=== PATIENT | female | born 1980 | race American Indian/Alaskan Native ===

== ENCOUNTER 2021-02-10 05:13 | Inpatient (IN) | payer OTHER, SELFPAY ==
[2021-02-10] MEDS ORDERED: ASPIRIN 325 MG TAB PO ONE (05:50)
[2021-02-10 06:20] LABS: Basophils % (Auto) 0.4 % (0.0-1.8); Hematocrit 33.1 % (30.3-42.9); Hemoglobin 10.8 gm/dl (10.1-14.3); Lymphocytes # (Auto) 1.1 K/mm3 (1.2-5.4); Mean Corpuscular HGB Conc 33 % (30-34); Mean Corpuscular Volume 71 fl (79-97); Monocytes # (Auto) 0.3 K/mm3 (0.0-0.8); Platelet Count 296 K/mm3 (140-440); Red Blood Count 4.65 M/mm3 (3.65-5.03); Red Cell Distribution Width 16.5 % (13.2-15.2)
[2021-02-10] MEDS ORDERED: SODIUM CHLORIDE 0.9% 1000 ML 1,000 ML IV ONE (06:27)
[2021-02-10] MEDS ORDERED: dexAMETHasone 4 MG/ML VIAL IV ONE (06:31)
--- NOTE | 2021-02-10 06:31 | Emergency Department Report ---
HPI - General Chief Complaint: Chest Pain Time Seen by Provider: 02/10/21 06:03 - HPI HPI: This patient is a 40-year-old -L[place] female who presents to the emergency department from home with complaint of a 1 week history of generalized body aches, chills, and progressively worsening shortness of breath. Over the past 2 days the patient says that she has developed a fever. She also has an intermittent mixed dry and productive cough. The shortness of breath worsens when she is laying down flat and she then feels like she is choking on sec retions. She took ibuprofen and Tylenol this morning around 1:40 AM without much relief. The patient is not vaccinated against COVID-19. No known exposure to anyone with COVID-19. No recent travel or sick contacts at home. She has a past medical history of diabetes. Patient was found to have a room air oxygen saturation of 78% in triage and was placed on 4 L oxygen via nasal cannula and went up to 90%. ED Past Medical Hx - Past Medical History Previous Medical History?: Yes Hx Diabetes: Yes Additional medical history: Right Knee Construction with pins and Screws uses a cane - Surgical History Past Surgical History?: Yes Additional Surgical History: Right Knee Construction with pins and screws ED Review of Systems ROS: Stated complaint: SOB CHEST PAIN Other details as noted in HPI Comment: All other systems reviewed and negative Constitutional: chills, fever Eyes: denies: eye pain, vision change ENT: denies: ear pain, throat pain Respiratory: cough, shortness of breath Cardiovascular: chest pain. denies: edema Gastrointestinal: denies: abdominal pain, vomiting Genitourinary: denies: dysuria, discharge Musculoskeletal: arthralgia, myalgia Skin: denies: rash, lesions Neurological: denies: numbness, paresthesias Physical Exam - Physical Exam Vital Signs: Vital Signs 02/10/21 02/10/21 05:26 06:15 Temperature 99.5 F Pulse Rate 121 H 113 H Respiratory 20 40 H Rate Blood Pressure 170/101 156/99 [Right] O2 Sat by Pulse 78 L 93 Oximetry Physical Exam: GENERAL: The patient is ill-appearing. HENT: Normocephalic. Atraumatic. Patient has moist mucous membranes. EYES: Extraocular motions are intact. NECK: Supple. Trachea is midline. CHEST/LUNGS: Mild rhonchi heard. There is tachypnea, accessory muscle use, and conversational dyspnea. HEART/CARDIOVASCULAR: Regular. There is mild to moderate tachycardia. There is no murmur. ABDOMEN: Abdomen is soft, nontender. Patient has normal bowel sounds. Morbidly obese habitus. SKIN: Skin is warm and dry. NEURO: The patient is awake, alert, and oriented. The patient is cooperative. The patient has no focal neurologic deficits. Normal speech. MUSCULOSKELETAL: There is no tenderness or deformity. There is no limitation range of motion. ED Course Vital Signs 02/10/21 02/10/21 05:26 06:15 Temperature 99.5 F Pulse Rate 121 H 113 H Respiratory 20 40 H Rate Blood Pressure 170/101 156/99 [Right] O2 Sat by Pulse 78 L 93 Oximetry - Pulse Oximetry Interpretation Digit-Finger Initial Pulse Oximetry Readin O2 Sat by Pulse Oximetry: 78 Actions Taken: increased FIO2 to (Patient placed on 5 L via nasal cannula and then on high flow oxygen) ED Medical Decision Making - Lab Data Result diagrams: 02/10/21 06:00 02/10/21 06:00 Lab Results 02/10/21 02/10/21 02/10/21 Range/Units 06:00 06:00 06:36 WBC 6.4 (4.5-11.0) K/mm3 RBC 4.65 (3.65-5.03) M/mm3 Hgb 10.8 (10.1-14.3) gm/dl Hct 33.1 (30.3-42.9) % MCV 71 L (79-97) fl MCH 23 L (28-32) pg MCHC 33 (30-34) % RDW 16.5 H (13.2-15.2) % Plt Count 296 (140-440) K/mm3 Lymph % (Auto) 18.0 (13.4-35.0) % [place] % (Auto) 5.0 (0.0-7.3) % Eos % (Auto) 0.0 (0.0-4.3) % Baso % (Auto) 0.4 (0.0-1.8) % Lymph # (Auto) 1.1 L (1.2-5.4) K/mm3 [place] # (Auto) 0.3 (0.0-0.8) K/mm3 Eos # (Auto) 0.0 (0.0-0.4) K/mm3 Baso # (Auto) 0.0 (0.0-0.1) K/mm3 Seg Neutrophils % 76.6 H (40.0-70.0) % Seg Neutrophils # 4.9 (1.8-7.7) K/mm3 D-Dimer < 135.00 (0-234) ng/mlDDU Sodium 137 (137-145) mmol/L Potassium 4.0 (3.6-5.0) mmol/L Chloride 97.7 L (98-107) mmol/L Carbon Dioxide 27 (22-30) mmol/L Anion Gap 16 mmol/L BUN 6 L (7-17) mg/dL Creatinine 0.9 (0.6-1.2) mg/dL Estimated GFR > 60 ml/min BUN/Creatinine Ratio 7 % Glucose 295 H (65-100) mg/dL Calcium 8.9 (8.4-10.2) mg/dL Ferritin (10.0-200.0) ng/mL Total Bilirubin 0.20 (0.1-1.2) mg/dL AST 37 (5-40) units/L ALT 21 (7-56) units/L Alkaline Phosphatase 89 (35-129) units/L Lactate Dehydrogenase (91-180) units/L Troponin T < 0.010 (0.00-0.029) ng/mL C-Reactive Protein (0.00-1.30) mg/dL Total Protein 7.4 (6.3-8.2) g/dL Albumin 3.8 L (3.9-5) g/dL Albumin/Globulin Ratio 1.1 % Procalcitonin (<0.15) ng/mL HCG, Qual (Negative) 02/10/21 02/10/21 02/10/21 Range/Units 06:36 06:36 06:36 WBC (4.5-11.0) K/mm3 RBC (3.65-5.03) M/mm3 Hgb (10.1-14.3) gm/dl Hct (30.3-42.9) % MCV (79-97) fl MCH (28-32) pg MCHC (30-34) % RDW (13.2-15.2) % Plt Count (140-440) K/mm3 Lymph % (Auto) (13.4-35.0) % [place] % (Auto) (0.0-7.3) % Eos % (Auto) (0.0-4.3) % Baso % (Auto) (0.0-1.8) % Lymph # (Auto) (1.2-5.4) K/mm3 [place] # (Auto) (0.0-0.8) K/mm3 Eos # (Auto) (0.0-0.4) K/mm3 Baso # (Auto) (0.0-0.1) K/mm3 Seg Neutrophils % (40.0-70.0) % Seg Neutrophils # (1.8-7.7) K/mm3 D-Dimer (0-234) ng/mlDDU Sodium (137-145) mmol/L Potassium (3.6-5.0) mmol/L Chloride (98-107) mmol/L Carbon Dioxide (22-30) mmol/L Anion Gap mmol/L BUN (7-17) mg/dL Creatinine (0.6-1.2) mg/dL Estimated GFR ml/min BUN/Creatinine Ratio % Glucose (65-100) mg/dL Calcium (8.4-10.2) mg/dL Ferritin 100.0 (10.0-200.0) ng/mL Total Bilirubin (0.1-1.2) mg/dL AST (5-40) units/L ALT (7-56) units/L Alkaline Phosphatase (35-129) units/L Lactate Dehydrogenase 325 H (91-180) units/L Troponin T (0.00-0.029) ng/mL C-Reactive Protein 8.20 H (0.00-1.30) mg/dL Total Protein (6.3-8.2) g/dL Albumin (3.9-5) g/dL Albumin/Globulin Ratio % Procalcitonin 0.06 (<0.15) ng/mL HCG, Qual (Negative) 02/10/21 Range/Units 06:36 WBC (4.5-11.0) K/mm3 RBC (3.65-5.03) M/mm3 Hgb (10.1-14.3) gm/dl Hct (30.3-42.9) % MCV (79-97) fl MCH (28-32) pg MCHC (30-34) % RDW (13.2-15.2) % Plt Count (140-440) K/mm3 Lymph % (Auto) (13.4-35.0) % [place] % (Auto) (0.0-7.3) % Eos % (Auto) (0.0-4.3) % Baso % (Auto) (0.0-1.8) % Lymph # (Auto) (1.2-5.4) K/mm3 [place] # (Auto) (0.0-0.8) K/mm3 Eos # (Auto) (0.0-0.4) K/mm3 Baso # (Auto) (0.0-0.1) K/mm3 Seg Neutrophils % (40.0-70.0) % Seg Neutrophils # (1.8-7.7) K/mm3 D-Dimer (0-234) ng/mlDDU Sodium (137-145) mmol/L Potassium (3.6-5.0) mmol/L Chloride (98-107) mmol/L Carbon Dioxide (22-30) mmol/L Anion Gap mmol/L BUN (7-17) mg/dL Creatinine (0.6-1.2) mg/dL Estimated GFR ml/min BUN/Creatinine Ratio % Glucose (65-100) mg/dL Calcium (8.4-10.2) mg/dL Ferritin (10.0-200.0) ng/mL Total Bilirubin (0.1-1.2) mg/dL AST (5-40) units/L ALT (7-56) units/L Alkaline Phosphatase (35-129) units/L Lactate Dehydrogenase (91-180) units/L Troponin T (0.00-0.029) ng/mL C-Reactive Protein (0.00-1.30) mg/dL Total Protein (6.3-8.2) g/dL Albumin (3.9-5) g/dL Albumin/Globulin Ratio % Procalcitonin (<0.15) ng/mL HCG, Qual Negative (Negative) - EKG Data -: EKG Interpreted by [place] EKG shows normal: sinus rhythm, axis, intervals, QRS complexes, ST-T waves Rate: tachycardia (119 bpm) - EKG Data When compared to previous EKG there are: previous EKG unavailable Interpretation: normal EKG (Except for tachycardia 119 BPM) - Radiology Data Radiology results: image reviewed interpreted by me: Chest x-ray shows bilateral patchy infiltrates concerning for pneumonia. No widened mediastinum. No pneumothorax. - Medical Decision Making This patient presents with URI type symptoms including gradually worsening shortness of breath. She was found to have a room air pulse ox of 78%. Initially she was placed on oxygen via nasal cannula at 5 L but still had some hypoxia and increased work of breathing. The patient was placed on high flow oxygen and goes up to about 95%. Chest x-ray shows bilateral patchy infiltrates concerning for pneumonia. With the hypoxia, chest x-ray findings, and the fact the patient is unvaccinated against COVID-19, there is high suspicion for a Covid infection. She has been placed in droplet precautions and patient isolation. Labs have been mostly unremarkable except for elevated inflammatory markers CRP and LDH. Patient was given Decadron, IV fluid and IV antibiotics. She will be admitted to the hospital and was accepted by Dr. Kenny. The patient was placed in patient isolation and droplet precautions immediately upon arrival to the main emergency department. I wore full PPE gear including a surgical hat, goggles, N95 mask, surgical mask, gown, and double gloves for every encounter. Critical Care Time: Yes Critical care time in (mins) excluding proc time.: 35 Critical care attestation.: If time is entered above; I have spent that time in minutes in the direct care of this critically ill patient, excluding procedure time. Critical care time was spent on this patient during her initial evaluation, multiple reevaluations, ordering and interpretation of labs and imaging IV Decadron, supplemental ox ygen for her hypoxia, IV antibiotics, multiple discussions with the patient. Critical Care Time: 35 minutes ED Disposition Clinical Impression: Hypoxia, Suspected 2019 novel coronavirus infection Hypertension Qualifiers: Hypertension type: primary hypertension Qualified Code(s): I10 - Essential (primary) hypertension Disposition: OP ADMIT IP TO THIS HOSP Is pt being admited?: Yes Condition: Serious Time of Disposition: 07:32 HEART Score - HEART Score History: Slightly suspicious EKG: Normal Age: < 45 Risk factors: No known risk factors Troponin: < normal limit HEART Score: 0 - Critical Actions Critical Actions: 0-3 pts:0.9-1.7%risk of adverse cardiac event.Candidate for discharge
--- NOTE | 2021-02-10 06:41 | XRay Report ---
CHEST 1 VIEW INDICATION: Chest pain and SOB. COMPARISON: None FINDINGS: SUPPORT DEVICES: None. HEART: Within normal limits. LUNGS/PLEURA: Mild patchy multifocal airspace disease. ADDITIONAL FINDINGS: None. IMPRESSION: 1. No acute findings. Signer Name: Tarun Fallon MD Signed: 02/10/2021 6:37 AM Workstation Name: [id number]
[2021-02-10 06:47] LABS: Alanine Aminotransferase 21 units/L (7-56); Albumin 3.8 g/dL (3.9-5); BUN/Creatinine Ratio 7; Blood Urea Nitrogen 6 mg/dL (7-17); Calcium 8.9 mg/dL (8.4-10.2); Hemolysis Index 0
[2021-02-10 07:17] LABS: C-Reactive Protein 8.2 mg/dL (0.00-1.30)
[2021-02-10] MEDS ORDERED: cefTRIAXone/NS 1 GM/50 ML 1 GM/50 ML BAG IV ONE (07:33)
[2021-02-10] MEDS ORDERED: AZITHROMYCIN/NS 500 MG/250 ML 500 MG/250 ML BAG IV ONE (07:33)
--- NOTE | 2021-02-10 13:41 | History and Physical Report ---
History of Present Illness Date of examination: 02/10/21 Date of admission: 02/10/21 07:32 Chief complaint: Worsening shortness of breath and chest pain History of present illness: 40-year-old morbidly obese -[place] female patient presents to the emergency department from home with complaint of a 1 week history of generalized body aches, chills, and progressively worsening shortness of breath. Over the past 2 days the patient says that she has developed a fever. She also has an intermittent mixed dry and productive cough. The shortness of breath worsens when she is laying down flat and she then feels like she is choking on secretions. She took ibuprofen and Tylenol this morning around 1:40 AM without much relief. Patient denies any exposure to Covid 19 persons . No recent travel or sick contacts at home. She has a past medical history of diabetes. Initial examination patient was severely hypoxemic with room air O2 sats of 78%, mild improvement on 4 L of nasal cannula oxygen Patient was initially supposed to admit for PUI However [facility] PCR test came back positive for COVID-19 infection Patient is severely hypoxemic requiring high flow oxygen with 20 L/100% FiO2 89 to 90%O2 sats Patient is anxious, Patient is not vaccinated against COVID-19. Past History Past Medical History: diabetes. denies: hypertension Past Surgical History: Other (Right knee surgery) Social history: denies: smoking, alcohol abuse, prescription drug abuse Family history: no significant family history Medications and Allergies Allergies Allergy/AdvReac Type Severity Reaction Status Date / Time No Known Allergies Allergy Verified 02/10/21 06:05 Exam - Constitutional Vitals: Temp Pulse Resp BP Pulse Ox 99.4 F 109 H 29 H 167/106 93 02/10/21 08:25 02/10/21 13:01 02/10/21 13:01 02/10/21 13:01 02/10/21 13:01 General appearance: Present: severe distress, well-nourished, obese (Morbidly obese) - EENT Eyes: Present: PERRL, EOM intact - Neck Neck: Present: supple, normal ROM - Respiratory Respiratory effort: normal Respiratory: bilateral: diminished, rhonchi, negative: rales, wheezing - Cardiovascular Rhythm: regular Heart Sounds: Present: S1 & S2 (Tachycardia) - Extremities Extremities: no ischemia, No edema - Abdominal General gastrointestinal: Present: soft, non-tender, non-distended, normal bowel sounds - Integumentary Integumentary: Present: clear, warm - Musculoskeletal Musculoskeletal: strength equal bilaterally - Psychiatric Psychiatric: cooperative, other (Anxious) - Neurologic Neurologic: moves all extremities HEART Score - HEART Score EKG: Normal Age: < 45 Risk factors: No known risk factors Troponin: Troponin T < 0.010 ng/mL (0.00-0.029) 02/10/21 09:09 Troponin: < normal limit - Critical Actions Critical Actions: 0-3 pts:0.9-1.7%risk of adverse cardiac event.Candidate for discharge Results - Labs CBC & Chem 7: 02/10/21 06:00 02/10/21 06:00 Labs: Abnormal lab results 02/10/21 02/10/21 02/10/21 Range/Units 06:00 06:00 06:36 MCV 71 L (79-97) fl MCH 23 L (28-32) pg RDW 16.5 H (13.2-15.2) % Lymph # (Auto) 1.1 L (1.2-5.4) K/mm3 Seg Neutrophils % 76.6 H (40.0-70.0) % Chloride 97.7 L (98-107) mmol/L BUN 6 L (7-17) mg/dL Glucose 295 H (65-100) mg/dL Lactate Dehydrogenase 325 H (91-180) units/L C-Reactive Protein 8.20 H (0.00-1.30) mg/dL Albumin 3.8 L (3.9-5) g/dL Coronavirus (PCR) (Negative) 02/10/21 Range/Units 08:28 MCV (79-97) fl MCH (28-32) pg RDW (13.2-15.2) % Lymph # (Auto) (1.2-5.4) K/mm3 Seg Neutrophils % (40.0-70.0) % Chloride (98-107) mmol/L BUN (7-17) mg/dL Glucose (65-100) mg/dL Lactate Dehydrogenase (91-180) units/L C-Reactive Protein (0.00-1.30) mg/dL Albumin (3.9-5) g/dL Coronavirus (PCR) Positive A (Negative) Assessment and Plan Patient is not vaccinated; --COVID-19 infection; Patient was not vaccinated Oxygen titrate O2 sats to more than 90% Patient is on high flow oxygen with 100% nonrebreather IV dexamethasone 6 mg total 10 doses Initiated remdesivir per protocol Prone positioning as tolerated Home O2 evaluation Inflammatory markers Anticoagulation per protocols ID consult Pulmonary consult --Acute severe hypoxic respiratory failure; On high flow oxygen, 100% nonrebreather, BiPAP as needed Intubate if no improvement Discussed with pulmonary critical Hospital IMCU/ICU admission --Morbid obesity; BMI 46.6 Patient needs weight reduction when medically stable Sleep study to rule out obstructive sleep apnea --Obesity hypoventilation syndrome; Pulmonary consult, titrate O2 sats to more than 90% Supportive care --DVT prophylaxis; Lovenox --GI prophylaxis; Protonix We will closely monitor patient and adjust the management as needed Plan of care reviewed with the patient and her nurse I spent total 60 minutes coordinating this admission Critical care time 60 minutes
[2021-02-10] MEDS ORDERED: hydrALAZINE 20 MG/1 ML INJ IV PRN (13:57)
[2021-02-10 14:04] LABS: Bacteria,Urine 1+ /HPF (Negative); Bilirubin,Urine NEG (Negative); Blood,Urine SM (Negative); Color,Urine Yellow (Yellow); Urobilinogen,Urine < 2.0 mg/dL (<2.0)
[2021-02-10] MEDS ORDERED: REMDESIVIR 200 MG in SODIUM CHLORIDE 0.9% 250ML 250 ML IV ONE (15:00)
[2021-02-10] MEDS: dexAMETHasone 4 MG/ML VIAL IV SCH (15:09)
[2021-02-10] MEDS: SODIUM CHLORIDE 0.9% 50 ML IVPB IV SCH (15:28)
--- NOTE | 2021-02-10 15:35 | Consultation ---
History of Present Illness - Reason for Consult Consult date: 02/10/21 - History of Present Illness 40-year-old female past medical history morbid obesity, diabetes presented to hospital complaining of shortness of breath. This began approximately 1 week prior to admission and was progressive since onset. She also complains of associated myalgias, chills and subjective fevers. She was not vaccinated needs COVID-19. Afebrile with a normal white count. Covid positive. Renal function normal. Procalcitonin normal. Elevated inflammatory markers. Blood cultures no growth so far. Currently on dexamethasone, azithromycin, remdesivir. currently on high flow nasal cannula Imaging personally reviewed: Chest x-ray: Mild patchy multifocal airspace disease Review of systems: Deferred to reduce to the risk of transmission of COVID-19 Past History Past Medical History: diabetes. denies: hypertension Past Surgical History: Other (Right knee surgery) Social history: denies: smoking, alcohol abuse, prescription drug abuse Family history: no significant family history Medications and Allergies Allergies Allergy/AdvReac Type Severity Reaction Status Date / Time No Known Allergies Allergy Verified 02/10/21 06:05 Active Meds: Active Medications Ascorbic Acid (Ascorbic Acid 500 Mg Tab) 500 mg PO BID SALUD Dexamethasone (Dexamethasone 4 Mg/Ml Vial) 6 mg IV DAILY [facility] Stop: 02/19/21 10:01 Last Admin: 02/10/21 15:09 Dose: 6 mg Documented by: Hydralazine HCl (Hydralazine 20 Mg/1 Ml Inj) 10 mg IV Q4HR PRN PRN Reason: Hypertension Hydromorphone HCl (Hydromorphone 1 Mg/1 Ml Inj) 0.5 mg IM Q4H PRN PRN Reason: Pain , Severe (7-10) REMDESIVIR 100 mg/ Sodium (Chloride) 250 mls @ 500 mls/hr IV Q24HR@2100 SALUD Stop: 02/14/21 21:29 Azithromycin (Zithromax/Ns) 500 mg in 250 mls @ 250 mls/hr IV Q24H SALUD Insulin Human Lispro (Insulin Lispro 100 Unit/Ml) 0 unit SUB-Q ACHS SALUD; Protocol Sodium Chloride (Sodium Chloride 0.9% 50 Ml Ivpb) 50 ml IV Q24HR@2100 SALUD Stop: 02/14/21 21:01 Last Admin: 02/10/21 15:28 Dose: 50 ml Documented by: Zinc Sulfate (Zinc Sulfate 220 Mg Cap) 220 mg PO BID SALUD Physical Examination - Physical Exam Narrative exam: Physical exam deferred to reduce risk of transmission of COVID-19. Please refer to primary team's note. - Constitutional Vitals: Vital Signs Temp Pulse Resp BP Pulse Ox 99.4 F 110 H 16 151/93 94 02/10/21 08:25 02/10/21 15:01 02/10/21 15:01 02/10/21 15:01 02/10/21 14:31 Temperature -Last 24 Hours Temperature 99.4 F Temperature 99.5 F Results - Labs CBC & Chem 7: 02/10/21 06:00 02/10/21 06:00 Labs: Abnormal lab results 02/10/21 02/10/21 02/10/21 Range/Units 06:00 06:00 06:36 MCV 71 L (79-97) fl MCH 23 L (28-32) pg RDW 16.5 H (13.2-15.2) % Lymph # (Auto) 1.1 L (1.2-5.4) K/mm3 Seg Neutrophils % 76.6 H (40.0-70.0) % POC ABG pO2 (83-108) mmHg ABG Hemoglobin (12.0-17.5) ABG Oxyhemoglobin (94-98) ABG Glucose (65-95) mg/dL Carboxyhemoglobin (0.5-1.5) Chloride 97.7 L (98-107) mmol/L BUN 6 L (7-17) mg/dL Glucose 295 H (65-100) mg/dL Lactate Dehydrogenase 325 H (91-180) units/L C-Reactive Protein 8.20 H (0.00-1.30) mg/dL Albumin 3.8 L (3.9-5) g/dL Arterial Blood Glucose (65-95) mg/dL Coronavirus (PCR) (Negative) 02/10/21 02/10/21 Range/Units 08:28 14:37 MCV (79-97) fl MCH (28-32) pg RDW (13.2-15.2) % Lymph # (Auto) (1.2-5.4) K/mm3 Seg Neutrophils % (40.0-70.0) % POC ABG pO2 58.8 L (83-108) mmHg ABG Hemoglobin 11.2 L (12.0-17.5) ABG Oxyhemoglobin 88.2 L (94-98) ABG Glucose 343 H (65-95) mg/dL Carboxyhemoglobin 0 L (0.5-1.5) Chloride (98-107) mmol/L BUN (7-17) mg/dL Glucose (65-100) mg/dL Lactate Dehydrogenase (91-180) units/L C-Reactive Protein (0.00-1.30) mg/dL Albumin (3.9-5) g/dL Arterial Blood Glucose 343 H (65-95) mg/dL Coronavirus (PCR) Positive A (Negative) Assessment and Plan Cultures: Blood culture no growth so far Covid positive A/P: 32-year-old female past medical history morbid obesity, diabetes and Covid pneumonia #Severe COVID-19 pneumonia: Patient presented with a week of symptoms, chest x- ray with diffuse bilateral infiltrates. Inflammatory markers elevated #Acute hypoxemic respiratory failure: Likely secondary to COVID-19 infection. Currently on high flow nasal cannula #Morbid obesity #Diabetes: tight glycemic control for best outcomes. Recs: -Dexamethasone 6 mg IV/PO daily for 10 days -Remdesivir 200 mg IV q day x 1 followed by 100 mg IV q day x 4 days -Obtain q48-72h inflammatory markers - ferritin, Ddimer, CRP, LDH -Stopped azithromycin -If requiring 30 L/min-nasal cannula, recommend Actemra -Anticoagulation per hospital protocol -Proning as able Thank you for the consult, we will continue to follow. MD Lukasz [facility] ([facility] O: [phone] F: [phone]
[2021-02-10 15:49] LABS: Alanine Aminotransferase 18 units/L (7-56); Albumin 3.4 g/dL (3.9-5); BUN/Creatinine Ratio 8; Blood Urea Nitrogen 6 mg/dL (7-17); Calcium 8.8 mg/dL (8.4-10.2); Hemolysis Index 1
[2021-02-10] MEDS: INSULIN LISPRO 100 UNIT/ML SUB-Q SCH ×2 (17:14→21:54)
--- NOTE | 2021-02-10 20:07 | Consultation ---
History of Present Illness Consult date: 02/10/21 Reason for consult: dyspnea, cough, chest pain, hypoxemia, pneumonia History of present illness: This patient is a 40-year-old -Citizen Of [place] female who presents to the emergency department from home with complaint of a 1 week history of generalized body aches, chills, and progressively worsening shortness of breath. Over the past 2 days the patient says that she has developed a fever. She also has an intermittent mixed dry and productive cough. The shortness of breath worsens when she is laying down flat and she then feels like she is choking on secretions. She took ibuprofen and Tylenol this morning around 1:40 AM without much relief. The patient is not vaccinated against COVID-19. No known exposure to anyone with COVID-19. No recent travel or sick contacts at home. She has a past medical history of diabetes. Patient was found to have a room air oxygen saturation of 78% in triage and was placed on 4 L oxygen via nasal cannula and went up to 90%. Patient has no history of smoking, alcohol or drug abuse. 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 No Known drug allergies. Patient presently awake. Patient is on Vapotherm ,100% FIO2 and O2 saturation running 92%. Patient having slight increase in work of breathing. Patient running low grade temp. No Leukocytosis. Chest xray done 02/10/21 reported Mild patchy multifocal airspace disease. Patient is on dexamethasone, REMDESIVIR, S/C Lovenox and azithromycin. Past History Past Medical History: diabetes. denies: hypertension Past Surgical History: Other (Right knee surgery) Social history: denies: smoking, alcohol abuse, prescription drug abuse Family history: no significant family history Medications and Allergies Allergies Allergy/AdvReac Type Severity Reaction Status Date / Time No Known Allergies Allergy Verified 02/10/21 06:05 Home Medications Medication Instructions Recorded Confirmed Last Taken Type Aspirin [Adult Aspirin] 81 mg PO DAILY 02/10/21 02/10/21 Unknown History metFORMIN 100 mg PO BID 02/10/21 02/10/21 Unknown History Active Meds: Active Medications Ascorbic Acid (Ascorbic Acid 500 Mg Tab) 500 mg PO BID [facility] Dexamethasone (Dexamethasone 4 Mg/Ml Vial) 6 mg IV DAILY SALUD Stop: 02/19/21 10:01 Last Admin: 02/10/21 15:09 Dose: 6 mg Documented by: Hydralazine HCl (Hydralazine 20 Mg/1 Ml Inj) 10 mg IV Q4HR PRN PRN Reason: Hypertension Hydromorphone HCl (Hydromorphone 1 Mg/1 Ml Inj) 0.5 mg IM Q4H PRN PRN Reason: Pain , Severe (7-10) REMDESIVIR 100 mg/ Sodium (Chloride) 250 mls @ 500 mls/hr IV Q24HR@2100 SALUD Stop: 02/14/21 21:29 Azithromycin (Zithromax/Ns) 500 mg in 250 mls @ 250 mls/hr IV Q24H SALUD Insulin Human Lispro (Insulin Lispro 100 Unit/Ml) 0 unit SUB-Q ACHS SALUD; Protocol Last Admin: 02/10/21 17:14 Dose: 4 unit Documented by: Sodium Chloride (Sodium Chloride 0.9% 50 Ml Ivpb) 50 ml IV Q24HR@2100 SALUD Stop: 02/14/21 21:01 Last Admin: 02/10/21 15:28 Dose: 50 ml Documented by: Zinc Sulfate (Zinc Sulfate 220 Mg Cap) 220 mg PO BID [facility] Review of Systems All systems: negative Physical Examination Vital signs: Vital Signs Temp Pulse Resp BP Pulse Ox 99.5 F 121 H 20 170/101 78 L 02/10/21 05:26 02/10/21 05:26 02/10/21 05:26 02/10/21 05:26 02/10/21 05:26 General appearance: alert, appears uncomfortable, other (Morbidly Obese and has mild increased of breathing.) Eyes: non-icteric ENT: oropharynx moist Neck: supple, no JVD Effort: mildly labored Ascultation: Bilateral: diminished breath sounds, rhonchi Cardiovascular: regular rate and rhythm Gastrointestinal: normoactive bowel sounds, soft, non-tender Integumentary: normal Extremities: no cyanosis, no edema Musculoskeletal: no deformities Gait: other (Resting in bed at this time.) normal mental status, non-focal exam, pupils equal and round, CN II-XII normal anxious Results - Laboratory Findings CBC and BMP: 02/10/21 06:00 02/11/21 09:59 ABG ABG pH 7.352 (7.320-7.450) 02/10/21 14:37 POC ABG pCO2 43.3 mmHg (32.0-48.0) 02/10/21 14:37 POC ABG pO2 58.8 mmHg (83-108) L 02/10/21 14:37 POC ABG HCO3 23.5 02/10/21 14:37 ABG O2 Saturation 88.5 (0-100) 02/10/21 14:37 PT/INR, D-dimer D-Dimer < 135.00 ng/mlDDU (0-234) 02/10/21 06:36 Abnormal lab findings: Abnormal Labs 02/10/21 02/10/21 02/10/21 06:00 06:00 06:36 MCV 71 L MCH 23 L RDW 16.5 H Lymph # (Auto) 1.1 L Seg Neutrophils % 76.6 H POC ABG pO2 ABG Hemoglobin ABG Oxyhemoglobin ABG Glucose Carboxyhemoglobin Sodium Chloride 97.7 L BUN 6 L Glucose 295 H POC Glucose Hemoglobin A1c Lactate Dehydrogenase 325 H C-Reactive Protein 8.20 H Albumin 3.8 L Arterial Blood Glucose Coronavirus (PCR) 02/10/21 02/10/21 02/10/21 08:28 14:29 14:29 MCV MCH RDW Lymph # (Auto) Seg Neutrophils % POC ABG pO2 ABG Hemoglobin ABG Oxyhemoglobin ABG Glucose Carboxyhemoglobin Sodium 135 L Chloride 97.0 L BUN 6 L Glucose 308 H POC Glucose Hemoglobin A1c 10.5 H Lactate Dehydrogenase C-Reactive Protein Albumin 3.4 L Arterial Blood Glucose Coronavirus (PCR) Positive A 02/10/21 02/10/21 14:37 16:49 MCV MCH RDW Lymph # (Auto) Seg Neutrophils % POC ABG pO2 58.8 L ABG Hemoglobin 11.2 L ABG Oxyhemoglobin 88.2 L ABG Glucose 343 H Carboxyhemoglobin 0 L Sodium Chloride BUN Glucose POC Glucose 289 H Hemoglobin A1c Lactate Dehydrogenase C-Reactive Protein Albumin Arterial Blood Glucose 343 H Coronavirus (PCR) - Diagnostic Findings Chest x-ray: report reviewed, image reviewed Additional studies: CHEST 1 VIEW 02/10/21 INDICATION: Chest pain and SOB. COMPARISON: None FINDINGS: SUPPORT DEVICES: None. HEART: Within normal limits. LUNGS/PLEURA: Mild patchy multifocal airspace disease. ADDITIONAL FINDINGS: None. IMPRESSION: 1. No acute findings. Assessment and Plan This patient is a 40-year-old -Citizen Of [place] female who presents to the emergency department from home with complaint of a 1 week history of generalized body aches, chills, and progressively worsening shortness of breath. Over the past 2 days the patient says that she has developed a fever. She also has an intermittent mixed dry and productive cough. The shortness of breath worsens when she is laying down flat and she then feels like she is choking on secretions. She took ibuprofen and Tylenol this morning around 1:40 AM without much relief. The patient is not vaccinated against COVID-19. No known exposure to anyone with COVID-19. No recent travel or sick contacts at home. She has a past medical history of diabetes. Patient was found to have a room air oxygen saturation of 78% in triage and was placed on 4 L oxygen via nasal cannula and went up to 90%. Patient has no history of smoking, alcohol or drug abuse. 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 No Known drug allergies. Patient presently awake. Patient is on Vapotherm ,100% FIO2 and O2 saturation ru nning 92%. Patient having slight increase in work of breathing. Patient running low grade temp. No Leukocytosis. Chest xray done 02/10/21 reported Mild patchy multifocal airspace disease. Patient is on dexamethasone, REMDESIVIR, S/C Lovenox and azithromycin. Patient was seen in the emergency room I spent critical care time of 50 minutes on this patient, obtaining history, review the chart, review chest xray,Lab results, talking to the nursing staff and respiratory therapy and work out plan of tratment on this critically ill COVID Patient. - Patient Problems (1) Acute respiratory failure with hypoxia Current Visit: Yes Status: Acute Plan to address problem: Patient is on Vapotherm, FIO2 100%. Continue dexamethasone. Continue S/C Lovenox. (2) 2019 novel coronavirus disease (COVID-19) Current Visit: Yes Status: Acute Plan to address problem: Patient is on Dexamethasone, REMDESIVIR and S/C Lovenox. Management as per nfectious disease. (3) 2019 novel coronavirus-infected pneumonia (NCIP) Current Visit: Yes Status: Acute Plan to address problem: Chest xray done 02/10/21 reported Mild patchy multifocal airspace disease. Patient was given zithromax. Antibiotic management as per ID. (4) Hypertension Current Visit: Yes Status: Acute Qualifiers: Hypertension type: primary hypertension Qualified Code(s): I10 - Essential (primary) hypertension Plan to address problem: Patients blood pressure 153/92. Management as per primary care.
[2021-02-10] MEDS: ASCORBIC ACID 500 MG TAB PO SCH (21:54)
[2021-02-10] MEDS: ZINC SULFATE 220 MG CAP PO SCH (21:54)
[2021-02-11] MEDS: HYDROmorphone 1 MG/1 ML INJ IM PRN ×3 (00:20→19:23)
[2021-02-11] MEDS: INSULIN LISPRO 100 UNIT/ML SUB-Q SCH ×4 (08:06→22:32)
--- NOTE | 2021-02-11 09:44 | Progress Note ---
Assessment and Plan Assessment and plan: Patient is not vaccinated; Remains on high flow nasal cannula oxygen --COVID-19 infection; Patient is on high flow oxygen with 100% nonrebreather IV dexamethasone 6 mg total 10 doses Continue remdesivir per protocol Prone positioning as tolerated Home O2 evaluation Inflammatory markers Anticoagulation per protocols ID evaluation noted and appreciated Pulmonary evaluation noted and appreciated --Acute severe hypoxic respiratory failure; Patient is on high flow nasal cannula oxygen 25 L 100% 90% FiO2 Nonrebreather, Intubate if no improvement Discussed with pulmonary critical --Morbid obesity; BMI 46.6 Patient needs weight reduction when medically stable Sleep study to rule out obstructive sleep apnea --Obesity hypoventilation syndrome; Pulmonary consult, titrate O2 sats to more than 90% Supportive care --DVT prophylaxis; Lovenox --GI prophylaxis; Protonix We will closely monitor patient and adjust the management as needed Plan of care reviewed with the patient and her nurse Consultants and recommendations noted and appreciated 02/11/21; Patient Covid positive, severely hypoxemic On high flow oxygen, ID pulmonary following History Interval history: I have seen and examined the patient at the bedside Isolation precautions PPE protocols observed per COVID-19 guidelines Patient's chart and medications reviewed COVID-19 patient on high flow oxygen 40 L morbidly obese in severe distress Vital signs reviewed Hospitalist Physical - Constitutional Vitals: Temp Pulse Resp BP Pulse Ox 99.4 F 104 H 23 149/87 100 02/10/21 08:25 02/11/21 06:01 02/11/21 06:03 02/11/21 06:01 02/11/21 06:01 General appearance: Present: severe distress, well-nourished, obese (Morbidly obese) - EENT Eyes: Present: PERRL, EOM intact - Neck Neck: Present: supple, normal ROM - Respiratory Respiratory effort: normal Respiratory: bilateral: diminished, negative: rales, rhonchi, wheezing - Cardiovascular Rhythm: regular Heart Sounds: Present: S1 & S2 - Extremities Extremities: no ischemia, No edema - Abdominal General gastrointestinal: soft, non-tender, non-distended, normal bowel sounds - Integumentary Integumentary: Present: clear, warm - Psychiatric Psychiatric: appropriate mood/affect, cooperative - Neurologic Neurologic: CNII-XII intact, moves all extremities HEART Score - HEART Score EKG: Normal Age: < 45 Risk factors: No known risk factors Troponin: Troponin T < 0.010 ng/mL (0.00-0.029) 02/10/21 09:09 Troponin: < normal limit - Critical Actions Critical Actions: 0-3 pts:0.9-1.7%risk of adverse cardiac event.Candidate for discharge Results - Labs CBC & Chem 7: 02/10/21 06:00 02/12/21 05:28 Labs: Laboratory Last Values WBC 6.4 K/mm3 (4.5-11.0) 02/10/21 06:00 RBC 4.65 M/mm3 (3.65-5.03) 02/10/21 06:00 Hgb 10.8 gm/dl (10.1-14.3) 02/10/21 06:00 Hct 33.1 % (30.3-42.9) 02/10/21 06:00 MCV 71 fl (79-97) L 02/10/21 06:00 MCH 23 pg (28-32) L 02/10/21 06:00 MCHC 33 % (30-34) 02/10/21 06:00 RDW 16.5 % (13.2-15.2) H 02/10/21 06:00 Plt Count 296 K/mm3 (140-440) 02/10/21 06:00 Lymph % (Auto) 18.0 % (13.4-35.0) 02/10/21 06:00 [place] % (Auto) 5.0 % (0.0-7.3) 02/10/21 06:00 Eos % (Auto) 0.0 % (0.0-4.3) 02/10/21 06:00 Baso % (Auto) 0.4 % (0.0-1.8) 02/10/21 06:00 Lymph # (Auto) 1.1 K/mm3 (1.2-5.4) L 02/10/21 06:00 [place] # (Auto) 0.3 K/mm3 (0.0-0.8) 02/10/21 06:00 Eos # (Auto) 0.0 K/mm3 (0.0-0.4) 02/10/21 06:00 Baso # (Auto) 0.0 K/mm3 (0.0-0.1) 02/10/21 06:00 Seg Neutrophils % 76.6 % (40.0-70.0) H 02/10/21 06:00 Seg Neutrophils # 4.9 K/mm3 (1.8-7.7) 02/10/21 06:00 D-Dimer < 135.00 ng/mlDDU (0-234) 02/10/21 06:36 ABG pH 7.352 (7.320-7.450) 02/10/21 14:37 POC ABG pCO2 43.3 mmHg (32.0-48.0) 02/10/21 14:37 POC ABG pO2 58.8 mmHg (83-108) L 02/10/21 14:37 POC ABG HCO3 23.5 02/10/21 14:37 ABG O2 Saturation 88.5 (0-100) 02/10/21 14:37 POC ABG Base Excess -2.1 02/10/21 14:37 ABG Hemoglobin 11.2 (12.0-17.5) L 02/10/21 14:37 ABG Oxyhemoglobin 88.2 (94-98) L 02/10/21 14:37 ABG Methemoglobin 0.3 (0.0-1.5) 02/10/21 14:37 ABG Sodium 137.4 mmol/L (136.0-145.0) 02/10/21 14:37 ABG Potassium 4.3 mmol/L (3.40-4.50) 02/10/21 14:37 ABG Chloride 102.0 mmol/L (98-107) 02/10/21 14:37 ABG Glucose 343 mg/dL (65-95) H 02/10/21 14:37 Carboxyhemoglobin 0 (0.5-1.5) L 02/10/21 14:37 FiO2 % 100.0 02/10/21 14:37 Sodium 135 mmol/L (137-145) L 02/10/21 14:29 Potassium 4.5 mmol/L (3.6-5.0) 02/10/21 14:29 Chloride 97.0 mmol/L (98-107) L 02/10/21 14:29 Carbon Dioxide 24 mmol/L (22-30) 02/10/21 14:29 Anion Gap 19 mmol/L 02/10/21 14:29 BUN 6 mg/dL (7-17) L 02/10/21 14:29 Creatinine 0.8 mg/dL (0.6-1.2) 02/10/21 14:29 Estimated GFR > 60 ml/min 02/10/21 14:29 BUN/Creatinine Ratio 8 % 02/10/21 14:29 Glucose 308 mg/dL (65-100) H 02/10/21 14:29 POC Glucose 271 mg/dL (70-105) H 02/11/21 07:58 Hemoglobin A1c 10.5 % (4-6) H 02/10/21 14:29 Calcium 8.8 mg/dL (8.4-10.2) 02/10/21 14:29 Ferritin 100.0 ng/mL (10.0-200.0) 02/10/21 06:36 Total Bilirubin < 0.20 mg/dL (0.1-1.2) 02/10/21 14:29 AST 33 units/L (5-40) 02/10/21 14:29 ALT 18 units/L (7-56) 02/10/21 14:29 Alkaline Phosphatase 90 units/L (35-129) 02/10/21 14:29 Lactate Dehydrogenase 325 units/L (91-180) H 02/10/21 06:36 Troponin T < 0.010 ng/mL (0.00-0.029) 02/10/21 09:09 C-Reactive Protein 8.20 mg/dL (0.00-1.30) H 02/10/21 06:36 NT-Pro-B Natriuret Pep 28.71 pg/mL (0-450) 02/10/21 09:29 Total Protein 7.3 g/dL (6.3-8.2) 02/10/21 14:29 Albumin 3.4 g/dL (3.9-5) L 02/10/21 14:29 Albumin/Globulin Ratio 0.9 % 02/10/21 14:29 Procalcitonin 0.06 ng/mL (<0.15) 02/10/21 06:36 HCG, Qual Negative (Negative) 02/10/21 06:36 Arterial Blood Glucose 343 mg/dL (65-95) H 02/10/21 14:37 Urine Color Yellow (Yellow) 02/10/21 11:15 Urine Turbidity Clear (Clear) 02/10/21 11:15 Urine pH 5.0 (5.0-7.0) 02/10/21 11:15 Ur Specific [place] 1.016 (1.003-1.030) 02/10/21 11:15 Urine Protein 100 mg/dl mg/dL (Negative) 02/10/21 11:15 Urine Glucose (UA) >=500 mg/dL (Negative) 02/10/21 11:15 Urine Ketones 20 mg/dL (Negative) 02/10/21 11:15 Urine Blood Sm (Negative) 02/10/21 11:15 Urine Nitrite Neg (Negative) 02/10/21 11:15 Urine Bilirubin Neg (Negative) 02/10/21 11:15 Urine Urobilinogen < 2.0 mg/dL (<2.0) 02/10/21 11:15 Ur Leukocyte Esterase Tr (Negative) 02/10/21 11:15 Urine WBC (Auto) 3.0 /HPF (0.0-6.0) 02/10/21 11:15 Urine RBC (Auto) 3.0 /HPF (0.0-6.0) 02/10/21 11:15 U Epithel Cells (Auto) 10.0 /HPF (0-13.0) 02/10/21 11:15 Urine Bacteria (Auto) 1+ /HPF (Negative) 02/10/21 11:15 Urine Yeast (Budding) 1+ /HPF 02/10/21 11:15 Coronavirus (PCR) Positive (Negative) A 02/10/21 08:28 Microbiology: Microbiology 02/10/21 06:36 Peripheral/Venous Blood Culture - Preliminary NO GROWTH AFTER 24 HOURS 02/10/21 06:36 Peripheral/Venous Blood Culture - Preliminary NO GROWTH AFTER 24 HOURS Active Medications - Current Medications Current Medications: Generic Name Dose Route Start Last Admin Trade Name Freq PRN Reason Stop Dose Admin Ascorbic Acid 500 mg 02/10/21 22:00 02/10/21 21:54 Ascorbic Acid 500 Mg Tab PO 500 mg BID SALUD Administration Dexamethasone 6 mg 02/10/21 15:00 02/10/21 15:09 Dexamethasone 4 Mg/Ml Vial IV 02/19/21 10:01 6 mg DAILY SALUD Administration Hydralazine HCl 10 mg 02/10/21 13:57 02/11/21 00:20 Hydralazine 20 Mg/1 Ml Inj IV 10 mg Q4HR PRN Administration Hypertension Hydromorphone HCl 0.5 mg 02/10/21 14:19 02/11/21 08:05 Hydromorphone 1 Mg/1 Ml Inj IM 0.5 mg Q4H PRN Administration Pain , Severe (7-10) REMDESIVIR 100 mg/ Sodium 250 mls @ 500 mls/hr 02/11/21 21:00 Chloride IV 02/14/21 21:29 Q24HR@2100 [facility] Insulin Human Lispro 0 unit 02/10/21 16:30 02/11/21 08:06 Insulin Lispro 100 Unit/Ml SUB-Q 4 unit ACHS SALUD Administration Protocol Sodium Chloride 50 ml 02/10/21 15:00 02/10/21 15:28 Sodium Chloride 0.9% 50 Ml Ivpb IV 02/14/21 21:01 50 ml Q24HR@2100 SALUD Administration Zinc Sulfate 220 mg 02/10/21 22:00 02/10/21 21:54 Zinc Sulfate 220 Mg Cap PO 220 mg BID SALUD Administration
[2021-02-11] MEDS ORDERED: AZITHROMYCIN/NS 500 MG/250 ML 500 MG/250 ML BAG IV SCH (10:00)
[2021-02-11] MEDS: dexAMETHasone 4 MG/ML VIAL IV SCH (10:20)
[2021-02-11] MEDS: ZINC SULFATE 220 MG CAP PO SCH ×2 (10:20→22:32)
[2021-02-11] MEDS: ASCORBIC ACID 500 MG TAB PO SCH ×2 (10:20→22:32)
[2021-02-11 11:10] LABS: Alanine Aminotransferase 18 units/L (7-56); Albumin 3.3 g/dL (3.9-5); BUN/Creatinine Ratio 13; Blood Urea Nitrogen 12 mg/dL (7-17); Calcium 9.3 mg/dL (8.4-10.2); Hemolysis Index 7
--- NOTE | 2021-02-11 15:15 | Progress Note ---
Assessment and Plan Cultures: Blood culture no growth so far Covid positive A/P: 32-year-old female past medical history morbid obesity, diabetes and Covid pneumonia #Severe COVID-19 pneumonia: Patient presented with a week of symptoms, chest x- ray with diffuse bilateral infiltrates. Inflammatory markers elevated #Acute hypoxemic respiratory failure: Likely secondary to COVID-19 infection. Currently on high flow nasal cannula #Morbid obesity #Diabetes: tight glycemic control for best outcomes. Recs: -Dexamethasone 6 mg IV/PO daily for 10 days -Remdesivir 200 mg IV q day x 1 followed by 100 mg IV q day x 4 days -Obtain q48-72h inflammatory markers - ferritin, Ddimer, CRP, LDH -If requiring 30 L/min-nasal cannula, recommend Actemra -Anticoagulation per hospital protocol -Proning as able Thank you for the consult, we will continue to follow. Mark Anthony Richardson MD [facility] ([facility] O: [phone] F: [phone] Subjective Date of service: 02/11/21 Interval history: Afebrile, on high flow nasal cannula. Objective - Exam Narrative Exam: Physical exam deferred to reduce risk of transmission of COVID-19. Please refer to primary team's note. - Constitutional Vitals: Vital Signs Temp Pulse Resp BP Pulse Ox 99.4 F 108 H 40 H 144/87 93 02/10/21 08:25 02/11/21 09:53 02/11/21 10:09 02/11/21 09:53 02/11/21 10:09 - Labs CBC & Chem 7: 02/10/21 06:00 02/11/21 09:59 Labs: Abnormal lab results 02/10/21 02/10/21 02/10/21 Range/Units 14:29 14:29 16:49 Sodium 135 L (137-145) mmol/L Chloride 97.0 L (98-107) mmol/L BUN 6 L (7-17) mg/dL Glucose 308 H (65-100) mg/dL POC Glucose 289 H (70-105) mg/dL Hemoglobin A1c 10.5 H (4-6) % Albumin 3.4 L (3.9-5) g/dL 02/10/21 02/11/21 02/11/21 Range/Units 21:34 07:58 09:59 Sodium (137-145) mmol/L Chloride 97.5 L (98-107) mmol/L BUN (7-17) mg/dL Glucose 269 H (65-100) mg/dL POC Glucose 304 H 271 H (70-105) mg/dL Hemoglobin A1c (4-6) % Albumin 3.3 L (3.9-5) g/dL
--- NOTE | 2021-02-11 15:59 | Progress Note ---
Assessment and Plan Acute hypoxemic respiratory failure ARDS COVID-19 infection Morbid obesity; BMI 46.6 Obesity hypoventilation syndrome - prn CXR's & ABG's - NIV if desaturates on Vapotherm - continue to wean supplemental oxygen for target O2 sat's > 92% acutely - aspiration precautions - continue lung protective strategies - prn bronchodilators with pulmonary hygiene per RT - avoid nephrotoxins, renally dose all medications - continue to avoid benzodiazepine's, reduce the possibility of delirium - complete AB's per ID rec's - prn analgesia per CPOT score - Maintenance of sleep-wake cycle, avoid delirium - continue enteral nutritional support at goal rate as tolerated - G.I. & VTE prophylaxis - PT/OT/ROM exercises - continue mobility protocols for pressure ulcer prophylaxis - Monitor hemodynamics closely - continue other care per attending / other consultants - discharge planning ongoing concurrently COVID SPECIFIC INTERVENTIONS - Remdesivir as per ID/Pulmonary developed protocols (receiving) - continue systemic steroids for severe COVID-19 infection - follow repeat COVID tests results - zinc and vitamin C supplementation - Monitor inflammatory markers per facility protocol - ferritin, Ddimer, CRP - therapeutic anticoagulation per system Protocol based on d-dimer and clinical considerations (DVT prophylaxis for now) - Continue contact and airborne isolation .... Re-evaluate in am & prn CONDITION: CRITICAL PROGNOSIS: GUARDED CODE STATUS: FULL CODE The high probability of a clinically significant, sudden or life-threatening deterioration of the [respiratory, cardiovascular, GI & neurologic] system(s) required my full and direct attention, intervention and personal management. The aggregate critical care time was [33] minutes without overlap. Time includes spent on; [x] Data Review and interpretation [x] Patient assessment and monitoring of vital signs [x] Documentation [x] Medication orders and management Subjective Date of service: 02/11/21 Principal diagnosis: Ac hypoxemic resp failure; ARDS; COVID-19 infection; Morbid obesity; OHS Interval history: Patient is seen today for: Acute hypoxemic respiratory failure; ARDS; COVID-19 infection; Morbid obesity; OHS Seen and examined at bedside; 24hour events reviewed; nursing and respiratory care staff consulted; no adverse overnight events reported to me; resting in bed; remains on 100% FiO2 via HFNC; no hemoptysis; no chest pain; feels a little better Objective Vital Signs - 12hr 02/11/21 02/11/2121 04:01 05:01 06:01 Pulse Rate 96 H 99 H 104 H Respiratory Rate Blood Pressure 144/85 141/85 149/87 Blood Pressure [Right] O2 Sat by Pulse 100 96 100 Oximetry 02/11/21 02/11/21 02/11/21 06:03 08:01 09:53 Pulse Rate 115 H 108 H Respiratory 23 16 36 H Rate Blood Pressure 158/86 Blood Pressure 144/87 [Right] O2 Sat by Pulse 93 Oximetry 02/11/21 10:09 Pulse Rate Respiratory 40 H Rate Blood Pressure Blood Pressure [Right] O2 Sat by Pulse 93 Oximetry Constitutional: appears uncomfortable, other (young obese female with mildly increased respiratory effort at rest) Eyes: non-icteric ENT: oropharynx dry Neck: supple, no lymphadenopathy, no JVD, other (large circumference) Cardiovascular: regular rate and rhythm Gastrointestinal: normoactive bowel sounds, soft, non-tender, non-distended (protuberant) Integumentary: normal Extremities: no cyanosis, no edema, pulses normal, no ischemia or petechiae Neurologic: non-focal exam, pupils equal and round, CN II-XII normal, motor strength normal and Psychiatric: mood appropriate, anxious CBC and BMP: 02/10/21 06:00 02/11/21 09:59 ABG, PT/INR, D-dimer: ABG ABG pH 7.352 (7.320-7.450) 02/10/21 14:37 POC ABG pCO2 43.3 mmHg (32.0-48.0) 02/10/21 14:37 POC ABG pO2 58.8 mmHg (83-108) L 02/10/21 14:37 POC ABG HCO3 23.5 02/10/21 14:37 ABG O2 Saturation 88.5 (0-100) 02/10/21 14:37 PT/INR, D-dimer D-Dimer < 135.00 ng/mlDDU (0-234) 02/10/21 06:36 Abnormal lab findings: Abnormal Labs 02/10/21 02/10/21 02/10/21 06:00 06:00 06:36 MCV 71 L MCH 23 L RDW 16.5 H Lymph # (Auto) 1.1 L Seg Neutrophils % 76.6 H POC ABG pO2 ABG Hemoglobin ABG Oxyhemoglobin ABG Glucose Carboxyhemoglobin Sodium Chloride 97.7 L BUN 6 L Glucose 295 H POC Glucose Hemoglobin A1c Lactate Dehydrogenase 325 H C-Reactive Protein 8.20 H Albumin 3.8 L Arterial Blood Glucose Coronavirus (PCR) 02/10/21 02/10/21 02/10/21 08:28 14:29 14:29 MCV MCH RDW Lymph # (Auto) Seg Neutrophils % POC ABG pO2 ABG Hemoglobin ABG Oxyhemoglobin ABG Glucose Carboxyhemoglobin Sodium 135 L Chloride 97.0 L BUN 6 L Glucose 308 H POC Glucose Hemoglobin A1c 10.5 H Lactate Dehydrogenase C-Reactive Protein Albumin 3.4 L Arterial Blood Glucose Coronavirus (PCR) Positive A 02/10/21 02/10/21 02/10/21 14:37 16:49 21:34 MCV MCH RDW Lymph # (Auto) Seg Neutrophils % POC ABG pO2 58.8 L ABG Hemoglobin 11.2 L ABG Oxyhemoglobin 88.2 L ABG Glucose 343 H Carboxyhemoglobin 0 L Sodium Chloride BUN Glucose POC Glucose 289 H 304 H Hemoglobin A1c Lactate Dehydrogenase C-Reactive Protein Albumin Arterial Blood Glucose 343 H Coronavirus (PCR) 02/11/21 02/11/21 07:58 09:59 MCV MCH RDW Lymph # (Auto) Seg Neutrophils % POC ABG pO2 ABG Hemoglobin ABG Oxyhemoglobin ABG Glucose Carboxyhemoglobin Sodium Chloride 97.5 L BUN Glucose 269 H POC Glucose 271 H Hemoglobin A1c Lactate Dehydrogenase C-Reactive Protein Albumin 3.3 L Arterial Blood Glucose Coronavirus (PCR) Chest x-ray: image reviewed (bilateral infiltrates and low lung volumes) Allied health notes reviewed: nursing
--- NOTE | 2021-02-11 18:19 | Vascular Lab Report ---
DUPLEX DOPPLER LOWER EXTREMITY VEINS, BILATERAL INDICATION / CLINICAL INFORMATION: swelling. TECHNIQUE: Duplex doppler imaging was performed through the veins of both lower extremities using venous elsa mario and other maneuvers. COMPARISON: None available. FINDINGS: RIGHT COMMON FEMORAL VEIN: Negative. RIGHT FEMORAL VEIN: Negative. RIGHT POPLITEAL VEIN: Negative. RIGHT CALF VEINS: Negative. LEFT COMMON FEMORAL VEIN: Negative. LEFT FEMORAL VEIN: Negative. LEFT POPLITEAL VEIN: Negative. LEFT CALF VEINS: Negative. ADDITIONAL FINDINGS: None. IMPRESSION: 1. No sonographic evidence for DVT in either lower extremity. Signer Name: Malcolm Seo MD Signed: 02/11/2021 6:15 PM Workstation Name: [id number]
[2021-02-11] MEDS: ENOXAPARIN 40 MG/0.4 ML INJ SUB-Q SCH (22:31)
[2021-02-11] MEDS: SODIUM CHLORIDE 0.9% 50 ML IVPB IV SCH (22:31)
[2021-02-12] MEDS: REMDESIVIR 100 MG in SODIUM CHLORIDE 0.9% 250ML 250 ML IV SCH ×2 (04:52→22:41)
[2021-02-12 06:20] LABS: Alanine Aminotransferase 18 units/L (7-56); Albumin 3.3 g/dL (3.9-5); BUN/Creatinine Ratio 15; Blood Urea Nitrogen 15 mg/dL (7-17); Calcium 8.9 mg/dL (8.4-10.2); Hemolysis Index 27
[2021-02-12] MEDS: INSULIN LISPRO 100 UNIT/ML SUB-Q SCH ×5 (08:00→22:57)
--- NOTE | 2021-02-12 09:11 | Electrocardiograph Report ---
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
--- NOTE | 2021-02-12 09:22 | Electrocardiograph Report ---
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
--- NOTE | 2021-02-12 09:54 | Progress Note ---
Assessment and Plan Assessment and plan: Patient is on high flow nasal cannula oxygen 40 L/ 100% FiO2/O2 sats 92% patient is morbidly obese in severe distress Patient is not vaccinated; --COVID-19 infection; Patient was not vaccinated Patient is on high flow oxygen with 100% nonrebreather IV dexamethasone 6 mg total 10 doses Continue remdesivir per protocol Prone positioning as tolerated Home O2 evaluation Inflammatory markers Anticoagulation per protocols ID evaluation noted and appreciated Pulmonary evaluation noted and appreciated --Acute severe hypoxic respiratory failure; Patient is on high flow nasal cannula oxygen 25 L 100% 90% FiO2 Nonrebreather Intubate if no improvement Discussed with pulmonary critical --Morbid obesity; BMI 46.6 Patient needs weight reduction when medically stable Sleep study to rule out obstructive sleep apnea --Obesity hypoventilation syndrome; Pulmonary consult, titrate O2 sats to more than 90% Supportive care --DVT prophylaxis; Lovenox --GI prophylaxis; Protonix We will closely monitor patient and adjust the management as needed Plan of care reviewed with the patient and her nurse Consultants and recommendations noted and appreciated Brief history and hospital course; 40-year-old morbidly obese -[place] female patient was admitted through emergency room with worsening shortness of breath and generalized body pains, patient was initially evaluated noted to have Covid positive infection, hypoxemic requiring very high flow oxygen GI, pulmonary following, patient is receiving treatment per COVID-19 guidelines, patient is on very high flow oxygen, severely hypoxemic 02/12/2021; On high flow nasal cannula oxygen 40 L/100% FiO2/92% O2 sats Morbidly obese, poor prognosis, prone positioning, Continue steroid .remdesivir, Disposition discharge when medically stable Follow consultants recommendations History Interval history: I have seen and examined the patient at the bedside Strict isolation precautions and PPE protocols observed per COVID-19 guidelines followed Patient is severely hypoxemic requiring high flow oxygen Complains of generalized weakness Morbidly obese Vital signs noted Hospitalist Physical - Constitutional Vitals: Temp Pulse Resp BP Pulse Ox 99.4 F 111 H 54 H 155/96 81 L 02/11/21 20:00 02/12/21 09:39 02/12/21 09:39 02/12/21 09:39 02/12/21 09:39 General appearance: Present: severe distress, well-nourished, obese (Morbidly obese) - EENT Eyes: Present: PERRL, EOM intact - Neck Neck: Present: supple, normal ROM - Respiratory Respiratory effort: normal Respiratory: bilateral: diminished, rhonchi, negative: rales, wheezing - Cardiovascular Rhythm: regular Heart Sounds: Present: S1 & S2 - Extremities Extremities: no ischemia, No edema - Abdominal General gastrointestinal: soft, non-tender, non-distended, normal bowel sounds - Integumentary Integumentary: Present: clear, warm - Psychiatric Psychiatric: appropriate mood/affect, cooperative - Neurologic Neurologic: CNII-XII intact, moves all extremities HEART Score - HEART Score EKG: Normal Age: < 45 Risk factors: No known risk factors Troponin: Troponin T < 0.010 ng/mL (0.00-0.029) 02/10/21 09:09 Troponin: < normal limit - Critical Actions Critical Actions: 0-3 pts:0.9-1.7%risk of adverse cardiac event.Candidate for discharge Results - Labs CBC & Chem 7: 02/10/21 06:00 02/12/21 05:28 Labs: Laboratory Last Values WBC 6.4 K/mm3 (4.5-11.0) 02/10/21 06:00 RBC 4.65 M/mm3 (3.65-5.03) 02/10/21 06:00 Hgb 10.8 gm/dl (10.1-14.3) 02/10/21 06:00 Hct 33.1 % (30.3-42.9) 02/10/21 06:00 MCV 71 fl (79-97) L 02/10/21 06:00 MCH 23 pg (28-32) L 02/10/21 06:00 MCHC 33 % (30-34) 02/10/21 06:00 RDW 16.5 % (13.2-15.2) H 02/10/21 06:00 Plt Count 296 K/mm3 (140-440) 02/10/21 06:00 Lymph % (Auto) 18.0 % (13.4-35.0) 02/10/21 06:00 [place] % (Auto) 5.0 % (0.0-7.3) 02/10/21 06:00 Eos % (Auto) 0.0 % (0.0-4.3) 02/10/21 06:00 Baso % (Auto) 0.4 % (0.0-1.8) 02/10/21 06:00 Lymph # (Auto) 1.1 K/mm3 (1.2-5.4) L 02/10/21 06:00 [place] # (Auto) 0.3 K/mm3 (0.0-0.8) 02/10/21 06:00 Eos # (Auto) 0.0 K/mm3 (0.0-0.4) 02/10/21 06:00 Baso # (Auto) 0.0 K/mm3 (0.0-0.1) 02/10/21 06:00 Seg Neutrophils % 76.6 % (40.0-70.0) H 02/10/21 06:00 Seg Neutrophils # 4.9 K/mm3 (1.8-7.7) 02/10/21 06:00 D-Dimer < 135.00 ng/mlDDU (0-234) 02/10/21 06:36 ABG pH 7.352 (7.320-7.450) 02/10/21 14:37 POC ABG pCO2 43.3 mmHg (32.0-48.0) 02/10/21 14:37 POC ABG pO2 58.8 mmHg (83-108) L 02/10/21 14:37 POC ABG HCO3 23.5 02/10/21 14:37 ABG O2 Saturation 88.5 (0-100) 02/10/21 14:37 POC ABG Base Excess -2.1 02/10/21 14:37 ABG Hemoglobin 11.2 (12.0-17.5) L 02/10/21 14:37 ABG Oxyhemoglobin 88.2 (94-98) L 02/10/21 14:37 ABG Methemoglobin 0.3 (0.0-1.5) 02/10/21 14:37 ABG Sodium 137.4 mmol/L (136.0-145.0) 02/10/21 14:37 ABG Potassium 4.3 mmol/L (3.40-4.50) 02/10/21 14:37 ABG Chloride 102.0 mmol/L (98-107) 02/10/21 14:37 ABG Glucose 343 mg/dL (65-95) H 02/10/21 14:37 Carboxyhemoglobin 0 (0.5-1.5) L 02/10/21 14:37 FiO2 % 100.0 02/10/21 14:37 Sodium 137 mmol/L (137-145) 02/12/21 05:28 Potassium 5.1 mmol/L (3.6-5.0) H 02/12/21 05:28 Chloride 100.0 mmol/L (98-107) 02/12/21 05:28 Carbon Dioxide 28 mmol/L (22-30) 02/12/21 05:28 Anion Gap 14 mmol/L 02/12/21 05:28 BUN 15 mg/dL (7-17) 02/12/21 05:28 Creatinine 1.0 mg/dL (0.6-1.2) 02/12/21 05:28 Estimated GFR > 60 ml/min 02/12/21 05:28 BUN/Creatinine Ratio 15 % 02/12/21 05:28 Glucose 308 mg/dL (65-100) H 02/12/21 05:28 POC Glucose 333 mg/dL (70-105) H 02/11/21 21:50 Hemoglobin A1c 10.5 % (4-6) H 02/10/21 14:29 Calcium 8.9 mg/dL (8.4-10.2) 02/12/21 05:28 Ferritin 100.0 ng/mL (10.0-200.0) 02/10/21 06:36 Total Bilirubin 0.20 mg/dL (0.1-1.2) 02/12/21 05:28 AST 32 units/L (5-40) 02/12/21 05:28 ALT 18 units/L (7-56) 02/12/21 05:28 Alkaline Phosphatase 96 units/L (35-129) 02/12/21 05:28 Lactate Dehydrogenase 325 units/L (91-180) H 02/10/21 06:36 Troponin T < 0.010 ng/mL (0.00-0.029) 02/10/21 09:09 C-Reactive Protein 8.20 mg/dL (0.00-1.30) H 02/10/21 06:36 NT-Pro-B Natriuret Pep 28.71 pg/mL (0-450) 02/10/21 09:29 Total Protein 7.7 g/dL (6.3-8.2) 02/12/21 05:28 Albumin 3.3 g/dL (3.9-5) L 02/12/21 05:28 Albumin/Globulin Ratio 0.8 % 02/12/21 05:28 Procalcitonin 0.06 ng/mL (<0.15) 02/10/21 06:36 HCG, Qual Negative (Negative) 02/10/21 06:36 Arterial Blood Glucose 343 mg/dL (65-95) H 02/10/21 14:37 Urine Color Yellow (Yellow) 02/10/21 11:15 Urine Turbidity Clear (Clear) 02/10/21 11:15 Urine pH 5.0 (5.0-7.0) 02/10/21 11:15 Ur Specific [place] 1.016 (1.003-1.030) 02/10/21 11:15 Urine Protein 100 mg/dl mg/dL (Negative) 02/10/21 11:15 Urine Glucose (UA) >=500 mg/dL (Negative) 02/10/21 11:15 Urine Ketones 20 mg/dL (Negative) 02/10/21 11:15 Urine Blood Sm (Negative) 02/10/21 11:15 Urine Nitrite Neg (Negative) 02/10/21 11:15 Urine Bilirubin Neg (Negative) 02/10/21 11:15 Urine Urobilinogen < 2.0 mg/dL (<2.0) 02/10/21 11:15 Ur Leukocyte Esterase Tr (Negative) 02/10/21 11:15 Urine WBC (Auto) 3.0 /HPF (0.0-6.0) 02/10/21 11:15 Urine RBC (Auto) 3.0 /HPF (0.0-6.0) 02/10/21 11:15 U Epithel Cells (Auto) 10.0 /HPF (0-13.0) 02/10/21 11:15 Urine Bacteria (Auto) 1+ /HPF (Negative) 02/10/21 11:15 Urine Yeast (Budding) 1+ /HPF 02/10/21 11:15 Coronavirus (PCR) Positive (Negative) A 02/10/21 08:28 Microbiology: Microbiology 02/10/21 06:36 Peripheral/Venous Blood Culture - Preliminary NO GROWTH AFTER 48 HOURS 02/10/21 06:36 Peripheral/Venous Blood Culture - Preliminary NO GROWTH AFTER 48 HOURS Active Medications - Current Medications Current Medications: Generic Name Dose Route Start Last Admin Trade Name Freq PRN Reason Stop Dose Admin Ascorbic Acid 500 mg 02/10/21 22:00 02/11/21 22:32 Ascorbic Acid 500 Mg Tab PO 500 mg BID SALUD Administration Dexamethasone 6 mg 02/10/21 15:00 02/11/21 10:20 Dexamethasone 4 Mg/Ml Vial IV 02/19/21 10:01 6 mg DAILY SALUD Administration Enoxaparin Sodium 40 mg 02/11/21 22:00 02/11/21 22:31 Enoxaparin 40 Mg/0.4 Ml Inj SUB-Q 40 mg QDAY@2200 [facility] Administration Protocol Hydralazine HCl 10 mg 02/10/21 13:57 02/11/21 00:20 Hydralazine 20 Mg/1 Ml Inj IV 10 mg Q4HR PRN Administration Hypertension Hydromorphone HCl 0.5 mg 02/10/21 14:19 02/11/21 19:23 Hydromorphone 1 Mg/1 Ml Inj IM 0.5 mg Q4H PRN Administration Pain , Severe (7-10) REMDESIVIR 100 mg/ Sodium 250 mls @ 500 mls/hr 02/11/21 21:00 02/12/21 04:52 Chloride IV 02/14/21 21:29 500 mls/hr Q24HR@2100 SALUD Administration Insulin Human Lispro 0 unit 02/10/21 16:30 02/11/21 22:32 Insulin Lispro 100 Unit/Ml SUB-Q 6 unit ACHS SALUD Administration Protocol Sodium Chloride 50 ml 02/10/21 15:00 02/11/21 22:31 Sodium Chloride 0.9% 50 Ml Ivpb IV 02/14/21 21:01 50 ml Q24HR@2100 SALUD Administration Zinc Sulfate 220 mg 02/10/21 22:00 02/11/21 22:32 Zinc Sulfate 220 Mg Cap PO 220 mg BID SALUD Administration
[2021-02-12] MEDS: dexAMETHasone 4 MG/ML VIAL IV SCH (10:30)
[2021-02-12] MEDS: ASCORBIC ACID 500 MG TAB PO SCH ×2 (10:30→22:56)
[2021-02-12] MEDS: ZINC SULFATE 220 MG CAP PO SCH ×2 (10:30→22:57)
[2021-02-12 10:57] LABS: C-Reactive Protein 12.6 mg/dL (0.00-1.30)
--- NOTE | 2021-02-12 16:06 | Progress Note ---
Assessment and Plan Acute hypoxemic respiratory failure ARDS COVID-19 infection Morbid obesity; BMI 46.6 Obesity hypoventilation syndrome - deploy BIPAP - MVS if fails - follow lower extremity dopplers - continue to wean supplemental oxygen for target O2 sat's > 92% acutely - continue aspiration precautions - continue care as below otherwise; - continue lung protective strategies - prn bronchodilators with pulmonary hygiene per RT - avoid nephrotoxins, renally dose all medications - continue to avoid benzodiazepine's, reduce the possibility of delirium - complete AB's per ID rec's - prn analgesia per CPOT score - Maintenance of sleep-wake cycle, avoid delirium - continue enteral nutritional support at goal rate as tolerated - G.I. & VTE prophylaxis - PT/OT/ROM exercises - continue mobility protocols for pressure ulcer prophylaxis - Monitor hemodynamics closely - continue other care per attending / other consultants - discharge planning ongoing concurrently COVID SPECIFIC INTERVENTIONS - Remdesivir as per ID/Pulmonary developed protocols (receiving) - continue systemic steroids for severe COVID-19 infection - follow repeat COVID tests results - zinc and vitamin C supplementation - Monitor inflammatory markers per facility protocol - ferritin, Ddimer, CRP - therapeutic anticoagulation per system Protocol based on d-dimer and clinical considerations (DVT prophylaxis for now) - Continue contact and airborne isolation .... Re-evaluate in am & prn CONDITION: CRITICAL PROGNOSIS: GUARDED CODE STATUS: FULL CODE The high probability of a clinically significant, sudden or life-threatening deterioration of the [respiratory, cardiovascular, GI & neurologic] system(s) required my full and direct attention, intervention and personal management. The aggregate critical care time was [35] minutes without overlap. Time includes spent on; [x] Data Review and interpretation [x] Patient assessment and monitoring of vital signs [x] Documentation [x] Medication orders and management Subjective Date of service: 02/12/21 Principal diagnosis: Ac hypoxemic resp failure; ARDS; COVID-19 infection; Morbid obesity; OHS Interval history: Patient is seen today for: Acute hypoxemic respiratory failure; ARDS; COVID-19 infection; Morbid obesity; OHS Seen and examined at bedside; 24hour events reviewed; nursing and respiratory care staff consulted; no adverse overnight events reported to me; resting in bed; remains on 100% FiO2 via HFNC but O2 sats down to 70's; denies acute chest pain; no N/V/F/C Objective Vital Signs - 12hr 02/12/21 02/12/21 02/12/21 08:01 08:03 08:05 Pulse Rate 113 H 109 H 104 H Respiratory 26 H 21 30 H Rate Blood Pressure 171/94 171/94 171/94 O2 Sat by Pulse 84 84 84 Oximetry 02/12/21 02/12/21 02/12/21 08:07 08:09 08:11 Pulse Rate 116 H 111 H 110 H Respiratory 27 H 52 H 36 H Rate Blood Pressure 171/94 171/94 171/94 O2 Sat by Pulse 84 84 84 Oximetry 02/12/21 02/12/21 02/12/21 08:13 08:15 08:17 Pulse Rate 110 H 109 H 112 H Respiratory 24 30 H 27 H Rate Blood Pressure 171/94 171/94 171/94 O2 Sat by Pulse 83 L 84 83 L Oximetry 02/12/21 02/12/21 02/12/21 08:19 08:21 08:23 Pulse Rate 109 H 115 H 111 H Respiratory 28 H 45 H 38 H Rate Blood Pressure 171/94 171/94 172/92 O2 Sat by Pulse 81 L 82 L 86 Oximetry 02/12/21 02/12/21 02/12/21 08:25 08:27 08:29 Pulse Rate 112 H 108 H 110 H Respiratory 26 H 39 H 29 H Rate Blood Pressure 172/92 172/92 172/92 O2 Sat by Pulse 84 83 L 81 L Oximetry 02/12/21 02/12/21 02/12/21 08:31 08:33 08:35 Pulse Rate 104 H 103 H 111 H Respiratory 44 H 43 H 29 H Rate Blood Pressure 172/92 172/92 172/92 O2 Sat by Pulse 81 L 82 L 83 L Oximetry 02/12/21 02/12/21 02/12/21 08:37 08:39 08:41 Pulse Rate 111 H 109 H 112 H Respiratory 36 H 30 H 40 H Rate Blood Pressure 172/92 172/92 172/92 O2 Sat by Pulse 82 L 74 L 75 L Oximetry 02/12/21 02/12/21 02/12/21 08:43 08:45 08:47 Pulse Rate 113 H 116 H 117 H Respiratory 21 35 H 42 H Rate Blood Pressure 172/92 172/92 172/92 O2 Sat by Pulse 66 L 66 L 60 L Oximetry 08/02/12/21 02/12/21 08:49 08:51 08:53 Pulse Rate 116 H 113 H 116 H Respiratory 39 H 21 28 H Rate Blood Pressure 172/92 172/92 166/97 O2 Sat by Pulse 75 L 74 L 83 L Oximetry 02/12/21 02/12/21 02/12/21 08:55 08:57 08:59 Pulse Rate 111 H 115 H 114 H Respiratory 24 30 H 26 H Rate Blood Pressure 166/97 166/97 166/97 O2 Sat by Pulse 84 82 L 83 L Oximetry 02/12/21 02/12/21 02/12/21 09:01 09:03 09:05 Pulse Rate 109 H 109 H 114 H Respiratory 55 H 38 H 19 Rate Blood Pressure 166/97 166/97 166/97 O2 Sat by Pulse 83 L 82 L 78 L Oximetry 02/12/21 02/12/21 02/12/21 09:07 09:09 09:11 Pulse Rate 114 H 99 H 75 Respiratory 33 H 20 11 L Rate Blood Pressure 166/97 166/97 166/97 O2 Sat by Pulse 77 L 83 L 90 Oximetry 02/12/21 02/12/21 02/12/21 09:13 09:15 09:17 Pulse Rate 91 H 82 81 Respiratory 13 10 L 18 Rate Blood Pressure 166/97 166/97 166/97 O2 Sat by Pulse 94 94 93 Oximetry 02/12/21 02/12/21 02/12/21 09:19 09:21 09:23 Pulse Rate 80 96 H 83 Respiratory 14 19 11 L Rate Blood Pressure 166/97 166/97 155/96 O2 Sat by Pulse 92 91 94 Oximetry 02/12/21 02/12/21 02/12/21 09:25 09:27 09:29 Pulse Rate 86 90 91 H Respiratory 18 13 29 H Rate Blood Pressure 155/96 155/96 155/96 O2 Sat by Pulse 88 90 91 Oximetry 02/12/21 02/12/21 02/12/21 09:31 09:33 09:35 Pulse Rate 94 H 107 H 114 H Respiratory 24 22 21 Rate Blood Pressure 155/96 155/96 155/96 O2 Sat by Pulse 88 86 90 Oximetry 02/12/21 02/12/21 02/12/21 09:37 09:39 13:17 Pulse Rate 90 111 H 114 H Respiratory 23 54 H 19 Rate Blood Pressure 155/96 155/96 154/94 O2 Sat by Pulse 83 L 81 L 70 L Oximetry 02/12/21 02/12/21 02/12/21 13:19 13:21 13:23 Pulse Rate 125 H 120 H 112 H Respiratory 15 28 H 27 H Rate Blood Pressure 154/94 154/94 172/104 O2 Sat by Pulse 64 L 76 L 83 L Oximetry 02/12/21 02/12/21 02/12/21 13:25 13:27 13:29 Pulse Rate 110 H 111 H 112 H Respiratory 24 46 H 23 Rate Blood Pressure 172/104 172/104 172/104 O2 Sat by Pulse 84 84 85 Oximetry 02/12/21 02/12/21 02/12/21 13:31 13:33 13:35 Pulse Rate 111 H 109 H 108 H Respiratory 19 21 23 Rate Blood Pressure 172/104 172/104 172/104 O2 Sat by Pulse 84 82 L 82 L Oximetry 02/12/21 02/12/21 02/12/21 13:37 13:39 13:41 Pulse Rate 83 111 H 110 H Respiratory 34 H 25 H 23 Rate Blood Pressure 172/104 172/104 172/104 O2 Sat by Pulse 85 85 83 L Oximetry 02/12/21 02/12/21 02/12/21 13:43 13:45 13:47 Pulse Rate 119 H 109 H 89 Respiratory 31 H 35 H 51 H Rate Blood Pressure 172/104 172/104 172/104 O2 Sat by Pulse 82 L 82 L 76 L Oximetry 02/12/21 02/12/21 02/12/21 13:49 13:51 13:53 Pulse Rate 109 H 112 H 109 H Respiratory 45 H 60 H 17 Rate Blood Pressure 172/104 172/104 167/82 O2 Sat by Pulse 81 L 88 90 Oximetry 02/12/21 02/12/21 02/12/21 13:55 13:57 13:59 Pulse Rate 105 H 105 H 106 H Respiratory 23 32 H 19 Rate Blood Pressure 167/82 167/82 167/82 O2 Sat by Pulse 88 91 92 Oximetry 02/12/21 02/12/21 02/12/21 14:01 14:03 14:05 Pulse Rate 109 H 87 103 H Respiratory 16 49 H 41 H Rate Blood Pressure 167/82 167/82 167/82 O2 Sat by Pulse 88 88 89 Oximetry 02/12/21 02/12/21 02/12/21 14:07 14:09 14:11 Pulse Rate 111 H 110 H 117 H Respiratory 36 H 46 H 33 H Rate Blood Pressure 167/82 167/82 167/82 O2 Sat by Pulse 88 86 85 Oximetry 02/12/21 02/12/21 02/12/21 14:13 14:15 14:17 Pulse Rate 108 H 111 H 106 H Respiratory 16 14 26 H Rate Blood Pressure 167/82 167/82 167/82 O2 Sat by Pulse 89 85 86 Oximetry 02/12/21 02/12/21 02/12/21 14:19 14:21 14:23 Pulse Rate 92 H 90 87 Respiratory 18 32 H 36 H Rate Blood Pressure 167/82 167/82 133/71 O2 Sat by Pulse 93 95 92 Oximetry 02/12/21 02/12/21 02/12/21 14:25 14:27 14:29 Pulse Rate 108 H 111 H 100 H Respiratory 28 H 36 H 30 H Rate Blood Pressure 133/71 133/71 133/71 O2 Sat by Pulse 90 89 91 Oximetry 02/12/21 02/12/21 02/12/21 14:31 14:33 14:35 Pulse Rate 82 92 H 89 Respiratory 29 H 36 H 35 H Rate Blood Pressure 133/71 133/71 133/71 O2 Sat by Pulse 90 93 94 Oximetry 02/12/21 02/12/21 02/12/21 14:37 14:39 14:41 Pulse Rate 107 H 97 H 103 H Respiratory 25 H 12 13 Rate Blood Pressure 133/71 133/71 133/71 O2 Sat by Pulse 90 80 L 87 Oximetry 02/12/21 02/12/21 02/12/21 14:43 14:45 14:47 Pulse Rate 100 H 114 H 109 H Respiratory 23 16 23 Rate Blood Pressure 133/71 133/71 133/71 O2 Sat by Pulse 73 L 73 L 82 L Oximetry 02/12/21 02/12/21 02/12/21 14:49 14:51 14:52 Pulse Rate 115 H 115 H 110 H Respiratory 11 L 38 H 13 Rate Blood Pressure 133/71 133/71 133/71 O2 Sat by Pulse 83 L 83 L 86 Oximetry 02/12/21 14:53 Pulse Rate 109 H Respiratory 14 Rate Blood Pressure 131/87 O2 Sat by Pulse 84 Oximetry Constitutional: alert, appears uncomfortable, other (Morbidly Obese female with mildy increased work of breathing at rest) Eyes: non-icteric ENT: oropharynx moist Neck: supple, no lymphadenopathy, no JVD Effort: mildly labored Ascultation: Bilateral: diminished breath sounds, rhonchi Percussion: Bilateral: not dull Cardiovascular: regular rate and rhythm Gastrointestinal: normoactive bowel sounds, soft, non-tender, non-distended (protuberant) Integumentary: normal Extremities: no cyanosis, no edema, pulses normal, no ischemia or petechiae Neurologic: normal mental status, non-focal exam, pupils equal and round, CN II- XII normal, motor strength normal and Psychiatric: mood appropriate, anxious CBC and BMP: 02/10/21 06:00 02/13/21 04:38 ABG, PT/INR, D-dimer: ABG ABG pH 7.352 (7.320-7.450) 02/10/21 14:37 POC ABG pCO2 43.3 mmHg (32.0-48.0) 02/10/21 14:37 POC ABG pO2 58.8 mmHg (83-108) L 02/10/21 14:37 POC ABG HCO3 23.5 02/10/21 14:37 ABG O2 Saturation 88.5 (0-100) 02/10/21 14:37 PT/INR, D-dimer D-Dimer 310.92 ng/mlDDU (0-234) H 02/12/21 10:09 Abnormal lab findings: Abnormal Labs 02/10/21 02/10/21 02/10/21 06:00 06:00 06:36 MCV 71 L MCH 23 L RDW 16.5 H Lymph # (Auto) 1.1 L Seg Neutrophils % 76.6 H D-Dimer POC ABG pO2 ABG Hemoglobin ABG Oxyhemoglobin ABG Glucose Carboxyhemoglobin Sodium Potassium Chloride 97.7 L BUN 6 L Glucose 295 H POC Glucose Hemoglobin A1c Lactate Dehydrogenase 325 H C-Reactive Protein 8.20 H Albumin 3.8 L Arterial Blood Glucose Coronavirus (PCR) 02/10/21 02/10/21 02/10/21 08:28 14:29 14:29 MCV MCH RDW Lymph # (Auto) Seg Neutrophils % D-Dimer POC ABG pO2 ABG Hemoglobin ABG Oxyhemoglobin ABG Glucose Carboxyhemoglobin Sodium 135 L Potassium Chloride 97.0 L BUN 6 L Glucose 308 H POC Glucose Hemoglobin A1c 10.5 H Lactate Dehydrogenase C-Reactive Protein Albumin 3.4 L Arterial Blood Glucose Coronavirus (PCR) Positive A 02/10/21 02/10/21 02/10/21 14:37 16:49 21:34 MCV MCH RDW Lymph # (Auto) Seg Neutrophils % D-Dimer POC ABG pO2 58.8 L ABG Hemoglobin 11.2 L ABG Oxyhemoglobin 88.2 L ABG Glucose 343 H Carboxyhemoglobin 0 L Sodium Potassium Chloride BUN Glucose POC Glucose 289 H 304 H Hemoglobin A1c Lactate Dehydrogenase C-Reactive Protein Albumin Arterial Blood Glucose 343 H Coronavirus (PCR) 02/11/21 02/11/21 02/11/21 07:58 09:59 17:29 MCV MCH RDW Lymph # (Auto) Seg Neutrophils % D-Dimer POC ABG pO2 ABG Hemoglobin ABG Oxyhemoglobin ABG Glucose Carboxyhemoglobin Sodium Potassium Chloride 97.5 L BUN Glucose 269 H POC Glucose 271 H 351 H Hemoglobin A1c Lactate Dehydrogenase C-Reactive Protein Albumin 3.3 L Arterial Blood Glucose Coronavirus (PCR) 02/11/21 02/12/21 02/12/21 21:50 05:28 10:09 MCV MCH RDW Lymph # (Auto) Seg Neutrophils % D-Dimer 310.92 H POC ABG pO2 ABG Hemoglobin ABG Oxyhemoglobin ABG Glucose Carboxyhemoglobin Sodium Potassium 5.1 H Chloride BUN Glucose 308 H POC Glucose 333 H Hemoglobin A1c Lactate Dehydrogenase C-Reactive Protein Albumin 3.3 L Arterial Blood Glucose Coronavirus (PCR) 02/12/21 10:09 MCV MCH RDW Lymph # (Auto) Seg Neutrophils % D-Dimer POC ABG pO2 ABG Hemoglobin ABG Oxyhemoglobin ABG Glucose Carboxyhemoglobin Sodium Potassium Chloride BUN Glucose POC Glucose Hemoglobin A1c Lactate Dehydrogenase 564 H C-Reactive Protein 12.60 H Albumin Arterial Blood Glucose Coronavirus (PCR) Prior PFT's, U/S of legs: pending Allied health notes reviewed: nursing
--- NOTE | 2021-02-12 18:20 | Progress Note ---
Assessment and Plan Cultures: Blood culture no growth so far Covid positive A/P: 32-year-old female past medical history morbid obesity, diabetes and Covid pneumonia #Severe COVID-19 pneumonia: Patient presented with a week of symptoms, chest x- ray with diffuse bilateral infiltrates. Inflammatory markers elevated #Acute hypoxemic respiratory failure: Likely secondary to COVID-19 infection. Currently on high flow nasal cannula/BiPAP #Morbid obesity #Diabetes: tight glycemic control for best outcomes. Recs: -Dexamethasone 6 mg IV/PO daily for 10 days -Remdesivir 200 mg IV q day x 1 followed by 100 mg IV q day x 4 days. Monitor liver function while receiving. -Obtain q48-72h inflammatory markers - ferritin, Ddimer, CRP, LDH -Ordered Actemra given BiPAP requirement and elevated CRP. -Anticoagulation per hospital protocol -Proning as able Thank you for the consult, we will continue to follow. Mark Anthony Richardson MD [facility] O: [phone] F: [phone] Subjective Date of service: 02/12/21 Principal diagnosis: Ac hypoxemic resp failure; ARDS; COVID-19 infection; Morbid obesity; OHS Interval history: Afebrile, normal white count. On BiPAP. Objective - Exam Narrative Exam: Physical exam deferred to reduce risk of transmission of COVID-19. Please refer to primary team's note. - Constitutional Vitals: Vital Signs Temp Pulse Resp BP Pulse Ox 99.4 F 71 22 131/87 98 02/11/21 20:00 02/12/21 15:55 02/12/21 15:55 02/12/21 14:53 02/12/21 15:55 Temperature -Last 24 Hours Temperature 99.4 F - Labs CBC & Chem 7: 02/10/21 06:00 02/12/21 05:28 Labs: Abnormal lab results 02/11/21 02/12/21 02/12/21 Range/Units 21:50 05:28 10:09 D-Dimer 310.92 H (0-234) ng/mlDDU ABG Glucose (65-95) mg/dL Carboxyhemoglobin (0.5-1.5) Potassium 5.1 H (3.6-5.0) mmol/L Glucose 308 H (65-100) mg/dL POC Glucose 333 H (70-105) mg/dL Lactate Dehydrogenase (91-180) units/L C-Reactive Protein (0.00-1.30) mg/dL Albumin 3.3 L (3.9-5) g/dL Arterial Blood Glucose (65-95) mg/dL 02/12/21 02/12/21 Range/Units 10:09 16:00 D-Dimer (0-234) ng/mlDDU ABG Glucose 406 H (65-95) mg/dL Carboxyhemoglobin 0.3 L (0.5-1.5) Potassium (3.6-5.0) mmol/L Glucose (65-100) mg/dL POC Glucose (70-105) mg/dL Lactate Dehydrogenase 564 H (91-180) units/L C-Reactive Protein 12.60 H (0.00-1.30) mg/dL Albumin (3.9-5) g/dL Arterial Blood Glucose 406 H (65-95) mg/dL
[2021-02-12] MEDS: SODIUM CHLORIDE 0.9% 50 ML IVPB IV SCH (21:53)
[2021-02-12] MEDS ORDERED: INSULIN GLARGINE 100 UNITS/ML SUB-Q SCH (22:00)
[2021-02-12] MEDS: ENOXAPARIN 40 MG/0.4 ML INJ SUB-Q SCH (22:42)
[2021-02-13 06:16] LABS: Alanine Aminotransferase 15 units/L (7-56); Albumin 3.5 g/dL (3.9-5); BUN/Creatinine Ratio 18; Blood Urea Nitrogen 16 mg/dL (7-17); Calcium 9.3 mg/dL (8.4-10.2); Hemolysis Index 2
--- NOTE | 2021-02-13 09:13 | Progress Note ---
Assessment and Plan Assessment and plan: Patient is on high flow via BiPAP oxygen 40 L/ 100% FiO2/O2 sats 92% patient is morbidly obese in severe distress Patient is not vaccinated; --COVID-19 infection; Patient was not vaccinated Patient is on high flow oxygen with 100% nonrebreather IV dexamethasone 6 mg total 10 doses Continue remdesivir per protocol Prone positioning as tolerated Home O2 evaluation-not stable at present Inflammatory markers-elevated Anticoagulation per protocols-anticoagulation as were doing ID evaluation noted and appreciated Patient was unable to swallow vitamins secondary to sore throat. Pulmonary evaluation noted and appreciated --Acute severe hypoxic respiratory failure; Patient is on high flow nasal cannula oxygen 35 L 100% 90% FiO2 Nonrebreather Intubate if no improvement Discussed with pulmonary critical --Morbid obesity; BMI 46.6 Patient needs weight reduction when medically stable Sleep study to rule out obstructive sleep apnea --Obesity hypoventilation syndrome; Pulmonary consult, titrate O2 sats to more than 90% Supportive care --Sore throat throat pain could be secondary to coughing versus BiPAP machine will add viscous lidocaine gargle --Diabetes remains uncontrolled. Secondary to steroid use. Will increase long- acting insulin.. --DVT prophylaxis; Lovenox --GI prophylaxis; Protonix We will closely monitor patient and adjust the management as needed Plan of care reviewed with the patient and her nurse Consultants and recommendations noted and appreciated Subjective Date of service: 02/13/21 Principal diagnosis: Ac hypoxemic resp failure; ARDS; COVID-19 infection; Morbid obesity; OHS Interval history: Addendum entered and electronically signed by SEAN HARTMAN MD 02/12/21 20: 48: 40-year-old morbidly obese female patient with history of diabetes mellitus was admitted through emergency room with worsening shortness of breath patient did not get vaccinated initial work-up is consistent with COVID-19 pneumonia patient was severely hypoxemic requiring high flow oxygen at 35 L. Currently patient is Covid positive on very high flow oxygen, in mild distress and poor prognosis 02/13/2021 Patient remains hypoxemic today on BiPAP. Patient refused high flow O2 via nasal cannula. Complains today of throat pain and shortness of breath. All questions and concerns answered. Hospital course complicated by hypoglycemia. Objective - Constitutional Vitals: Vital Signs - 12hr 02/12/21 02/12/21 02/12/21 21:39 23:25 23:27 Pulse Rate 91 H 80 89 Respiratory 32 H 32 H 27 H Rate Blood Pressure 154/91 147/99 147/99 O2 Sat by Pulse 98 98 97 Oximetry 02/12/21 02/12/21 02/12/21 23:29 23:31 23:33 Pulse Rate 87 84 85 Respiratory 26 H 30 H 28 H Rate Blood Pressure 147/99 147/99 147/99 O2 Sat by Pulse 95 98 98 Oximetry 02/12/21 02/12/21 02/12/21 23:35 23:37 23:39 Pulse Rate 89 84 96 H Respiratory 31 H 37 H 17 Rate Blood Pressure 147/99 147/99 147/99 O2 Sat by Pulse 99 96 94 Oximetry 02/12/21 02/12/21 02/12/21 23:41 23:43 23:45 Pulse Rate 90 85 74 Respiratory 29 H 24 29 H Rate Blood Pressure 147/99 147/99 147/99 O2 Sat by Pulse 94 99 97 Oximetry 02/12/21 02/12/21 02/12/21 23:47 23:49 23:51 Pulse Rate 80 83 89 Respiratory 27 H 19 32 H Rate Blood Pressure 147/99 147/99 147/99 O2 Sat by Pulse 98 98 98 Oximetry 02/12/21 02/12/21 02/12/21 23:53 23:55 23:57 Pulse Rate 77 78 91 H Respiratory 33 H 28 H 21 Rate Blood Pressure 150/94 150/94 150/94 O2 Sat by Pulse 96 98 98 Oximetry 02/12/21 02/13/21 02/13/21 23:59 00:00 00:01 Pulse Rate 87 83 79 Respiratory 29 H 28 H 27 H Rate Blood Pressure 157/91 141/93 157/91 O2 Sat by Pulse 97 97 97 Oximetry 02/13/21 02/13/21 02/13/21 00:03 00:05 00:07 Pulse Rate 89 82 92 H Respiratory 31 H 24 27 H Rate Blood Pressure 157/91 157/91 157/91 O2 Sat by Pulse 97 99 98 Oximetry 02/13/21 02/13/21 02/13/21 00:09 00:11 00:13 Pulse Rate 86 83 95 H Respiratory 32 H 33 H 33 H Rate Blood Pressure 157/91 157/91 157/91 O2 Sat by Pulse 96 94 96 Oximetry 02/13/21 02/13/21 02/13/21 00:15 00:17 00:19 Pulse Rate 87 86 92 H Respiratory 32 H 18 21 Rate Blood Pressure 157/91 157/91 157/91 O2 Sat by Pulse 97 94 94 Oximetry 02/13/21 02/13/21 02/13/21 00:21 00:23 00:25 Pulse Rate 88 92 H 83 Respiratory 28 H 26 H 26 H Rate Blood Pressure 157/91 158/102 158/102 O2 Sat by Pulse 97 97 Oximetry 02/13/21 02/13/21 02/13/21 00:27 00:29 00:31 Pulse Rate 83 93 H 91 H Respiratory 24 24 29 H Rate Blood Pressure 158/102 158/102 158/102 O2 Sat by Pulse 98 97 97 Oximetry 02/13/21 02/13/21 02/13/21 00:33 00:35 00:37 Pulse Rate 92 H 88 84 Respiratory 29 H 25 H 27 H Rate Blood Pressure 158/102 158/102 158/102 O2 Sat by Pulse 98 95 98 Oximetry 02/13/21 02/13/21 02/13/21 00:39 00:41 00:43 Pulse Rate 83 88 90 Respiratory 29 H 28 H 29 H Rate Blood Pressure 158/102 158/102 158/102 O2 Sat by Pulse 100 97 96 Oximetry 02/13/21 02/13/21 02/13/21 00:45 00:47 00:49 Pulse Rate 89 105 H 97 H Respiratory 28 H 18 22 Rate Blood Pressure 158/102 158/102 158/102 O2 Sat by Pulse 96 95 93 Oximetry 02/13/21 02/13/21 02/13/21 00:51 00:52 00:53 Pulse Rate 92 H 95 H 93 H Respiratory 27 H 26 H 25 H Rate Blood Pressure 158/102 158/102 152/97 O2 Sat by Pulse 91 95 Oximetry 02/13/21 02/13/21 02/13/21 00:55 00:57 00:59 Pulse Rate 89 91 H 82 Respiratory 29 H 27 H 28 H Rate Blood Pressure 152/97 152/97 152/97 O2 Sat by Pulse 97 97 97 Oximetry 02/13/21 02/13/21 02/13/21 01:01 03:06 05:09 Pulse Rate 79 93 H 84 Respiratory 27 H 30 H 33 H Rate Blood Pressure 152/97 148/96 O2 Sat by Pulse 97 96 96 Oximetry 02/13/21 02/13/21 02/13/21 05:11 05:13 05:15 Pulse Rate 86 83 87 Respiratory 36 H 33 H 32 H Rate Blood Pressure 148/96 148/96 148/96 O2 Sat by Pulse 96 95 95 Oximetry 02/13/21 02/13/21 02/13/21 05:17 05:18 05:19 Pulse Rate 83 75 83 Respiratory 38 H 24 33 H Rate Blood Pressure 148/96 148/96 148/96 O2 Sat by Pulse 96 95 98 Oximetry 02/13/21 02/13/21 02/13/21 05:21 05:23 05:25 Pulse Rate 85 80 90 Respiratory 33 H 30 H 33 H Rate Blood Pressure 148/96 145/100 145/100 O2 Sat by Pulse 96 94 97 Oximetry 02/13/21 02/13/21 02/13/21 05:27 05:29 05:30 Pulse Rate 90 86 89 Respiratory 28 H 24 31 H Rate Blood Pressure 145/100 145/100 156/93 O2 Sat by Pulse 97 94 95 Oximetry 02/13/21 02/13/21 02/13/21 05:31 05:33 05:34 Pulse Rate 89 87 90 Respiratory 29 H 27 H 26 H Rate Blood Pressure 145/100 145/100 145/100 O2 Sat by Pulse 95 95 96 Oximetry 02/13/21 02/13/21 02/13/21 05:35 05:37 05:39 Pulse Rate 92 H 95 H 95 H Respiratory 31 H 30 H 24 Rate Blood Pressure 145/100 156/93 156/93 O2 Sat by Pulse 95 95 95 Oximetry 02/13/21 02/13/21 02/13/21 05:41 05:43 05:45 Pulse Rate 83 81 90 Respiratory 29 H 28 H 32 H Rate Blood Pressure 156/93 156/93 156/93 O2 Sat by Pulse 95 96 96 Oximetry 02/13/21 02/13/21 02/13/21 05:47 05:49 05:51 Pulse Rate 90 88 92 H Respiratory 29 H 29 H 28 H Rate Blood Pressure 156/93 156/93 156/93 O2 Sat by Pulse 96 95 94 Oximetry 02/13/21 02/13/21 02/13/21 05:53 05:55 05:57 Pulse Rate 91 H 90 95 H Respiratory 20 21 15 Rate Blood Pressure 165/112 165/112 165/112 O2 Sat by Pulse 93 94 83 L Oximetry 02/13/21 02/13/21 02/13/21 05:59 06:01 06:03 Pulse Rate 70 76 74 Respiratory 20 28 H 27 H Rate Blood Pressure 165/112 165/112 165/112 O2 Sat by Pulse 91 95 96 Oximetry 02/13/21 02/13/21 02/13/21 06:05 06:07 06:09 Pulse Rate 88 78 83 Respiratory 26 H 26 H 30 H Rate Blood Pressure 165/112 145/100 145/100 O2 Sat by Pulse 96 98 98 Oximetry 02/13/21 02/13/21 02/13/21 06:11 06:13 06:15 Pulse Rate 84 79 72 Respiratory 19 28 H 31 H Rate Blood Pressure 145/100 145/100 145/100 O2 Sat by Pulse 96 96 98 Oximetry 02/13/21 02/13/21 02/13/21 06:17 06:19 06:21 Pulse Rate 82 78 77 Respiratory 25 H 20 32 H Rate Blood Pressure 145/100 145/100 145/100 O2 Sat by Pulse 98 97 98 Oximetry 02/13/21 02/13/21 02/13/21 06:23 06:25 06:27 Pulse Rate 82 76 76 Respiratory 18 35 H 31 H Rate Blood Pressure 145/100 145/100 145/100 O2 Sat by Pulse 97 97 98 Oximetry 02/13/21 02/13/21 02/13/21 06:29 06:31 06:33 Pulse Rate 69 73 75 Respiratory 31 H 35 H 34 H Rate Blood Pressure 145/100 145/100 145/100 O2 Sat by Pulse 98 98 96 Oximetry 02/13/21 02/13/21 02/13/21 06:35 06:37 06:39 Pulse Rate 69 81 76 Respiratory 33 H 34 H 38 H Rate Blood Pressure 145/100 145/100 145/100 O2 Sat by Pulse 99 98 98 Oximetry 02/13/21 06:41 Pulse Rate 74 Respiratory 33 H Rate Blood Pressure 145/100 O2 Sat by Pulse 97 Oximetry General appearance: Present: no acute distress, well-nourished - EENT Eyes: PERRL, EOM intact ENT: hearing intact, clear oral mucosa Ears: bilateral: normal - Neck Neck: supple, normal ROM - Respiratory Respiratory effort: normal Respiratory: bilateral: CTA, diminished, rhonchi - Breasts Breasts: normal - Cardiovascular Rhythm: regular Heart Sounds: Present: S1 & S2. Absent: gallop, rub Extremities: pulses intact, No edema, normal color, Full ROM - Gastrointestinal General gastrointestinal: Present: soft, non-tender, non-distended, normal bowel sounds - Genitourinary Female genitourinary: normal - Integumentary Integumentary: clear, warm, dry - Musculoskeletal Musculoskeletal: strength equal bilaterally, generalized weakness - Neurologic Neurologic: moves all extremities - Psychiatric Psychiatric: memory intact, appropriate mood/affect, intact judgment & insight - Labs CBC & Chem 7: 02/10/21 06:00 02/13/21 04:38 Labs: Abnormal lab results 02/12/21 02/12/21 02/12/21 Range/Units 10:09 10:09 16:00 D-Dimer 310.92 H (0-234) ng/mlDDU ABG Glucose 406 H (65-95) mg/dL Carboxyhemoglobin 0.3 L (0.5-1.5) Glucose (65-100) mg/dL POC Glucose (70-105) mg/dL Lactate Dehydrogenase 564 H (91-180) units/L C-Reactive Protein 12.60 H (0.00-1.30) mg/dL Total Protein (6.3-8.2) g/dL Albumin (3.9-5) g/dL Arterial Blood Glucose 406 H (65-95) mg/dL 02/12/21 02/13/21 02/13/21 Range/Units 21:50 04:38 08:32 D-Dimer (0-234) ng/mlDDU ABG Glucose (65-95) mg/dL Carboxyhemoglobin (0.5-1.5) Glucose 295 H (65-100) mg/dL POC Glucose 353 H 308 H (70-105) mg/dL Lactate Dehydrogenase (91-180) units/L C-Reactive Protein (0.00-1.30) mg/dL Total Protein 8.4 H (6.3-8.2) g/dL Albumin 3.5 L (3.9-5) g/dL Arterial Blood Glucose (65-95) mg/dL HEART Score - HEART Score EKG: Normal Age: < 45 Risk factors: No known risk factors Troponin: Troponin T < 0.010 ng/mL (0.00-0.029) 02/10/21 09:09 Troponin: < normal limit - Critical Actions Critical Actions: 0-3 pts:0.9-1.7%risk of adverse cardiac event.Candidate for discharge
[2021-02-13] MEDS: ASCORBIC ACID 500 MG TAB PO SCH ×2 (10:04→23:01)
[2021-02-13] MEDS: INSULIN LISPRO 100 UNIT/ML SUB-Q SCH ×3 (10:04→17:55)
[2021-02-13] MEDS: dexAMETHasone 4 MG/ML VIAL IV SCH (10:04)
[2021-02-13] MEDS: ZINC SULFATE 220 MG CAP PO SCH ×2 (10:05→22:00)
[2021-02-13] MEDS ORDERED: PHENOL 1.4% 177 ML BOTTLE MM PRN (12:02)
[2021-02-13] MEDS ORDERED: INSULIN GLARGINE 100 UNITS/ML SUB-Q SCH (12:04)
--- NOTE | 2021-02-13 14:29 | Progress Note ---
Assessment and Plan Acute hypoxemic respiratory failure ARDS COVID-19 infection Morbid obesity; BMI 46.6 Obesity hypoventilation syndrome - lower extremity dopplers negative for DVT - encouraged better compliance with BIPAP and HFNC - encouraged awake proning - continue to wean supplemental oxygen for target O2 sat's > 92% acutely - continue aspiration precautions - continue care as below otherwise; - continue lung protective strategies - prn bronchodilators with pulmonary hygiene per RT - avoid nephrotoxins, renally dose all medications - continue to avoid benzodiazepine's, reduce the possibility of delirium - complete AB's per ID rec's - prn analgesia per CPOT score - Maintenance of sleep-wake cycle, avoid delirium - continue enteral nutritional support at goal rate as tolerated - G.I. & VTE prophylaxis - PT/OT/ROM exercises - continue mobility protocols for pressure ulcer prophylaxis - Monitor hemodynamics closely - continue other care per attending / other consultants - discharge planning ongoing concurrently COVID SPECIFIC INTERVENTIONS - Remdesivir as per ID/Pulmonary developed protocols (receiving) - continue systemic steroids for severe COVID-19 infection - follow repeat COVID tests results - zinc and vitamin C supplementation - Monitor inflammatory markers per facility protocol - ferritin, Ddimer, CRP - therapeutic anticoagulation per system Protocol based on d-dimer and clinical considerations (DVT prophylaxis for now) - Continue contact and airborne isolation .... Re-evaluate in am & prn CONDITION: CRITICAL PROGNOSIS: GUARDED CODE STATUS: FULL CODE The high probability of a clinically significant, sudden or life-threatening deterioration of the [respiratory, cardiovascular, GI & neurologic] system(s) required my full and direct attention, intervention and personal management. The aggregate critical care time was [32] minutes without overlap. Time includes spent on; [x] Data Review and interpretation [x] Patient assessment and monitoring of vital signs [x] Documentation [x] Medication orders and management Subjective Date of service: 02/13/21 Principal diagnosis: Ac hypoxemic resp failure; ARDS; COVID-19 infection; Morbid obesity; OHS Interval history: Patient is seen today for: Acute hypoxemic respiratory failure; ARDS; COVID-19 infection; Morbid obesity; OHS Seen and examined at bedside; 24hour events reviewed; nursing and respiratory care staff consulted; no adverse overnight events reported to me; resting in bed; remains on 100% FiO2 now via NRB; refusing HFNC; denies acute chest pain; No N/V/F/C Objective Vital Signs - 12hr 02/13/21 02/13/21 02/13/21 03:06 05:09 05:11 Pulse Rate 93 H 84 86 Respiratory 30 H 33 H 36 H Rate Blood Pressure 148/96 148/96 O2 Sat by Pulse 96 96 96 Oximetry 02/13/21 02/13/21 02/13/21 05:13 05:15 05:17 Pulse Rate 83 87 83 Respiratory 33 H 32 H 38 H Rate Blood Pressure 148/96 148/96 148/96 O2 Sat by Pulse 95 95 96 Oximetry 02/13/21 02/13/21 02/13/21 05:18 05:19 05:21 Pulse Rate 75 83 85 Respiratory 24 33 H 33 H Rate Blood Pressure 148/96 148/96 148/96 O2 Sat by Pulse 95 98 96 Oximetry 02/13/21 02/13/21 02/13/21 05:23 05:25 05:27 Pulse Rate 80 90 90 Respiratory 30 H 33 H 28 H Rate Blood Pressure 145/100 145/100 145/100 O2 Sat by Pulse 94 97 97 Oximetry 02/13/21 02/13/21 02/13/21 05:29 05:30 05:31 Pulse Rate 86 89 89 Respiratory 24 31 H 29 H Rate Blood Pressure 145/100 156/93 145/100 O2 Sat by Pulse 94 95 95 Oximetry 02/13/21 02/13/21 02/13/21 05:33 05:34 05:35 Pulse Rate 87 90 92 H Respiratory 27 H 26 H 31 H Rate Blood Pressure 145/100 145/100 145/100 O2 Sat by Pulse 95 96 95 Oximetry 02/13/21 02/13/21 02/13/21 05:37 05:39 05:41 Pulse Rate 95 H 95 H 83 Respiratory 30 H 24 29 H Rate Blood Pressure 156/93 156/93 156/93 O2 Sat by Pulse 95 95 95 Oximetry 02/13/21 02/13/21 02/13/21 05:43 05:45 05:47 Pulse Rate 81 90 90 Respiratory 28 H 32 H 29 H Rate Blood Pressure 156/93 156/93 156/93 O2 Sat by Pulse 96 96 96 Oximetry 02/13/21 02/13/21 02/13/21 05:49 05:51 05:53 Pulse Rate 88 92 H 91 H Respiratory 29 H 28 H 20 Rate Blood Pressure 156/93 156/93 165/112 O2 Sat by Pulse 95 94 93 Oximetry 02/13/21 02/13/21 02/13/21 05:55 05:57 05:59 Pulse Rate 90 95 H 70 Respiratory 21 15 20 Rate Blood Pressure 165/112 165/112 165/112 O2 Sat by Pulse 94 83 L 91 Oximetry 02/13/21 02/13/21 02/13/21 06:01 06:03 06:05 Pulse Rate 76 74 88 Respiratory 28 H 27 H 26 H Rate Blood Pressure 165/112 165/112 165/112 O2 Sat by Pulse 95 96 96 Oximetry 02/13/21 02/13/21 02/13/21 06:07 06:09 06:11 Pulse Rate 78 83 84 Respiratory 26 H 30 H 19 Rate Blood Pressure 145/100 145/100 145/100 O2 Sat by Pulse 98 98 96 Oximetry 02/13/21 02/13/21 02/13/21 06:13 06:15 06:17 Pulse Rate 79 72 82 Respiratory 28 H 31 H 25 H Rate Blood Pressure 145/100 145/100 145/100 O2 Sat by Pulse 96 98 98 Oximetry 02/13/21 02/13/21 02/13/21 06:19 06:21 06:23 Pulse Rate 78 77 82 Respiratory 20 32 H 18 Rate Blood Pressure 145/100 145/100 145/100 O2 Sat by Pulse 97 98 97 Oximetry 02/13/21 02/13/21 02/13/21 06:25 06:27 06:29 Pulse Rate 76 76 69 Respiratory 35 H 31 H 31 H Rate Blood Pressure 145/100 145/100 145/100 O2 Sat by Pulse 97 98 98 Oximetry 02/13/21 02/13/21 02/13/21 06:31 06:33 06:35 Pulse Rate 73 75 69 Respiratory 35 H 34 H 33 H Rate Blood Pressure 145/100 145/100 145/100 O2 Sat by Pulse 98 96 99 Oximetry 02/13/21 02/13/21 02/13/21 06:37 06:39 06:41 Pulse Rate 81 76 74 Respiratory 34 H 38 H 33 H Rate Blood Pressure 145/100 145/100 145/100 O2 Sat by Pulse 98 98 97 Oximetry 02/13/21 02/13/21 10:26 10:56 Pulse Rate 93 H Respiratory 30 H Rate Blood Pressure O2 Sat by Pulse 96 88 Oximetry Constitutional: alert, appears uncomfortable, other (Morbidly Obese female with mildy increased work of breathing at rest) Eyes: non-icteric ENT: oropharynx moist Neck: supple, no lymphadenopathy, no JVD Effort: mildly labored Ascultation: Bilateral: diminished breath sounds, rhonchi Percussion: Bilateral: not dull Cardiovascular: regular rate and rhythm Gastrointestinal: normoactive bowel sounds, soft, non-tender, non-distended (protuberant) Integumentary: normal Extremities: no cyanosis, no edema, pulses normal, no ischemia or petechiae Neurologic: normal mental status, non-focal exam, pupils equal and round, CN II- XII normal, motor strength normal and Psychiatric: mood appropriate, anxious CBC and BMP: 02/10/21 06:00 02/13/21 04:38 ABG, PT/INR, D-dimer: ABG ABG pH 7.370 (7.320-7.450) 02/12/21 16:00 POC ABG pCO2 44.7 mmHg (32.0-48.0) 02/12/21 16:00 POC ABG pO2 88.1 mmHg (83-108) 02/12/21 16:00 POC ABG HCO3 25.3 02/12/21 16:00 ABG O2 Saturation 95.6 (0-100) 02/12/21 16:00 PT/INR, D-dimer D-Dimer 310.92 ng/mlDDU (0-234) H 02/12/21 10:09 Abnormal lab findings: Abnormal Labs 02/10/21 02/10/21 02/10/21 06:00 06:00 06:36 MCV 71 L MCH 23 L RDW 16.5 H Lymph # (Auto) 1.1 L Seg Neutrophils % 76.6 H D-Dimer POC ABG pO2 ABG Hemoglobin ABG Oxyhemoglobin ABG Glucose Carboxyhemoglobin Sodium Potassium Chloride 97.7 L BUN 6 L Glucose 295 H POC Glucose Hemoglobin A1c Lactate Dehydrogenase 325 H C-Reactive Protein 8.20 H Total Protein Albumin 3.8 L Arterial Blood Glucose Coronavirus (PCR) 02/10/21 02/10/21 02/10/21 08:28 14:29 14:29 MCV MCH RDW Lymph # (Auto) Seg Neutrophils % D-Dimer POC ABG pO2 ABG Hemoglobin ABG Oxyhemoglobin ABG Glucose Carboxyhemoglobin Sodium 135 L Potassium Chloride 97.0 L BUN 6 L Glucose 308 H POC Glucose Hemoglobin A1c 10.5 H Lactate Dehydrogenase C-Reactive Protein Total Protein Albumin 3.4 L Arterial Blood Glucose Coronavirus (PCR) Positive A 02/10/21 02/10/21 02/10/21 14:37 16:49 21:34 MCV MCH RDW Lymph # (Auto) Seg Neutrophils % D-Dimer POC ABG pO2 58.8 L ABG Hemoglobin 11.2 L ABG Oxyhemoglobin 88.2 L ABG Glucose 343 H Carboxyhemoglobin 0 L Sodium Potassium Chloride BUN Glucose POC Glucose 289 H 304 H Hemoglobin A1c Lactate Dehydrogenase C-Reactive Protein Total Protein Albumin Arterial Blood Glucose 343 H Coronavirus (PCR) 02/11/21 02/11/21 02/11/21 07:58 09:59 17:29 MCV MCH RDW Lymph # (Auto) Seg Neutrophils % D-Dimer POC ABG pO2 ABG Hemoglobin ABG Oxyhemoglobin ABG Glucose Carboxyhemoglobin Sodium Potassium Chloride 97.5 L BUN Glucose 269 H POC Glucose 271 H 351 H Hemoglobin A1c Lactate Dehydrogenase C-Reactive Protein Total Protein Albumin 3.3 L Arterial Blood Glucose Coronavirus (PCR) 02/11/21 02/12/21 02/12/21 21:50 05:28 10:09 MCV MCH RDW Lymph # (Auto) Seg Neutrophils % D-Dimer 310.92 H POC ABG pO2 ABG Hemoglobin ABG Oxyhemoglobin ABG Glucose Carboxyhemoglobin Sodium Potassium 5.1 H Chloride BUN Glucose 308 H POC Glucose 333 H Hemoglobin A1c Lactate Dehydrogenase C-Reactive Protein Total Protein Albumin 3.3 L Arterial Blood Glucose Coronavirus (PCR) 02/12/21 02/12/21 02/12/21 10:09 16:00 21:50 MCV MCH RDW Lymph # (Auto) Seg Neutrophils % D-Dimer POC ABG pO2 ABG Hemoglobin ABG Oxyhemoglobin ABG Glucose 406 H Carboxyhemoglobin 0.3 L Sodium Potassium Chloride BUN Glucose POC Glucose 353 H Hemoglobin A1c Lactate Dehydrogenase 564 H C-Reactive Protein 12.60 H Total Protein Albumin Arterial Blood Glucose 406 H Coronavirus (PCR) 02/13/21 02/13/21 04:38 08:32 MCV MCH RDW Lymph # (Auto) Seg Neutrophils % D-Dimer POC ABG pO2 ABG Hemoglobin ABG Oxyhemoglobin ABG Glucose Carboxyhemoglobin Sodium Potassium Chloride BUN Glucose 295 H POC Glucose 308 H Hemoglobin A1c Lactate Dehydrogenase C-Reactive Protein Total Protein 8.4 H Albumin 3.5 L Arterial Blood Glucose Coronavirus (PCR) Chest x-ray: other (none today) Allied health notes reviewed: nursing
[2021-02-13] MEDS ORDERED: TOCILIZUMAB 800 MG in SODIUM CHLORIDE 0.9% 100 ML IV ONE (16:30)
[2021-02-13] MEDS: SODIUM CHLORIDE 0.9% 50 ML IVPB IV SCH (21:00)
[2021-02-13] MEDS: REMDESIVIR 100 MG in SODIUM CHLORIDE 0.9% 250ML 250 ML IV SCH (22:50)
[2021-02-13] MEDS: ENOXAPARIN 40 MG/0.4 ML INJ SUB-Q SCH (22:51)
[2021-02-13] MEDS: INSULIN GLARGINE 100 UNITS/ML SUB-Q SCH (22:58)
[2021-02-14] MEDS: INSULIN LISPRO 100 UNIT/ML SUB-Q SCH ×3 (09:23→18:36)
[2021-02-14] MEDS: ZINC SULFATE 220 MG CAP PO SCH ×2 (10:00→23:00)
[2021-02-14] MEDS: ASCORBIC ACID 500 MG TAB PO SCH ×2 (10:00→23:00)
[2021-02-14] MEDS: HYDROmorphone 1 MG/1 ML INJ IM PRN ×3 (10:01→22:00)
--- NOTE | 2021-02-14 11:18 | Progress Note ---
Assessment and Plan Assessment and plan: Patient is on high flow via BiPAP oxygen 30 L/ 100% FiO2/O2 sats 92% patient is morbidly obese in severe distress Patient is not vaccinated; --COVID-19 infection; Patient was not vaccinated Patient is on high flow oxygen with 100% nonrebreather IV dexamethasone 6 mg total 10 doses Continue remdesivir per protocol Prone positioning as tolerated Home O2 evaluation-not stable at present Inflammatory markers-elevated Anticoagulation per protocols-anticoagulation as were doing ID evaluation noted and appreciated Patient was unable to swallow vitamins secondary to sore throat. Pulmonary evaluation noted and appreciated --Acute severe hypoxic respiratory failure; Patient is on high flow nasal cannula oxygen 35 L 100% 90% FiO2 Nonrebreather Intubate if no improvement Discussed with pulmonary critical Overall prognosis poor --Morbid obesity; BMI 46.6 Patient needs weight reduction when medically stable Sleep study to rule out obstructive sleep apnea --Obesity hypoventilation syndrome; Pulmonary consult, titrate O2 sats to more than 90% Supportive care --Sore throat throat pain could be secondary to coughing versus BiPAP machine will add viscous lidocaine gargle --Diabetes remains uncontrolled. Secondary to steroid use. Will increase long- acting insulin.. --DVT prophylaxis; Lovenox --GI prophylaxis; Protonix We will closely monitor patient and adjust the management as needed Plan of care reviewed with the patient and her nurse Consultants and recommendations noted and appreciated Subjective Date of service: 02/14/21 Principal diagnosis: Ac hypoxemic resp failure; ARDS; COVID-19 infection; Morbid obesity; OHS Interval history: Addendum entered and electronically signed by SEAN HARTMAN MD 02/12/21 20:48: 40-year-old morbidly obese female patient with history of diabetes mellitus was admitted through emergency room with worsening shortness of breath patient did n ot get vaccinated initial work-up is consistent with COVID-19 pneumonia patient was severely hypoxemic requiring high flow oxygen at 35 L. Currently patient is Covid positive on very high flow oxygen, in mild distress and poor prognosis 02/13/2021 Patient remains hypoxemic today on BiPAP. Patient refused high flow O2 via nasal cannula. Complains today of throat pain and shortness of breath. All questions and concerns answered. Hospital course complicated by hypoglycemia. 02/14/2021. Objective - Constitutional Vitals: Vital Signs - 12hr 0802/13/21 02/13/21 23:19 23:21 23:23 Pulse Rate 92 H 105 H 93 H Respiratory 15 25 H 16 Rate Blood Pressure 160/97 160/97 160/97 O2 Sat by Pulse 93 88 91 Oximetry 02/13/21 02/13/21 02/13/21 23:25 23:27 23:29 Pulse Rate 94 H 102 H 97 H Respiratory 20 24 21 Rate Blood Pressure 160/97 160/97 160/97 O2 Sat by Pulse 93 95 96 Oximetry 02/13/21 02/13/21 02/13/21 23:31 23:33 23:35 Pulse Rate 99 H 107 H 104 H Respiratory 20 18 31 H Rate Blood Pressure 160/97 160/97 160/97 O2 Sat by Pulse 84 87 87 Oximetry 02/13/21 02/13/21 02/13/21 23:37 23:39 23:41 Pulse Rate 110 H 105 H 103 H Respiratory 21 17 13 Rate Blood Pressure 160/97 160/97 160/97 O2 Sat by Pulse 81 L 88 84 Oximetry 02/13/21 02/13/21 02/13/21 23:43 23:45 23:47 Pulse Rate 107 H 105 H 101 H Respiratory 22 33 H 18 Rate Blood Pressure 160/97 160/97 160/97 O2 Sat by Pulse 87 84 84 Oximetry 02/13/21 02/13/21 02/14/21 23:49 23:51 01:35 Pulse Rate 93 H Respiratory 29 H 29 H Rate Blood Pressure 160/97 160/97 160/97 O2 Sat by Pulse 88 88 82 L Oximetry 02/14/21 02/14/21 02/14/21 01:37 01:39 01:40 Pulse Rate 99 H Respiratory 15 Rate Blood Pressure 160/97 160/97 160/98 O2 Sat by Pulse 88 87 83 L Oximetry 02/14/21 02/14/21 02/14/21 01:41 01:43 01:45 Pulse Rate 95 H 88 Respiratory 30 H 27 H Rate Blood Pressure 160/97 160/97 160/97 O2 Sat by Pulse 90 96 Oximetry 02/14/21 02/14/21 02/14/21 01:47 01:49 01:51 Pulse Rate Respiratory Rate Blood Pressure 160/97 160/97 160/97 O2 Sat by Pulse 95 96 93 Oximetry 02/14/21 02/14/2102/14/21 01:53 01:55 01:57 Pulse Rate 87 89 Respiratory 33 H 22 27 H Rate Blood Pressure 160/97 160/97 160/97 O2 Sat by Pulse 93 91 93 Oximetry 02/14/21 02/14/21 02/14/21 01:59 02:01 02:03 Pulse Rate 98 H 104 H 93 H Respiratory 23 22 20 Rate Blood Pressure 160/97 160/97 160/97 O2 Sat by Pulse 92 92 92 Oximetry 02/14/21 02/14/21 02/14/21 02:05 02:07 02:09 Pulse Rate 90 111 H 92 H Respiratory 23 20 34 H Rate Blood Pressure 160/97 160/97 160/97 O2 Sat by Pulse 93 93 92 Oximetry 02/14/21 02/14/21 02/14/21 02:11 02:13 02:15 Pulse Rate 102 H 93 H 90 Respiratory 32 H 20 30 H Rate Blood Pressure 160/97 160/97 160/97 O2 Sat by Pulse 90 89 89 Oximetry 02/14/21 02/14/21 02/14/21 02:17 02:19 02:21 Pulse Rate 90 98 H 93 H Respiratory 25 H 27 H 32 H Rate Blood Pressure 160/97 160/97 160/97 O2 Sat by Pulse 89 90 90 Oximetry 02/14/21 02/14/21 02/14/21 02:23 02:25 02:27 Pulse Rate 89 88 90 Respiratory 26 H 27 H 30 H Rate Blood Pressure 160/97 160/97 160/97 O2 Sat by Pulse 93 89 88 Oximetry 02/14/21 02/14/21 02/14/21 02:29 02:31 02:33 Pulse Rate 84 91 H 105 H Respiratory 31 H 30 H 22 Rate Blood Pressure 160/97 160/97 160/97 O2 Sat by Pulse 91 88 88 Oximetry 02/14/21 02/14/21 02/14/21 02:35 02:37 02:39 Pulse Rate 97 H 96 H 94 H Respiratory 22 24 19 Rate Blood Pressure 160/97 160/97 160/97 O2 Sat by Pulse 85 88 90 Oximetry 02/14/21 02/14/21 02/14/21 02:41 02:43 02:45 Pulse Rate 105 H 83 90 Respiratory 16 12 13 Rate Blood Pressure 160/97 160/97 160/97 O2 Sat by Pulse 90 88 88 Oximetry 02/14/21 02/14/21 02/14/21 02:47 02:49 02:51 Pulse Rate 85 90 83 Respiratory 16 24 20 Rate Blood Pressure 160/97 160/97 160/97 O2 Sat by Pulse 93 95 97 Oximetry 02/14/21 02/14/21 02/14/21 02:53 02:55 02:57 Pulse Rate 99 H 90 79 Respiratory 22 25 H 26 H Rate Blood Pressure 160/97 160/97 160/97 O2 Sat by Pulse 97 96 96 Oximetry 02/14/21 02/14/21 02/14/21 02:59 03:01 03:03 Pulse Rate 93 H 94 H 84 Respiratory 25 H 29 H 27 H Rate Blood Pressure 160/97 160/97 160/97 O2 Sat by Pulse 95 87 94 Oximetry 02/14/21 02/14/21 02/14/21 03:05 03:07 03:09 Pulse Rate 88 96 H 100 H Respiratory 20 22 25 H Rate Blood Pressure 160/97 160/97 160/97 O2 Sat by Pulse 95 94 92 Oximetry 02/14/21 02/14/21 02/14/21 03:11 05:04 05:06 Pulse Rate 82 89 Respiratory 22 20 Rate Blood Pressure 160/97 O2 Sat by Pulse 96 94 93 Oximetry 02/14/21 02/14/21 02/14/21 05:08 05:10 05:11 Pulse Rate 99 H 87 88 Respiratory 19 30 H 27 H Rate Blood Pressure O2 Sat by Pulse 94 93 94 Oximetry 02/14/21 02/14/21 02/14/21 05:13 05:15 05:17 Pulse Rate 98 H 88 88 Respiratory 22 28 H 31 H Rate Blood Pressure O2 Sat by Pulse 94 94 93 Oximetry 02/14/21 02/14/21 02/14/21 05:19 05:21 05:23 Pulse Rate 89 107 H 86 Respiratory 30 H 18 23 Rate Blood Pressure O2 Sat by Pulse 93 91 93 Oximetry 02/14/21 02/14/21 02/14/21 05:25 05:27 05:29 Pulse Rate 88 98 H 95 H Respiratory 22 22 29 H Rate Blood Pressure O2 Sat by Pulse 93 92 90 Oximetry 02/14/21 02/14/21 02/14/21 05:31 05:33 05:35 Pulse Rate 97 H 91 H 87 Respiratory 36 H 34 H 34 H Rate Blood Pressure O2 Sat by Pulse 88 88 88 Oximetry 02/14/21 02/14/21 02/14/21 05:37 05:39 05:41 Pulse Rate 88 103 H 92 H Respiratory 32 H 20 29 H Rate Blood Pressure O2 Sat by Pulse 91 92 91 Oximetry 02/14/21 02/14/21 02/14/21 05:43 05:45 05:47 Pulse Rate 93 H 96 H 98 H Respiratory 24 28 H 23 Rate Blood Pressure O2 Sat by Pulse 93 91 91 Oximetry 02/14/21 02/14/21 02/14/21 05:49 05:51 05:53 Pulse Rate 87 90 89 Respiratory 21 21 25 H Rate Blood Pressure O2 Sat by Pulse 90 93 91 Oximetry 02/14/21 02/14/21 02/14/21 05:55 05:57 05:59 Pulse Rate 86 89 73 Respiratory 28 H 23 25 H Rate Blood Pressure O2 Sat by Pulse 91 93 92 Oximetry 02/14/21 02/14/21 02/14/21 06:01 06:03 06:05 Pulse Rate Respiratory Rate Blood Pressure O2 Sat by Pulse 91 93 94 Oximetry 02/14/21 02/14/21 02/14/21 06:07 06:09 06:11 Pulse Rate 99 H Respiratory 16 Rate Blood Pressure O2 Sat by Pulse 95 91 Oximetry 02/14/21 02/14/21 02/14/21 06:13 06:15 06:17 Pulse Rate 86 94 H Respiratory 27 H 21 17 Rate Blood Pressure O2 Sat by Pulse 82 L 88 Oximetry 02/14/21 02/14/21 02/14/21 06:19 06:21 06:23 Pulse Rate 115 H 65 74 Respiratory 13 22 19 Rate Blood Pressure O2 Sat by Pulse 88 89 91 Oximetry 02/14/21 02/14/21 02/14/21 06:25 06:27 06:29 Pulse Rate 80 86 95 H Respiratory 24 28 H 24 Rate Blood Pressure O2 Sat by Pulse 97 94 95 Oximetry 02/14/21 02/14/21 02/14/21 06:31 06:33 06:35 Pulse Rate 83 94 H 84 Respiratory 25 H 33 H 30 H Rate Blood Pressure O2 Sat by Pulse 91 93 93 Oximetry 02/14/21 02/14/21 02/14/21 06:37 06:39 06:41 Pulse Rate 87 105 H 85 Respiratory 19 19 30 H Rate Blood Pressure O2 Sat by Pulse 93 94 93 Oximetry General appearance: Present: no acute distress, obese - EENT Eyes: PERRL, EOM intact - Respiratory Respiratory: bilateral: diminished, rales - Cardiovascular Rhythm: regular Heart Sounds: Present: S1 & S2. Absent: gallop, rub - Gastrointestinal General gastrointestinal: Present: soft, non-tender, non-distended, normal bowel sounds - Musculoskeletal Musculoskeletal: generalized weakness - Neurologic Neurologic: moves all extremities - Psychiatric Psychiatric: memory intact, appropriate mood/affect, intact judgment & insight - Labs CBC & Chem 7: 02/10/21 06:00 02/13/21 04:38 Labs: Abnormal lab results 02/13/21 02/13/21 02/14/21 Range/Units 17:08 21:09 09:11 POC Glucose 372 H 370 H 289 H (70-105) mg/dL HEART Score - HEART Score EKG: Normal Age: < 45 Risk factors: No known risk factors Troponin: Troponin T < 0.010 ng/mL (0.00-0.029) 02/10/21 09:09 Troponin: < normal limit - Critical Actions Critical Actions: 0-3 pts:0.9-1.7%risk of adverse cardiac event.Candidate for discharge
--- NOTE | 2021-02-14 11:23 | Progress Note ---
Assessment and Plan Cultures: Blood culture no growth so far Covid positive A/P: 32-year-old female past medical history morbid obesity, diabetes and Covid pneumonia #Severe COVID-19 pneumonia: Patient presented with a week of symptoms, chest x-ray with diffuse bilateral infiltrates. Inflammatory markers elevated #Acute hypoxemic respiratory failure: Likely secondary to COVID-19 infection. Not better. Currently on high flow nasal cannula/BiPAP #Morbid obesity BMI 46 #Diabetes: tight glycemic control for best outcomes. Recs: -Continue dexamethasone 6 mg IV/PO daily for 10 days -Continue remdesivir for 5 days -Completed Tocilizumab on 02/13/2021 -Obtain q48-72h inflammatory markers - ferritin, Ddimer, CRP, LDH -Anticoagulation per hospital protocol -Proning as able -Pulmonary on board -Procalcitonin low no need for antibiotics High risk for intubation/ MD [facility] ([facility]) Office [phone] Subjective Date of service: 02/14/21 Principal diagnosis: Ac hypoxemic resp failure; ARDS; COVID-19 infection; Morbid obesity; OHS Interval history: Remains on high flow/NR sats over 91%. No fever. Objective - Exam Narrative Exam: Physical exam deferred to minimize COVID-19 transmission during pandemic. - Constitutional Vitals: Vital Signs Temp Pulse Resp BP Pulse Ox 99.4 F 85 30 H 160/97 93 02/11/21 20:00 02/14/21 06:41 02/14/21 06:41 02/14/21 03:11 02/14/21 06:41 - Labs CBC & Chem 7: 02/10/21 06:00 02/13/21 04:38 Labs: Abnormal lab results 02/13/21 02/13/21 02/14/21 Range/Units 17:08 21:09 09:11 POC Glucose 372 H 370 H 289 H (70-105) mg/dL
[2021-02-14] MEDS: dexAMETHasone 4 MG/ML VIAL IV SCH (11:24)
--- NOTE | 2021-02-14 13:49 | Progress Note ---
Assessment and Plan Acute hypoxemic respiratory failure ARDS COVID-19 infection Morbid obesity; BMI 46.6 Obesity hypoventilation syndrome - get troponin level re: chest pain - get EKG re: chest pain - get CXR to evaluate for SQ emphysema - too unstable for CT chest at this point; she has not been compliant with treatment so far but if compliant and no improvement in oxygenation will consider CTA chest (D-dimer was negative at presentation) - lower extremity dopplers negative for DVT - encouraged better compliance with BIPAP and HFNC - encouraged awake proning - continue to wean supplemental oxygen for target O2 sat's > 92% acutely - continue aspiration precautions - continue care as below otherwise; - continue lung protective strategies - prn bronchodilators with pulmonary hygiene per RT - avoid nephrotoxins, renally dose all medications - continue to avoid benzodiazepine's, reduce the possibility of delirium - complete AB's per ID rec's - prn analgesia per CPOT score - Maintenance of sleep-wake cycle, avoid delirium - continue enteral nutritional support at goal rate as tolerated - G.I. & VTE prophylaxis - PT/OT/ROM exercises - continue mobility protocols for pressure ulcer prophylaxis - Monitor hemodynamics closely - continue other care per attending / other consultants - discharge planning ongoing concurrently COVID SPECIFIC INTERVENTIONS - Remdesivir as per ID/Pulmonary developed protocols (receiving) - continue systemic steroids for severe COVID-19 infection - follow repeat COVID tests results - zinc and vitamin C supplementation - Monitor inflammatory markers per facility protocol - ferritin, Ddimer, CRP - therapeutic anticoagulation per system Protocol based on d-dimer and clinical considerations (DVT prophylaxis for now) - Continue contact and airborne isolation .... Re-evaluate in am & prn CONDITION: CRITICAL PROGNOSIS: GUARDED CODE STATUS: FULL CODE The high probability of a clinically significant, sudden or life-threatening deterioration of the [respiratory, cardiovascular, GI & neurologic] system(s) required my full and direct attention, intervention and personal management. The aggregate critical care time was [37] minutes without overlap. Time includes spent on; [x] Data Review and interpretation [x] Patient assessment and monitoring of vital signs [x] Documentation [x] Medication orders and management Subjective Date of service: 02/14/21 Principal diagnosis: Ac hypoxemic resp failure; ARDS; COVID-19 infection; Morbid obesity; OHS Interval history: Patient is seen today for: Acute hypoxemic respiratory failure; ARDS; COVID-19 infection; Morbid obesity; OHS Seen and examined at bedside; 24hour events reviewed; nursing and respiratory c are staff consulted; no adverse overnight events reported to me; resting in bed; remains on 100% FiO2 now via BIPAP (refused overnight but with increased work of breathing this am); No N/V/F/C; lay prone overnight and now complaining of left upper chest wall pain and swelling that is reproducible with palpation Objective Vital Signs - 12hr 02/14/21 02/14/21 02/14/21 01:49 01:51 01:53 Pulse Rate Respiratory 33 H Rate Blood Pressure 160/97 160/97 160/97 O2 Sat by Pulse 96 93 93 Oximetry 02/14/21 02/14/21 02/14/21 01:55 01:57 01:59 Pulse Rate 87 89 98 H Respiratory 22 27 H 23 Rate Blood Pressure 160/97 160/97 160/97 O2 Sat by Pulse 91 93 92 Oximetry 02/14/21 02/14/21 02/14/21 02:01 02:03 02:05 Pulse Rate 104 H 93 H 90 Respiratory 22 20 23 Rate Blood Pressure 160/97 160/97 160/97 O2 Sat by Pulse 92 92 93 Oximetry 02/14/21 02/14/21 02/14/21 02:07 02:09 02:11 Pulse Rate 111 H 92 H 102 H Respiratory 20 34 H 32 H Rate Blood Pressure 160/97 160/97 160/97 O2 Sat by Pulse 93 92 90 Oximetry 02/14/21 02/14/21 02/14/21 02:13 02:15 02:17 Pulse Rate 93 H 90 90 Respiratory 20 30 H 25 H Rate Blood Pressure 160/97 160/97 160/97 O2 Sat by Pulse 89 89 89 Oximetry 02/14/21 02/14/21 02/14/21 02:19 02:21 02:23 Pulse Rate 98 H 93 H 89 Respiratory 27 H 32 H 26 H Rate Blood Pressure 160/97 160/97 160/97 O2 Sat by Pulse 90 90 93 Oximetry 02/14/21 02/14/21 02/14/21 02:25 02:27 02:29 Pulse Rate 88 90 84 Respiratory 27 H 30 H 31 H Rate Blood Pressure 160/97 160/97 160/97 O2 Sat by Pulse 89 88 91 Oximetry 02/14/21 02/14/21 02/14/21 02:31 02:33 02:35 Pulse Rate 91 H 105 H 97 H Respiratory 30 H 22 22 Rate Blood Pressure 160/97 160/97 160/97 O2 Sat by Pulse 88 88 85 Oximetry 02/14/21 02/14/21 02/14/21 02:37 02:39 02:41 Pulse Rate 96 H 94 H 105 H Respiratory 24 19 16 Rate Blood Pressure 160/97 160/97 160/97 O2 Sat by Pulse 88 90 90 Oximetry 02/14/21 02/14/21 02/14/21 02:43 02:45 02:47 Pulse Rate 83 90 85 Respiratory 12 13 16 Rate Blood Pressure 160/97 160/97 160/97 O2 Sat by Pulse 88 88 93 Oximetry 02/14/21 02/14/21 02/14/21 02:49 02:51 02:53 Pulse Rate 90 83 99 H Respiratory 24 20 22 Rate Blood Pressure 160/97 160/97 160/97 O2 Sat by Pulse 95 97 97 Oximetry 02/14/21 02/14/21 02/14/21 02:55 02:57 02:59 Pulse Rate 90 79 93 H Respiratory 25 H 26 H 25 H Rate Blood Pressure 160/97 160/97 160/97 O2 Sat by Pulse 96 96 95 Oximetry 02/14/21 02/14/21 02/14/21 03:01 03:03 03:05 Pulse Rate 94 H 84 88 Respiratory 29 H 27 H 20 Rate Blood Pressure 160/97 160/97 160/97 O2 Sat by Pulse 87 94 95 Oximetry 02/14/21 02/14/21 02/14/21 03:07 03:09 03:11 Pulse Rate 96 H 100 H 82 Respiratory 22 25 H 22 Rate Blood Pressure 160/97 160/97 160/97 O2 Sat by Pulse 94 92 96 Oximetry 02/14/21 02/14/21 02/14/21 05:04 05:06 05:08 Pulse Rate 89 99 H Respiratory 20 19 Rate Blood Pressure O2 Sat by Pulse 94 93 94 Oximetry 02/14/21 02/14/21 02/14/21 05:10 05:11 05:13 Pulse Rate 87 88 98 H Respiratory 30 H 27 H 22 Rate Blood Pressure O2 Sat by Pulse 93 94 94 Oximetry 02/14/21 02/14/21 02/14/21 05:15 05:17 05:19 Pulse Rate 88 88 89 Respiratory 28 H 31 H 30 H Rate Blood Pressure O2 Sat by Pulse 94 93 93 Oximetry 02/14/21 02/14/21 02/14/21 05:21 05:23 05:25 Pulse Rate 107 H 86 88 Respiratory 18 23 22 Rate Blood Pressure O2 Sat by Pulse 91 93 93 Oximetry 02/14/21 02/14/21 02/14/21 05:27 05:29 05:31 Pulse Rate 98 H 95 H 97 H Respiratory 22 29 H 36 H Rate Blood Pressure O2 Sat by Pulse 92 90 88 Oximetry 02/14/21 02/14/21 02/14/21 05:33 05:35 05:37 Pulse Rate 91 H 87 88 Respiratory 34 H 34 H 32 H Rate Blood Pressure O2 Sat by Pulse 88 88 91 Oximetry 02/14/21 02/14/21 02/14/21 05:39 05:41 05:43 Pulse Rate 103 H 92 H 93 H Respiratory 20 29 H 24 Rate Blood Pressure O2 Sat by Pulse 92 91 93 Oximetry 02/14/21 02/14/21 02/14/21 05:45 05:47 05:49 Pulse Rate 96 H 98 H 87 Respiratory 28 H 23 21 Rate Blood Pressure O2 Sat by Pulse 91 91 90 Oximetry 02/14/21 02/14/21 02/14/21 05:51 05:53 05:55 Pulse Rate 90 89 86 Respiratory 21 25 H 28 H Rate Blood Pressure O2 Sat by Pulse 93 91 91 Oximetry 02/14/21 02/14/21 02/14/21 05:57 05:59 06:01 Pulse Rate 89 73 Respiratory 23 25 H Rate Blood Pressure O2 Sat by Pulse 93 92 91 Oximetry 02/14/21 02/14/21 02/14/21 06:03 06:05 06:07 Pulse Rate Respiratory Rate Blood Pressure O2 Sat by Pulse 93 94 95 Oximetry 02/14/21 02/14/21 02/14/21 06:09 06:11 06:13 Pulse Rate 99 H 86 Respiratory 16 27 H Rate Blood Pressure O2 Sat by Pulse 91 Oximetry 02/14/21 02/14/21 02/14/21 06:15 06:17 06:19 Pulse Rate 94 H 115 H Respiratory 21 17 13 Rate Blood Pressure O2 Sat by Pulse 82 L 88 88 Oximetry 02/14/21 02/14/21 02/14/21 06:21 06:23 06:25 Pulse Rate 65 74 80 Respiratory 22 19 24 Rate Blood Pressure O2 Sat by Pulse 89 91 97 Oximetry 02/14/21 02/14/21 02/14/21 06:27 06:29 06:31 Pulse Rate 86 95 H 83 Respiratory 28 H 24 25 H Rate Blood Pressure O2 Sat by Pulse 94 95 91 Oximetry 02/14/21 02/14/21 02/14/21 06:33 06:35 06:37 Pulse Rate 94 H 84 87 Respiratory 33 H 30 H 19 Rate Blood Pressure O2 Sat by Pulse 93 93 93 Oximetry 02/14/21 02/14/21 06:39 06:41 Pulse Rate 105 H 85 Respiratory 19 30 H Rate Blood Pressure O2 Sat by Pulse 94 93 Oximetry Constitutional: alert, appears uncomfortable, other (Morbidly Obese female with mildy increased work of breathing at rest) Eyes: non-icteric ENT: oropharynx moist Neck: supple, no lymphadenopathy, no JVD, other (no SQ emphysema palpable) Effort: mildly labored Ascultation: Bilateral: diminished breath sounds, rhonchi, other (no SQ emphysema palpable to upper chest wall or neck) Percussion: Bilateral: not dull Cardiovascular: regular rate and rhythm Gastrointestinal: normoactive bowel sounds, soft, non-tender, non-distended (protuberant) Integumentary: normal Extremities: no cyanosis, no edema, pulses normal, no ischemia or petechiae Neurologic: normal mental status, non-focal exam, pupils equal and round, CN II- XII normal, motor strength normal and Psychiatric: mood appropriate, anxious CBC and BMP: 02/10/21 06:00 02/13/21 04:38 ABG, PT/INR, D-dimer: ABG ABG pH 7.370 (7.320-7.450) 02/12/21 16:00 POC ABG pCO2 44.7 mmHg (32.0-48.0) 02/12/21 16:00 POC ABG pO2 88.1 mmHg (83-108) 02/12/21 16:00 POC ABG HCO3 25.3 02/12/21 16:00 ABG O2 Saturation 95.6 (0-100) 02/12/21 16:00 PT/INR, D-dimer D-Dimer 310.92 ng/mlDDU (0-234) H 02/12/21 10:09 Abnormal lab findings: Abnormal Labs 02/10/21 02/10/21 02/10/21 06:00 06:00 06:36 MCV 71 L MCH 23 L RDW 16.5 H Lymph # (Auto) 1.1 L Seg Neutrophils % 76.6 H D-Dimer POC ABG pO2 ABG Hemoglobin ABG Oxyhemoglobin ABG Glucose Carboxyhemoglobin Sodium Potassium Chloride 97.7 L BUN 6 L Glucose 295 H POC Glucose Hemoglobin A1c Lactate Dehydrogenase 325 H C-Reactive Protein 8.20 H Total Protein Albumin 3.8 L Arterial Blood Glucose Coronavirus (PCR) 02/10/21 02/10/21 02/10/21 08:28 14:29 14:29 MCV MCH RDW Lymph # (Auto) Seg Neutrophils % D-Dimer POC ABG pO2 ABG Hemoglobin ABG Oxyhemoglobin ABG Glucose Carboxyhemoglobin Sodium 135 L Potassium Chloride 97.0 L BUN 6 L Glucose 308 H POC Glucose Hemoglobin A1c 10.5 H Lactate Dehydrogenase C-Reactive Protein Total Protein Albumin 3.4 L Arterial Blood Glucose Coronavirus (PCR) Positive A 02/10/21 02/10/21 02/10/21 14:37 16:49 21:34 MCV MCH RDW Lymph # (Auto) Seg Neutrophils % D-Dimer POC ABG pO2 58.8 L ABG Hemoglobin 11.2 L ABG Oxyhemoglobin 88.2 L ABG Glucose 343 H Carboxyhemoglobin 0 L Sodium Potassium Chloride BUN Glucose POC Glucose 289 H 304 H Hemoglobin A1c Lactate Dehydrogenase C-Reactive Protein Total Protein Albumin Arterial Blood Glucose 343 H Coronavirus (PCR) 02/11/21 02/11/21 02/11/21 07:58 09:59 17:29 MCV MCH RDW Lymph # (Auto) Seg Neutrophils % D-Dimer POC ABG pO2 ABG Hemoglobin ABG Oxyhemoglobin ABG Glucose Carboxyhemoglobin Sodium Potassium Chloride 97.5 L BUN Glucose 269 H POC Glucose 271 H 351 H Hemoglobin A1c Lactate Dehydrogenase C-Reactive Protein Total Protein Albumin 3.3 L Arterial Blood Glucose Coronavirus (PCR) 02/11/21 02/12/21 02/12/21 21:50 05:28 10:09 MCV MCH RDW Lymph # (Auto) Seg Neutrophils % D-Dimer 310.92 H POC ABG pO2 ABG Hemoglobin ABG Oxyhemoglobin ABG Glucose Carboxyhemoglobin Sodium Potassium 5.1 H Chloride BUN Glucose 308 H POC Glucose 333 H Hemoglobin A1c Lactate Dehydrogenase C-Reactive Protein Total Protein Albumin 3.3 L Arterial Blood Glucose Coronavirus (PCR) 02/12/21 02/12/21 02/12/21 10:09 16:00 21:50 MCV MCH RDW Lymph # (Auto) Seg Neutrophils % D-Dimer POC ABG pO2 ABG Hemoglobin ABG Oxyhemoglobin ABG Glucose 406 H Carboxyhemoglobin 0.3 L Sodium Potassium Chloride BUN Glucose POC Glucose 353 H Hemoglobin A1c Lactate Dehydrogenase 564 H C-Reactive Protein 12.60 H Total Protein Albumin Arterial Blood Glucose 406 H Coronavirus (PCR) 02/13/21 02/13/21 02/13/21 04:38 08:32 17:08 MCV MCH RDW Lymph # (Auto) Seg Neutrophils % D-Dimer POC ABG pO2 ABG Hemoglobin ABG Oxyhemoglobin ABG Glucose Carboxyhemoglobin Sodium Potassium Chloride BUN Glucose 295 H POC Glucose 308 H 372 H Hemoglobin A1c Lactate Dehydrogenase C-Reactive Protein Total Protein 8.4 H Albumin 3.5 L Arterial Blood Glucose Coronavirus (PCR) 02/13/21 02/14/21 21:09 09:11 MCV MCH RDW Lymph # (Auto) Seg Neutrophils % D-Dimer POC ABG pO2 ABG Hemoglobin ABG Oxyhemoglobin ABG Glucose Carboxyhemoglobin Sodium Potassium Chloride BUN Glucose POC Glucose 370 H 289 H Hemoglobin A1c Lactate Dehydrogenase C-Reactive Protein Total Protein Albumin Arterial Blood Glucose Coronavirus (PCR) Chest x-ray: pending Allied health notes reviewed: nursing
--- NOTE | 2021-02-14 16:05 | XRay Report ---
CHEST 1 VIEW 02/14/2021 3:37 PM INDICATION / CLINICAL INFORMATION: chest pain. COMPARISON: 1121 FINDINGS: SUPPORT DEVICES: None. HEART / MEDIASTINUM: No significant abnormality. LUNGS / PLEURA: Diffuse bilateral airspace opacities have a similar appearance to prior exam. No defi nite pneumothorax seen. ADDITIONAL FINDINGS: There is extensive subcutaneous emphysema in the chest and neck. IMPRESSION: 1. Extensive subcutaneous emphysema in the chest and neck which is new from prior exam. No definite p neumothorax seen. 2. Stable bilateral pulmonary opacities. Signer Name: Dinesh Chowdary MD Signed: 02/14/2021 4:00 PM Workstation Name: [id number]
[2021-02-14] MEDS: SODIUM CHLORIDE 0.9% 50 ML IVPB IV SCH (22:00)
[2021-02-14] MEDS: REMDESIVIR 100 MG in SODIUM CHLORIDE 0.9% 250ML 250 ML IV SCH (22:47)
[2021-02-15] MEDS: INSULIN GLARGINE 100 UNITS/ML SUB-Q SCH
[2021-02-15] MEDS: INSULIN LISPRO 100 UNIT/ML SUB-Q SCH ×3 (01:00→12:36)
[2021-02-15] MEDS: HYDROmorphone 1 MG/1 ML INJ IM PRN ×4 (03:00→15:20)
[2021-02-15] MEDS: ENOXAPARIN 40 MG/0.4 ML INJ SUB-Q SCH (04:44)
--- NOTE | 2021-02-15 09:47 | Progress Note ---
Assessment and Plan Assessment and plan: Patient is on high flow via BiPAP oxygen 30 L/ 100% FiO2/O2 sats 92% patient is morbidly obese in severe distress Patient is not vaccinated; --COVID-19 infection; Patient was not vaccinated Patient is on high flow oxygen with 100% nonrebreather IV dexamethasone 6 mg total 10 doses Continue remdesivir per protocol Prone positioning as tolerated Home O2 evaluation-not stable at present Inflammatory markers-elevated Anticoagulation per protocols-anticoagulation as were doing ID evaluation noted and appreciated Patient was unable to swallow vitamins secondary to sore throat. Pulmonary evaluation noted and appreciated --Tachycardia Secondary to anxiety. Will add Ativan will help for anxiety and dyspnea --Acute severe hypoxic respiratory failure; Patient is on high flow nasal cannula oxygen 35 L 100% 90% FiO2 Nonrebreather still unable to wean at this point. Intubate if no improvement Discussed with pulmonary critical Overall prognosis poor --Morbid obesity; BMI 46.6 Patient needs weight reduction when medically stable Sleep study to rule out obstructive sleep apnea --Obesity hypoventilation syndrome; Pulmonary consult, titrate O2 sats to more than 90% Supportive care --Sore throat throat pain could be secondary to coughing versus BiPAP machine will add viscous lidocaine gargle --Diabetes remains uncontrolled. Secondary to steroid use We will place patient on 70/30 insulin so she can get regular scheduled short acting. 25 units twice daily advance as tolerated to maintain tight glycemic control. --DVT prophylaxis; Lovenox --GI prophylaxis; Protonix We will closely monitor patient and adjust the management as needed Plan of care reviewed with the patient and her nurse Consultants and recommendations noted and appreciated Subjective Date of service: 02/15/21 Principal diagnosis: Ac hypoxemic resp failure; ARDS; COVID-19 infection; Morbid obesity; OHS Interval history: Addendum entered and electronically signed by SEAN HARTMAN MD 02/12/21 20:48: 40-year-old morbidly obese female patient with history of diabetes mellitus was admitted through emergency room with worsening shortness of breath patient did not get vaccinated initial work-up is consistent with COVID-19 pneumonia patient was severely hypoxemic requiring high flow oxygen at 35 L. Currently patient is Covid positive on very high flow oxygen, in mild distress and poor prognosis 02/13/2021 Patient remains hypoxemic today on BiPAP. Patient refused high flow O2 via nasal cannula. Complains today of throat pain and shortness of breath. All questions and concerns answered. Hospital course complicated by hypoglycemia. 02/14/2021. Addendum patient was doing well. Patient remains hypoxic. Still requires BiPAP. Throat pain is improved. Patient hospital course complicated by episode of agitation with tachycardia. Objective - Constitutional Vitals: Vital Signs - 12hr 02/14/21 02/14/21 02/14/21 22:01 22:31 23:01 Pulse Rate 93 H 97 H 89 Respiratory 21 19 18 Rate Blood Pressure 143/106 143/106 143/106 O2 Sat by Pulse 89 92 92 Oximetry 02/14/21 02/15/21 02/15/21 23:31 00:01 00:12 Pulse Rate 89 90 86 Respiratory 18 22 20 Rate Blood Pressure 143/106 143/106 O2 Sat by Pulse 91 93 92 Oximetry 02/15/21 02/15/21 02/15/21 00:31 01:01 01:31 Pulse Rate 83 89 88 Respiratory 21 22 20 Rate Blood Pressure 143/106 143/106 143/106 O2 Sat by Pulse 94 94 94 Oximetry 02/15/21 02/15/21 02/15/21 02:01 02:31 03:01 Pulse Rate 92 H 97 H 93 H Respiratory 26 H 23 19 Rate Blood Pressure 143/106 143/106 143/106 O2 Sat by Pulse 95 90 93 Oximetry 02/15/21 02/15/21 02/15/21 03:31 04:01 04:31 Pulse Rate 87 99 H 102 H Respiratory 19 19 24 Rate Blood Pressure 143/106 143/106 143/106 O2 Sat by Pulse 93 94 93 Oximetry 02/15/21 02/15/21 02/15/21 04:40 05:01 05:31 Pulse Rate 94 H 96 H 109 H Respiratory 24 19 26 H Rate Blood Pressure 143/106 143/106 O2 Sat by Pulse 94 93 92 Oximetry 02/15/21 02/15/21 02/15/21 06:01 06:31 07:01 Pulse Rate 100 H 109 H 109 H Respiratory 20 21 19 Rate Blood Pressure 143/106 143/106 143/106 O2 Sat by Pulse 93 91 89 Oximetry 02/15/21 02/15/21 07:32 08:01 Pulse Rate 98 H Respiratory 20 18 Rate Blood Pressure 140/95 O2 Sat by Pulse 90 90 Oximetry General appearance: Present: mild distress - EENT Eyes: PERRL, EOM intact ENT: hearing intact, clear oral mucosa - Neck Neck: other (Emphysema subcutaneous about the same as yesterday.) - Respiratory Respiratory: bilateral: diminished, rhonchi - Cardiovascular Rhythm: other (Tachycardia rate of 112.) Extremities: pulses intact, No edema, normal color, Full ROM - Gastrointestinal General gastrointestinal: Present: soft, non-tender, non-distended, normal bowel sounds, other (Obese) - Musculoskeletal Musculoskeletal: generalized weakness, other (Edematous) - Neurologic Neurologic: moves all extremities - Psychiatric Psychiatric: agitated - Labs CBC & Chem 7: 02/10/21 06:00 02/13/21 04:38 Labs: Abnormal lab results 02/14/21 02/14/21 02/15/21 Range/Units 18:28 18:30 00:05 POC Glucose 391 H 354 H 290 H (70-105) mg/dL 02/15/21 Range/Units 07:44 POC Glucose 265 H (70-105) mg/dL HEART Score - HEART Score EKG: Normal Age: < 45 Risk factors: No known risk factors Troponin: Troponin T < 0.010 ng/mL (0.00-0.029) 02/14/21 15:30 Troponin: < normal limit - Critical Actions Critical Actions: 0-3 pts:0.9-1.7%risk of adverse cardiac event.Candidate for discharge
[2021-02-15 10:26] LABS: ABG Base Excess 4.1 mmol/L (-2.0-3.0); ABG HCO3 30.7 mmol/L (20.0-26.0); ABG PCO2 53.6 mm Hg; ABG PH 7.375 pH Units (7.350-7.450)
[2021-02-15 10:29] LABS: ABG Methemoglobin 0.5 % (0.0-1.5); ABG Oxygen Saturation 87.4 % (95.0-99.0)
--- NOTE | 2021-02-15 11:07 | Electrocardiograph Report ---
[facility] Test Date: 2021-02-14 Test Time: 15:23:35 Pat Name: ABDOULAYE DUENAS Department: Room: [place] [address] Gender: F [employer] Operator: [place] : 1980 Requested By: SHANAE METZGER Order Number: [id number] Reading MD: Jayme Lock Measurements Intervals [place] Rate: 87 P: 45 [place]: 135 QRS: 41 QRSD: 71 T: 47 QT: 357 QTc: 430 Interpretive Statements Sinus rhythm Low voltage, precordial leads Compared to ECG 02/12/2021 01:42:26 Low QRS voltage now present Sinus tachycardia no longer present Electronically Signed On 02-15-2021 11:07:05 EDT by Jayme Lock
[2021-02-15] MEDS: dexAMETHasone 4 MG/ML VIAL IV SCH (11:18)
[2021-02-15] MEDS: ZINC SULFATE 220 MG CAP PO SCH (11:18)
[2021-02-15] MEDS: ASCORBIC ACID 500 MG TAB PO SCH (11:18)
--- NOTE | 2021-02-15 13:13 | Progress Note ---
Assessment and Plan Cultures: Blood culture no growth so far COVID-19 PCR: Positive A/P: 32-year-old female past medical history morbid obesity, diabetes and Covid pneumonia #Severe COVID-19 pneumonia: Patient presented with a week of symptoms, chest x- ray with diffuse bilateral infiltrates. Inflammatory markers elevated. Pr ocalcitonin low #Acute hypoxemic respiratory failure: secondary to COVID-19 infection. #Morbid obesity BMI 46 #Diabetes: tight glycemic control for best outcomes. Recs: -Continue dexamethasone for 10 days -Completed 5 days of remdesivir -Completed Tocilizumab on 02/13/2021 -Monitor q48-72h inflammatory markers - ferritin, Ddimer, CRP, LDH -off abx Edmar Frost MD, FACP [facility] O: [phone] F: [phone] Subjective Date of service: 02/15/21 Principal diagnosis: Ac hypoxemic resp failure; ARDS; COVID-19 infection; Morbid obesity; OHS Interval history: Afebrile. Remains on oxygen. Objective - Exam Narrative Exam: Physical Exam (reviewed in chart to minimize risk of transmission) Constitutional: deferred Head, Ears, Nose: deferred Eyes: deferred Neck: deferred Oral: deferred Cardiovascular: deferred Respiratory: deferred GI: deferred Musculoskeletal: deferred Skin: deferred Hem/Lymphatic: deferred Psych: deferred Neurological: deferred - Constitutional Vitals: Vital Signs Temp Pulse Resp BP Pulse Ox 98.4 F 113 H 21 130/100 86 02/15/21 11:23 02/15/21 12:11 02/15/21 12:11 02/15/21 12:11 02/15/21 12:11 Temperature -Last 24 Hours Temperature 98.4 F - Labs CBC & Chem 7: 02/10/21 06:00 02/13/21 04:38 Labs: Abnormal lab results 02/14/21 02/14/21 02/15/21 Range/Units 18:28 18:30 00:05 ABG pO2 (80.0-90.0) mm Hg ABG HCO3 (20.0-26.0) mmol/L ABG O2 Saturation (95.0-99.0) % ABG Base Excess (-2.0-3.0) mmol/L Oxyhemoglobin (95.0-99.0) % POC Glucose 391 H 354 H 290 H (70-105) mg/dL 02/15/21 02/15/21 Range/Units 07:44 09:30 ABG pO2 55.0 L (80.0-90.0) mm Hg ABG HCO3 30.7 H (20.0-26.0) mmol/L ABG O2 Saturation 87.4 L (95.0-99.0) % ABG Base Excess 4.1 H (-2.0-3.0) mmol/L Oxyhemoglobin 86.1 L (95.0-99.0) % POC Glucose 265 H (70-105) mg/dL
--- NOTE | 2021-02-15 13:51 | Progress Note ---
Assessment and Plan This patient is a 40-year-old -[place] female who presents to the emergency department from home with complaint of a 1 week history of generalized body aches, chills, and progressively worsening shortness of breath. Over the past 2 days the patient says that she has developed a fever. She also has an intermittent mixed dry and productive cough. The shortness of breath worsens when she is laying down flat and she then feels like she is choking on secretions. She took ibuprofen and Tylenol this morning around 1:40 AM without much relief. The patient is not vaccinated against COVID-19. No known exposure to anyone with COVID-19. No recent travel or sick contacts at home. She has a past medical history of diabetes. Patient was found to have a room air oxygen saturation of 78% in triage and was placed on 4 L oxygen via nasal cannula and went up to 90%. Patient has no history of smoking, alcohol or drug abuse. 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 No Known drug allergies. Patient awake. Having increased work of breathing. Patient is is on BIPAP , Rate 20, FIO2 100%. O2 saturation running 87%.Planning to intubate the patient. Patient afebrile. No Leukocytosis. Blood pressure 169/103. Pulse 142. Chest xray done 02/10/21 reported Mild patchy multifocal airspace disease. Chest xray 02/14/21 reported Extensive subcutaneous emphysema in the chest and neck which is new from prior exam. No definite pneumothorax seen. Stable bilateral pulmonary opacities. Patient intubated, placed on assist control, rate 25, tidal volume 430, FIO2 100%, PEEP 14. Chest xray 02/15/21 reported Endotracheal tube in expected position. Interval development of small bilateral pneumothoraces. Surgery consulted for for bilateral pneumothorax. ABGs on ventilator ABG pH 7.375 pH Units (7.350-7.450) 02/15/21 09:30 POC ABG pCO2 44.7 mmHg (32.0-48.0) 02/12/21 16:00 ABG pCO2 53.6 mm Hg 02/15/21 09:30 POC ABG pO2 88.1 mmHg (83-108) 02/12/21 16:00 ABG pO2 55.0 mm Hg (80.0-90.0) L 02/15/21 09:30 POC ABG HCO3 25.3 02/12/21 16:00 ABG O2 Saturation 87.4 % (95.0-99.0) L 02/15/21 09:30 Patient is on dexamethasone, S/C Lovenox and famotidine. Finished course of REMDESIVIR and Zithromax. Patient transfered to ICU care. Patient was seen in the emergency room I spent critical care time of 50 minutes on this patient, review the chart, review chest xray,Lab results, talking to the nursing staff and respiratory therapy and work out plan of tratment on this critically ill COVID Patient. - Patient Problems (1) Acute respiratory failure with hypoxia Current Visit: Yes Status: Acute Plan to address problem: Patient is intubated. On assist control mechanical ventilation, rate 25, tidal volume 430, FIO2 100%, PEEP 14 Continue dexamethasone. Continue S/C Lovenox. Famotidine. (2) 2019 novel coronavirus disease (COVID-19) Current Visit: Yes Status: Acute Plan to address problem: Patient is on Dexamethasone, and S/C Lovenox. Finished course of REMDESIVIR Management as per nfectious disease. (3) 2019 novel coronavirus-infected pneumonia (NCIP) Current Visit: Yes Status: Acute Plan to address problem: Chest xray done 02/10/21 reported Mild patchy multifocal airspace disease. Patient was given zithromax. Antibiotic management as per ID. (4) Hypertension Current Visit: Yes Status: Acute Qualifiers: Hypertension type: primary hypertension Qualified Code(s): I10 - Essential (primary) hypertension Plan to address problem: Patients blood pressure 169/103. Management as per primary care. (5) Bilateral pneumothoraces Current Visit: Yes Status: Acute Plan to address problem: Post intubation chest xray reported small bilateral pneumothoracis. Surgery consulted, if needs chest tubes. Subjective Date of service: 02/15/21 Principal diagnosis: Ac hypoxemic resp failure; ARDS; COVID-19 infection; Morbid obesity; OHS Interval history: This patient is a 40-year-old -[place] female who presents to the emergency department from home with complaint of a 1 week history of generalized body aches, chills, and progressively worsening shortness of breath. Over the past 2 days the patient says that she has developed a fever. She also has an intermittent mixed dry and productive cough. The shortness of breath worsens when she is laying down flat and she then feels like she is choking on secretions. She took ibuprofen and Tylenol this morning around 1:40 AM without much relief. The patient is not vaccinated against COVID-19. No known exposure to anyone with COVID-19. No recent travel or sick contacts at home. She has a past medical history of diabetes. Patient was found to have a room air oxygen saturation of 78% in triage and was placed on 4 L oxygen via nasal cannula and went up to 90%. Patient has no history of smoking, alcohol or drug abuse. 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 No Known drug allergies. Patient awake. Having increased work of breathing. Patient is is on BIPAP , Rate 20, FIO2 100%. O2 saturation running 87%.Planning to intubate the patient. Patient afebrile. No Leukocytosis. Blood pressure 169/103. Pulse 142. Chest xray done 02/10/21 reported Mild patchy multifocal airspace disease. Chest xray 02/14/21 reported Extensive subcutaneous emphysema in the chest and neck which is new from prior exam. No definite pneumothorax seen. Stable bilateral pulmonary opacities. Patient intubated, placed on assist control, rate 25, tidal volume 430, FIO2 100%, PEEP 14. Chest xray 02/15/21 reported Endotracheal tube in expected position. Interval development of small bilateral pneumothoraces. Surgery consulted for for bilateral pneumothorax. ABGs on ventilator. ABG pH 7.375 pH Units (7.350-7.450) 02/15/21 09:30 POC ABG pCO2 44.7 mmHg (32.0-48.0) 02/12/21 16:00 ABG pCO2 53.6 mm Hg 02/15/21 09:30 POC ABG pO2 88.1 mmHg (83-108) 02/12/21 16:00 ABG pO2 55.0 mm Hg (80.0-90.0) L 02/15/21 09:30 POC ABG HCO3 25.3 02/12/21 16:00 ABG O2 Saturation 87.4 % (95.0-99.0) L 02/15/21 09:30 Patient is on dexamethasone, S/C Lovenox and famotidine. Finished course of REMDESIVIR and Zithromax. Patient transfered to ICU care. Objective Vital Signs - 12hr 02/15/21 02/15/21 02/15/21 02:01 02:31 03:01 Temperature Pulse Rate 92 H 97 H 93 H Respiratory 26 H 23 19 Rate Blood Pressure 143/106 143/106 143/106 O2 Sat by Pulse 95 90 93 Oximetry 02/15/21 02/15/21 02/15/21 03:31 04:01 04:31 Temperature Pulse Rate 87 99 H 102 H Respiratory 19 19 24 Rate Blood Pressure 143/106 143/106 143/106 O2 Sat by Pulse 93 94 93 Oximetry 02/15/21 02/15/21 02/15/21 04:40 05:01 05:31 Temperature Pulse Rate 94 H 96 H 109 H Respiratory 24 19 26 H Rate Blood Pressure 143/106 143/106 O2 Sat by Pulse 94 93 92 Oximetry 02/15/21 02/15/21 02/15/21 06:01 06:31 07:01 Temperature Pulse Rate 100 H 109 H 109 H Respiratory 20 21 19 Rate Blood Pressure 143/106 143/106 143/106 O2 Sat by Pulse 93 91 89 Oximetry 02/15/21 02/15/21 02/15/21 07:32 08:00 08:01 Temperature Pulse Rate 98 H Respiratory 20 18 Rate Blood Pressure 140/95 O2 Sat by Pulse 90 90 90 Oximetry 02/15/21 02/15/21 02/15/21 09:23 11:23 12:11 Temperature 98.4 F Pulse Rate 101 H 113 H Respiratory 24 21 Rate Blood Pressure 143/92 130/100 O2 Sat by Pulse 90 86 Oximetry Constitutional: alert, appears uncomfortable, other (Morbidly Obese female with mildy increased work of breathing at rest) Eyes: non-icteric ENT: oropharynx moist Neck: supple, no lymphadenopathy, no JVD, other (no SQ emphysema palpable) Effort: mildly labored Ascultation: Bilateral: rhonchi Percussion: Bilateral: not dull Cardiovascular: regular rate and rhythm Gastrointestinal: normoactive bowel sounds, soft, non-tender, non-distended (protuberant) Integumentary: normal Extremities: no cyanosis, no edema, pulses normal, no ischemia or petechiae Neurologic: normal mental status, non-focal exam, pupils equal and round, CN II-XII normal, motor strength normal and Psychiatric: anxious CBC and BMP: 02/16/21 07:45 02/16/21 07:45 ABG, PT/INR, D-dimer: ABG ABG pH 7.375 pH Units (7.350-7.450) 02/15/21 09:30 POC ABG pCO2 44.7 mmHg (32.0-48.0) 02/12/21 16:00 ABG pCO2 53.6 mm Hg 02/15/21 09:30 POC ABG pO2 88.1 mmHg (83-108) 02/12/21 16:00 ABG pO2 55.0 mm Hg (80.0-90.0) L 02/15/21 09:30 POC ABG HCO3 25.3 02/12/21 16:00 ABG O2 Saturation 87.4 % (95.0-99.0) L 02/15/21 09:30 PT/INR, D-dimer D-Dimer 310.92 ng/mlDDU (0-234) H 02/12/21 10:09 Abnormal lab findings: Abnormal Labs 02/10/21 02/10/21 02/10/21 06:00 06:00 06:36 MCV 71 L MCH 23 L RDW 16.5 H Lymph # (Auto) 1.1 L Seg Neutrophils % 76.6 H D-Dimer POC ABG pO2 ABG pO2 ABG HCO3 ABG O2 Saturation ABG Base Excess ABG Hemoglobin ABG Oxyhemoglobin ABG Glucose Oxyhemoglobin Carboxyhemoglobin Sodium Potassium Chloride 97.7 L BUN 6 L Glucose 295 H POC Glucose Hemoglobin A1c Lactate Dehydrogenase 325 H C-Reactive Protein 8.20 H Total Protein Albumin 3.8 L Arterial Blood Glucose Coronavirus (PCR) 02/10/21 02/10/21 02/10/21 08:28 14:29 14:29 MCV MCH RDW Lymph # (Auto) Seg Neutrophils % D-Dimer POC ABG pO2 ABG pO2 ABG HCO3 ABG O2 Saturation ABG Base Excess ABG Hemoglobin ABG Oxyhemoglobin ABG Glucose Oxyhemoglobin Carboxyhemoglobin Sodium 135 L Potassium Chloride 97.0 L BUN 6 L Glucose 308 H POC Glucose Hemoglobin A1c 10.5 H Lactate Dehydrogenase C-Reactive Protein Total Protein Albumin 3.4 L Arterial Blood Glucose Coronavirus (PCR) Positive A 02/10/21 02/10/2102/10/21 14:37 16:49 21:34 MCV MCH RDW Lymph # (Auto) Seg Neutrophils % D-Dimer POC ABG pO2 58.8 L ABG pO2 ABG HCO3 ABG O2 Saturation ABG Base Excess ABG Hemoglobin 11.2 L ABG Oxyhemoglobin 88.2 L ABG Glucose 343 H Oxyhemoglobin Carboxyhemoglobin 0 L Sodium Potassium Chloride BUN Glucose POC Glucose 289 H 304 H Hemoglobin A1c Lactate Dehydrogenase C-Reactive Protein Total Protein Albumin Arterial Blood Glucose 343 H Coronavirus (PCR) 02/11/21 02/11/21 02/11/21 07:58 09:59 17:29 MCV MCH RDW Lymph # (Auto) Seg Neutrophils % D-Dimer POC ABG pO2 ABG pO2 ABG HCO3 ABG O2 Saturation ABG Base Excess ABG Hemoglobin ABG Oxyhemoglobin ABG Glucose Oxyhemoglobin Carboxyhemoglobin Sodium Potassium Chloride 97.5 L BUN Glucose 269 H POC Glucose 271 H 351 H Hemoglobin A1c Lactate Dehydrogenase C-Reactive Protein Total Protein Albumin 3.3 L Arterial Blood Glucose Coronavirus (PCR) 02/11/21 02/12/21 02/12/21 21:50 05:28 10:09 MCV MCH RDW Lymph # (Auto) Seg Neutrophils % D-Dimer 310.92 H POC ABG pO2 ABG pO2 ABG HCO3 ABG O2 Saturation ABG Base Excess ABG Hemoglobin ABG Oxyhemoglobin ABG Glucose Oxyhemoglobin Carboxyhemoglobin Sodium Potassium 5.1 H Chloride BUN Glucose 308 H POC Glucose 333 H Hemoglobin A1c Lactate Dehydrogenase C-Reactive Protein Total Protein Albumin 3.3 L Arterial Blood Glucose Coronavirus (PCR) 02/12/21 02/12/21 02/12/21 10:09 16:00 21:50 MCV MCH RDW Lymph # (Auto) Seg Neutrophils % D-Dimer POC ABG pO2 ABG pO2 ABG HCO3 ABG O2 Saturation ABG Base Excess ABG Hemoglobin ABG Oxyhemoglobin ABG Glucose 406 H Oxyhemoglobin Carboxyhemoglobin 0.3 L Sodium Potassium Chloride BUN Glucose POC Glucose 353 H Hemoglobin A1c Lactate Dehydrogenase 564 H C-Reactive Protein 12.60 H Total Protein Albumin Arterial Blood Glucose 406 H Coronavirus (PCR) 02/13/21 02/13/21 02/13/21 04:38 08:32 17:08 MCV MCH RDW Lymph # (Auto) Seg Neutrophils % D-Dimer POC ABG pO2 ABG pO2 ABG HCO3 ABG O2 Saturation ABG Base Excess ABG Hemoglobin ABG Oxyhemoglobin ABG Glucose Oxyhemoglobin Carboxyhemoglobin Sodium Potassium Chloride BUN Glucose 295 H POC Glucose 308 H 372 H Hemoglobin A1c Lactate Dehydrogenase C-Reactive Protein Total Protein 8.4 H Albumin 3.5 L Arterial Blood Glucose Coronavirus (PCR) 02/13/21 02/14/21 02/14/21 21:09 09:11 18:28 MCV MCH RDW Lymph # (Auto) Seg Neutrophils % D-Dimer POC ABG pO2 ABG pO2 ABG HCO3 ABG O2 Saturation ABG Base Excess ABG Hemoglobin ABG Oxyhemoglobin ABG Glucose Oxyhemoglobin Carboxyhemoglobin Sodium Potassium Chloride BUN Glucose POC Glucose 370 H 289 H 391 H Hemoglobin A1c Lactate Dehydrogenase C-Reactive Protein Total Protein Albumin Arterial Blood Glucose Coronavirus (PCR) 02/14/21 02/15/21 02/15/21 18:30 00:05 07:44 MCV MCH RDW Lymph # (Auto) Seg Neutrophils % D-Dimer POC ABG pO2 ABG pO2 ABG HCO3 ABG O2 Saturation ABG Base Excess ABG Hemoglobin ABG Oxyhemoglobin ABG Glucose Oxyhemoglobin Carboxyhemoglobin Sodium Potassium Chloride BUN Glucose POC Glucose 354 H 290 H 265 H Hemoglobin A1c Lactate Dehydrogenase C-Reactive Protein Total Protein Albumin Arterial Blood Glucose Coronavirus (PCR) 02/15/21 09:30 MCV MCH RDW Lymph # (Auto) Seg Neutrophils % D-Dimer POC ABG pO2 ABG pO2 55.0 L ABG HCO3 30.7 H ABG O2 Saturation 87.4 L ABG Base Excess 4.1 H ABG Hemoglobin ABG Oxyhemoglobin ABG Glucose Oxyhemoglobin 86.1 L Carboxyhemoglobin Sodium Potassium Chloride BUN Glucose POC Glucose Hemoglobin A1c Lactate Dehydrogenase C-Reactive Protein Total Protein Albumin Arterial Blood Glucose Coronavirus (PCR) Chest x-ray: report reviewed, image reviewed Additional Studies: CHEST 1 VIEW 02/14/2021 3:37 PM INDICATION / CLINICAL INFORMATION: chest pain. COMPARISON: 1121 FINDINGS: SUPPORT DEVICES: None. HEART / MEDIASTINUM: No significant abnormality. LUNGS / PLEURA: Diffuse bilateral airspace opacities have a similar appearance to prior exam. No definite pneumothorax seen. ADDITIONAL FINDINGS: There is extensive subcutaneous emphysema in the chest and neck. IMPRESSION: 1. Extensive subcutaneous emphysema in the chest and neck which is new from prior exam. No definite pneumothorax seen. 2. Stable bilateral pulmonary opacities. CHEST 1 VIEW 02/15/2021 6:26 PM INDICATION / CLINICAL INFORMATION: ETT placement. COMPARISON: 02/14/21 FINDINGS: SUPPORT DEVICES: Endotracheal tube has been placed with the tip 4 cm above the cedric. HEART / MEDIASTINUM: Stable. LUNGS / PLEURA: Slight increase in bilateral pulmonary opacities. Interval development of small bilateral pneumothoraces possibly related to subcutaneous soft tissue emphysema. ADDITIONAL FINDINGS: Increase in subcutaneous soft tissue emphysema in the neck and chest wall. IMPRESSION: 1. Endotracheal tube in expected position. 2. Interval development of small bilateral pneumothoraces. Allied health notes reviewed: nursing
[2021-02-15] MEDS ORDERED: LORazepam 2 MG/ML VIAL IV PRN (16:35)
[2021-02-15] MEDS ORDERED: MINERAL OIL/PETROLATUM, WHITE OPHTH OINT 3.5 GM OU PRN (18:43)
[2021-02-15] MEDS ORDERED: fentaNYL 100 MCG/2 ML INJ IV PRN (18:43)
[2021-02-15] MEDS ORDERED: LIP THERAPY VASELINE TP PRN (18:43)
--- NOTE | 2021-02-15 18:43 | Event Note ---
Date: 02/15/21 Called about respiratory decompensation remains with ARDS numbers and with acute encephalopathy - intubate - get ABG and address thereafter - discussed with RT, RN & Attending
[2021-02-15] MEDS ORDERED: propofoL 200 MG/20 ML VIAL IV ONE ×2 (18:44→19:12)
[2021-02-15] MEDS ORDERED: LIDOCAINE MPF (2%) 20 MG/1 ML VIAL 5 ML ONE (18:44)
[2021-02-15] MEDS ORDERED: SUCCINYLCHOLINE CHLORIDE 200 MG/10 ML INJ MDV ONE (18:44)
[2021-02-15] MEDS ORDERED: SODIUM CHLORIDE 0.9% 1000 ML 1,000 ML ONE (18:53)
--- NOTE | 2021-02-15 19:14 | Progress Note ---
Subjective Date of service: 02/15/21 Principal diagnosis: Ac hypoxemic resp failure; ARDS; COVID-19 infection; Morbid obesity; OHS Interval history: Intubation in ED 18:50 - 19:[address] Tomas, ED doctors to the COVID positive patient, who have been in the hospital for the last 3 days with difficulty breathing, on BiPAP, with SpO2 in the mid 80s on 100% O2. Due to high BMI, edema/subsutaneous emphysema on the neck expected difficult intubartion. Patient is awake, BP 165/101. HR 140, SpO2 85% Patient was explained intubation, induced with Lidocaine 100mg, Propofol 200mg, Succynilcholine. Intubated with Glidescope MAC4 blade, 7.5mm ETT. Tube taped to 22cm. Position of ETT confirmed with CO2 sensor color change and bilateral breath sounds. After intubation SpO2 brifly fell in the single digits, requiring placement of PEEP valve on AMBU bag, but quickly recovered shortly after to the mid 90s. Stable vital sighs after. Objective - Constitutional Vitals: Vital Signs - 12hr 02/15/21 02/15/21 02/15/21 07:32 08:00 08:01 Temperature Pulse Rate 98 H Respiratory 20 18 Rate Blood Pressure 140/95 O2 Sat by Pulse 90 90 90 Oximetry 02/15/21 02/15/21 02/15/21 08:31 09:01 09:23 Temperature Pulse Rate 94 H 106 H 101 H Respiratory 16 19 24 Rate Blood Pressure 140/95 143/92 143/92 O2 Sat by Pulse 91 87 90 Oximetry 02/15/21 02/15/21 02/15/21 09:31 10:01 10:31 Temperature Pulse Rate 111 H 110 H 114 H Respiratory 26 H 24 24 Rate Blood Pressure 143/92 137/96 137/96 O2 Sat by Pulse 87 88 86 Oximetry 02/15/21 02/15/21 02/15/21 11:01 11:23 11:31 Temperature 98.4 F Pulse Rate 121 H 119 H Respiratory 29 H 29 H Rate Blood Pressure 135/95 135/95 O2 Sat by Pulse 87 82 L Oximetry 02/15/21 02/15/21 02/15/21 12:01 12:11 12:31 Temperature Pulse Rate 113 H 113 H 115 H Respiratory 26 H 21 24 Rate Blood Pressure 130/100 130/100 130/100 O2 Sat by Pulse 89 86 90 Oximetry 02/15/21 02/15/21 02/15/21 13:01 13:31 14:00 Temperature Pulse Rate 120 H 130 H 122 H Respiratory 24 29 H 29 H Rate Blood Pressure 146/95 130/100 135/108 O2 Sat by Pulse 87 87 89 Oximetry 02/15/21 02/15/21 02/15/21 14:31 15:01 15:31 Temperature Pulse Rate 128 H 136 H 130 H Respiratory 27 H 28 H 20 Rate Blood Pressure 135/108 162/102 162/102 O2 Sat by Pulse 89 89 91 Oximetry 02/15/21 02/15/21 02/15/21 16:01 16:02 16:31 Temperature Pulse Rate 134 H 129 H 131 H Respiratory 30 H 21 32 H Rate Blood Pressure 158/110 158/110 158/110 O2 Sat by Pulse 89 89 85 Oximetry 02/15/21 02/15/21 02/15/21 17:01 17:31 18:01 Temperature Pulse Rate 143 H 147 H 143 H Respiratory 25 H 38 H 38 H Rate Blood Pressure 169/103 O2 Sat by Pulse 85 86 88 Oximetry - Labs CBC & Chem 7: 02/10/21 06:00 02/13/21 04:38 Labs: Abnormal lab results 02/14/21 02/15/21 02/15/21 Range/Units 13:13 00:05 07:44 ABG pO2 (80.0-90.0) mm Hg ABG HCO3 (20.0-26.0) mmol/L ABG O2 Saturation (95.0-99.0) % ABG Base Excess (-2.0-3.0) mmol/L Oxyhemoglobin (95.0-99.0) % POC Glucose 271 H 290 H 265 H (70-105) mg/dL 02/15/21 02/15/21 02/15/21 Range/Units 09:30 12:27 16:58 ABG pO2 55.0 L (80.0-90.0) mm Hg ABG HCO3 30.7 H (20.0-26.0) mmol/L ABG O2 Saturation 87.4 L (95.0-99.0) % ABG Base Excess 4.1 H (-2.0-3.0) mmol/L Oxyhemoglobin 86.1 L (95.0-99.0) % POC Glucose 270 H 325 H (70-105) mg/dL
--- NOTE | 2021-02-15 19:34 | XRay Report ---
CHEST 1 VIEW 02/15/2021 6:26 PM INDICATION / CLINICAL INFORMATION: ETT placement. COMPARISON: 02/14/21 FINDINGS: SUPPORT DEVICES: Endotracheal tube has been placed with the tip 4 cm above the cedric. HEART / MEDIASTINUM: Stable. LUNGS / PLEURA: Slight increase in bilateral pulmonary opacities. Interval development of small bilat eral pneumothoraces possibly related to subcutaneous soft tissue emphysema. ADDITIONAL FINDINGS: Increase in subcutaneous soft tissue emphysema in the neck and chest wall. IMPRESSION: 1. Endotracheal tube in expected position. 2. Interval development of small bilateral pneumothoraces. Signer Name: Ruth Toro MD Signed: 02/15/2021 7:29 PM Workstation Name: [email or web address]
--- NOTE | 2021-02-15 21:09 | Event Note ---
Date: 02/15/21 reviewed CXR and noted bilateral Pneumothoraces (right for sure left not clear) ETT in good position - get stat CTA chest to evaluate for P.E. and confirm pneumothoraces - surgery consult placed for chest tubes - case discussed with functional tester typewriters hospitalist
[2021-02-15] MEDS: fentaNYL DRIP Premix 2,000 MCG/100 ML BAG IV SCH (21:15)
--- NOTE | 2021-02-15 22:57 | Consultation ---
History of Present Illness - History of present illness History of present illness: 40 yo obese female with Covid and bilateral pneumothoraces. She is intubated. Past History Past Medical History: diabetes. denies: hypertension Past Surgical History: Other (Right knee surgery) Social history: denies: smoking, alcohol abuse, prescription drug abuse Family history: no significant family history Medications and Allergies Allergies Allergy/AdvReac Type Severity Reaction Status Date / Time No Known Allergies Allergy Verified 02/10/21 06:05 Home Medications Medication Instructions Recorded Confirmed Last Taken Type Aspirin [Adult Aspirin] 81 mg PO DAILY 02/10/21 02/10/21 Unknown History metFORMIN 100 mg PO BID 02/10/21 02/10/21 Unknown History Active Meds: Active Medications Ascorbic Acid (Ascorbic Acid 500 Mg Tab) 500 mg PO BID [facility] Last Admin: 02/15/21 11:18 Dose: 500 mg Documented by: Dexamethasone (Dexamethasone 4 Mg/Ml Vial) 6 mg IV DAILY [facility] Stop: 02/19/21 10:01 Last Admin: 02/15/21 11:18 Dose: 6 mg Documented by: Enoxaparin Sodium (Enoxaparin 40 Mg/0.4 Ml Inj) 40 mg SUB-Q QDAY@2200 [facility]; Protocol Last Admin: 02/15/21 04:44 Dose: 40 mg Documented by: Famotidine (Famotidine 20 Mg/2 Ml Inj) 20 mg IV QDAY [facility] Fentanyl (Fentanyl 100 Mcg/2 Ml Inj) 50 mcg IV Q10MIN PRN PRN Reason: ANALGESIA Stop: 02/15/21 23:59 Hydralazine HCl (Hydralazine 20 Mg/1 Ml Inj) 10 mg IV Q4HR PRN PRN Reason: Hypertension Last Admin: 02/11/21 00:20 Dose: 10 mg Documented by: Hydromorphone HCl (Hydromorphone 1 Mg/1 Ml Inj) 0.5 mg IM Q4H PRN PRN Reason: Pain , Severe (7-10) Last Admin: 02/15/21 15:20 Dose: 0.5 mg Documented by: Hydrophilic Ointment (Lip Therapy Vaseline) 1 applic TP Q2HR PRN PRN Reason: Dry Lips Fentanyl Citrate (Fentanyl Drip Premix) 2,000 mcg in 100 mls @ 6.35 mls/hr IV TITR [facility]; Protocol Last Admin: 02/15/21 21:15 Dose: 2 mcg/kg/hr, 12.7 mls/hr Documented by: Propofol (Diprivan 10 Mg/Ml) 1,000 mg in 100 mls @ 19.05 mls/hr IV TITR [facility]; Protocol Last Titration: 02/15/21 21:15 Dose: 25 mcg/kg/min, 19.05 mls/hr Documented by: Insulin Human Isoph/Insulin Regular (Insulin Nph/Regular 70/30 Inj) 20 unit SUB-Q BIDDIAB [facility] Insulin Human Lispro (Insulin Lispro 100 Unit/Ml) 0 unit SUB-Q ACHS [facility]; Protocol Last Admin: 02/15/21 12:36 Dose: 6 unit Documented by: Lorazepam (Lorazepam 2 Mg/Ml Vial) 1 mg IV Q6H PRN PRN Reason: Seizures Last Admin: 02/15/21 16:52 Dose: 1 mg Documented by: Multi-Ingred Cream/Lotion/Oil/Oint (Mineral Oil/Petrolatum, White Ophth Oint 3.5 Gm) 1 applic OU Q4HR PRN PRN Reason: Dry Eye(s) Phenol (Phenol 1.4% 177 Ml Bottle) 1 spray MM PRN PRN PRN Reason: Sore Throat Senna/Docusate Sodium (Sennosides/Docusate Sodium 8.6/50 Mg Tab) 1 tab FEEDTUBE BID [facility] Zinc Sulfate (Zinc Sulfate 220 Mg Cap) 220 mg PO BID [facility] Last Admin: 02/15/21 11:18 Dose: 220 mg Documented by: Review of Systems ROS unobtainable: due to endotracheal tube Exam Vital Signs Temp Pulse Resp BP Pulse Ox 99.5 F 121 H 20 170/101 78 L 02/10/21 05:26 02/10/21 05:26 02/10/21 05:26 02/10/21 05:26 02/10/21 05:26 - General physical appearance Positive: well developed, well nourished, obese - Eyes Positive: PERRL, normal occular movement - ENT Positive: normal pinna, normal nares, normal mucosa, no hearing loss, no congestion - Neck Positive: no masses, no bruits, trachea midline, no venous distension - Respiratory Positive: normal expansion, normal respiratory effort, clear to auscultation - Cardiovascular Rhythm: regular Heart Sounds: Present: S1 & S2. Absent: rub, click - Extremities Extremities: no ischemia, pulses symmetrical, No edema - Breasts Breasts: normal, no mass, no skin changes - Abdomen Abdomen: Present: soft, bowel sounds normal. Absent: tender, distended Hernia: none - Genitourinary Male Genitourinary: normal Female Genitourinary: normal - Integumentary no rash, no growths, no abnormal pigmentation - Neurologic Neurologic: alert and oriented to time, place and person, motor strength and sensation are grossly intact - Musculoskeletal normal gait, normal posture - Psychiatric Psychiatric: appropriate mood/affect, intact judgment & insight Results - Labs 02/10/21 06:00 02/13/21 04:38 Abnormal lab results 02/14/21 02/15/21 02/15/21 Range/Units 13:13 00:05 07:44 ABG pO2 (80.0-90.0) mm Hg ABG HCO3 (20.0-26.0) mmol/L ABG O2 Saturation (95.0-99.0) % ABG Base Excess (-2.0-3.0) mmol/L Oxyhemoglobin (95.0-99.0) % POC Glucose 271 H 290 H 265 H (70-105) mg/dL 02/15/21 02/15/21 02/15/21 Range/Units 09:30 12:27 16:58 ABG pO2 55.0 L (80.0-90.0) mm Hg ABG HCO3 30.7 H (20.0-26.0) mmol/L ABG O2 Saturation 87.4 L (95.0-99.0) % ABG Base Excess 4.1 H (-2.0-3.0) mmol/L Oxyhemoglobin 86.1 L (95.0-99.0) % POC Glucose 270 H 325 H (70-105) mg/dL - Imaging Chest x-ray: report reviewed, image reviewed Assessment and Plan - Patient Problems (1) Pneumothorax on right Current Visit: Yes Status: Acute Plan to address problem: 1) Bilateral CT placement
--- NOTE | 2021-02-15 22:59 | Procedure Note ---
Date of procedure: 02/15/21 Pre-op diagnosis: Bilateral pneumothoraces Post-op diagnosis: same Procedure: Bilateral chest tube placement with 12 Syriac chest tubes Description of procedure: Pt was supine on her ER bed. Because of her obesity, her breasts were taped together towards the midline. The right superior-lateral chest was prepped and draped. A small incision was made in the anterior axillary line just below the axilla. SQ tissue was dissected with a clamp. The level of the ribs was very deep, approximately 9-10 cm deep to the skin. The clamp was used to enter the right pleural space. A 12 Syriac chest tube was inserted into the right pleural space. This was secured to the skin with a suture of 0-silk. A vaseline gauze was wrapped about the chest tube exit followed by dry 4 X 4's and silk tape. CXR was obtained showing the tube to be in adequate position. An identical method was used to place the left chest tube. Procedure was well tolerated with pt's O2 sats coming up to 99% after placement of the 2nd chest tube. Anesthesia: other (IV Fentanyl and Propofol) Surgeon: HAYDE WELLINGTON Estimated blood loss: minimal Pathology: none Condition: stable Disposition: no change
--- NOTE | 2021-02-15 23:29 | XRay Report ---
CHEST 1 VIEW 02/15/2021 11:09 PM INDICATION / CLINICAL INFORMATION: POST CHEST TUBE INSERTION. COMPARISON: 7:25 PM same day FINDINGS: SUPPORT DEVICES: New left apical chest tube placement. 2 right chest tubes noted, new since prior toyin dy. ET tube unchanged in position. HEART / MEDIASTINUM: Moderate pneumomediastinum again noted LUNGS / PLEURA: Extensive bilateral pneumonia, unchanged . Tiny right basilar pneumothorax, decreased in size after right chest tubes placed ADDITIONAL FINDINGS: Moderate bilateral subcutaneous emphysema, unchanged IMPRESSION: 1. Left pneumothorax no longer visualized after new chest tube placed 2. Persistent moderate pneumomediastinum 3. Severe bilateral pneumonia, unchanged Signer Name: Malcolm Seo MD Signed: 02/15/2021 11:24 PM Workstation Name: [id number]
--- NOTE | 2021-02-16 00:35 | Cat Scan Report ---
CTA CHEST WITH IV CONTRAST INDICATION: Pneumothorax; Acute Hypoxemic Resp Failure;. TECHNIQUE: Axial CT images were obtained through the chest after injection of 100 cc IV contrast. 3 plane MIP re constructions were produced. All CT scans at this location are performed using CT dose reduction for ALARA by means of automated exposure control. COMPARISON: Chest x-ray earlier today FINDINGS: Limited by moderate respiratory motion artifact PULMONARY ARTERIES: Probable small right lower lobe segmental pulmonary embolus series 3 images [id number] THORACIC AORTA: No acute abnormality. HEART: Normal. CORONARY ARTERIES: No significant calcification. PLEURA: No pleural effusion. Left chest tube left apical pleural space with small 8 mm anterior pneum othorax noted. Right chest tube enters apically is folded coursing inferiorly with focal kink with ti p terminating in large anterior pneumomediastinum. Small right basilar pneumothorax LYMPH NODES: No significant adenopathy. LUNGS: Diffuse bilateral groundglass pulmonary infiltrates characteristic for moderate bilateral Covi d pneumonia ADDITIONAL FINDINGS: ET tube in expected position with tip 1.6 cm above cedric. UPPER ABDOMEN: No acute findings. SKELETAL STRUCTURES: No significant osseous abnormality. IMPRESSION: 1. Small acute right lower lobe PTE 2. Malpositioned right chest tube kinked with tip in large anterior pneumomediastinum 3. Small left anterior pneumothorax with left posterior apical chest tube noted 4. Large pneumomediastinum and extensive subcutaneous emphysema 5. Small right basilar pneumothorax 6. Moderate to severe bilateral Covid pneumonia CRITICAL RESULT: Small right lower lobe PTE and malpositioned right chest tube Time of Discovery (DIAL BRUSHER/CDT): 1122PM Central standard time 02/15/2021 Time of Communication (DIAL BRUSHER/CDT): 11:31 PM Licensed Practitioner Receiving Report: Nurse Menjivar Read-Back Performed: Yes. Signer Name: Malcolm Seo MD Signed: 02/16/2021 12:31 AM Workstation Name: [email or web address]
[2021-02-16] MEDS ORDERED: HEPARIN 10,000 UNITS/10 ML VIAL IV ONE (00:54)
[2021-02-16] MEDS ORDERED: HEPARIN 10,000 UNITS/10 ML VIAL IV PRN ×2 (00:54→00:59)
[2021-02-16] MEDS: ZINC SULFATE 220 MG CAP PO SCH ×3 (01:13→22:05)
[2021-02-16] MEDS: HEPARIN/ 0.45% NACL DRIP 25,000 UNIT/500 ML BAG IV SCH ×2 (01:44→23:27)
[2021-02-16 01:58] LABS: Hematocrit 39.4 % (30.3-42.9); Hemoglobin 12.8 gm/dl (10.1-14.3)
[2021-02-16] MEDS: INSULIN NPH/REGULAR 70/30 INJ SUB-Q SCH ×3 (02:06→19:15)
[2021-02-16] MEDS: INSULIN LISPRO 100 UNIT/ML SUB-Q SCH ×6 (02:11→23:46)
[2021-02-16 02:30] LABS: INR 1.73 (0.87-1.13)
[2021-02-16] MEDS: SENNOSIDES/DOCUSATE SODIUM 8.6/50 MG TAB FEEDTUBE SCH ×3 (02:32→22:05)
[2021-02-16] MEDS: ENOXAPARIN 40 MG/0.4 ML INJ SUB-Q SCH (02:32)
[2021-02-16] MEDS: ASCORBIC ACID 500 MG TAB PO SCH ×3 (02:33→22:05)
[2021-02-16 02:50] LABS: Partial Thromboplastin Time > 240.0 Sec. (24.2-36.6)
[2021-02-16] MEDS: fentaNYL DRIP Premix 2,000 MCG/100 ML BAG IV SCH ×6 (02:52→23:25)
--- NOTE | 2021-02-16 03:21 | XRay Report ---
ABDOMEN 1 VIEW(S) 02/16/2021 2:51 AM INDICATION / CLINICAL INFORMATION: NG tube placement. COMPARISON: None available. FINDINGS: The tip of an esophagogastric tube projects over the body of the stomach in expected position. Signer Name: Malcolm Seo MD Signed: 02/16/2021 3:16 AM Workstation Name: [id number]
[2021-02-16] MEDS ORDERED: SODIUM CHLORIDE 0.9% 250ML 250 ML IV ONE (07:00)
[2021-02-16 08:01] LABS: Basophils % (Auto) 0.1 % (0.0-1.8); Eosinophils # (Auto) 0.5 K/mm3 (0.0-0.4); Eosinophils % (Auto) 3.3 % (0.0-4.3); Hematocrit 39.9 % (30.3-42.9); Hemoglobin 13.1 gm/dl (10.1-14.3); Lymphocytes # (Auto) 1.9 K/mm3 (1.2-5.4); Lymphocytes % (Auto) 11.5 % (13.4-35.0); Mean Corpuscular HGB Conc 33 % (30-34); Mean Corpuscular Volume 71 fl (79-97); Monocytes # (Auto) 0.9 K/mm3 (0.0-0.8); Monocytes % (Auto) 5.5 % (0.0-7.3); Platelet Count 437 K/mm3 (140-440); Red Blood Count 5.61 M/mm3 (3.65-5.03)
[2021-02-16 08:19] LABS: BUN/Creatinine Ratio 23; Blood Urea Nitrogen 27 mg/dL (7-17); Calcium 8.5 mg/dL (8.4-10.2); Hemolysis Index 9
[2021-02-16] MEDS ORDERED: SODIUM CHLORIDE 0.9% 1000 ML 1,000 ML ONE (09:50)
[2021-02-16] MEDS ORDERED: SODIUM CHLORIDE 0.9% 500 ML 500 ML IV ONE (09:52)
--- NOTE | 2021-02-16 11:18 | Progress Note ---
Assessment and Plan - Patient Problems (1) Pneumothorax on right Current Visit: Yes Status: Acute Plan to address problem: 1) Check CXR Subjective Date of service: 02/16/21 Patient Reports: Positive: no new complaints (Intubated. Sedated.) Objective Vital Signs - 12hr 02/15/21 02/16/21 02/16/21 23:30 00:01 00:15 Temperature Pulse Rate 110 H 108 H 107 H Respiratory 25 H 25 H Rate Blood Pressure 106/73 115/79 131/80 O2 Sat by Pulse 98 100 Oximetry 02/16/21 02/16/21 02/16/21 00:31 00:45 01:01 Temperature Pulse Rate 108 H 104 H 101 H Respiratory 25 H 25 H 25 H Rate Blood Pressure 118/85 115/79 108/75 O2 Sat by Pulse 100 100 100 Oximetry 02/16/21 02/16/21 02/16/21 01:15 01:31 01:45 Temperature Pulse Rate 97 H 99 H 96 H Respiratory 25 H 25 H 25 H Rate Blood Pressure 108/74 96/67 113/65 O2 Sat by Pulse 100 100 100 Oximetry 02/16/21 02/16/21 02/16/21 02:01 02:15 02:31 Temperature 97.9 F Pulse Rate 96 H 97 H 99 H Respiratory 25 H 25 H 25 H Rate Blood Pressure 117/64 115/59 98/73 O2 Sat by Pulse 100 100 100 Oximetry 02/16/21 02/16/21 02/16/21 02:45 03:01 03:15 Temperature Pulse Rate 93 H 98 H 99 H Respiratory 25 H 25 H 25 H Rate Blood Pressure 106/68 97/68 108/63 O2 Sat by Pulse 100 100 99 Oximetry 02/16/21 02/16/21 02/16/21 03:31 03:45 04:00 Temperature Pulse Rate 101 H 104 H 105 H Respiratory 25 H 25 H Rate Blood Pressure 106/70 106/71 110/63 O2 Sat by Pulse 99 100 100 Oximetry 02/16/21 02/16/21 02/16/21 04:01 04:15 04:31 Temperature Pulse Rate 101 H 106 H 102 H Respiratory 25 H 25 H 25 H Rate Blood Pressure 106/70 99/69 91/60 O2 Sat by Pulse 99 99 99 Oximetry 02/16/21 02/16/21 02/16/21 04:45 05:01 05:15 Temperature Pulse Rate 103 H 106 H 103 H Respiratory 25 H 25 H 24 Rate Blood Pressure 95/65 110/63 109/74 O2 Sat by Pulse 99 98 92 Oximetry 02/16/21 02/16/21 02/16/21 05:31 05:45 06:01 Temperature Pulse Rate 104 H 106 H 113 H Respiratory 25 H 25 H 18 Rate Blood Pressure 114/79 118/84 109/80 O2 Sat by Pulse 95 96 91 Oximetry 02/16/21 02/16/21 02/16/21 06:15 06:31 06:45 Temperature Pulse Rate 110 H 108 H 114 H Respiratory 25 H 25 H 25 H Rate Blood Pressure 112/66 108/66 109/59 O2 Sat by Pulse 96 97 97 Oximetry 02/16/21 02/16/21 02/16/21 07:01 07:15 07:31 Temperature Pulse Rate 113 H 109 H 113 H Respiratory 25 H 25 H 25 H Rate Blood Pressure 108/66 78/57 97/68 O2 Sat by Pulse 97 98 96 Oximetry 02/16/21 02/16/21 02/16/21 07:45 08:00 08:01 Temperature 98.4 F Pulse Rate 106 H 110 H 111 H Respiratory 24 25 H Rate Blood Pressure 105/75 84/64 108/61 O2 Sat by Pulse 94 97 97 Oximetry 02/16/21 02/16/21 02/16/21 08:15 08:31 08:45 Temperature Pulse Rate 109 H 115 H 116 H Respiratory 25 H 24 25 H Rate Blood Pressure 84/64 108/61 85/67 O2 Sat by Pulse 97 97 92 Oximetry 02/16/21 02/16/21 02/16/21 09:01 09:15 09:31 Temperature Pulse Rate 118 H 118 H 126 H Respiratory 25 H 24 16 Rate Blood Pressure 95/70 88/61 94/59 O2 Sat by Pulse 93 95 Oximetry 02/16/21 02/16/21 09:45 10:01 Temperature Pulse Rate 125 H 125 H Respiratory 21 23 Rate Blood Pressure 87/62 92/59 O2 Sat by Pulse 92 91 Oximetry - Respiratory clear to auscultation, other (O2 sat 91% on FIO2 of 0.8) - Labs 02/16/21 07:45 02/16/21 07:45 Diabetes panel 02/16/21 Range/Units 07:45 Sodium 144 (137-145) mmol/L Potassium 4.1 (3.6-5.0) mmol/L Chloride 106.4 (98-107) mmol/L Carbon Dioxide 25 (22-30) mmol/L BUN 27 H (7-17) mg/dL Creatinine 1.2 (0.6-1.2) mg/dL Glucose 269 H (65-100) mg/dL Calcium 8.5 (8.4-10.2) mg/dL Calcium panel 02/16/21 Range/Units 07:45 Calcium 8.5 (8.4-10.2) mg/dL Pituitary panel 02/16/21 Range/Units 07:45 Sodium 144 (137-145) mmol/L Potassium 4.1 (3.6-5.0) mmol/L Chloride 106.4 (98-107) mmol/L Carbon Dioxide 25 (22-30) mmol/L BUN 27 H (7-17) mg/dL Creatinine 1.2 (0.6-1.2) mg/dL Glucose 269 H (65-100) mg/dL Calcium 8.5 (8.4-10.2) mg/dL Adrenal panel 02/16/21 Range/Units 07:45 Sodium 144 (137-145) mmol/L Potassium 4.1 (3.6-5.0) mmol/L Chloride 106.4 (98-107) mmol/L Carbon Dioxide 25 (22-30) mmol/L BUN 27 H (7-17) mg/dL Creatinine 1.2 (0.6-1.2) mg/dL Glucose 269 H (65-100) mg/dL Calcium 8.5 (8.4-10.2) mg/dL - Imaging Chest x-ray: report reviewed CT scan - chest: report reviewed
--- NOTE | 2021-02-16 11:31 | Progress Note ---
Assessment and Plan Assessment and plan: Yesterday's events noted, patient was in acute respiratory failure requiring intubation mechanical ventilation Complicated by bilateral pneumothoraces, pneumomediastinum and large subcutenuous emphysema ,surgery evaluated the patient, placed bilateral chest tubes Surgery and pulmonary critical care following. --Bilateral pneumothoraces: Surgery evaluated the patient s/p bilateral chest tube placement Continue supportive care, pulmonary, surgery following --Large pneumomediastinum/subcutaneous emphysema Supportive care, closely monitor Pulmonary surgery following --Acute severe hypoxemic respiratory failure Requiring intubation and mechanical ventilation, Pulmonary, critical care, surgeon following treat the underlying cause, Wean as tolerated. --Small right lower lobe PE; Patient is placed on heparin drip per protocol Will transition to oral anticoagulants once medically stable --COVID-19 pneumonia; Initially patient was on high flow oxygen with 100% nonrebreather Later patient was intubated and placed on ventilatory support Home oxygen evaluation, follow-up inflammatory markers Anticoagulation per protocols ID evaluation noted and appreciated Patient was unable to swallow vitamins secondary to sore throat. Pulmonary evaluation noted and appreciated --Tachycardia : Secondary to anxiety. Ativan will help for anxiety and dyspnea --morbid obesity BMI 46.6 Patient needs weight reduction when medically stable Sleep study to rule out obstructive sleep apnea --obesity hypoventilation syndrome Pulmonary consult, titrate O2 sats to more than 90% Supportive care --Sore throat: could be secondary to coughing versus BiPAP machine will add viscous lidocaine gargle --type 2 diabetes mellitus: uncontrolled. Secondary to steroid use Accu-Chek sliding scale coverage ADA diet , long-acting insulin 70/30 insulin so she can get regular scheduled short acting. 25 units twice daily advance as tolerated to maintain tight glycemic control. --DVT prophylaxis ; Lovenox --GI prophylaxis; Protonix We will closely monitor patient and adjust the management as needed Plan of care reviewed with the patient and her nurse Consultants and recommendations noted and appreciated Total critical care time 65 minutes The high probability of a clinically significant, sudden or life threatening deterioration of the [renal, metabolic, infectious, CVS] system(s) required my full and direct attention, intervention and personal management. The aggregate critical care time was [65] minutes. This time is in addition to time spent performing reported procedures but includes the following: [x] Data Review and interpretation [x] Patient assessment and monitoring of vital signs [x] Documentation [x] Medication orders and management Will try to contact family and update patient's condition Brief history and hospital course; 40-year-old morbidly obese -Russian female patient was admitted through emergency room with worsening shortness of breath and generalized body pains, patient was initially evaluated noted to have Covid positive infection, hypoxemic requiring very high flow oxygen GI, pulmonary following, patient is receiving treatment per COVID-19 guidelines, patient is on very high flow oxygen, severely hypoxemic 02/12/2021; On high flow nasal cannula oxygen 40 L/100% FiO2/92% O2 sats Morbidly obese, poor prognosis, prone positioning, Continue steroid .remdesivir, Disposition discharge when medically stable Follow consultants recommendations 02/13/2021 Patient remains hypoxemic today on BiPAP. Patient refused high flow O2 via nasal cannula. Complains today of throat pain and shortness of breath. All questions and concerns answered. Hospital course complicated by hypoglycemia. 02/14/2021. Addendum patient was doing well. Patient remains hypoxic. Still requires BiPAP. Throat pain is improved. Patient hospital course complicated by episode of agitation with tachycardia. 02/16/2021; Patient was in acute respiratory failure intubated on 02/15/2021, complicated by bilateral pneumothoraces Large pneumomediastinum and extensive subcutaneous emphysema, continue supportive care Status post bilateral chest tube placement, today patient had central line placement Intubated on ventilatory support, consultants and recommendations noted and appreciated Patient has multiple medical problems, with very serious illness, very poor prognosis. Small right lower lobe PE on CTA chest, initiated heparin drip, will transition to oral anticoagulants when patient is medically stable I called patient's sister CHINA Keita at [phone], unable to contact as no one picked up the phone, left a message requesting them To call back to discuss about the patient's condition tests and reports and the treatment plan. History Interval history: Yesterday's events noted, patient was in acute respiratory failure requiring intubation mechanical ventilation Complicated by bilateral pneumothoraces, surgery evaluated the patient, placed bilateral chest tubes Surgery following, patient was hypotensive in the morning requiring central line placement by surgeon Dr. Romo Patient is orally intubated on ventilatory support Noncommunicative ET tube and Dobbhoff in place Vital signs noted Hospitalist Physical - Constitutional Vitals: Temp Pulse Resp BP Pulse Ox 98.4 F 125 H 23 92/59 91 02/16/21 08:00 02/16/21 10:01 02/16/21 10:01 02/16/21 10:01 02/16/21 10:01 General appearance: Present: mild distress, well-nourished - EENT Eyes: Present: PERRL, EOM intact - Neck Neck: Present: supple, normal ROM - Respiratory Respiratory effort: normal Respiratory: bilateral: diminished, rhonchi, negative: rales, wheezing - Cardiovascular Rhythm: regular Heart Sounds: Present: S1 & S2 - Extremities Extremities: no ischemia, No edema Peripheral Pulses: within normal limits - Abdominal General gastrointestinal: soft, non-tender, non-distended, normal bowel sounds, hepatomegaly - Integumentary Integumentary: Present: clear, warm. Absent: jaundice, rash - Psychiatric Psychiatric: other (Intubated on vent noncommunicative) - Neurologic Neurologic: other (Intubated on vent noncommunicative) HEART Score - HEART Score EKG: Normal Age: < 45 Risk factors: No known risk factors Troponin: Troponin T < 0.010 ng/mL (0.00-0.029) 02/14/21 15:30 Troponin: < normal limit - Critical Actions Critical Actions: 0-3 pts:0.9-1.7%risk of adverse cardiac event.Candidate for discharge Results - Labs CBC & Chem 7: 02/17/21 06:05 02/17/21 06:05 Labs: Laboratory Last Values WBC 16.8 K/mm3 (4.5-11.0) H 02/16/21 07:45 RBC 5.61 M/mm3 (3.65-5.03) H 02/16/21 07:45 Hgb 13.1 gm/dl (10.1-14.3) 02/16/21 07:45 Hct 39.9 % (30.3-42.9) 02/16/21 07:45 MCV 71 fl (79-97) L 02/16/21 07:45 MCH 23 pg (28-32) L 02/16/21 07:45 MCHC 33 % (30-34) 02/16/21 07:45 RDW 17.0 % (13.2-15.2) H 02/16/21 07:45 Plt Count 437 K/mm3 (140-440) 02/16/21 07:45 Lymph % (Auto) 11.5 % (13.4-35.0) L 02/16/21 07:45 [place] % (Auto) 5.5 % (0.0-7.3) 02/16/21 07:45 Eos % (Auto) 3.3 % (0.0-4.3) 02/16/21 07:45 Baso % (Auto) 0.1 % (0.0-1.8) 02/16/21 07:45 Lymph # (Auto) 1.9 K/mm3 (1.2-5.4) 02/16/21 07:45 [place] # (Auto) 0.9 K/mm3 (0.0-0.8) H 02/16/21 07:45 Eos # (Auto) 0.5 K/mm3 (0.0-0.4) H 02/16/21 07:45 Baso # (Auto) 0.0 K/mm3 (0.0-0.1) 02/16/21 07:45 Seg Neutrophils % 79.6 % (40.0-70.0) H 02/16/21 07:45 Seg Neutrophils # 13.4 K/mm3 (1.8-7.7) H 02/16/21 07:45 PT 20.8 Sec. (12.2-14.9) H 02/16/21 01:49 INR 1.73 (0.87-1.13) H 02/16/21 01:49 APTT > 240.0 Sec. (24.2-36.6) H* 02/16/21 01:49 D-Dimer 310.92 ng/mlDDU (0-234) H 02/12/21 10:09 Heparin Anti-Xa Level > 1.99 U.I./ml (0.3-0.7) H 02/16/21 07:45 ABG pH 7.456 (7.320-7.450) H 02/16/21 01:13 POC ABG pCO2 43.9 mmHg (32.0-48.0) 02/16/21 01:13 ABG pCO2 53.6 mm Hg 02/15/21 09:30 POC ABG pO2 136.3 mmHg (83-108) H 02/16/21 01:13 ABG pO2 55.0 mm Hg (80.0-90.0) L 02/15/21 09:30 POC ABG HCO3 30.2 02/16/21 01:13 ABG HCO3 30.7 mmol/L (20.0-26.0) H 02/15/21 09:30 ABG O2 Saturation 98.8 (0-100) 02/16/21 01:13 ABG O2 Content 18.5 (0.0-44) 02/15/21 09:30 POC ABG Base Excess 5.6 02/16/21 01:13 ABG Base Excess 4.1 mmol/L (-2.0-3.0) H 02/15/21 09:30 ABG Hemoglobin 14.4 (12.0-17.5) 02/16/21 01:13 ABG Oxyhemoglobin 98.0 (94-98) 02/16/21 01:13 ABG Carboxyhemoglobin 1.0 % (0.0-5.0) 02/15/21 09:30 ABG Methemoglobin 0.3 (0.0-1.5) 02/16/21 01:13 ABG Sodium 141.8 mmol/L (136.0-145.0) 02/16/21 01:13 ABG Potassium 4.7 mmol/L (3.40-4.50) H 02/16/21 01:13 ABG Chloride 103.0 mmol/L (98-107) 02/16/21 01:13 ABG Glucose 395 mg/dL (65-95) H 02/16/21 01:13 Oxyhemoglobin 86.1 % (95.0-99.0) L 02/15/21 09:30 Carboxyhemoglobin 0.5 (0.5-1.5) 02/16/21 01:13 FiO2 100 % 02/15/21 09:30 FiO2 % 100.0 02/16/21 01:13 Sodium 144 mmol/L (137-145) 02/16/21 07:45 Potassium 4.1 mmol/L (3.6-5.0) 02/16/21 07:45 Chloride 106.4 mmol/L (98-107) 02/16/21 07:45 Carbon Dioxide 25 mmol/L (22-30) 02/16/21 07:45 Anion Gap 17 mmol/L 02/16/21 07:45 BUN 27 mg/dL (7-17) H 02/16/21 07:45 Creatinine 1.2 mg/dL (0.6-1.2) 02/16/21 07:45 Estimated GFR > 60 ml/min 02/16/21 07:45 BUN/Creatinine Ratio 23 % 02/16/21 07:45 Glucose 269 mg/dL (65-100) H 02/16/21 07:45 POC Glucose 290 mg/dL (70-105) H 02/16/21 07:46 Hemoglobin A1c 10.5 % (4-6) H 02/10/21 14:29 Calcium 8.5 mg/dL (8.4-10.2) 02/16/21 07:45 Ferritin 138.9 ng/mL (10.0-200.0) 02/12/21 10:09 Total Bilirubin 0.20 mg/dL (0.1-1.2) 02/13/21 04:38 AST 26 units/L (5-40) 02/13/21 04:38 ALT 15 units/L (7-56) 02/13/21 04:38 Alkaline Phosphatase 112 units/L (35-129) 02/13/21 04:38 Lactate Dehydrogenase 564 units/L (91-180) H 02/12/21 10:09 Troponin T < 0.010 ng/mL (0.00-0.029) 02/14/21 15:30 C-Reactive Protein 12.60 mg/dL (0.00-1.30) H 02/12/21 10:09 NT-Pro-B Natriuret Pep 28.71 pg/mL (0-450) 02/10/21 09:29 Total Protein 8.4 g/dL (6.3-8.2) H 02/13/21 04:38 Albumin 3.5 g/dL (3.9-5) L 02/13/21 04:38 Albumin/Globulin Ratio 0.7 % 02/13/21 04:38 Procalcitonin 0.06 ng/mL (<0.15) 02/10/21 06:36 HCG, Qual Negative (Negative) 02/10/21 06:36 Arterial Blood Glucose 395 mg/dL (65-95) H 02/16/21 01:13 Arterial Blood Ionized Calcium 4.7 mg/dL (4.6-5.3) 02/16/21 01:13 Urine Color Yellow (Yellow) 02/10/21 11:15 Urine Turbidity Clear (Clear) 02/10/21 11:15 Urine pH 5.0 (5.0-7.0) 02/10/21 11:15 Ur Specific [place] 1.016 (1.003-1.030) 02/10/21 11:15 Urine Protein 100 mg/dl mg/dL (Negative) 02/10/21 11:15 Urine Glucose (UA) >=500 mg/dL (Negative) 02/10/21 11:15 Urine Ketones 20 mg/dL (Negative) 02/10/21 11:15 Urine Blood Sm (Negative) 02/10/21 11:15 Urine Nitrite Neg (Negative) 02/10/21 11:15 Urine Bilirubin Neg (Negative) 02/10/21 11:15 Urine Urobilinogen < 2.0 mg/dL (<2.0) 02/10/21 11:15 Ur Leukocyte Esterase Tr (Negative) 02/10/21 11:15 Urine WBC (Auto) 3.0 /HPF (0.0-6.0) 02/10/21 11:15 Urine RBC (Auto) 3.0 /HPF (0.0-6.0) 02/10/21 11:15 U Epithel Cells (Auto) 10.0 /HPF (0-13.0) 02/10/21 11:15 Urine Bacteria (Auto) 1+ /HPF (Negative) 02/10/21 11:15 Urine Yeast (Budding) 1+ /HPF 02/10/21 11:15 Coronavirus (PCR) Positive (Negative) A 02/10/21 08:28 Active Medications - Current Medications Current Medications: Generic Name Dose Route Start Last Admin Trade Name Freq PRN Reason Stop Dose Admin Ascorbic Acid 500 mg 02/10/21 22:00 02/16/21 02:33 Ascorbic Acid 500 Mg Tab PO Not Given BID SALUD Dexamethasone 6 mg 02/10/21 15:00 02/15/21 11:18 Dexamethasone 4 Mg/Ml Vial IV 02/19/21 10:01 6 mg DAILY SALUD Administration Famotidine 20 mg 02/16/21 10:00 Famotidine 20 Mg/2 Ml Inj IV BID SALUD Heparin Sodium (Porcine) 5,000 unit 02/16/21 00:59 Heparin 10,000 Units/10 Ml Vial 40 unit/kg (5100 unit) IV Q6H PRN Anti-Xa Assay < 0.1 units/ml Hydralazine HCl 10 mg 02/10/21 13:57 02/11/21 00:20 Hydralazine 20 Mg/1 Ml Inj IV 10 mg Q4HR PRN Administration Hypertension Hydromorphone HCl 0.5 mg 02/10/21 14:19 02/15/21 15:20 Hydromorphone 1 Mg/1 Ml Inj IM 0.5 mg Q4H PRN Administration Pain , Severe (7-10) Hydrophilic Ointment 1 applic 02/15/21 18:43 Lip Therapy Vaseline TP Q2HR PRN Dry Lips Fentanyl Citrate 2,000 mcg in 100 mls @ 6.35 mls/hr 02/15/21 19:00 02/16/21 10:55 Fentanyl Drip Premix IV 4 mcg/kg/hr TITR SALUD 25.4 mls/hr Administration Protocol 1 MCG/KG/HR Propofol 1,000 mg in 100 mls @ 19.05 mls/hr 02/15/21 19:20 02/16/21 08:11 Diprivan 10 Mg/Ml IV 0 mcg/kg/min TITR SALUD 0 mls/hr Titration Protocol 25 MCG/KG/MIN Heparin Sodium/Sodium Chloride 25,000 unit in 500 mls @ 30 mls/hr 02/16/21 01:00 02/16/21 08:45 Heparin/ 0.45% Nacl-25,000 Unit/500 Ml IV 0 units/hr TITR SALUD 0 mls/hr Titration Protocol 1,500 UNITS/HR Insulin Human Isoph/Insulin Regular 20 unit 02/15/21 17:00 02/16/21 08:54 Insulin Nph/Regular 70/30 Inj SUB-Q 20 unit BIDDIAB SALUD Administration Insulin Human Lispro 0 unit 02/16/21 12:00 Insulin Lispro 100 Unit/Ml SUB-Q Q6HR SALUD Protocol Lorazepam 1 mg 02/15/21 16:35 02/15/21 16:52 Lorazepam 2 Mg/Ml Vial IV 1 mg Q6H PRN Administration Seizures Multi-Ingred Cream/Lotion/Oil/Oint 1 applic 02/15/21 18:43 Mineral Oil/Petrolatum, White Ophth Oint 3.5 Gm OU Q4HR PRN Dry Eye(s) Phenol 1 spray 02/13/21 12:02 Phenol 1.4% 177 Ml Bottle MM PRN PRN Sore Throat Senna/Docusate Sodium 1 tab 02/15/21 22:00 02/16/21 02:32 Sennosides/Docusate Sodium 8.6/50 Mg Tab FEEDTUBE Not Given BID SALUD Zinc Sulfate 220 mg 02/10/21 22:00 02/16/21 01:13 Zinc Sulfate 220 Mg Cap PO Not Given BID SALUD
[2021-02-16] MEDS ORDERED: NORepinephrine/NS 8 MG-250 ML 8 MG/250 ML INFUS..BTL IV ONE (11:45)
--- NOTE | 2021-02-16 11:52 | XRay Report ---
CHEST 1 VIEW 02/16/2021 11:33 AM INDICATION / CLINICAL INFORMATION: PTX. COMPARISON: 02/15/2021 FINDINGS: SUPPORT DEVICES: Stable, satisfactory device positioning. HEART / MEDIASTINUM: Stable. LUNGS / PLEURA: Stable patchy bilateral pulmonary opacities. Small right pneumothorax noted. ADDITIONAL FINDINGS: Stable extensive subcutaneous air and pneumomediastinum. IMPRESSION: 1. Tiny right pneumothorax noted. No appreciable left-sided pneumothorax radiographically. Signer Name: Hans Regan MD Signed: 02/16/2021 11:48 AM Workstation Name: [id number]
[2021-02-16] MEDS: NORepinephrine/NS 8 MG-250 ML 8 MG/250 ML INFUS..BTL IV SCH (12:05)
--- NOTE | 2021-02-16 12:18 | Procedure Note ---
Date of procedure: 02/16/21 Pre-op diagnosis: Hemodynamic instability Post-op diagnosis: same Procedure: Central venous line placement Description of procedure: Pt was placed in a Trendelenburg position. Right breast was taped caudally. Skin and SQ tissue in the right infraclavicular space were infiltrated with 5 ml of 1% Lidocaine. The introducer needle was then passed inferior to the clavicle in the direction of the suprasternal notch. Venous blood was aspirated. The guide wire was inserted without difficulty. The dilator sheath was advanced over the guide wire and was then removed. The triple lumen catheter was advanced over the guide wire and appropriately positio norma. Blood was easily aspirated from all 3 ports. Each port was flushed with 10 ml of sterile saline. The catheter was sutured into place and was covered with a Tegaderm dressing. CXR was obtained revealing no significant pneumothorax with the catheter tip in good position. Pt tolerated the procedure well. Anesthesia: local Surgeon: HAYDE WELLINGTON Estimated blood loss: minimal Pathology: none Condition: stable Disposition: no change
--- NOTE | 2021-02-16 12:25 | XRay Report ---
CHEST 1 VIEW 02/16/2021 12:13 PM INDICATION / CLINICAL INFORMATION: Central line placement. COMPARISON: 02/16/2021 FINDINGS: SUPPORT DEVICES: Stable, satisfactory device positioning. Right subclavian line tip overlies the dist al SVC HEART / MEDIASTINUM: No significant abnormality. LUNGS / PLEURA: Diffuse opacities in bilateral lungs persist No pneumothorax. Signer Name: Aristeo Marroquin MD Signed: 02/16/2021 12:21 PM Workstation Name: [id number]
[2021-02-16] MEDS ORDERED: NORepinephrine/NS 8 MG-250 ML 8 MG/250 ML INFUS..BTL IV SCH (13:00)
--- NOTE | 2021-02-16 13:09 | Progress Note ---
Assessment and Plan ARDS COVID-19 infection Morbid obesity; BMI 46.6 Obesity hypoventilation syndrome - appreciate surgery input - troponin level WNL - chest tubes to continuous wall suction - add Vasopressin and wean down Levophed for target MAP > 65 mmHg - conservative volume management strategies - FiO2 reduced to 80%; peep at 14 cm H2O but in light of barotrauma will wean peep down to 10 as tolerated before resuming FiO2 wean for target O2 sat's > 92% acutely - continue aspiration precautions - continue care as below otherwise; - continue lung protective strategies - prn bronchodilators with pulmonary hygiene per RT - avoid nephrotoxins, renally dose all medications - continue to avoid benzodiazepine's, reduce the possibility of delirium - complete AB's per ID rec's - prn analgesia per CPOT score - Maintenance of sleep-wake cycle, avoid delirium - continue enteral nutritional support at goal rate as tolerated - G.I. & VTE prophylaxis - PT/OT/ROM exercises - continue mobility protocols for pressure ulcer prophylaxis - Monitor hemodynamics closely - continue other care per attending / other consultants - discharge planning ongoing concurrently COVID SPECIFIC INTERVENTIONS - Remdesivir as per ID/Pulmonary developed protocols (receiving) - continue systemic steroids for severe COVID-19 infection - follow repeat COVID tests results - zinc and vitamin C supplementation - Monitor inflammatory markers per facility protocol - ferritin, Ddimer, CRP - therapeutic anticoagulation per system Protocol based on d-dimer and clinical considerations (DVT prophylaxis for now) - Continue contact and airborne isolation .... Re-evaluate in am & prn CONDITION: CRITICAL PROGNOSIS: GUARDED CODE STATUS: FULL CODE The high probability of a clinically significant, sudden or life-threatening deterioration of the [respiratory, cardiovascular, GI & neurologic] system(s) required my full and direct attention, intervention and personal management. The aggregate critical care time was [33] minutes without overlap. Time includes sp ent on; [x] Data Review and interpretation [x] Patient assessment and monitoring of vital signs [x] Documentation [x] Medication orders and management Subjective Date of service: 02/16/21 Principal diagnosis: Ac hypoxemic resp failure; ARDS; COVID-19 infection; Morbid obesity; OHS Interval history: Acute hypoxemic respiratory failure Patient is seen today for: Acute hypoxemic respiratory failure; ARDS; COVID-19 infection; Morbid obesity; OHS Seen and examined at bedside; 24hour events reviewed; nursing and respiratory care staff consulted; no adverse overnight events reported to me; resting in bed; developed bilateral pneumothorace's yesterday and s/p chest tubes; alsdo hypotensive; remains with ARDS numbers; no gross bleeding; CTA reported P.E. also and started on IV Heparin drip Objective Vital Signs - 12hr 02/16/21 02/16/21 02/16/21 01:15 01:31 01:45 Temperature Pulse Rate 97 H 99 H 96 H Respiratory 25 H 25 H 25 H Rate Blood Pressure 108/74 96/67 113/65 O2 Sat by Pulse 100 100 100 Oximetry 02/16/21 02/16/21 02/16/21 02:01 02:15 02:31 Temperature 97.9 F Pulse Rate 96 H 97 H 99 H Respiratory 25 H 25 H 25 H Rate Blood Pressure 117/64 115/59 98/73 O2 Sat by Pulse 100 100 100 Oximetry 02/16/21 02/16/21 02/16/21 02:45 03:01 03:15 Temperature Pulse Rate 93 H 98 H 99 H Respiratory 25 H 25 H 25 H Rate Blood Pressure 106/68 97/68 108/63 O2 Sat by Pulse 100 100 99 Oximetry 02/16/21 02/16/21 02/16/21 03:31 03:45 04:00 Temperature Pulse Rate 101 H 104 H 105 H Respiratory 25 H 25 H Rate Blood Pressure 106/70 106/71 110/63 O2 Sat by Pulse 99 100 100 Oximetry 02/16/21 02/16/21 02/16/21 04:01 04:15 04:31 Temperature Pulse Rate 101 H 106 H 102 H Respiratory 25 H 25 H 25 H Rate Blood Pressure 106/70 99/69 91/60 O2 Sat by Pulse 99 99 99 Oximetry 02/16/21 02/16/21 02/16/21 04:45 05:01 05:15 Temperature Pulse Rate 103 H 106 H 103 H Respiratory 25 H 25 H 24 Rate Blood Pressure 95/65 110/63 109/74 O2 Sat by Pulse 99 98 92 Oximetry 02/16/21 02/16/21 02/16/21 05:31 05:45 06:01 Temperature Pulse Rate 104 H 106 H 113 H Respiratory 25 H 25 H 18 Rate Blood Pressure 114/79 118/84 109/80 O2 Sat by Pulse 95 96 91 Oximetry 02/16/21 02/16/2102/16/21 06:15 06:31 06:45 Temperature Pulse Rate 110 H 108 H 114 H Respiratory 25 H 25 H 25 H Rate Blood Pressure 112/66 108/66 109/59 O2 Sat by Pulse 96 97 97 Oximetry 02/16/21 02/16/21 02/16/21 07:01 07:15 07:31 Temperature Pulse Rate 113 H 109 H 113 H Respiratory 25 H 25 H 25 H Rate Blood Pressure 108/66 78/57 97/68 O2 Sat by Pulse 97 98 96 Oximetry 02/16/21 02/16/21 02/16/21 07:45 08:00 08:01 Temperature 98.4 F Pulse Rate 106 H 110 H 111 H Respiratory 24 25 H Rate Blood Pressure 105/75 84/64 108/61 O2 Sat by Pulse 94 97 97 Oximetry 02/16/21 02/16/21 02/16/21 08:15 08:31 08:45 Temperature Pulse Rate 109 H 115 H 116 H Respiratory 25 H 24 25 H Rate Blood Pressure 84/64 108/61 85/67 O2 Sat by Pulse 97 97 92 Oximetry 02/16/21 02/16/21 02/16/21 09:01 09:15 09:31 Temperature Pulse Rate 118 H 118 H 126 H Respiratory 25 H 24 16 Rate Blood Pressure 95/70 88/61 94/59 O2 Sat by Pulse 93 95 Oximetry 02/16/21 02/16/21 02/16/21 09:45 10:01 11:29 Temperature Pulse Rate 125 H 125 H 127 H Respiratory 21 23 Rate Blood Pressure 87/62 92/59 83/55 O2 Sat by Pulse 92 91 95 Oximetry Constitutional: no acute distress (sedated), alert, other (Morbidly Obese female with mildy increased work of breathing at rest) Eyes: non-icteric ENT: oropharynx moist, other Neck: supple, no lymphadenopathy, no JVD, other (no SQ emphysema palpable) Effort: mildly labored Ascultation: Bilateral: diminished breath sounds, rhonchi, other Percussion: Bilateral: not dull Cardiovascular: regular rate and rhythm Gastrointestinal: normoactive bowel sounds, soft, non-tender, non-distended (protuberant) Integumentary: normal Extremities: no cyanosis, no edema, pulses normal, no ischemia or petechiae Neurologic: normal mental status, non-focal exam, pupils equal and round, CN II- XII normal, motor strength normal and Psychiatric: other (sedate) CBC and BMP: 02/16/21 07:45 02/16/21 07:45 ABG, PT/INR, D-dimer: ABG ABG pH 7.456 (7.320-7.450) H 02/16/21 01:13 POC ABG pCO2 43.9 mmHg (32.0-48.0) 02/16/21 01:13 ABG pCO2 53.6 mm Hg 02/15/21 09:30 POC ABG pO2 136.3 mmHg (83-108) H 02/16/21 01:13 ABG pO2 55.0 mm Hg (80.0-90.0) L 02/15/21 09:30 POC ABG HCO3 30.2 02/16/21 01:13 ABG O2 Saturation 98.8 (0-100) 02/16/21 01:13 PT/INR, D-dimer PT 20.8 Sec. (12.2-14.9) H 02/16/21 01:49 INR 1.73 (0.87-1.13) H 02/16/21 01:49 D-Dimer 310.92 ng/mlDDU (0-234) H 02/12/21 10:09 Abnormal lab findings: Abnormal Labs 02/10/21 02/10/21 02/10/21 06:00 06:00 06:36 WBC RBC MCV 71 L MCH 23 L RDW 16.5 H Lymph % (Auto) Lymph # (Auto) 1.1 L [place]ts # (Auto) Eos # (Auto) Seg Neutrophils % 76.6 H Seg Neutrophils # PT INR APTT D-Dimer Heparin Anti-Xa Level ABG pH POC ABG pO2 ABG pO2 ABG HCO3 ABG O2 Saturation ABG Base Excess ABG Hemoglobin ABG Oxyhemoglobin ABG Potassium ABG Glucose Oxyhemoglobin Carboxyhemoglobin Sodium Potassium Chloride 97.7 L BUN 6 L Glucose 295 H POC Glucose Hemoglobin A1c Lactate Dehydrogenase 325 H C-Reactive Protein 8.20 H Total Protein Albumin 3.8 L Arterial Blood Glucose Coronavirus (PCR) 02/10/21 02/10/21 02/10/21 08:28 14:29 14:29 WBC RBC MCV MCH RDW Lymph % (Auto) Lymph # (Auto) [place] # (Auto) Eos # (Auto) Seg Neutrophils % Seg Neutrophils # PT INR APTT D-Dimer Heparin Anti-Xa Level ABG pH POC ABG pO2 ABG pO2 ABG HCO3 ABG O2 Saturation ABG Base Excess ABG Hemoglobin ABG Oxyhemoglobin ABG Potassium ABG Glucose Oxyhemoglobin Carboxyhemoglobin Sodium 135 L Potassium Chloride 97.0 L BUN 6 L Glucose 308 H POC Glucose Hemoglobin A1c 10.5 H Lactate Dehydrogenase C-Reactive Protein Total Protein Albumin 3.4 L Arterial Blood Glucose Coronavirus (PCR) Positive A 02/10/21 02/10/21 02/10/21 14:37 16:49 21:34 WBC RBC MCV MCH RDW Lymph % (Auto) Lymph # (Auto) [place] # (Auto) Eos # (Auto) Seg Neutrophils % Seg Neutrophils # PT INR APTT D-Dimer Heparin Anti-Xa Level ABG pH POC ABG pO2 58.8 L ABG pO2 ABG HCO3 ABG O2 Saturation ABG Base Excess ABG Hemoglobin 11.2 L ABG Oxyhemoglobin 88.2 L ABG Potassium ABG Glucose 343 H Oxyhemoglobin Carboxyhemoglobin 0 L Sodium Potassium Chloride BUN Glucose POC Glucose 289 H 304 H Hemoglobin A1c Lactate Dehydrogenase C-Reactive Protein Total Protein Albumin Arterial Blood Glucose 343 H Coronavirus (PCR) 02/11/21 02/11/21 02/11/21 07:58 09:59 17:29 WBC RBC MCV MCH RDW Lymph % (Auto) Lymph # (Auto) [place]ts # (Auto) Eos # (Auto) Seg Neutrophils % Seg Neutrophils # PT INR APTT D-Dimer Heparin Anti-Xa Level ABG pH POC ABG pO2 ABG pO2 ABG HCO3 ABG O2 Saturation ABG Base Excess ABG Hemoglobin ABG Oxyhemoglobin ABG Potassium ABG Glucose Oxyhemoglobin Carboxyhemoglobin Sodium Potassium Chloride 97.5 L BUN Glucose 269 H POC Glucose 271 H 351 H Hemoglobin A1c Lactate Dehydrogenase C-Reactive Protein Total Protein Albumin 3.3 L Arterial Blood Glucose Coronavirus (PCR) 02/11/21 02/12/21 02/12/21 21:50 05:28 10:09 WBC RBC MCV MCH RDW Lymph % (Auto) Lymph # (Auto) [place]ts # (Auto) Eos # (Auto) Seg Neutrophils % Seg Neutrophils # PT INR APTT D-Dimer 310.92 H Heparin Anti-Xa Level ABG pH POC ABG pO2 ABG pO2 ABG HCO3 ABG O2 Saturation ABG Base Excess ABG Hemoglobin ABG Oxyhemoglobin ABG Potassium ABG Glucose Oxyhemoglobin Carboxyhemoglobin Sodium Potassium 5.1 H Chloride BUN Glucose 308 H POC Glucose 333 H Hemoglobin A1c Lactate Dehydrogenase C-Reactive Protein Total Protein Albumin 3.3 L Arterial Blood Glucose Coronavirus (PCR) 02/12/21 02/12/21 02/12/21 10:09 16:00 21:50 WBC RBC MCV MCH RDW Lymph % (Auto) Lymph # (Auto) [place]ts # (Auto) Eos # (Auto) Seg Neutrophils % Seg Neutrophils # PT INR APTT D-Dimer Heparin Anti-Xa Level ABG pH POC ABG pO2 ABG pO2 ABG HCO3 ABG O2 Saturation ABG Base Excess ABG Hemoglobin ABG Oxyhemoglobin ABG Potassium ABG Glucose 406 H Oxyhemoglobin Carboxyhemoglobin 0.3 L Sodium Potassium Chloride BUN Glucose POC Glucose 353 H Hemoglobin A1c Lactate Dehydrogenase 564 H C-Reactive Protein 12.60 H Total Protein Albumin Arterial Blood Glucose 406 H Coronavirus (PCR) 02/13/21 02/13/21 02/13/21 04:38 08:32 17:08 WBC RBC MCV MCH RDW Lymph % (Auto) Lymph # (Auto) Butts # (Auto) Eos # (Auto) Seg Neutrophils % Seg Neutrophils # PT INR APTT D-Dimer Heparin Anti-Xa Level ABG pH POC ABG pO2 ABG pO2 ABG HCO3 ABG O2 Saturation ABG Base Excess ABG Hemoglobin ABG Oxyhemoglobin ABG Potassium ABG Glucose Oxyhemoglobin Carboxyhemoglobin Sodium Potassium Chloride BUN Glucose 295 H POC Glucose 308 H 372 H Hemoglobin A1c Lactate Dehydrogenase C-Reactive Protein Total Protein 8.4 H Albumin 3.5 L Arterial Blood Glucose Coronavirus (PCR) 02/13/21 02/14/21 02/14/21 21:09 09:11 13:13 WBC RBC MCV MCH RDW Lymph % (Auto) Lymph # (Auto) [place] # (Auto) Eos # (Auto) Seg Neutrophils % Seg Neutrophils # PT INR APTT D-Dimer Heparin Anti-Xa Level ABG pH POC ABG pO2 ABG pO2 ABG HCO3 ABG O2 Saturation ABG Base Excess ABG Hemoglobin ABG Oxyhemoglobin ABG Potassium ABG Glucose Oxyhemoglobin Carboxyhemoglobin Sodium Potassium Chloride BUN Glucose POC Glucose 370 H 289 H 271 H Hemoglobin A1c Lactate Dehydrogenase C-Reactive Protein Total Protein Albumin Arterial Blood Glucose Coronavirus (PCR) 02/14/21 02/14/21 02/15/21 18:28 18:30 00:05 WBC RBC MCV MCH RDW Lymph % (Auto) Lymph # (Auto) Butts # (Auto) Eos # (Auto) Seg Neutrophils % Seg Neutrophils # PT INR APTT D-Dimer Heparin Anti-Xa Level ABG pH POC ABG pO2 ABG pO2 ABG HCO3 ABG O2 Saturation ABG Base Excess ABG Hemoglobin ABG Oxyhemoglobin ABG Potassium ABG Glucose Oxyhemoglobin Carboxyhemoglobin Sodium Potassium Chloride BUN Glucose POC Glucose 391 H 354 H 290 H Hemoglobin A1c Lactate Dehydrogenase C-Reactive Protein Total Protein Albumin Arterial Blood Glucose Coronavirus (PCR) 02/15/21 02/15/21 02/15/21 07:44 09:30 12:27 WBC RBC MCV MCH RDW Lymph % (Auto) Lymph # (Auto) Butts # (Auto) Eos # (Auto) Seg Neutrophils % Seg Neutrophils # PT INR APTT D-Dimer Heparin Anti-Xa Level ABG pH POC ABG pO2 ABG pO2 55.0 L ABG HCO3 30.7 H ABG O2 Saturation 87.4 L ABG Base Excess 4.1 H ABG Hemoglobin ABG Oxyhemoglobin ABG Potassium ABG Glucose Oxyhemoglobin 86.1 L Carboxyhemoglobin Sodium Potassium Chloride BUN Glucose POC Glucose 265 H 270 H Hemoglobin A1c Lactate Dehydrogenase C-Reactive Protein Total Protein Albumin Arterial Blood Glucose Coronavirus (PCR) 02/15/21 02/16/21 02/16/21 16:58 01:13 01:49 WBC RBC MCV MCH RDW Lymph % (Auto) Lymph # (Auto) Butts # (Auto) Eos # (Auto) Seg Neutrophils % Seg Neutrophils # PT 20.8 H INR 1.73 H APTT > 240.0 H* D-Dimer Heparin Anti-Xa Level ABG pH 7.456 H POC ABG pO2 136.3 H ABG pO2 ABG HCO3 ABG O2 Saturation ABG Base Excess ABG Hemoglobin ABG Oxyhemoglobin ABG Potassium 4.7 H ABG Glucose 395 H Oxyhemoglobin Carboxyhemoglobin Sodium Potassium Chloride BUN Glucose POC Glucose 325 H Hemoglobin A1c Lactate Dehydrogenase C-Reactive Protein Total Protein Albumin Arterial Blood Glucose 395 H Coronavirus (PCR) 02/16/21 02/16/21 02/16/21 02:05 07:45 07:45 WBC 16.8 H RBC 5.61 H MCV 71 L MCH 23 L RDW 17.0 H Lymph % (Auto) 11.5 L Lymph # (Auto) Butts # (Auto) 0.9 H Eos # (Auto) 0.5 H Seg Neutrophils % 79.6 H Seg Neutrophils # 13.4 H PT INR APTT D-Dimer Heparin Anti-Xa Level ABG pH POC ABG pO2 ABG pO2 ABG HCO3 ABG O2 Saturation ABG Base Excess ABG Hemoglobin ABG Oxyhemoglobin ABG Potassium ABG Glucose Oxyhemoglobin Carboxyhemoglobin Sodium Potassium Chloride BUN 27 H Glucose 269 H POC Glucose 347 H Hemoglobin A1c Lactate Dehydrogenase C-Reactive Protein Total Protein Albumin Arterial Blood Glucose Coronavirus (PCR) 02/16/21 02/16/21 07:45 07:46 WBC RBC MCV MCH RDW Lymph % (Auto) Lymph # (Auto) Butts # (Auto) Eos # (Auto) Seg Neutrophils % Seg Neutrophils # PT INR APTT D-Dimer Heparin Anti-Xa Level > 1.99 H ABG pH POC ABG pO2 ABG pO2 ABG HCO3 ABG O2 Saturation ABG Base Excess ABG Hemoglobin ABG Oxyhemoglobin ABG Potassium ABG Glucose Oxyhemoglobin Carboxyhemoglobin Sodium Potassium Chloride BUN Glucose POC Glucose 290 H Hemoglobin A1c Lactate Dehydrogenase C-Reactive Protein Total Protein Albumin Arterial Blood Glucose Coronavirus (PCR) Chest x-ray: image reviewed (left chest tube fenestration at pleural jxn but no discernible pneumothorax; right chest tube in place; RIJ in good position) Allied health notes reviewed: nursing
--- NOTE | 2021-02-16 13:14 | Progress Note ---
Assessment and Plan Cultures: Blood culture no growth so far COVID-19 PCR: Positive A/P: 32-year-old female past medical history morbid obesity, diabetes and Covid pneumonia #Severe COVID-19 pneumonia: Patient presented with a week of symptoms, chest x- ray with diffuse bilateral infiltrates. Inflammatory markers elevated. Pr ocalcitonin was low #Acute hypoxemic respiratory failure: secondary to COVID-19 infection. On the v ent. #Pneumothorax, subcutaneous emphysema, large pneumomediastinum: Surgery following, has chest tubes. #Morbid obesity BMI 46 #Diabetes: tight glycemic control for best outcomes. Recs: -Continue dexamethasone for 10 days -Completed 5 days of remdesivir, Completed Tocilizumab on 02/13/2021 -Monitor q48-72h inflammatory markers - ferritin, Ddimer, CRP -off abx -poor prognosis Edmar Frost MD, FACP [facility] ([facility] O: [phone] F: [phone] Subjective Date of service: 02/16/21 Principal diagnosis: Ac hypoxemic resp failure; ARDS; COVID-19 infection; Morbid obesity; OHS Interval history: Afebrile. Intubated yesterday due to respiratory decompensation. Found to have bilateral pneumothorax, was seen by general surgery, had chest tubes placed. CTA also showed acute right lower lobe pulmonary embolism, large pneumomediastinum, extensive subcutaneous emphysema. Objective - Exam Narrative Exam: Physical Exam (reviewed in chart to minimize risk of transmission) Constitutional: deferred Head, Ears, Nose: deferred Eyes: deferred Neck: deferred Oral: deferred Cardiovascular: deferred Respiratory: deferred GI: deferred Musculoskeletal: deferred Skin: deferred Hem/Lymphatic: deferred Psych: deferred Neurological: deferred - Constitutional Vitals: Vital Signs Temp Pulse Resp BP Pulse Ox 98.4 F 127 H 23 83/55 95 02/16/21 08:00 02/16/21 11:29 02/16/21 10:01 02/16/21 11:29 02/16/21 11:29 Temperature -Last 24 Hours Temperature 98.4 F Temperature 97.9 F - Labs CBC & Chem 7: 02/16/21 07:45 02/16/21 07:45 Labs: Abnormal lab results 02/14/21 02/15/2121 Range/Units 13:13 12:27 16:58 WBC (4.5-11.0) K/mm3 RBC (3.65-5.03) M/mm3 MCV (79-97) fl MCH (28-32) pg RDW (13.2-15.2) % Lymph % (Auto) (13.4-35.0) % [place] # (Auto) (0.0-0.8) K/mm3 Eos # (Auto) (0.0-0.4) K/mm3 Seg Neutrophils % (40.0-70.0) % Seg Neutrophils # (1.8-7.7) K/mm3 PT (12.2-14.9) Sec. INR (0.87-1.13) APTT (24.2-36.6) Sec. Heparin Anti-Xa Level (0.3-0.7) U.I./ml ABG pH (7.320-7.450) POC ABG pO2 (83-108) mmHg ABG Potassium (3.40-4.50) mmol/L ABG Glucose (65-95) mg/dL BUN (7-17) mg/dL Glucose (65-100) mg/dL POC Glucose 271 H 270 H 325 H (70-105) mg/dL Arterial Blood Glucose (65-95) mg/dL 02/16/21 02/16/21 02/16/21 Range/Units 01:13 01:49 02:05 WBC (4.5-11.0) K/mm3 RBC (3.65-5.03) M/mm3 MCV (79-97) fl MCH (28-32) pg RDW (13.2-15.2) % Lymph % (Auto) (13.4-35.0) % [place] # (Auto) (0.0-0.8) K/mm3 Eos # (Auto) (0.0-0.4) K/mm3 Seg Neutrophils % (40.0-70.0) % Seg Neutrophils # (1.8-7.7) K/mm3 PT 20.8 H (12.2-14.9) Sec. INR 1.73 H (0.87-1.13) APTT > 240.0 H* (24.2-36.6) Sec. Heparin Anti-Xa Level (0.3-0.7) U.I./ml ABG pH 7.456 H (7.320-7.450) POC ABG pO2 136.3 H (83-108) mmHg ABG Potassium 4.7 H (3.40-4.50) mmol/L ABG Glucose 395 H (65-95) mg/dL BUN (7-17) mg/dL Glucose (65-100) mg/dL POC Glucose 347 H (70-105) mg/dL Arterial Blood Glucose 395 H (65-95) mg/dL 02/16/21 02/16/21 02/16/21 Range/Units 07:45 07:45 07:45 WBC 16.8 H (4.5-11.0) K/mm3 RBC 5.61 H (3.65-5.03) M/mm3 MCV 71 L (79-97) fl MCH 23 L (28-32) pg RDW 17.0 H (13.2-15.2) % Lymph % (Auto) 11.5 L (13.4-35.0) % [place] # (Auto) 0.9 H (0.0-0.8) K/mm3 Eos # (Auto) 0.5 H (0.0-0.4) K/mm3 Seg Neutrophils % 79.6 H (40.0-70.0) % Seg Neutrophils # 13.4 H (1.8-7.7) K/mm3 PT (12.2-14.9) Sec. INR (0.87-1.13) APTT (24.2-36.6) Sec. Heparin Anti-Xa Level > 1.99 H (0.3-0.7) U.I./ml ABG pH (7.320-7.450) POC ABG pO2 (83-108) mmHg ABG Potassium (3.40-4.50) mmol/L ABG Glucose (65-95) mg/dL BUN 27 H (7-17) mg/dL Glucose 269 H (65-100) mg/dL POC Glucose (70-105) mg/dL Arterial Blood Glucose (65-95) mg/dL 02/16/21 Range/Units 07:46 WBC (4.5-11.0) K/mm3 RBC (3.65-5.03) M/mm3 MCV (79-97) fl MCH (28-32) pg RDW (13.2-15.2) % Lymph % (Auto) (13.4-35.0) % [place] # (Auto) (0.0-0.8) K/mm3 Eos # (Auto) (0.0-0.4) K/mm3 Seg Neutrophils % (40.0-70.0) % Seg Neutrophils # (1.8-7.7) K/mm3 PT (12.2-14.9) Sec. INR (0.87-1.13) APTT (24.2-36.6) Sec. Heparin Anti-Xa Level (0.3-0.7) U.I./ml ABG pH (7.320-7.450) POC ABG pO2 (83-108) mmHg ABG Potassium (3.40-4.50) mmol/L ABG Glucose (65-95) mg/dL BUN (7-17) mg/dL Glucose (65-100) mg/dL POC Glucose 290 H (70-105) mg/dL Arterial Blood Glucose (65-95) mg/dL
[2021-02-16] MEDS: dexAMETHasone 4 MG/ML VIAL IV SCH (14:28)
[2021-02-16] MEDS: FAMOTIDINE 20 MG/2 ML INJ IV SCH ×2 (14:28→22:05)
--- NOTE | 2021-02-16 15:28 | Event Note ---
Date: 02/16/21 I called patient's next of kin patient's sister Marissa Keita at [phone] unable to reach her as no one picked up the phone, I left a voice message asking her to call back to discuss about the patient's condition. I will try to reach her again next 1 or 2 hours.
[2021-02-16] MEDS: VASOPRESSIN 20 UNIT in SODIUM CHLORIDE 0.9% 100 ML IV SCH (17:15)
[2021-02-17] MEDS: VASOPRESSIN 20 UNIT in SODIUM CHLORIDE 0.9% 100 ML IV SCH ×2 (02:55→13:07)
[2021-02-17] MEDS: fentaNYL DRIP Premix 2,000 MCG/100 ML BAG IV SCH ×5 (02:57→17:28)
[2021-02-17] MEDS: NORepinephrine/NS 8 MG-250 ML 8 MG/250 ML INFUS..BTL IV SCH ×2 (03:00→10:36)
--- NOTE | 2021-02-17 03:55 | XRay Report ---
CHEST 1 VIEW 02/17/2021 2:41 AM INDICATION / CLINICAL INFORMATION: follow up respiratory failure. COMPARISON: 02/16/2021 FINDINGS: SUPPORT DEVICES: The left chest tube sidehole is partially outside of the rib cage and should be repo sitioned. Other lines and tubes again project in expected position. HEART / MEDIASTINUM: Pneumomediastinum again noted. LUNGS / PLEURA: Small biapical pneumothoraces and moderate bilateral parenchymal disease, unchanged ADDITIONAL FINDINGS: No significant additional findings. IMPRESSION: 1. Malpositioned left chest tube sidehole outside rib cage. 2. Pneumomediastinum, subcutaneous emphysema and tiny biapical pneumothoraces, unchanged 3. Moderate bilateral pneumonia again noted Signer Name: Malcolm Seo MD Signed: 02/17/2021 3:51 AM Workstation Name: [id number]
[2021-02-17 06:23] LABS: Hematocrit 35.9 % (30.3-42.9); Hemoglobin 11.3 gm/dl (10.1-14.3); Mean Corpuscular HGB Conc 31 % (30-34); Mean Corpuscular Volume 72 fl (79-97); Platelet Count 481 K/mm3 (140-440); Red Cell Distribution Width 16.7 % (13.2-15.2)
[2021-02-17] MEDS: INSULIN LISPRO 100 UNIT/ML SUB-Q SCH ×3 (06:33→18:24)
[2021-02-17 06:40] LABS: Albumin 3.2 g/dL (3.9-5); Calcium 9.2 mg/dL (8.4-10.2)
--- NOTE | 2021-02-17 08:34 | Progress Note ---
<JOETAMMY A - Last Filed: 02/17/21 13:42> Assessment and Plan Assessment and plan: 40-year-old morbidly obese -[place] female patient presents to the emergency department from home with complaint of a 1 week history of generalized body aches, chills, and progressively worsening shortness of breath. Over the past 2 days the patient says that she has developed a fever. She also has an intermittent mixed dry and productive cough. The shortness of breath worsens when she is laying down flat and she then feels like she is choking on secretions. She took ibuprofen and Tylenol this morning around 1:40 AM without much relief. Patient denies any exposure to Covid 19 persons . No recent travel or sick contacts at home. She has a past medical history of diabetes. Initial examination patient was severely hypoxemic with room air O2 sats of 78%, mild improvement on 4 L of nasal cannula oxygen Pt admitted for covid19 Arrived to ICU 02/16 sp intubation 02-17 no acute events overnight; remains intubated and sedated; on NE and vaso for MAP support - see below for systems review NEURO -sedated sedated on fentanyl and propofol daily SAT trial limited by hypoxia FATHER updated on plan of care- see event note CV- tachycardia MAP goal 65 on NE/vase SR-ST Resp - acute resp failure due to covid19 pneumonia; b pneumothorax; PE remains intubated see RT notes when sedation dec and pt wakes up - oxygen sat falls to 70's bilateral pneumothorax on admit r and l CT to neg 20 cm suction no airleak left CT repositioned by Dr Lewis post repositioning xray noated inc secretions today continue to trend ABG and xray chest CT 02-10 small PE; pneumothorax; pna; pneumomediastinum 02-11 US lower extremities neg for DVT GI- nap TF ordered nutrition following bowel reg- colace and senna pepcid - nap net neg 877 ml over 24 hours made 700 ml urine in the last 24 hours baseline Cr on 11 .8 inc to 1.4 today follow Cr and electrolytes Heme; coagulopathic with covid; on AC on heparin drip following xa/CBC no bleeding on exam ID- covid pneumonia afebrile WBC to 30 from 16 sputum ordered and pending trend temp and WBC curve follow culture data vitC/zn ID following ID added [email or web address] today continue 10 days of decadron trend procal and inflammatory markers endo - obese; hyperglycemia/DM2 nph/reg insulin BID lispro SSI avoid hypogycemia Disposition Plan: icu Total Time Spent with Patient (Minutes): 60 History Interval history: admitted to ICU from ER with covid19 pna and bilateral pneumothorax Hospitalist Physical - Constitutional Vitals: Temp Pulse Resp BP Pulse Ox 97.2 F L 100 H 19 114/86 92 02/17/21 09:10 02/17/21 07:15 02/17/21 07:15 02/17/21 07:15 02/17/21 07:15 - EENT Eyes: Present: PERRL, EOM intact ENT: clear oral mucosa - Neck Neck: Present: supple, normal ROM - Respiratory Respiratory effort: normal - Cardiovascular Rhythm: regular Heart Sounds: Present: S1 & S2 - Extremities Extremity abnormal: edema - Abdominal General gastrointestinal: soft - Integumentary Integumentary: Present: clear, warm - Psychiatric Psychiatric: other - Neurologic Neurologic: other - Allied Health Allied health notes reviewed: nursing, RT, case management HEART Score - HEART Score Troponin: Troponin T < 0.010 ng/mL (0.00-0.029) 02/14/21 15:30 Results - Labs CBC & Chem 7: 02/17/21 06:05 02/17/21 06:05 Labs: Laboratory Last Values WBC 30.4 K/mm3 (4.5-11.0) H 02/17/21 06:05 RBC 5.00 M/mm3 (3.65-5.03) 02/17/21 06:05 Hgb 11.3 gm/dl (10.1-14.3) 02/17/21 06:05 Hct 35.9 % (30.3-42.9) 02/17/21 06:05 MCV 72 fl (79-97) L 02/17/21 06:05 MCH 23 pg (28-32) L 02/17/21 06:05 MCHC 31 % (30-34) 02/17/21 06:05 RDW 16.7 % (13.2-15.2) H 02/17/21 06:05 Plt Count 481 K/mm3 (140-440) H 02/17/21 06:05 Lymph % (Auto) 11.5 % (13.4-35.0) L 02/16/21 07:45 [place] % (Auto) 5.5 % (0.0-7.3) 02/16/21 07:45 Eos % (Auto) 3.3 % (0.0-4.3) 02/16/21 07:45 Baso % (Auto) 0.1 % (0.0-1.8) 02/16/21 07:45 Lymph # (Auto) 1.9 K/mm3 (1.2-5.4) 02/16/21 07:45 [place] # (Auto) 0.9 K/mm3 (0.0-0.8) H 02/16/21 07:45 Eos # (Auto) 0.5 K/mm3 (0.0-0.4) H 02/16/21 07:45 Baso # (Auto) 0.0 K/mm3 (0.0-0.1) 02/16/21 07:45 Seg Neutrophils % 79.6 % (40.0-70.0) H 02/16/21 07:45 Seg Neutrophils # 13.4 K/mm3 (1.8-7.7) H 02/16/21 07:45 PT 20.8 Sec. (12.2-14.9) H 02/16/21 01:49 INR 1.73 (0.87-1.13) H 02/16/21 01:49 APTT > 240.0 Sec. (24.2-36.6) H* 02/16/21 01:49 D-Dimer 310.92 ng/mlDDU (0-234) H 02/12/21 10:09 Heparin Anti-Xa Level 0.72 U.I./ml (0.3-0.7) H 02/16/21 19:15 ABG pH 7.427 (7.320-7.450) 02/16/21 21:00 POC ABG pCO2 31.8 mmHg (32.0-48.0) L 02/16/21 21:00 ABG pCO2 53.6 mm Hg 02/15/21 09:30 POC ABG pO2 81.0 mmHg (83-108) L 02/16/21 21:00 ABG pO2 55.0 mm Hg (80.0-90.0) L 02/15/21 09:30 POC ABG HCO3 20.5 02/16/21 21:00 ABG HCO3 30.7 mmol/L (20.0-26.0) H 02/15/21 09:30 ABG O2 Saturation 95.0 (0-100) 02/16/21 21:00 ABG O2 Content 18.5 (0.0-44) 02/15/21 09:30 POC ABG Base Excess -3.0 02/16/21 21:00 ABG Base Excess 4.1 mmol/L (-2.0-3.0) H 02/15/21 09:30 ABG Hemoglobin 12.4 (12.0-17.5) 02/16/21 21:00 ABG Oxyhemoglobin 94.4 (94-98) 02/16/21 21:00 ABG Carboxyhemoglobin 1.0 % (0.0-5.0) 02/15/21 09:30 ABG Methemoglobin 0.3 (0.0-1.5) 02/16/21 21:00 ABG Sodium 140.5 mmol/L (136.0-145.0) 02/16/21 21:00 ABG Potassium 5.3 mmol/L (3.40-4.50) H 02/16/21 21:00 ABG Chloride 106.0 mmol/L (98-107) 02/16/21 21:00 ABG Glucose 416 mg/dL (65-95) H 02/16/21 21:00 Oxyhemoglobin 86.1 % (95.0-99.0) L 02/15/21 09:30 Carboxyhemoglobin 0.3 (0.5-1.5) L 02/16/21 21:00 FiO2 100 % 02/15/21 09:30 FiO2 % 80.0 02/16/21 21:00 Sodium 144 mmol/L (137-145) 02/17/21 06:05 Potassium 4.8 mmol/L (3.6-5.0) 02/17/21 06:05 Chloride 104.4 mmol/L (98-107) 02/17/21 06:05 Carbon Dioxide 28 mmol/L (22-30) 02/17/21 06:05 Anion Gap 16 mmol/L 02/17/21 06:05 BUN 46 mg/dL (7-17) H 02/17/21 06:05 Creatinine 1.4 mg/dL (0.6-1.2) H 02/17/21 06:05 Estimated GFR 51 ml/min 02/17/21 06:05 BUN/Creatinine Ratio 33 % 02/17/21 06:05 Glucose 309 mg/dL (65-100) H 02/17/21 06:05 POC Glucose 290 mg/dL (70-105) H 02/17/21 05:49 Hemoglobin A1c 10.5 % (4-6) H 02/10/21 14:29 Calcium 9.2 mg/dL (8.4-10.2) 02/17/21 06:05 Phosphorus 5.80 mg/dL (2.5-4.5) H 02/17/21 06:05 Magnesium 2.50 mg/dL (1.7-2.3) H 02/17/21 06:05 Ferritin 138.9 ng/mL (10.0-200.0) 02/12/21 10:09 Total Bilirubin 0.20 mg/dL (0.1-1.2) 02/17/21 06:05 AST 20 units/L (5-40) 02/17/21 06:05 ALT 11 units/L (7-56) 02/17/21 06:05 Alkaline Phosphatase 110 units/L (35-129) 02/17/21 06:05 Lactate Dehydrogenase 564 units/L (91-180) H 02/12/21 10:09 Troponin T < 0.010 ng/mL (0.00-0.029) 02/14/21 15:30 C-Reactive Protein 12.60 mg/dL (0.00-1.30) H 02/12/21 10:09 NT-Pro-B Natriuret Pep 28.71 pg/mL (0-450) 02/10/21 09:29 Total Protein 6.8 g/dL (6.3-8.2) 02/17/21 06:05 Albumin 3.2 g/dL (3.9-5) L 02/17/21 06:05 Albumin/Globulin Ratio 0.9 % 02/17/21 06:05 Procalcitonin 0.06 ng/mL (<0.15) 02/10/21 06:36 HCG, Qual Negative (Negative) 02/10/21 06:36 Arterial Blood Glucose 416 mg/dL (65-95) H 02/16/21 21:00 Arterial Blood Ionized Calcium 4.7 mg/dL (4.6-5.3) 02/16/21 21:00 Urine Color Yellow (Yellow) 02/10/21 11:15 Urine Turbidity Clear (Clear) 02/10/21 11:15 Urine pH 5.0 (5.0-7.0) 02/10/21 11:15 Ur Specific [place] 1.016 (1.003-1.030) 02/10/21 11:15 Urine Protein 100 mg/dl mg/dL (Negative) 02/10/21 11:15 Urine Glucose (UA) >=500 mg/dL (Negative) 02/10/21 11:15 Urine Ketones 20 mg/dL (Negative) 02/10/21 11:15 Urine Blood Sm (Negative) 02/10/21 11:15 Urine Nitrite Neg (Negative) 02/10/21 11:15 Urine Bilirubin Neg (Negative) 02/10/21 11:15 Urine Urobilinogen < 2.0 mg/dL (<2.0) 02/10/21 11:15 Ur Leukocyte Esterase Tr (Negative) 02/10/21 11:15 Urine WBC (Auto) 3.0 /HPF (0.0-6.0) 02/10/21 11:15 Urine RBC (Auto) 3.0 /HPF (0.0-6.0) 02/10/21 11:15 U Epithel Cells (Auto) 10.0 /HPF (0-13.0) 02/10/21 11:15 Urine Bacteria (Auto) 1+ /HPF (Negative) 02/10/21 11:15 Urine Yeast (Budding) 1+ /HPF 02/10/21 11:15 Coronavirus (PCR) Positive (Negative) A 02/10/21 08:28 Smith/IV: Voiding Method Indwelling Catheter Active Medications - Current Medications Current Medications: Generic Name Dose Route Start Last Admin Trade Name Freq PRN Reason Stop Dose Admin Ascorbic Acid 500 mg 02/10/21 22:00 02/17/21 09:05 Ascorbic Acid 500 Mg Tab PO 500 mg BID SALUD Administration Dexamethasone 6 mg 02/10/21 15:00 02/17/21 09:04 Dexamethasone 4 Mg/Ml Vial IV 08/20/21 10:01 6 mg DAILY SALUD Administration Famotidine 20 mg 02/16/21 10:00 02/17/21 09:05 Famotidine 20 Mg/2 Ml Inj IV 20 mg BID SALUD Administration Heparin Sodium (Porcine) 5,000 unit 02/16/21 00:59 Heparin 10,000 Units/10 Ml Vial 40 unit/kg (5100 unit) IV Q6H PRN Anti-Xa Assay < 0.1 units/ml Hydrophilic Ointment 1 applic 02/15/21 18:43 Lip Therapy Vaseline TP Q2HR PRN Dry Lips Fentanyl Citrate 2,000 mcg in 100 mls @ 6.35 mls/hr 02/15/21 19:00 02/17/21 10:37 Fentanyl Drip Premix IV 4 mcg/kg/hr TITR SALUD 25.4 mls/hr Administration Protocol 1 MCG/KG/HR Propofol 1,000 mg in 100 mls @ 19.05 mls/hr 02/15/21 19:20 02/17/21 09:03 Diprivan 10 Mg/Ml IV 20 mcg/kg/min TITR SALUD 15.24 mls/hr Administration Protocol 25 MCG/KG/MIN Heparin Sodium/Sodium Chloride 25,000 unit in 500 mls @ 30 mls/hr 02/16/21 01:00 02/16/21 23:27 Heparin/ 0.45% Nacl-25,000 Unit/500 Ml IV 1,150 units/hr TITR SALUD 23 mls/hr Administration Protocol 1,500 UNITS/HR NORepinephrine/NS 8 MG-250 ML 8 mg in 250 mls @ 3.75 mls/hr 02/16/21 12:00 02/17/21 10:36 Norepinephrine/Ns 8 Mg-250 Ml (Double Conc) IV 4 mcg/min TITRATE SALUD 7.5 mls/hr Administration Protocol 2 MCG/MIN Vasopressin 20 unit/ Sodium 101 mls @ 9.09 mls/hr 02/16/21 14:00 02/17/21 02:55 Chloride IV 0.03 units/min TITR SALUD 9.09 mls/hr Administration Protocol 0.03 UNITS/MIN Insulin Human Isoph/Insulin Regular 20 unit 02/15/21 17:00 02/17/21 09:04 Insulin Nph/Regular 70/30 Inj SUB-Q 20 unit BIDDIAB SALUD Administration Insulin Human Lispro 0 unit 02/16/21 12:00 02/17/21 06:33 Insulin Lispro 100 Unit/Ml SUB-Q 6 unit Q6HR SALUD Administration Protocol Lorazepam 1 mg 02/15/21 16:35 02/15/21 16:52 Lorazepam 2 Mg/Ml Vial IV 1 mg Q6H PRN Administration Seizures Multi-Ingred Cream/Lotion/Oil/Oint 1 applic 02/15/21 18:43 Mineral Oil/Petrolatum, White Ophth Oint 3.5 Gm OU Q4HR PRN Dry Eye(s) Phenol 1 spray 02/13/21 12:02 Phenol 1.4% 177 Ml Bottle MM PRN PRN Sore Throat Senna/Docusate Sodium 1 tab 02/15/21 22:00 02/17/21 09:04 Sennosides/Docusate Sodium 8.6/50 Mg Tab FEEDTUBE 1 tab BID SALUD Administration Zinc Sulfate 220 mg 02/10/21 22:00 02/17/21 10:36 Zinc Sulfate 220 Mg Cap PO 220 mg BID SALUD Administration Nutrition/Malnutrition Assess - Attestation Statement I have reviewed and agreed w/ Malnutrition eval & tx plan: Yes <SEAN HARTMAN - Last Filed: 02/17/21 19:11> Assessment and Plan Assessment and plan: Yesterday's events noted, patient was in acute respiratory failure requiring intubation mechanical ventilation Complicated by bilateral pneumothoraces, pneumomediastinum and large subcutenuous emphysema ,surgery evaluated the patient, placed bilateral chest tubes Surgery and pulmonary critical care following. --Bilateral pneumothoraces: Surgery evaluated the patient s/p bilateral chest tube placement Continue supportive care, pulmonary, surgery following --Large pneumomediastinum/subcutaneous emphysema Supportive care, closely monitor Pulmonary surgery following --Acute severe hypoxemic respiratory failure Requiring intubation and mechanical ventilation, Pulmonary, critical care, surgeon following treat the underlying cause, Wean as tolerated. --Small right lower lobe PE; Patient is placed on heparin drip per protocol Will transition to oral anticoagulants once medically stable --COVID-19 pneumonia; Initially patient was on high flow oxygen with 100% nonrebreather Later patient was intubated and placed on ventilatory support Home oxygen evaluation, follow-up inflammatory markers Anticoagulation per protocols ID evaluation noted and appreciated Patient was unable to swallow vitamins secondary to sore throat. Pulmonary evaluation noted and appreciated --Tachycardia : Secondary to anxiety. Ativan will help for anxiety and dyspnea --morbid obesity BMI 46.6 Patient needs weight reduction when medically stable Sleep study to rule out obstructive sleep apnea --obesity hypoventilation syndrome Pulmonary consult, titrate O2 sats to more than 90% Supportive care --Sore throat: could be secondary to coughing versus BiPAP machine will add viscous lidocaine gargle --type 2 diabetes mellitus: uncontrolled. Secondary to steroid use Accu-Chek sliding scale coverage ADA diet , long-acting insulin 70/30 insulin so she can get regular scheduled short acting. 25 units twice daily advance as tolerated to maintain tight glycemic control. --DVT prophylaxis ; Lovenox --GI prophylaxis; Protonix We will closely monitor patient and adjust the management as needed Plan of care reviewed with the patient and her nurse Consultants and recommendations noted and appreciated Brief history and hospital course; 40-year-old morbidly obese -[place] female patient was admitted through emergency room with worsening shortness of breath and generalized body pains, patient was initially evaluated noted to have Covid positive infection, hypoxemic requiring very high flow oxygen GI, pulmonary following, patient is receiving treatment per COVID-19 guidelines, patient is on very high flow oxygen, severely hypoxemic 02/12/2021; On high flow nasal cannula oxygen 40 L/100% FiO2/92% O2 sats Morbidly obese, poor prognosis, prone positioning, Continue steroid .remdesivir, Disposition discharge when medically stable Follow consultants recommendations 02/13/2021 Patient remains hypoxemic today on BiPAP. Patient refused high flow O2 via nasal cannula. Complains today of throat pain and shortness of breath. All questions and concerns answered. Hospital course complicated by hypoglycemia. 02/14/2021. Addendum patient was doing well. Patient remains hypoxic. Still requires BiPAP. Throat pain is improved. Patient hospital course complicated by episode of agitation with tachycardia. 02/16/2021; Patient was in acute respiratory failure intubated on 02/15/2021, complicated by bilateral pneumothoraces Large pneumomediastinum and extensive subcutaneous emphysema, continue supportive care Status post bilateral chest tube placement, today patient had central line placement Intubated on ventilatory support, consultants and recommendations noted and appreciated Patient has multiple medical problems, with very serious illness, very poor prognosis. Small right lower lobe PE on CTA chest, initiated heparin drip, will transition to oral anticoagulants when patient is medically stable I called patient's sister CHINA Keita at [phone], unable to contact as no one picked up the phone, left a message requesting them To call back to discuss about the patient's condition tests and reports and the treatment plan. History Interval history: Physical examination; Patient is orally intubated on ventilatory support Sedated noncommunicative Subcutaneous emphysema present Head and ENT; atraumatic normocephalic Neck; supple no lymphadenopathy JVD/subcu emphysema present Lungs; bilateral air entry reduced, no rales no rhonchi CVS; S1-S2 regular no murmur Abdomen; subcu emphysema Bowel sounds normal Bilateral lower extremities; edema/subcu emphysema [employer]; intubated and sedated Psych; intubated and sedated Musculoskeletal; no deformity Assessment and plan; as mentioned above Hospitalist Physical - Constitutional Vitals: Temp Pulse Resp BP Pulse Ox 98.9 F 100 H 19 114/86 92 02/17/21 03:17 02/17/21 07:15 02/17/21 07:15 02/17/21 07:15 02/17/21 07:15 General appearance: Present: mild distress, well-nourished HEART Score - HEART Score EKG: Normal Age: < 45 Risk factors: No known risk factors Troponin: Troponin T < 0.010 ng/mL (0.00-0.029) 02/14/21 15:30 Troponin: < normal limit - Critical Actions Critical Actions: 0-3 pts:0.9-1.7%risk of adverse cardiac event.Candidate for discharge Results - Labs CBC & Chem 7: 02/17/21 06:05 02/17/21 06:05 Labs: Laboratory Last Values WBC 30.4 K/mm3 (4.5-11.0) H 02/17/21 06:05 RBC 5.00 M/mm3 (3.65-5.03) 02/17/21 06:05 Hgb 11.3 gm/dl (10.1-14.3) 02/17/21 06:05 Hct 35.9 % (30.3-42.9) 02/17/21 06:05 MCV 72 fl (79-97) L 02/17/21 06:05 MCH 23 pg (28-32) L 02/17/21 06:05 MCHC 31 % (30-34) 02/17/21 06:05 RDW 16.7 % (13.2-15.2) H 02/17/21 06:05 Plt Count 481 K/mm3 (140-440) H 02/17/21 06:05 Lymph % (Auto) 11.5 % (13.4-35.0) L 02/16/21 07:45 [place] % (Auto) 5.5 % (0.0-7.3) 02/16/21 07:45 Eos % (Auto) 3.3 % (0.0-4.3) 02/16/21 07:45 Baso % (Auto) 0.1 % (0.0-1.8) 02/16/21 07:45 Lymph # (Auto) 1.9 K/mm3 (1.2-5.4) 02/16/21 07:45 [place] # (Auto) 0.9 K/mm3 (0.0-0.8) H 02/16/21 07:45 Eos # (Auto) 0.5 K/mm3 (0.0-0.4) H 02/16/21 07:45 Baso # (Auto) 0.0 K/mm3 (0.0-0.1) 02/16/21 07:45 Seg Neutrophils % 79.6 % (40.0-70.0) H 02/16/21 07:45 Seg Neutrophils # 13.4 K/mm3 (1.8-7.7) H 02/16/21 07:45 PT 20.8 Sec. (12.2-14.9) H 02/16/21 01:49 INR 1.73 (0.87-1.13) H 02/16/21 01:49 APTT > 240.0 Sec. (24.2-36.6) H* 02/16/21 01:49 D-Dimer 310.92 ng/mlDDU (0-234) H 02/12/21 10:09 Heparin Anti-Xa Level 0.72 U.I./ml (0.3-0.7) H 02/16/21 19:15 ABG pH 7.427 (7.320-7.450) 02/16/21 21:00 POC ABG pCO2 31.8 mmHg (32.0-48.0) L 02/16/21 21:00 ABG pCO2 53.6 mm Hg 02/15/21 09:30 POC ABG pO2 81.0 mmHg (83-108) L 02/16/21 21:00 ABG pO2 55.0 mm Hg (80.0-90.0) L 02/15/21 09:30 POC ABG HCO3 20.5 02/16/21 21:00 ABG HCO3 30.7 mmol/L (20.0-26.0) H 02/15/21 09:30 ABG O2 Saturation 95.0 (0-100) 02/16/21 21:00 ABG O2 Content 18.5 (0.0-44) 02/15/21 09:30 POC ABG Base Excess -3.0 02/16/21 21:00 ABG Base Excess 4.1 mmol/L (-2.0-3.0) H 02/15/21 09:30 ABG Hemoglobin 12.4 (12.0-17.5) 02/16/21 21:00 ABG Oxyhemoglobin 94.4 (94-98) 02/16/21 21:00 ABG Carboxyhemoglobin 1.0 % (0.0-5.0) 02/15/21 09:30 ABG Methemoglobin 0.3 (0.0-1.5) 02/16/21 21:00 ABG Sodium 140.5 mmol/L (136.0-145.0) 02/16/21 21:00 ABG Potassium 5.3 mmol/L (3.40-4.50) H 02/16/21 21:00 ABG Chloride 106.0 mmol/L (98-107) 02/16/21 21:00 ABG Glucose 416 mg/dL (65-95) H 02/16/21 21:00 Oxyhemoglobin 86.1 % (95.0-99.0) L 02/15/21 09:30 Carboxyhemoglobin 0.3 (0.5-1.5) L 02/16/21 21:00 FiO2 100 % 02/15/21 09:30 FiO2 % 80.0 02/16/21 21:00 Sodium 144 mmol/L (137-145) 02/17/21 06:05 Potassium 4.8 mmol/L (3.6-5.0) 02/17/21 06:05 Chloride 104.4 mmol/L (98-107) 02/17/21 06:05 Carbon Dioxide 28 mmol/L (22-30) 02/17/21 06:05 Anion Gap 16 mmol/L 02/17/21 06:05 BUN 46 mg/dL (7-17) H 02/17/21 06:05 Creatinine 1.4 mg/dL (0.6-1.2) H 02/17/21 06:05 Estimated GFR 51 ml/min 02/17/21 06:05 BUN/Creatinine Ratio 33 % 02/17/21 06:05 Glucose 309 mg/dL (65-100) H 02/17/21 06:05 POC Glucose 290 mg/dL (70-105) H 02/17/21 05:49 Hemoglobin A1c 10.5 % (4-6) H 02/10/21 14:29 Calcium 9.2 mg/dL (8.4-10.2) 02/17/21 06:05 Phosphorus 5.80 mg/dL (2.5-4.5) H 02/17/21 06:05 Magnesium 2.50 mg/dL (1.7-2.3) H 02/17/21 06:05 Ferritin 138.9 ng/mL (10.0-200.0) 02/12/21 10:09 Total Bilirubin 0.20 mg/dL (0.1-1.2) 02/17/21 06:05 AST 20 units/L (5-40) 02/17/21 06:05 ALT 11 units/L (7-56) 02/17/21 06:05 Alkaline Phosphatase 110 units/L (35-129) 02/17/21 06:05 Lactate Dehydrogenase 564 units/L (91-180) H 02/12/21 10:09 Troponin T < 0.010 ng/mL (0.00-0.029) 02/14/21 15:30 C-Reactive Protein 12.60 mg/dL (0.00-1.30) H 02/12/21 10:09 NT-Pro-B Natriuret Pep 28.71 pg/mL (0-450) 02/10/21 09:29 Total Protein 6.8 g/dL (6.3-8.2) 02/17/21 06:05 Albumin 3.2 g/dL (3.9-5) L 02/17/21 06:05 Albumin/Globulin Ratio 0.9 % 02/17/21 06:05 Procalcitonin 0.06 ng/mL (<0.15) 02/10/21 06:36 HCG, Qual Negative (Negative) 02/10/21 06:36 Arterial Blood Glucose 416 mg/dL (65-95) H 02/16/21 21:00 Arterial Blood Ionized Calcium 4.7 mg/dL (4.6-5.3) 02/16/21 21:00 Urine Color Yellow (Yellow) 02/10/21 11:15 Urine Turbidity Clear (Clear) 02/10/21 11:15 Urine pH 5.0 (5.0-7.0) 02/10/21 11:15 Ur Specific [place] 1.016 (1.003-1.030) 02/10/21 11:15 Urine Protein 100 mg/dl mg/dL (Negative) 02/10/21 11:15 Urine Glucose (UA) >=500 mg/dL (Negative) 02/10/21 11:15 Urine Ketones 20 mg/dL (Negative) 02/10/21 11:15 Urine Blood Sm (Negative) 02/10/21 11:15 Urine Nitrite Neg (Negative) 02/10/21 11:15 Urine Bilirubin Neg (Negative) 02/10/21 11:15 Urine Urobilinogen < 2.0 mg/dL (<2.0) 02/10/21 11:15 Ur Leukocyte Esterase Tr (Negative) 02/10/21 11:15 Urine WBC (Auto) 3.0 /HPF (0.0-6.0) 02/10/21 11:15 Urine RBC (Auto) 3.0 /HPF (0.0-6.0) 02/10/21 11:15 U Epithel Cells (Auto) 10.0 /HPF (0-13.0) 02/10/21 11:15 Urine Bacteria (Auto) 1+ /HPF (Negative) 02/10/21 11:15 Urine Yeast (Budding) 1+ /HPF 02/10/21 11:15 Coronavirus (PCR) Positive (Negative) A 02/10/21 08:28 Smith/IV: Voiding Method Indwelling Catheter Active Medications - Current Medications Current Medications: Generic Name Dose Route Start Last Admin Trade Name Freq PRN Reason Stop Dose Admin Ascorbic Acid 500 mg 02/10/21 22:00 02/16/21 22:05 Ascorbic Acid 500 Mg Tab PO 500 mg BID SALUD Administration Dexamethasone 6 mg 02/10/21 15:00 02/16/21 14:28 Dexamethasone 4 Mg/Ml Vial IV 02/19/21 10:01 6 mg DAILY SALUD Administration Famotidine 20 mg 02/16/21 10:00 02/16/21 22:05 Famotidine 20 Mg/2 Ml Inj IV 20 mg BID SALUD Administration Heparin Sodium (Porcine) 5,000 unit 02/16/21 00:59 Heparin 10,000 Units/10 Ml Vial 40 unit/kg (5100 unit) IV Q6H PRN Anti-Xa Assay < 0.1 units/ml Hydralazine HCl 10 mg 02/10/21 13:57 02/11/21 00:20 Hydralazine 20 Mg/1 Ml Inj IV 10 mg Q4HR PRN Administration Hypertension Hydromorphone HCl 0.5 mg 02/10/21 14:19 02/15/21 15:20 Hydromorphone 1 Mg/1 Ml Inj IM 0.5 mg Q4H PRN Administration Pain , Severe (7-10) Hydrophilic Ointment 1 applic 02/15/21 18:43 Lip Therapy Vaseline TP Q2HR PRN Dry Lips Fentanyl Citrate 2,000 mcg in 100 mls @ 6.35 mls/hr 02/15/21 19:00 02/17/21 06:34 Fentanyl Drip Premix IV 4 mcg/kg/hr TITR SALUD 25.4 mls/hr Administration Protocol 1 MCG/KG/HR Propofol 1,000 mg in 100 mls @ 19.05 mls/hr 02/15/21 19:20 02/16/21 23:26 Diprivan 10 Mg/Ml IV 15 mcg/kg/min TITR SALUD 11.43 mls/hr Administration Protocol 25 MCG/KG/MIN Heparin Sodium/Sodium Chloride 25,000 unit in 500 mls @ 30 mls/hr 02/16/21 01:00 02/16/21 23:27 Heparin/ 0.45% Nacl-25,000 Unit/500 Ml IV 1,150 units/hr TITR SALUD 23 mls/hr Administration Protocol 1,500 UNITS/HR NORepinephrine/NS 8 MG-250 ML 8 mg in 250 mls @ 3.75 mls/hr 02/16/21 12:00 02/17/21 03:00 Norepinephrine/Ns 8 Mg-250 Ml (Double Conc) IV 6 mcg/min TITRATE SALUD 11.25 mls/hr Administration Protocol 2 MCG/MIN Vasopressin 20 unit/ Sodium 101 mls @ 9.09 mls/hr 02/16/21 14:00 02/17/21 02:55 Chloride IV 0.03 units/min TITR SALUD 9.09 mls/hr Administration Protocol 0.03 UNITS/MIN Insulin Human Isoph/Insulin Regular 20 unit 02/15/21 17:00 02/16/21 19:15 Insulin Nph/Regular 70/30 Inj SUB-Q 20 unit BIDDIAB SALUD Administration Insulin Human Lispro 0 unit 02/16/21 12:00 02/17/21 06:33 Insulin Lispro 100 Unit/Ml SUB-Q 6 unit Q6HR SALUD Administration Protocol Lorazepam 1 mg 02/15/21 16:35 02/15/21 16:52 Lorazepam 2 Mg/Ml Vial IV 1 mg Q6H PRN Administration Seizures Multi-Ingred Cream/Lotion/Oil/Oint 1 applic 02/15/21 18:43 Mineral Oil/Petrolatum, White Ophth Oint 3.5 Gm OU Q4HR PRN Dry Eye(s) Phenol 1 spray 02/13/21 12:02 Phenol 1.4% 177 Ml Bottle MM PRN PRN Sore Throat Senna/Docusate Sodium 1 tab 02/15/21 22:00 02/16/21 22:05 Sennosides/Docusate Sodium 8.6/50 Mg Tab FEEDTUBE 1 tab BID SALUD Administration Zinc Sulfate 220 mg 02/10/21 22:00 02/16/21 22:05 Zinc Sulfate 220 Mg Cap PO 220 mg BID SALUD Administration
[2021-02-17] MEDS: dexAMETHasone 4 MG/ML VIAL IV SCH (09:04)
[2021-02-17] MEDS: INSULIN NPH/REGULAR 70/30 INJ SUB-Q SCH (09:04)
[2021-02-17] MEDS: SENNOSIDES/DOCUSATE SODIUM 8.6/50 MG TAB FEEDTUBE SCH ×2 (09:04→21:26)
[2021-02-17] MEDS: FAMOTIDINE 20 MG/2 ML INJ IV SCH ×2 (09:05→21:26)
[2021-02-17] MEDS: ASCORBIC ACID 500 MG TAB PO SCH ×2 (09:05→21:26)
[2021-02-17] MEDS: ZINC SULFATE 220 MG CAP PO SCH ×2 (10:36→21:26)
[2021-02-17] MEDS ORDERED: SODIUM BICARBONATE 325 MG TAB FEEDTUBE PRN ×2 (10:55→17:04)
[2021-02-17] MEDS ORDERED: LIPASE 10,500/PROTEASE 25,000/AMYLASE 43,750 (UNITS) DR CAP FEEDTUBE PRN ×2 (10:55→17:04)
--- NOTE | 2021-02-17 11:57 | Event Note ---
Date: 02/17/21 (family update) I've spoke with Neela, who is listed as NOK in EMR. She lives with Ms Duenas. However, Neela is inpatient at [facility]. Ms Duenas has a 8 y old daugther who is staying with the pt's aunt Jone Sanders (cell [phone]). LEGAL NEXT OF KIN IS FATHER PATRICIA DUENAS HE LIVES IN [place] His cell no. [phone] His home no. [phone] uSnni does work but father can not tell me what kind of work she does. Home meds: metformin and OTC meds per Neela
[2021-02-17 11:59] LABS: ABG Base Excess -1.1 mmol/L (-2.0-3.0); ABG HCO3 25.5 mmol/L (20.0-26.0); ABG Oxygen Saturation 15.2 % (95.0-99.0); ABG PCO2 50.8 mm Hg; ABG PH 7.319 pH Units (7.350-7.450); ABG PO2 75.5 mm Hg (80.0-90.0)
--- NOTE | 2021-02-17 11:59 | XRay Report ---
CHEST 1 VIEW 11:06 AM INDICATION: post CT repositioning. COMPARISON: Earlier today. FINDINGS: Support devices: There is been interval advancement of the left apical thoracostomy tube, this projec ts in expected position. Otherwise unchanged. Heart: Stable. Lungs/Pleura: Extensive bilateral airspace disease is stable. Previously seen tiny biapical pneumotho races are again noted. Soft tissue gas and pneumomediastinum are again noted. IMPRESSION: 1. No significant change after interval advancement of left apical thoracostomy tube. Signer Name: Deshaun Martinez MD Signed: 02/17/2021 11:55 AM Workstation Name: [id number]
[2021-02-17 12:00] LABS: ABG Methemoglobin 0.5 % (0.0-1.5)
[2021-02-17] MEDS ORDERED: INSULIN NPH/REGULAR 70/30 INJ SUB-Q ONE (12:00)
--- NOTE | 2021-02-17 12:08 | Progress Note ---
Assessment and Plan - Patient Problems (1) Pneumothorax on right Current Visit: Yes Status: Acute Plan to address problem: 1) Check CXR. Subjective Date of service: 02/17/21 Patient Reports: Positive: no new complaints (Intubated.) Objective Vital Signs - 12hr 02/17/21 02/17/21 02/17/21 00:15 00:30 00:40 Temperature Pulse Rate 105 H 107 H 103 H Respiratory 20 21 Rate Blood Pressure 110/81 114/79 114/79 O2 Sat by Pulse 92 92 92 Oximetry 02/17/21 02/17/21 02/17/21 00:45 01:00 01:15 Temperature Pulse Rate 105 H 105 H 103 H Respiratory 19 20 18 Rate Blood Pressure 118/81 105/82 106/80 O2 Sat by Pulse 92 92 93 Oximetry 02/17/21 02/17/21 02/17/21 01:30 01:45 02:00 Temperature Pulse Rate 101 H 104 H 102 H Respiratory 21 20 20 Rate Blood Pressure 110/83 110/80 111/84 O2 Sat by Pulse 92 93 90 Oximetry 02/17/21 02/17/21 02/17/21 02:15 02:30 02:45 Temperature Pulse Rate 101 H 99 H 101 H Respiratory 19 20 20 Rate Blood Pressure 117/79 112/81 116/81 O2 Sat by Pulse 92 93 93 Oximetry 02/17/21 02/17/21 02/17/21 03:00 03:15 03:17 Temperature 98.9 F Pulse Rate 100 H 101 H Respiratory 20 20 Rate Blood Pressure 126/84 111/80 O2 Sat by Pulse 90 92 Oximetry 02/17/21 02/17/21 02/17/21 03:30 03:45 04:00 Temperature Pulse Rate 102 H 98 H 101 H Respiratory 18 20 20 Rate Blood Pressure 118/81 124/80 108/81 O2 Sat by Pulse 92 93 94 Oximetry 02/17/21 02/17/21 02/17/21 04:11 04:15 04:30 Temperature Pulse Rate 106 H 104 H 103 H Respiratory 20 19 Rate Blood Pressure 108/81 114/81 116/86 O2 Sat by Pulse 92 91 91 Oximetry 02/17/21 02/17/21 02/17/21 04:45 05:00 05:15 Temperature Pulse Rate 103 H 102 H 102 H Respiratory 19 17 19 Rate Blood Pressure 117/82 110/80 110/81 O2 Sat by Pulse 91 91 91 Oximetry 02/17/21 02/17/21 02/17/21 05:30 05:45 06:00 Temperature Pulse Rate 102 H 102 H 103 H Respiratory 18 21 18 Rate Blood Pressure 109/82 112/81 112/81 O2 Sat by Pulse 91 90 90 Oximetry 02/17/21 02/17/21 02/17/21 06:15 06:30 06:45 Temperature Pulse Rate 105 H 112 H 102 H Respiratory 21 17 20 Rate Blood Pressure 122/83 133/91 122/88 O2 Sat by Pulse 89 88 93 Oximetry 02/17/21 02/17/21 02/17/21 07:00 07:15 09:10 Temperature 97.2 F L Pulse Rate 101 H 100 H Respiratory 20 19 Rate Blood Pressure 118/89 114/86 O2 Sat by Pulse 93 92 Oximetry - Respiratory other (Left chest tube advanced and secured using sterile technique.) - Labs 02/17/21 06:05 02/17/21 06:05 Diabetes panel 02/17/21 Range/Units 06:05 Sodium 144 (137-145) mmol/L Potassium 4.8 (3.6-5.0) mmol/L Chloride 104.4 (98-107) mmol/L Carbon Dioxide 28 (22-30) mmol/L BUN 46 H (7-17) mg/dL Creatinine 1.4 H (0.6-1.2) mg/dL Glucose 309 H (65-100) mg/dL Calcium 9.2 (8.4-10.2) mg/dL AST 20 (5-40) units/L ALT 11 (7-56) units/L Alkaline Phosphatase 110 (35-129) units/L Total Protein 6.8 (6.3-8.2) g/dL Albumin 3.2 L (3.9-5) g/dL Calcium panel 02/17/21 Range/Units 06:05 Calcium 9.2 (8.4-10.2) mg/dL Phosphorus 5.80 H (2.5-4.5) mg/dL Albumin 3.2 L (3.9-5) g/dL Pituitary panel 02/17/21 Range/Units 06:05 Sodium 144 (137-145) mmol/L Potassium 4.8 (3.6-5.0) mmol/L Chloride 104.4 (98-107) mmol/L Carbon Dioxide 28 (22-30) mmol/L BUN 46 H (7-17) mg/dL Creatinine 1.4 H (0.6-1.2) mg/dL Glucose 309 H (65-100) mg/dL Calcium 9.2 (8.4-10.2) mg/dL Adrenal panel 02/17/21 Range/Units 06:05 Sodium 144 (137-145) mmol/L Potassium 4.8 (3.6-5.0) mmol/L Chloride 104.4 (98-107) mmol/L Carbon Dioxide 28 (22-30) mmol/L BUN 46 H (7-17) mg/dL Creatinine 1.4 H (0.6-1.2) mg/dL Glucose 309 H (65-100) mg/dL Calcium 9.2 (8.4-10.2) mg/dL Total Bilirubin 0.20 (0.1-1.2) mg/dL AST 20 (5-40) units/L ALT 11 (7-56) units/L Alkaline Phosphatase 110 (35-129) units/L Total Protein 6.8 (6.3-8.2) g/dL Albumin 3.2 L (3.9-5) g/dL
--- NOTE | 2021-02-17 12:30 | Progress Note ---
Assessment and Plan Cultures: Blood culture no growth so far COVID-19 PCR: Positive A/P: 32-year-old female past medical history morbid obesity, diabetes and Covid pneumonia #Septic shock: secondary to below. #Severe COVID-19 pneumonia: Patient presented with a week of symptoms, chest x- ray with diffuse bilateral infiltrates. Inflammatory markers elevated. Procalcitonin was low #Acute hypoxemic respiratory failure: secondary to COVID-19 infection. On the vent. #Pneumothorax, subcutaneous emphysema, large pneumomediastinum: Surgery following, has chest tubes. #Morbid obesity BMI 46 #Diabetes: tight glycemic control for best outcomes. Recs: -On 2 pressors. WBC has worsened to 30.4, creatinine up to 1.4, restarted abx: cefepime -Continue dexamethasone for 10 days -Completed 5 days of remdesivir, Completed Tocilizumab on 02/13/2021 -Monitor q48-72h inflammatory markers - ferritin, Ddimer, CRP -very poor prognosis Edmar Frost MD, FACP [facility] ([facility] O: [phone] F: [phone] Subjective Date of service: 02/17/21 Principal diagnosis: Ac hypoxemic resp failure; ARDS; COVID-19 infection; Morbid obesity; OHS Interval history: No fever. Remains on the vent. On 2 pressors. WBC has worsened to 30.4 Objective - Exam Narrative Exam: Physical Exam (reviewed in chart to minimize risk of transmission) Constitutional: deferred Head, Ears, Nose: deferred Eyes: deferred Neck: deferred Oral: deferred Cardiovascular: deferred Respiratory: deferred GI: deferred Musculoskeletal: deferred Skin: deferred Hem/Lymphatic: deferred Psych: deferred Neurological: deferred - Constitutional Vitals: Vital Signs Temp Pulse Resp BP Pulse Ox 97.2 F L 100 H 19 114/86 92 02/17/21 09:10 02/17/21 07:15 02/17/21 07:15 02/17/21 07:15 02/17/21 07:15 Temperature -Last 24 Hours Temperature 97.2 F Temperature 98.9 F Temperature 98.0 F Temperature 97.8 F - Labs CBC & Chem 7: 02/17/21 06:05 02/17/21 06:05 Labs: Abnormal lab results 02/16/21 02/16/21 02/16/21 Range/Units 15:01 17:50 19:15 WBC (4.5-11.0) K/mm3 MCV (79-97) fl MCH (28-32) pg RDW (13.2-15.2) % Plt Count (140-440) K/mm3 Heparin Anti-Xa Level 0.72 H (0.3-0.7) U.I./ml ABG pH (7.350-7.450) pH Units POC ABG pCO2 (32.0-48.0) mmHg POC ABG pO2 (83-108) mmHg ABG pO2 (80.0-90.0) mm Hg ABG O2 Saturation (95.0-99.0) % ABG Hemoglobin (12.0-16.0) gm/dl ABG Potassium (3.40-4.50) mmol/L ABG Glucose (65-95) mg/dL Oxyhemoglobin (95.0-99.0) % Carboxyhemoglobin (0.5-1.5) BUN (7-17) mg/dL Creatinine (0.6-1.2) mg/dL Glucose (65-100) mg/dL POC Glucose 378 H 396 H (70-105) mg/dL Phosphorus (2.5-4.5) mg/dL Magnesium (1.7-2.3) mg/dL Albumin (3.9-5) g/dL Arterial Blood Glucose (65-95) mg/dL 02/16/21 02/16/21 02/17/21 Range/Units 21:00 23:33 05:49 WBC (4.5-11.0) K/mm3 MCV (79-97) fl MCH (28-32) pg RDW (13.2-15.2) % Plt Count (140-440) K/mm3 Heparin Anti-Xa Level (0.3-0.7) U.I./ml ABG pH (7.350-7.450) pH Units POC ABG pCO2 31.8 L (32.0-48.0) mmHg POC ABG pO2 81.0 L (83-108) mmHg ABG pO2 (80.0-90.0) mm Hg ABG O2 Saturation (95.0-99.0) % ABG Hemoglobin (12.0-16.0) gm/dl ABG Potassium 5.3 H (3.40-4.50) mmol/L ABG Glucose 416 H (65-95) mg/dL Oxyhemoglobin (95.0-99.0) % Carboxyhemoglobin 0.3 L (0.5-1.5) BUN (7-17) mg/dL Creatinine (0.6-1.2) mg/dL Glucose (65-100) mg/dL POC Glucose 348 H 290 H (70-105) mg/dL Phosphorus (2.5-4.5) mg/dL Magnesium (1.7-2.3) mg/dL Albumin (3.9-5) g/dL Arterial Blood Glucose 416 H (65-95) mg/dL 02/17/21 02/17/21 02/17/21 Range/Units 06:05 06:05 10:59 WBC 30.4 H (4.5-11.0) K/mm3 MCV 72 L (79-97) fl MCH 23 L (28-32) pg RDW 16.7 H (13.2-15.2) % Plt Count 481 H (140-440) K/mm3 Heparin Anti-Xa Level (0.3-0.7) U.I./ml ABG pH 7.319 L (7.350-7.450) pH Units POC ABG pCO2 (32.0-48.0) mmHg POC ABG pO2 (83-108) mmHg ABG pO2 75.5 L (80.0-90.0) mm Hg ABG O2 Saturation 15.2 L (95.0-99.0) % ABG Hemoglobin 6.9 L (12.0-16.0) gm/dl ABG Potassium (3.40-4.50) mmol/L ABG Glucose (65-95) mg/dL Oxyhemoglobin 91.4 L (95.0-99.0) % Carboxyhemoglobin (0.5-1.5) BUN 46 H (7-17) mg/dL Creatinine 1.4 H (0.6-1.2) mg/dL Glucose 309 H (65-100) mg/dL POC Glucose (70-105) mg/dL Phosphorus 5.80 H (2.5-4.5) mg/dL Magnesium 2.50 H (1.7-2.3) mg/dL Albumin 3.2 L (3.9-5) g/dL Arterial Blood Glucose (65-95) mg/dL 02/17/21 Range/Units 12:15 WBC (4.5-11.0) K/mm3 MCV (79-97) fl MCH (28-32) pg RDW (13.2-15.2) % Plt Count (140-440) K/mm3 Heparin Anti-Xa Level (0.3-0.7) U.I./ml ABG pH (7.350-7.450) pH Units POC ABG pCO2 (32.0-48.0) mmHg POC ABG pO2 (83-108) mmHg ABG pO2 (80.0-90.0) mm Hg ABG O2 Saturation (95.0-99.0) % ABG Hemoglobin (12.0-16.0) gm/dl ABG Potassium (3.40-4.50) mmol/L ABG Glucose (65-95) mg/dL Oxyhemoglobin (95.0-99.0) % Carboxyhemoglobin (0.5-1.5) BUN (7-17) mg/dL Creatinine (0.6-1.2) mg/dL Glucose (65-100) mg/dL POC Glucose 305 H (70-105) mg/dL Phosphorus (2.5-4.5) mg/dL Magnesium (1.7-2.3) mg/dL Albumin (3.9-5) g/dL Arterial Blood Glucose (65-95) mg/dL
--- NOTE | 2021-02-17 12:55 | Progress Note ---
Assessment and Plan ARDS COVID-19 infection Morbid obesity; BMI 46.6 Obesity hypoventilation syndrome - get procalcitonin level re: increased WBC to aid clinical decision making - increased FiO2 to 90% - keep peep at 12 and avopid increasing if possible re: barotrauma - Keep chest tubes to continuous wall suction - wean vasopressors for target MAP > 65 mmHg - conservative volume management strategies - sedation target RASS -2 to -3 acutely - continue aspiration precautions - continue care as below otherwise; - continue lung protective strategies - prn bronchodilators with pulmonary hygiene per RT - avoid nephrotoxins, renally dose all medications - continue to avoid benzodiazepine's, reduce the possibility of delirium - complete AB's per ID rec's - prn analgesia per CPOT score - Maintenance of sleep-wake cycle, avoid delirium - continue enteral nutritional support at goal rate as tolerated - G.I. & VTE prophylaxis - PT/OT/ROM exercises - continue mobility protocols for pressure ulcer prophylaxis - Monitor hemodynamics closely - continue other care per attending / other consultants - discharge planning ongoing concurrently COVID SPECIFIC INTERVENTIONS - Remdesivir as per ID/Pulmonary developed protocols (receiving) - continue systemic steroids for severe COVID-19 infection - follow repeat COVID tests results - zinc and vitamin C supplementation - Monitor inflammatory markers per facility protocol - ferritin, Ddimer, CRP - therapeutic anticoagulation per system Protocol based on d-dimer and clinical considerations (DVT prophylaxis for now) - Continue contact and airborne isolation .... Re-evaluate in am & prn CONDITION: CRITICAL PROGNOSIS: GUARDED CODE STATUS: FULL CODE The high probability of a clinically significant, sudden or life-threatening deterioration of the [respiratory, cardiovascular, GI & neurologic] system(s) required my full and direct attention, intervention and personal management. The aggregate critical care time was [35] minutes without overlap. Time includes spent on; [x] Data Review and interpretation [x] Patient assessment and monitoring of vital signs [x] Documentation [x] Medication orders and management Subjective Date of service: 02/17/21 Principal diagnosis: Ac hypoxemic resp failure; ARDS; COVID-19 infection; Morbid obesity; OHS Interval history: Patient is seen today for: Acute hypoxemic respiratory failure; ARDS; COVID-19 infection; Morbid obesity; OHS Seen and examined at bedside; 24hour events reviewed; nursing and respiratory care staff consulted; no adverse overnight events reported to me; resting in bed; desaturates easily but overall FiO2 needs improved since intubation; chest tubes in place; sedated; no emesis or overt aspiration Objective Vital Signs - 12hr 02/17/21 02/17/21 02/17/21 01:00 01:15 01:30 Temperature Pulse Rate 105 H 103 H 101 H Respiratory 20 18 21 Rate Blood Pressure 105/82 106/80 110/83 O2 Sat by Pulse 92 93 92 Oximetry 02/17/21 02/17/21 02/17/21 01:45 02:00 02:15 Temperature Pulse Rate 104 H 102 H 101 H Respiratory 20 20 19 Rate Blood Pressure 110/80 111/84 117/79 O2 Sat by Pulse 93 90 92 Oximetry 02/17/21 02/17/21 02/17/21 02:30 02:45 03:00 Temperature Pulse Rate 99 H 101 H 100 H Respiratory 20 20 20 Rate Blood Pressure 112/81 116/81 126/84 O2 Sat by Pulse 93 93 90 Oximetry 02/17/21 02/17/21 02/17/21 03:15 03:17 03:30 Temperature 98.9 F Pulse Rate 101 H 102 H Respiratory 20 18 Rate Blood Pressure 111/80 118/81 O2 Sat by Pulse 92 92 Oximetry 02/17/21 02/17/21 02/17/21 03:45 04:00 04:11 Temperature Pulse Rate 98 H 101 H 106 H Respiratory 20 20 Rate Blood Pressure 124/80 108/81 108/81 O2 Sat by Pulse 93 94 92 Oximetry 02/17/21 02/17/21 02/17/21 04:15 04:30 04:45 Temperature Pulse Rate 104 H 103 H 103 H Respiratory 20 19 19 Rate Blood Pressure 114/81 116/86 117/82 O2 Sat by Pulse 91 91 91 Oximetry 02/17/21 02/17/21 02/17/21 05:00 05:15 05:30 Temperature Pulse Rate 102 H 102 H 102 H Respiratory 17 19 18 Rate Blood Pressure 110/80 110/81 109/82 O2 Sat by Pulse 91 91 91 Oximetry 02/17/21 02/17/21 02/17/21 05:45 06:00 06:15 Temperature Pulse Rate 102 H 103 H 105 H Respiratory 21 18 21 Rate Blood Pressure 112/81 112/81 122/83 O2 Sat by Pulse 90 90 89 Oximetry 02/17/21 02/17/2102/17/21 06:30 06:45 07:00 Temperature Pulse Rate 112 H 102 H 101 H Respiratory 17 20 20 Rate Blood Pressure 133/91 122/88 118/89 O2 Sat by Pulse 88 93 93 Oximetry 02/17/21 02/17/21 07:15 09:10 Temperature 97.2 F L Pulse Rate 100 H Respiratory 19 Rate Blood Pressure 114/86 O2 Sat by Pulse 92 Oximetry Constitutional: no acute distress (sedated), other (Morbidly Obese female with mildy increased work of breathing at rest) Eyes: non-icteric ENT: oropharynx moist, other (ETT 24 cm KATH) Neck: supple, no lymphadenopathy, no JVD, other (SQ emphysema palpable) Effort: mildly labored Ascultation: Bilateral: diminished breath sounds, rhonchi (scant) Percussion: Bilateral: not dull Cardiovascular: regular rate and rhythm Gastrointestinal: normoactive bowel sounds, soft, non-tender, non-distended (pro tuberant) Integumentary: normal Extremities: no cyanosis, no edema, pulses normal, no ischemia or petechiae Neurologic: normal mental status, non-focal exam, pupils equal and round, CN II- XII normal, motor strength normal and Psychiatric: other (sedate) CBC and BMP: 02/17/21 06:05 02/17/21 06:05 ABG, PT/INR, D-dimer: ABG ABG pH 7.319 pH Units (7.350-7.450) L 02/17/21 10:59 POC ABG pCO2 31.8 mmHg (32.0-48.0) L 02/16/21 21:00 ABG pCO2 50.8 mm Hg 02/17/21 10:59 POC ABG pO2 81.0 mmHg (83-108) L 02/16/21 21:00 ABG pO2 75.5 mm Hg (80.0-90.0) L 02/17/21 10:59 POC ABG HCO3 20.5 02/16/21 21:00 ABG O2 Saturation 15.2 % (95.0-99.0) L 02/17/21 10:59 PT/INR, D-dimer PT 20.8 Sec. (12.2-14.9) H 02/16/21 01:49 INR 1.73 (0.87-1.13) H 02/16/21 01:49 D-Dimer 310.92 ng/mlDDU (0-234) H 02/12/21 10:09 Abnormal lab findings: Abnormal Labs 02/10/21 02/10/21 02/10/21 06:00 06:00 06:36 WBC RBC MCV 71 L MCH 23 L RDW 16.5 H Plt Count Lymph % (Auto) Lymph # (Auto) 1.1 L [place] # (Auto) Eos # (Auto) Seg Neutrophils % 76.6 H Seg Neutrophils # PT INR APTT D-Dimer Heparin Anti-Xa Level ABG pH POC ABG pCO2 POC ABG pO2 ABG pO2 ABG HCO3 ABG O2 Saturation ABG Base Excess ABG Hemoglobin ABG Oxyhemoglobin ABG Potassium ABG Glucose Oxyhemoglobin Carboxyhemoglobin Sodium Potassium Chloride 97.7 L BUN 6 L Creatinine Glucose 295 H POC Glucose Hemoglobin A1c Phosphorus Magnesium Lactate Dehydrogenase 325 H C-Reactive Protein 8.20 H Total Protein Albumin 3.8 L Arterial Blood Glucose Coronavirus (PCR) 02/10/21 02/10/21 02/10/21 08:28 14:29 14:29 WBC RBC MCV MCH RDW Plt Count Lymph % (Auto) Lymph # (Auto) [place] # (Auto) Eos # (Auto) Seg Neutrophils % Seg Neutrophils # PT INR APTT D-Dimer Heparin Anti-Xa Level ABG pH POC ABG pCO2 POC ABG pO2 ABG pO2 ABG HCO3 ABG O2 Saturation ABG Base Excess ABG Hemoglobin ABG Oxyhemoglobin ABG Potassium ABG Glucose Oxyhemoglobin Carboxyhemoglobin Sodium 135 L Potassium Chloride 97.0 L BUN 6 L Creatinine Glucose 308 H POC Glucose Hemoglobin A1c 10.5 H Phosphorus Magnesium Lactate Dehydrogenase C-Reactive Protein Total Protein Albumin 3.4 L Arterial Blood Glucose Coronavirus (PCR) Positive A 02/10/21 02/10/21 02/10/21 14:37 16:49 21:34 WBC RBC MCV MCH RDW Plt Count Lymph % (Auto) Lymph # (Auto) [place] # (Auto) Eos # (Auto) Seg Neutrophils % Seg Neutrophils # PT INR APTT D-Dimer Heparin Anti-Xa Level ABG pH POC ABG pCO2 POC ABG pO2 58.8 L ABG pO2 ABG HCO3 ABG O2 Saturation ABG Base Excess ABG Hemoglobin 11.2 L ABG Oxyhemoglobin 88.2 L ABG Potassium ABG Glucose 343 H Oxyhemoglobin Carboxyhemoglobin 0 L Sodium Potassium Chloride BUN Creatinine Glucose POC Glucose 289 H 304 H Hemoglobin A1c Phosphorus Magnesium Lactate Dehydrogenase C-Reactive Protein Total Protein Albumin Arterial Blood Glucose 343 H Coronavirus (PCR) 02/11/21 02/11/21 02/11/21 07:58 09:59 17:29 WBC RBC MCV MCH RDW Plt Count Lymph % (Auto) Lymph # (Auto) [place] # (Auto) Eos # (Auto) Seg Neutrophils % Seg Neutrophils # PT INR APTT D-Dimer Heparin Anti-Xa Level ABG pH POC ABG pCO2 POC ABG pO2 ABG pO2 ABG HCO3 ABG O2 Saturation ABG Base Excess ABG Hemoglobin ABG Oxyhemoglobin ABG Potassium ABG Glucose Oxyhemoglobin Carboxyhemoglobin Sodium Potassium Chloride 97.5 L BUN Creatinine Glucose 269 H POC Glucose 271 H 351 H Hemoglobin A1c Phosphorus Magnesium Lactate Dehydrogenase C-Reactive Protein Total Protein Albumin 3.3 L Arterial Blood Glucose Coronavirus (PCR) 02/11/21 02/12/21 02/12/21 21:50 05:28 10:09 WBC RBC MCV MCH RDW Plt Count Lymph % (Auto) Lymph # (Auto) [place] # (Auto) Eos # (Auto) Seg Neutrophils % Seg Neutrophils # PT INR APTT D-Dimer 310.92 H Heparin Anti-Xa Level ABG pH POC ABG pCO2 POC ABG pO2 ABG pO2 ABG HCO3 ABG O2 Saturation ABG Base Excess ABG Hemoglobin ABG Oxyhemoglobin ABG Potassium ABG Glucose Oxyhemoglobin Carboxyhemoglobin Sodium Potassium 5.1 H Chloride BUN Creatinine Glucose 308 H POC Glucose 333 H Hemoglobin A1c Phosphorus Magnesium Lactate Dehydrogenase C-Reactive Protein Total Protein Albumin 3.3 L Arterial Blood Glucose Coronavirus (PCR) 02/12/21 02/12/21 02/12/21 10:09 16:00 21:50 WBC RBC MCV MCH RDW Plt Count Lymph % (Auto) Lymph # (Auto) [place] # (Auto) Eos # (Auto) Seg Neutrophils % Seg Neutrophils # PT INR APTT D-Dimer Heparin Anti-Xa Level ABG pH POC ABG pCO2 POC ABG pO2 ABG pO2 ABG HCO3 ABG O2 Saturation ABG Base Excess ABG Hemoglobin ABG Oxyhemoglobin ABG Potassium ABG Glucose 406 H Oxyhemoglobin Carboxyhemoglobin 0.3 L Sodium Potassium Chloride BUN Creatinine Glucose POC Glucose 353 H Hemoglobin A1c Phosphorus Magnesium Lactate Dehydrogenase 564 H C-Reactive Protein 12.60 H Total Protein Albumin Arterial Blood Glucose 406 H Coronavirus (PCR) 02/13/21 02/13/21 02/13/21 04:38 08:32 17:08 WBC RBC MCV MCH RDW Plt Count Lymph % (Auto) Lymph # (Auto) [place] # (Auto) Eos # (Auto) Seg Neutrophils % Seg Neutrophils # PT INR APTT D-Dimer Heparin Anti-Xa Level ABG pH POC ABG pCO2 POC ABG pO2 ABG pO2 ABG HCO3 ABG O2 Saturation ABG Base Excess ABG Hemoglobin ABG Oxyhemoglobin ABG Potassium ABG Glucose Oxyhemoglobin Carboxyhemoglobin Sodium Potassium Chloride BUN Creatinine Glucose 295 H POC Glucose 308 H 372 H Hemoglobin A1c Phosphorus Magnesium Lactate Dehydrogenase C-Reactive Protein Total Protein 8.4 H Albumin 3.5 L Arterial Blood Glucose Coronavirus (PCR) 02/13/21 02/14/21 02/14/21 21:09 09:11 13:13 WBC RBC MCV MCH RDW Plt Count Lymph % (Auto) Lymph # (Auto) [place] # (Auto) Eos # (Auto) Seg Neutrophils % Seg Neutrophils # PT INR APTT D-Dimer Heparin Anti-Xa Level ABG pH POC ABG pCO2 POC ABG pO2 ABG pO2 ABG HCO3 ABG O2 Saturation ABG Base Excess ABG Hemoglobin ABG Oxyhemoglobin ABG Potassium ABG Glucose Oxyhemoglobin Carboxyhemoglobin Sodium Potassium Chloride BUN Creatinine Glucose POC Glucose 370 H 289 H 271 H Hemoglobin A1c Phosphorus Magnesium Lactate Dehydrogenase C-Reactive Protein Total Protein Albumin Arterial Blood Glucose Coronavirus (PCR) 02/14/21 02/14/21 02/15/21 18:28 18:30 00:05 WBC RBC MCV MCH RDW Plt Count Lymph % (Auto) Lymph # (Auto) [place] # (Auto) Eos # (Auto) Seg Neutrophils % Seg Neutrophils # PT INR APTT D-Dimer Heparin Anti-Xa Level ABG pH POC ABG pCO2 POC ABG pO2 ABG pO2 ABG HCO3 ABG O2 Saturation ABG Base Excess ABG Hemoglobin ABG Oxyhemoglobin ABG Potassium ABG Glucose Oxyhemoglobin Carboxyhemoglobin Sodium Potassium Chloride BUN Creatinine Glucose POC Glucose 391 H 354 H 290 H Hemoglobin A1c Phosphorus Magnesium Lactate Dehydrogenase C-Reactive Protein Total Protein Albumin Arterial Blood Glucose Coronavirus (PCR) 02/15/21 02/15/2121 07:44 09:30 12:27 WBC RBC MCV MCH RDW Plt Count Lymph % (Auto) Lymph # (Auto) [place] # (Auto) Eos # (Auto) Seg Neutrophils % Seg Neutrophils # PT INR APTT D-Dimer Heparin Anti-Xa Level ABG pH POC ABG pCO2 POC ABG pO2 ABG pO2 55.0 L ABG HCO3 30.7 H ABG O2 Saturation 87.4 L ABG Base Excess 4.1 H ABG Hemoglobin ABG Oxyhemoglobin ABG Potassium ABG Glucose Oxyhemoglobin 86.1 L Carboxyhemoglobin Sodium Potassium Chloride BUN Creatinine Glucose POC Glucose 265 H 270 H Hemoglobin A1c Phosphorus Magnesium Lactate Dehydrogenase C-Reactive Protein Total Protein Albumin Arterial Blood Glucose Coronavirus (PCR) 02/15/21 02/16/21 02/16/21 16:58 01:13 01:49 WBC RBC MCV MCH RDW Plt Count Lymph % (Auto) Lymph # (Auto) [place] # (Auto) Eos # (Auto) Seg Neutrophils % Seg Neutrophils # PT 20.8 H INR 1.73 H APTT > 240.0 H* D-Dimer Heparin Anti-Xa Level ABG pH 7.456 H POC ABG pCO2 POC ABG pO2 136.3 H ABG pO2 ABG HCO3 ABG O2 Saturation ABG Base Excess ABG Hemoglobin ABG Oxyhemoglobin ABG Potassium 4.7 H ABG Glucose 395 H Oxyhemoglobin Carboxyhemoglobin Sodium Potassium Chloride BUN Creatinine Glucose POC Glucose 325 H Hemoglobin A1c Phosphorus Magnesium Lactate Dehydrogenase C-Reactive Protein Total Protein Albumin Arterial Blood Glucose 395 H Coronavirus (PCR) 02/16/21 02/16/21 02/16/21 02:05 07:45 07:45 WBC 16.8 H RBC 5.61 H MCV 71 L MCH 23 L RDW 17.0 H Plt Count Lymph % (Auto) 11.5 L Lymph # (Auto) [place] # (Auto) 0.9 H Eos # (Auto) 0.5 H Seg Neutrophils % 79.6 H Seg Neutrophils # 13.4 H PT INR APTT D-Dimer Heparin Anti-Xa Level ABG pH POC ABG pCO2 POC ABG pO2 ABG pO2 ABG HCO3 ABG O2 Saturation ABG Base Excess ABG Hemoglobin ABG Oxyhemoglobin ABG Potassium ABG Glucose Oxyhemoglobin Carboxyhemoglobin Sodium Potassium Chloride BUN 27 H Creatinine Glucose 269 H POC Glucose 347 H Hemoglobin A1c Phosphorus Magnesium Lactate Dehydrogenase C-Reactive Protein Total Protein Albumin Arterial Blood Glucose Coronavirus (PCR) 02/16/21 02/16/21 02/16/21 07:45 07:46 15:01 WBC RBC MCV MCH RDW Plt Count Lymph % (Auto) Lymph # (Auto) [place] # (Auto) Eos # (Auto) Seg Neutrophils % Seg Neutrophils # PT INR APTT D-Dimer Heparin Anti-Xa Level > 1.99 H ABG pH POC ABG pCO2 POC ABG pO2 ABG pO2 ABG HCO3 ABG O2 Saturation ABG Base Excess ABG Hemoglobin ABG Oxyhemoglobin ABG Potassium ABG Glucose Oxyhemoglobin Carboxyhemoglobin Sodium Potassium Chloride BUN Creatinine Glucose POC Glucose 290 H 378 H Hemoglobin A1c Phosphorus Magnesium Lactate Dehydrogenase C-Reactive Protein Total Protein Albumin Arterial Blood Glucose Coronavirus (PCR) 02/16/21 02/16/21 02/16/21 17:50 19:15 21:00 WBC RBC MCV MCH RDW Plt Count Lymph % (Auto) Lymph # (Auto) [place] # (Auto) Eos # (Auto) Seg Neutrophils % Seg Neutrophils # PT INR APTT D-Dimer Heparin Anti-Xa Level 0.72 H ABG pH POC ABG pCO2 31.8 L POC ABG pO2 81.0 L ABG pO2 ABG HCO3 ABG O2 Saturation ABG Base Excess ABG Hemoglobin ABG Oxyhemoglobin ABG Potassium 5.3 H ABG Glucose 416 H Oxyhemoglobin Carboxyhemoglobin 0.3 L Sodium Potassium Chloride BUN Creatinine Glucose POC Glucose 396 H Hemoglobin A1c Phosphorus Magnesium Lactate Dehydrogenase C-Reactive Protein Total Protein Albumin Arterial Blood Glucose 416 H Coronavirus (PCR) 02/16/21 02/17/21 02/17/21 23:33 05:49 06:05 WBC 30.4 H RBC MCV 72 L MCH 23 L RDW 16.7 H Plt Count 481 H Lymph % (Auto) Lymph # (Auto) [place] # (Auto) Eos # (Auto) Seg Neutrophils % Seg Neutrophils # PT INR APTT D-Dimer Heparin Anti-Xa Level ABG pH POC ABG pCO2 POC ABG pO2 ABG pO2 ABG HCO3 ABG O2 Saturation ABG Base Excess ABG Hemoglobin ABG Oxyhemoglobin ABG Potassium ABG Glucose Oxyhemoglobin Carboxyhemoglobin Sodium Potassium Chloride BUN Creatinine Glucose POC Glucose 348 H 290 H Hemoglobin A1c Phosphorus Magnesium Lactate Dehydrogenase C-Reactive Protein Total Protein Albumin Arterial Blood Glucose Coronavirus (PCR) 02/17/21 02/17/21 02/17/21 06:05 10:59 12:15 WBC RBC MCV MCH RDW Plt Count Lymph % (Auto) Lymph # (Auto) [place] # (Auto) Eos # (Auto) Seg Neutrophils % Seg Neutrophils # PT INR APTT D-Dimer Heparin Anti-Xa Level ABG pH 7.319 L POC ABG pCO2 POC ABG pO2 ABG pO2 75.5 L ABG HCO3 ABG O2 Saturation 15.2 L ABG Base Excess ABG Hemoglobin 6.9 L ABG Oxyhemoglobin ABG Potassium ABG Glucose Oxyhemoglobin 91.4 L Carboxyhemoglobin Sodium Potassium Chloride BUN 46 H Creatinine 1.4 H Glucose 309 H POC Glucose 305 H Hemoglobin A1c Phosphorus 5.80 H Magnesium 2.50 H Lactate Dehydrogenase C-Reactive Protein Total Protein Albumin 3.2 L Arterial Blood Glucose Coronavirus (PCR) Chest x-ray: image reviewed (bothy chest trubes in good position; no overt residual pneumothoraces seen) Allied health notes reviewed: nursing
[2021-02-17] MEDS: CEFEPIME/NS 2 GM/100 ML 2 GM/100 ML BAG IV SCH (13:06)
[2021-02-17] MEDS ORDERED: SIMPLE SYRUP 15 ML FEEDTUBE PRN ×3 (15:00→17:04)
--- NOTE | 2021-02-17 17:05 | Event Note ---
Date: 02/17/21 I called patient's father next of kin Mr. Olivier Perez at [phone] and discussed in detail patient's condition right from the day she got admitted, tests and reports, consultants recommendations, treatment plan, patient's deteriorating clinical status, patient being intubated on ventilatory support, about the pneumothorax, Covid, respiratory failure, poor prognosis. I also discussed with Mr. Aguayo, CODE STATUS in the event of cardiac arrest. He wants everything to be done to resuscitate the patient, and requested for full CODE STATUS. He also reported that patient's older sister also is Covid positive, admitted to [facility], and one of her nieces also is Covid positive, was in house quarantine. All of them were not vaccinated. I informed patient's nurse about this above conversation
[2021-02-17 21:09] LABS: Hematocrit 34.9 % (30.3-42.9); Mean Corpuscular HGB Conc 32 % (30-34); Mean Corpuscular Volume 73 fl (79-97); Platelet Count 417 K/mm3 (140-440); Red Cell Distribution Width 16.7 % (13.2-15.2)
[2021-02-17 21:26] LABS: Alanine Aminotransferase 14 units/L (7-56); Albumin 3.1 g/dL (3.9-5); BUN/Creatinine Ratio 32; Blood Urea Nitrogen 38 mg/dL (7-17); Calcium 8.7 mg/dL (8.4-10.2); Hemolysis Index 72
[2021-02-17] MEDS ORDERED: SODIUM CHLORIDE 0.9% 250ML 250 ML IV ONE (22:43)
--- NOTE | 2021-02-17 22:58 | XRay Report ---
CHEST 1 VIEW 02/17/2021 9:43 PM INDICATION / CLINICAL INFORMATION: r/o tension pneumo. COMPARISON: 02/17/2021 FINDINGS: SUPPORT DEVICES: Support lines and tubes again project in expected position. Bilateral chest tubes ar e unchanged. HEART / MEDIASTINUM: Pneumomediastinum again noted LUNGS / PLEURA: Bilateral airspace disease, left greater than right, unchanged. No pneumothorax. ADDITIONAL FINDINGS: Extensive right and moderate left chest wall subcutaneous emphysema with moderat e subcutaneous emphysema noted within the neck, unchanged. IMPRESSION: 1. No significant interval change Signer Name: Malcolm Seo MD Signed: 02/17/2021 10:54 PM Workstation Name: [id number]
[2021-02-18] MEDS ORDERED: SODIUM POLYSTYRENE 15 GM/60 ML ORAL LIQD PO SCH
[2021-02-18] MEDS: INSULIN LISPRO 100 UNIT/ML SUB-Q SCH ×4 (00:31→19:12)
[2021-02-18] MEDS: INSULIN NPH/REGULAR 70/30 INJ SUB-Q SCH ×3 (00:32→19:12)
[2021-02-18] MEDS: fentaNYL DRIP Premix 2,000 MCG/100 ML BAG IV SCH ×5 (00:56→19:13)
[2021-02-18] MEDS: VASOPRESSIN 20 UNIT in SODIUM CHLORIDE 0.9% 100 ML IV SCH ×2 (01:49→15:06)
[2021-02-18] MEDS: HEPARIN/ 0.45% NACL DRIP 25,000 UNIT/500 ML BAG IV SCH (02:18)
[2021-02-18] MEDS: CEFEPIME/NS 2 GM/100 ML 2 GM/100 ML BAG IV SCH ×3 (08:18→13:15)
[2021-02-18] MEDS ORDERED: AMIODARONE 900 MG in DEXTROSE 5% IN WATER 482 ML IV SCH (09:00)
[2021-02-18] MEDS: dexAMETHasone 4 MG/ML VIAL IV SCH (09:45)
[2021-02-18] MEDS: FAMOTIDINE 20 MG/2 ML INJ IV SCH ×2 (09:45→21:40)
[2021-02-18] MEDS: ZINC SULFATE 220 MG CAP PO SCH ×2 (09:45→21:40)
[2021-02-18] MEDS: SENNOSIDES/DOCUSATE SODIUM 8.6/50 MG TAB FEEDTUBE SCH ×2 (09:45→21:40)
[2021-02-18] MEDS: ASCORBIC ACID 500 MG TAB PO SCH ×2 (09:48→21:40)
--- NOTE | 2021-02-18 09:58 | Progress Note ---
Assessment and Plan Assessment and plan: 40-year-old morbidly obese -[place] female patient presents to the emergency department from home with complaint of a 1 week history of generalized body aches, chills, and progressively worsening shortness of breath. Over the past 2 days the patient says that she has developed a fever. She also has an intermittent mixed dry and productive cough. The shortness of breath worsens when she is laying down flat and she then feels like she is choking on secretions. She took ibuprofen and Tylenol this morning around 1:40 AM without much relief. Patient denies any exposure to Covid 19 persons . No recent travel or sick contacts at home. She has a past medical history of diabetes. Initial examination patient was severely hypoxemic with room air O2 sats of 78%, mild improvement on 4 L of nasal cannula oxygen Pt admitted for covid19 Arrived to ICU 02/16 sp intubation 02-17 no acute events overnight; remains intubated and sedated; on NE and vaso for MAP support - see below for systems review 02-18 overnight inc pressor need; inc lactate; febrile NEURO -sedated sedated on fentanyl and propofol propofol d/c and changed to ativan; given luz maria 987 this AM daily SAT trial limited by hypoxia FATHER updated on plan of care- see event note CV- tachycardia/svt MAP goal 65 on NE/vase see RN titration SVT overnight now on amio; in setting of fever amio is at 1 12 lead EKG this AM rate 162 SVT no echo on file Resp - acute resp failure due to covid19 pneumonia; b pneumothorax; PE remains intubated CMV [id number] see RT notes when sedation dec and pt wakes up - oxygen sat falls to 70's bilateral pneumothorax on admit r and l CT to neg 20 cm suction no airleak continue to trend ABG and xray chest ABG AT 2100 AND CALL TO CRITICAL CARE CT 02-10 small PE; pneumothorax; pna; pneumomediastinum 02-11 US lower extremities neg for DVT GI- nap TF ordered nutrition following bowel reg- colace and senna pepcid - MANE net neg 2.8L over 24 hours made 2.1 L urine in the last 24 hours baseline Cr on 11 .8 inc to 2.4 today renal consult follow Cr and electrolytes Heme; coagulopathic with covid; on AC on heparin drip following xa/CBC no bleeding on exam ID- covid pneumonia; SEPSIS; Lactic acidosis febrile WBC to 30 trend temp and WBC curve follow culture data vitC/zn ID following on cefipime given inc pressor need, lacate, tachycardia- recultured and vanc/flucon. added continue 10 days of decadron trend procal and inflammatory markers endo - obese; WORSENING hyperglycemia/DM2 nph/reg insulin BID increased due to inc blood sugars continue to titrate lispro SSI avoid hypogycemia The high probability of a clinically significant, sudden or life threatening deterioration of the [] system(s) required my full and direct attention, intervention and personal management. The aggregate critical care time was [90] minutes. This time is in addition to time spent performing reported procedures but includes the following: x] Data Review and interpretation x] Patient assessment and monitoring of vital signs [x] Documentation [x] Medication orders and management Disposition Plan: ICU Total Time Spent with Patient (Minutes): 90 History Interval history: inc pressor needs overnight/febrile with inc WBC and lactic acid Hospitalist Physical - Constitutional Vitals: Temp Pulse Resp BP Pulse Ox 103.3 F H 169 H 22 116/68 87 02/18/21 08:09 02/18/21 08:08 02/18/21 04:30 02/18/21 08:08 02/18/21 08:08 General appearance: Present: mild distress, well-nourished - EENT Eyes: Present: PERRL ENT: clear oral mucosa - Neck Neck: Present: supple - Respiratory Respiratory effort: normal - Cardiovascular Rhythm: regular Heart Sounds: Present: S1 & S2 - Abdominal General gastrointestinal: soft - Integumentary Integumentary: Present: clear, warm, dry - Neurologic Neurologic: other - Allied Health Allied health notes reviewed: nursing, RT, case management HEART Score - HEART Score EKG: Normal Age: < 45 Risk factors: No known risk factors Troponin: Troponin T < 0.010 ng/mL (0.00-0.029) 02/14/21 15:30 Troponin: < normal limit - Critical Actions Critical Actions: 0-3 pts:0.9-1.7%risk of adverse cardiac event.Candidate for discharge Results - Labs CBC & Chem 7: 02/17/21 20:10 02/18/21 09:39 Labs: Laboratory Last Values WBC 22.2 K/mm3 (4.5-11.0) H 02/17/21 20:10 RBC 4.80 M/mm3 (3.65-5.03) 02/17/21 20:10 Hgb 11.0 gm/dl (10.1-14.3) 02/17/21 20:10 Hct 34.9 % (30.3-42.9) 02/17/21 20:10 MCV 73 fl (79-97) L 02/17/21 20:10 MCH 23 pg (28-32) L 02/17/21 20:10 MCHC 32 % (30-34) 02/17/21 20:10 RDW 16.7 % (13.2-15.2) H 02/17/21 20:10 Plt Count 417 K/mm3 (140-440) 02/17/21 20:10 Lymph % (Auto) 11.5 % (13.4-35.0) L 02/16/21 07:45 [place] % (Auto) 5.5 % (0.0-7.3) 02/16/21 07:45 Eos % (Auto) 3.3 % (0.0-4.3) 02/16/21 07:45 Baso % (Auto) 0.1 % (0.0-1.8) 02/16/21 07:45 Lymph # (Auto) 1.9 K/mm3 (1.2-5.4) 02/16/21 07:45 [place] # (Auto) 0.9 K/mm3 (0.0-0.8) H 02/16/21 07:45 Eos # (Auto) 0.5 K/mm3 (0.0-0.4) H 02/16/21 07:45 Baso # (Auto) 0.0 K/mm3 (0.0-0.1) 02/16/21 07:45 Seg Neutrophils % 79.6 % (40.0-70.0) H 02/16/21 07:45 Seg Neutrophils # 13.4 K/mm3 (1.8-7.7) H 02/16/21 07:45 PT 20.8 Sec. (12.2-14.9) H 02/16/21 01:49 INR 1.73 (0.87-1.13) H 02/16/21 01:49 APTT > 240.0 Sec. (24.2-36.6) H* 02/16/21 01:49 D-Dimer 1819.69 ng/mlDDU (0-234) H 02/18/21 04:45 Heparin Anti-Xa Level 0.49 U.I./ml (0.3-0.7) 02/18/21 03:30 ABG pH 7.241 (7.320-7.450) L 02/18/21 05:00 POC ABG pCO2 55.7 mmHg (32.0-48.0) H 02/18/21 05:00 ABG pCO2 50.8 mm Hg 02/17/21 10:59 POC ABG pO2 52.0 mmHg (83-108) L 02/18/21 05:00 ABG pO2 75.5 mm Hg (80.0-90.0) L 02/17/21 10:59 POC ABG HCO3 23.4 02/18/21 05:00 ABG HCO3 25.5 mmol/L (20.0-26.0) 02/17/21 10:59 ABG O2 Saturation 79.9 (0-100) 02/18/21 05:00 ABG O2 Content 18.5 (0.0-44) 02/15/21 09:30 POC ABG Base Excess -4.4 02/18/21 05:00 ABG Base Excess -1.1 mmol/L (-2.0-3.0) 02/17/21 10:59 ABG Hemoglobin 11.5 (12.0-17.5) L 02/18/21 05:00 ABG Oxyhemoglobin 79.7 (94-98) L 02/18/21 05:00 ABG Carboxyhemoglobin 1.2 % (0.0-5.0) 02/17/21 10:59 ABG Methemoglobin 0 (0.0-1.5) 02/18/21 05:00 ABG Sodium 145.8 mmol/L (136.0-145.0) H 02/18/21 05:00 ABG Potassium 5.4 mmol/L (3.40-4.50) H 02/18/21 05:00 ABG Chloride 111.0 mmol/L (98-107) H 02/18/21 05:00 ABG Glucose 503 mg/dL (65-95) H 02/18/21 05:00 Oxyhemoglobin 91.4 % (95.0-99.0) L 02/17/21 10:59 Carboxyhemoglobin 0.2 (0.5-1.5) L 02/18/21 05:00 FiO2 0.21 % 02/17/21 10:59 FiO2 % 100.0 02/18/21 05:00 Sodium 146 mmol/L (137-145) H 02/17/21 20:10 Potassium 5.7 mmol/L (3.6-5.0) H 02/17/21 20:10 Chloride 108.1 mmol/L (98-107) H 02/17/21 20:10 Carbon Dioxide 27 mmol/L (22-30) 02/17/21 20:10 Anion Gap 17 mmol/L 02/17/21 20:10 BUN 38 mg/dL (7-17) H 02/17/21 20:10 Creatinine 1.2 mg/dL (0.6-1.2) 02/17/21 20:10 Estimated GFR > 60 ml/min 02/17/21 20:10 BUN/Creatinine Ratio 32 % 02/17/21 20:10 Glucose 410 mg/dL (65-100) H 02/17/21 20:10 POC Glucose 485 mg/dL (70-105) H 02/18/21 05:41 Hemoglobin A1c 10.5 % (4-6) H 02/10/21 14:29 Lactic Acid 4.40 mmol/L (0.7-2.0) H* 02/18/21 04:45 Calcium 8.7 mg/dL (8.4-10.2) 02/17/21 20:10 Phosphorus 5.50 mg/dL (2.5-4.5) H 02/18/21 04:45 Magnesium 2.80 mg/dL (1.7-2.3) H 02/18/21 04:45 Ferritin 169.8 ng/mL (10.0-200.0) 02/18/21 04:45 Total Bilirubin 0.20 mg/dL (0.1-1.2) 02/17/21 20:10 AST 22 units/L (5-40) 02/17/21 20:10 ALT 14 units/L (7-56) 02/17/21 20:10 Alkaline Phosphatase 119 units/L (35-129) 02/17/21 20:10 Lactate Dehydrogenase 607 units/L (91-180) H 02/18/21 04:45 Troponin T < 0.010 ng/mL (0.00-0.029) 02/14/21 15:30 C-Reactive Protein 12.60 mg/dL (0.00-1.30) H 02/12/21 10:09 NT-Pro-B Natriuret Pep 28.71 pg/mL (0-450) 02/10/21 09:29 Total Protein 6.8 g/dL (6.3-8.2) 02/17/21 20:10 Albumin 3.1 g/dL (3.9-5) L 02/17/21 20:10 Albumin/Globulin Ratio 0.8 % 02/17/21 20:10 Triglycerides 987 mg/dL (2-149) H 02/18/21 04:45 Procalcitonin 1.76 ng/mL (<0.15) 02/18/21 04:45 HCG, Qual Negative (Negative) 02/10/21 06:36 Arterial Blood Glucose 503 mg/dL (65-95) H 02/18/21 05:00 Arterial Blood Ionized Calcium 4.9 mg/dL (4.6-5.3) 02/18/21 05:00 Urine Color Yellow (Yellow) 02/10/21 11:15 Urine Turbidity Clear (Clear) 02/10/21 11:15 Urine pH 5.0 (5.0-7.0) 02/10/21 11:15 Ur Specific [place] 1.016 (1.003-1.030) 02/10/21 11:15 Urine Protein 100 mg/dl mg/dL (Negative) 02/10/21 11:15 Urine Glucose (UA) >=500 mg/dL (Negative) 02/10/21 11:15 Urine Ketones 20 mg/dL (Negative) 02/10/21 11:15 Urine Blood Sm (Negative) 02/10/21 11:15 Urine Nitrite Neg (Negative) 02/10/21 11:15 Urine Bilirubin Neg (Negative) 02/10/21 11:15 Urine Urobilinogen < 2.0 mg/dL (<2.0) 02/10/21 11:15 Ur Leukocyte Esterase Tr (Negative) 02/10/21 11:15 Urine WBC (Auto) 3.0 /HPF (0.0-6.0) 02/10/21 11:15 Urine RBC (Auto) 3.0 /HPF (0.0-6.0) 02/10/21 11:15 U Epithel Cells (Auto) 10.0 /HPF (0-13.0) 02/10/21 11:15 Urine Bacteria (Auto) 1+ /HPF (Negative) 02/10/21 11:15 Urine Yeast (Budding) 1+ /HPF 02/10/21 11:15 Coronavirus (PCR) Positive (Negative) A 02/10/21 08:28 Microbiology: Microbiology 02/15/21 04:00 Tracheal Aspirate Sputum Culture - Preliminary Staphylococcus Species Smith/IV: Voiding Method Indwelling Catheter Active Medications - Current Medications Current Medications: Generic Name Dose Route Start Last Admin Trade Name Freq PRN Reason Stop Dose Admin Alteplase, Recombinant 4 mg 02/18/21 10:00 Alteplase 2 Mg Inj IV BID PRN LINE FLUSH Lipase/Protease/Amylase 1 each 02/17/21 17:04 Lipase 10,500/Protease 25,000/Amylase 43,750 (Units) Dr Browning FEEDTUBE PRN PRN For Clogged Feeding Tube Ascorbic Acid 500 mg 02/10/21 22:00 02/18/21 09:48 Ascorbic Acid 500 Mg Tab PO 500 mg BID SALUD Administration Dexamethasone 6 mg 02/10/21 15:00 02/18/21 09:45 Dexamethasone 4 Mg/Ml Vial IV 02/19/21 10:01 6 mg DAILY SALUD Administration Famotidine 20 mg 02/16/21 10:00 02/18/21 09:45 Famotidine 20 Mg/2 Ml Inj IV 20 mg BID SALUD Administration Heparin Sodium (Porcine) 5,000 unit 02/16/21 00:59 Heparin 10,000 Units/10 Ml Vial 40 unit/kg (5100 unit) IV Q6H PRN Anti-Xa Assay < 0.1 units/ml Hydrophilic Ointment 1 applic 02/15/21 18:43 Lip Therapy Vaseline TP Q2HR PRN Dry Lips Fentanyl Citrate 2,000 mcg in 100 mls @ 6.35 mls/hr 02/15/21 19:00 02/18/21 07:38 Fentanyl Drip Premix IV 4 mcg/kg/hr TITR SALUD 25.4 mls/hr Administration Protocol 1 MCG/KG/HR Propofol 1,000 mg in 100 mls @ 19.05 mls/hr 02/15/21 19:20 02/18/21 04:06 Diprivan 10 Mg/Ml IV 50 mcg/kg/min TITR SALUD 38.1 mls/hr Administration Protocol 25 MCG/KG/MIN Heparin Sodium/Sodium Chloride 25,000 unit in 500 mls @ 30 mls/hr 02/16/21 01:00 02/18/21 03:30 Heparin/ 0.45% Nacl-25,000 Unit/500 Ml IV 900 units/hr TITR SALUD 18 mls/hr Titration Protocol 1,500 UNITS/HR NORepinephrine/NS 8 MG-250 ML 8 mg in 250 mls @ 3.75 mls/hr 02/16/21 12:00 02/18/21 08:00 Norepinephrine/Ns 8 Mg-250 Ml (Double Conc) IV 8 mcg/min TITRATE SALUD 15 mls/hr Titration Protocol 2 MCG/MIN Vasopressin 20 unit/ Sodium 101 mls @ 9.09 mls/hr 02/16/21 14:00 02/18/21 01:49 Chloride IV 0.03 units/min TITR SALUD 9.09 mls/hr Administration Protocol 0.03 UNITS/MIN Amiodarone HCl 900 mg/ 500 mls @ 33.333 mls/hr 02/18/21 09:00 Dextrose IV DIRECT [facility] Protocol 1 MG/MIN Meropenem 500 mg in 50 mls @ 50 mls/hr 02/18/21 09:45 Merrem/Ns 500 Mg/50 Ml IV Q6H [facility] Insulin Human Isoph/Insulin Regular 25 unit 02/17/21 22:00 02/18/21 09:48 Insulin Nph/Regular 70/30 Inj SUB-Q 25 unit BID SALUD Administration Insulin Human Lispro 0 unit 02/16/21 12:00 02/18/21 08:18 Insulin Lispro 100 Unit/Ml SUB-Q Not Given Q6HR [facility] Protocol Lorazepam 1 mg 02/15/21 16:35 02/15/21 16:52 Lorazepam 2 Mg/Ml Vial IV 1 mg Q6H PRN Administration Seizures Multi-Ingred Cream/Lotion/Oil/Oint 1 applic 02/15/21 18:43 Mineral Oil/Petrolatum, White Ophth Oint 3.5 Gm OU Q4HR PRN Dry Eye(s) Phenol 1 spray 02/13/21 12:02 Phenol 1.4% 177 Ml Bottle MM PRN PRN Sore Throat Senna/Docusate Sodium 1 tab 02/15/21 22:00 02/18/21 09:45 Sennosides/Docusate Sodium 8.6/50 Mg Tab FEEDTUBE 1 tab BID SALUD Administration Simple Syrup 30 ml 02/17/21 15:00 Simple Syrup 15 Ml FEEDTUBE PRN PRN Hypoglycemia Simple Syrup 15 ml 02/17/21 17:04 Simple Syrup 15 Ml FEEDTUBE PRN PRN Hypoglycemia Sodium Bicarbonate 325 mg 02/17/21 17:04 Sodium Bicarbonate 325 Mg Tab FEEDTUBE PRN PRN For Clogged Feeding Tube Zinc Sulfate 220 mg 02/10/21 22:00 02/18/21 09:45 Zinc Sulfate 220 Mg Cap PO 220 mg BID SALUD Administration Nutrition/Malnutrition Assess - Dietary Evaluation Nutrition/Malnutrition Findings: Nutrition Notes Start: 02/17/21 16:30 Freq: Status: Active Protocol: Document 02/17/21 16:30 SG (Rec: 02/17/21 17:04 [email or web address]) Nutrition Notes Need for Assessment generated from: MD Order Initial or Follow up Assessment Current Diagnosis Diabetes Other Pertinent Diagnosis Covid -19 pnemonia Current Diet TF diet Labs/Tests POC glucose 305 Pertinent Medications Insulin Propofol @19.05 ml/hr (503 kcal/day) Height 5 ft 5 in Weight 127 kg [place] Body Weight (kg) 56.81 BMI 46.5 Weight Status Morbidly Obese Subjective/Other Information RD consult for TF. Burn Absent Trauma Absent #1 Nutrition Diagnosis Inadequate oral intake Etiology covid19 pneumonia As Evidenced by Signs and Symptoms Pt on feeding tube Is patient on ventilator? Yes Is Patient Ambulatory and/or Out of Bed No REE-([facility]-confined to bed) 2343.180 Kcal/Kg value to use for calculation 14 Approximate Energy Requirements Using 1778 kcal/Kg Calculation Used for Recommendations Kcal/kg Additional Notes Energy needs from TF: 1275 kcal protein needs : up to 2.5 g/kg IBW/day or 142g fluid needs :1ml/kcal Nutrition Intervention Change Diet Order: Tube Feeding Nutrition Support: Vital High Protein goal rate 55 ml/hour water flush: 40 ml q 4 hours Kcal 1,320 Protein (gm) 116 Fluid (mL) 1,103 Fiber (gm) 0 Goal #1 Tf tolerance Goal #2 Pt meeting at least 75% of protein and energy needs Goal #3 Readjust TF for per change in propofol Follow-Up By: 02/18/21 Additional Comments TF tolerance and resp status - Attestation Statement I have reviewed and agreed w/ Malnutrition eval & tx plan: Yes
[2021-02-18] MEDS ORDERED: ALTEPLASE 2 MG INJ IV PRN (10:00)
[2021-02-18] MEDS ORDERED: VANCOMYCIN PHARMACY TO DOSE IV SCH (10:00)
[2021-02-18] MEDS ORDERED: MEROPENEM/NS 500 MG/50 ML 500 MG/50 ML BAG IV SCH (11:00)
[2021-02-18] MEDS: LORazepam 100 MG in SODIUM CHLORIDE 0.9% 50 ML, EMPTY BAG 0 ML IV SCH (11:14)
[2021-02-18] MEDS: NORepinephrine/NS 8 MG-250 ML 8 MG/250 ML INFUS..BTL IV SCH (11:33)
[2021-02-18 11:40] LABS: Albumin 2.8 g/dL (3.9-5); BUN/Creatinine Ratio 23; Blood Urea Nitrogen 56 mg/dL (7-17); Calcium 8.4 mg/dL (8.4-10.2); Hemolysis Index 70
[2021-02-18 12:05] LABS: Bilirubin,Urine NEG (Negative); Blood,Urine NEG (Negative); Color,Urine Yellow (Yellow); Hyaline Casts,Urine 16 /LPF; Mucus,Urine 1+ /HPF; Urobilinogen,Urine < 2.0 mg/dL (<2.0)
--- NOTE | 2021-02-18 12:38 | Progress Note ---
Assessment and Plan ARDS COVID-19 infection Morbid obesity; BMI 46.6 Obesity hypoventilation syndrome - Procalcitonin level not critically elevated - anti-infective's adjusted today (+ antifungal) - unfortunately despite barotrauma we have had to increase peep to 20 - keep chest tubes to continuous wall suction - FiO2 at 100% - wean vasopressors for target MAP > 65 mmHg - conservative volume management strategies - sedation target RASS -2 to -3 acutely - continue aspiration precautions - continue care as below otherwise; - continue lung protective strategies - prn bronchodilators with pulmonary hygiene per RT - avoid nephrotoxins, renally dose all medications - continue to avoid benzodiazepine's, reduce the possibility of delirium - complete AB's per ID rec's - prn analgesia per CPOT score - Maintenance of sleep-wake cycle, avoid delirium - continue enteral nutritional support at goal rate as tolerated - G.I. & VTE prophylaxis - PT/OT/ROM exercises - continue mobility protocols for pressure ulcer prophylaxis - Monitor hemodynamics closely - continue other care per attending / other consultants - discharge planning ongoing concurrently COVID SPECIFIC INTERVENTIONS - Remdesivir as per ID/Pulmonary developed protocols (receiving) - continue systemic steroids for severe COVID-19 infection - follow repeat COVID tests results - zinc and vitamin C supplementation - Monitor inflammatory markers per facility protocol - ferritin, Ddimer, CRP - therapeutic anticoagulation per system Protocol based on d-dimer and clinical considerations (DVT prophylaxis for now) - Continue contact and airborne isolation .... Re-evaluate in am & prn CONDITION: CRITICAL PROGNOSIS: GRAVE CODE STATUS: FULL CODE The high probability of a clinically significant, sudden or life-threatening deterioration of the [respiratory, cardiovascular, GI & neurologic] system(s) required my full and direct attention, intervention and personal management. The aggregate critical care time was [36] minutes without overlap. Time includes spent on; [x] Data Review and interpretation [x] Patient assessment and monitoring of vital signs [x] Documentation [x] Medication orders and management Subjective Date of service: 02/18/21 Principal diagnosis: Ac hypoxemic resp failure; ARDS; COVID-19 infection; Morbid obesity; OHS Interval history: Patient is seen today for: Acute hypoxemic respiratory failure; ARDS; COVID-19 infection; Morbid obesity; OHS Seen and examined at bedside; 24hour events reviewed; nursing and respiratory care staff consulted; no adverse overnight events reported to me; resting in bed; remains on MVS and has decompensated through the night; also developed a tachy-arrythmia to 170's overnight; No emesis or overt aspiration; hypotensive Objective Vital Signs - 12hr 02/18/21 02/18/21 02/18/21 00:39 00:46 01:00 Temperature Pulse Rate 161 H 162 H 158 H Pulse Rate [ From Monitor] Respiratory 18 18 Rate Blood Pressure 132/79 92/66 95/65 O2 Sat by Pulse 81 L 81 L 79 L Oximetry 02/18/21 02/18/21 02/18/21 01:16 01:30 01:45 Temperature Pulse Rate 153 H 150 H 148 H Pulse Rate [ From Monitor] Respiratory 15 13 16 Rate Blood Pressure 92/53 94/41 94/41 O2 Sat by Pulse 80 L 81 L 81 L Oximetry 02/18/21 02/18/21 02/18/21 02:00 02:15 02:30 Temperature Pulse Rate 149 H 150 H 149 H Pulse Rate [ From Monitor] Respiratory 15 14 15 Rate Blood Pressure 90/49 81/48 84/57 O2 Sat by Pulse 81 L 82 L 83 L Oximetry 02/18/21 02/18/21 02/18/21 02:45 03:01 03:15 Temperature Pulse Rate 150 H 150 H 151 H Pulse Rate [ From Monitor] Respiratory 16 14 19 Rate Blood Pressure 81/59 81/59 85/52 O2 Sat by Pulse 83 L 82 L 83 L Oximetry 02/18/21 02/18/21 02/18/21 03:30 03:37 03:45 Temperature 101.1 F H Pulse Rate 151 H 153 H Pulse Rate [ From Monitor] Respiratory 20 20 Rate Blood Pressure 97/49 97/49 O2 Sat by Pulse 83 L 81 L Oximetry 02/18/21 02/18/21 02/18/21 04:00 04:01 04:15 Temperature Pulse Rate 152 H 152 H 152 H Pulse Rate [ 153 H From Monitor] Respiratory 20 20 21 Rate Blood Pressure 76/55 93/60 O2 Sat by Pulse 83 L 83 L 84 Oximetry 02/18/21 02/18/21 02/18/21 04:30 04:38 04:46 Temperature Pulse Rate 150 H 152 H 152 H Pulse Rate [ From Monitor] Respiratory 22 21 Rate Blood Pressure 102/57 102/57 100/52 O2 Sat by Pulse 84 83 L 84 Oximetry 02/18/21 02/18/21 02/18/21 05:00 05:15 05:30 Temperature Pulse Rate 157 H 164 H 164 H Pulse Rate [ From Monitor] Respiratory 18 21 21 Rate Blood Pressure 100/52 110/77 100/52 O2 Sat by Pulse 85 85 85 Oximetry 02/18/21 02/18/21 02/18/21 05:46 06:00 06:15 Temperature Pulse Rate 169 H 172 H 171 H Pulse Rate [ From Monitor] Respiratory 25 H 24 22 Rate Blood Pressure 124/80 124/80 123/80 O2 Sat by Pulse 88 88 86 Oximetry 02/18/21 02/18/21 02/18/21 06:30 06:46 07:00 Temperature Pulse Rate 172 H 178 H 181 H Pulse Rate [ From Monitor] Respiratory 27 H 29 H 26 H Rate Blood Pressure 135/79 143/90 143/90 O2 Sat by Pulse 87 83 L 82 L Oximetry 02/18/21 02/18/21 02/18/21 07:16 07:30 07:46 Temperature Pulse Rate 183 H 180 H 171 H Pulse Rate [ From Monitor] Respiratory 28 H 23 28 H Rate Blood Pressure 82/41 82/41 119/68 O2 Sat by Pulse 79 L 75 L 85 Oximetry 02/18/21 02/18/21 02/18/21 08:00 08:08 08:09 Temperature 103.3 F H Pulse Rate 170 H 169 H Pulse Rate [ 154 H From Monitor] Respiratory 25 H Rate Blood Pressure 116/68 116/68 O2 Sat by Pulse 86 87 Oximetry 02/18/21 02/18/21 02/18/21 08:16 08:30 08:46 Temperature Pulse Rate 167 H 165 H 164 H Pulse Rate [ From Monitor] Respiratory 30 H 22 29 H Rate Blood Pressure 112/67 109/70 111/72 O2 Sat by Pulse 86 88 90 Oximetry 02/18/21 02/18/21 02/18/21 09:00 09:16 09:30 Temperature Pulse Rate 161 H 159 H 159 H Pulse Rate [ From Monitor] Respiratory 26 H 25 H 29 H Rate Blood Pressure 109/69 109/67 117/71 O2 Sat by Pulse 91 90 91 Oximetry 02/18/21 02/18/21 02/18/21 09:46 10:00 10:16 Temperature Pulse Rate 156 H 158 H 156 H Pulse Rate [ From Monitor] Respiratory 25 H 19 21 Rate Blood Pressure 124/76 112/73 111/62 O2 Sat by Pulse 93 90 91 Oximetry 02/18/21 02/18/21 02/18/21 10:30 10:45 11:00 Temperature Pulse Rate 155 H 146 H 151 H Pulse Rate [ From Monitor] Respiratory 20 19 19 Rate Blood Pressure 111/62 144/88 141/94 O2 Sat by Pulse 92 93 92 Oximetry 02/18/21 11:57 Temperature Pulse Rate 156 H Pulse Rate [ From Monitor] Respiratory Rate Blood Pressure 132/85 O2 Sat by Pulse 92 Oximetry Constitutional: appears uncomfortable, other (Morbidly Obese female with mildy increased work of breathing at rest & gross SQ emphysema to face and upper ile[address] st) Eyes: non-icteric ENT: oropharynx moist, other (ETT 24 cm KATH) Neck: supple, no lymphadenopathy, no JVD, other (SQ emphysema palpable) Effort: mildly labored Ascultation: Bilateral: diminished breath sounds, rhonchi (scant) Percussion: Bilateral: not dull Cardiovascular: regular rate and rhythm Gastrointestinal: normoactive bowel sounds, soft, non-tender, non-distended (protuberant) Integumentary: normal Extremities: no cyanosis, no edema, pulses normal, no ischemia or petechiae Neurologic: normal mental status, non-focal exam, pupils equal and round, CN II- XII normal, motor strength normal and Psychiatric: other (sedate) CBC and BMP: 02/17/21 20:10 02/18/21 09:39 ABG, PT/INR, D-dimer: ABG ABG pH 7.241 (7.320-7.450) L 02/18/21 05:00 POC ABG pCO2 55.7 mmHg (32.0-48.0) H 02/18/21 05:00 ABG pCO2 50.8 mm Hg 02/17/21 10:59 POC ABG pO2 52.0 mmHg (83-108) L 02/18/21 05:00 ABG pO2 75.5 mm Hg (80.0-90.0) L 02/17/21 10:59 POC ABG HCO3 23.4 02/18/21 05:00 ABG O2 Saturation 79.9 (0-100) 02/18/21 05:00 PT/INR, D-dimer PT 20.8 Sec. (12.2-14.9) H 02/16/21 01:49 INR 1.73 (0.87-1.13) H 02/16/21 01:49 D-Dimer 1819.69 ng/mlDDU (0-234) H 02/18/21 04:45 Abnormal lab findings: Abnormal Labs 02/10/21 02/10/21 02/10/21 06:00 06:00 06:36 WBC RBC MCV 71 L MCH 23 L RDW 16.5 H Plt Count Lymph % (Auto) Lymph # (Auto) 1.1 L [place] # (Auto) Eos # (Auto) Seg Neutrophils % 76.6 H Seg Neutrophils # PT INR APTT D-Dimer Heparin Anti-Xa Level ABG pH POC ABG pCO2 POC ABG pO2 ABG pO2 ABG HCO3 ABG O2 Saturation ABG Base Excess ABG Hemoglobin ABG Oxyhemoglobin ABG Sodium ABG Potassium ABG Chloride ABG Glucose Oxyhemoglobin Carboxyhemoglobin Sodium Potassium Chloride 97.7 L BUN 6 L Creatinine Glucose 295 H POC Glucose Hemoglobin A1c Lactic Acid Phosphorus Magnesium Alkaline Phosphatase Lactate Dehydrogenase 325 H C-Reactive Protein 8.20 H Total Protein Albumin 3.8 L Triglycerides Arterial Blood Glucose Urine WBC (Auto) Coronavirus (PCR) 02/10/21 02/10/21 02/10/21 08:28 14:29 14:29 WBC RBC MCV MCH RDW Plt Count Lymph % (Auto) Lymph # (Auto) [place] # (Auto) Eos # (Auto) Seg Neutrophils % Seg Neutrophils # PT INR APTT D-Dimer Heparin Anti-Xa Level ABG pH POC ABG pCO2 POC ABG pO2 ABG pO2 ABG HCO3 ABG O2 Saturation ABG Base Excess ABG Hemoglobin ABG Oxyhemoglobin ABG Sodium ABG Potassium ABG Chloride ABG Glucose Oxyhemoglobin Carboxyhemoglobin Sodium 135 L Potassium Chloride 97.0 L BUN 6 L Creatinine Glucose 308 H POC Glucose Hemoglobin A1c 10.5 H Lactic Acid Phosphorus Magnesium Alkaline Phosphatase Lactate Dehydrogenase C-Reactive Protein Total Protein Albumin 3.4 L Triglycerides Arterial Blood Glucose Urine WBC (Auto) Coronavirus (PCR) Positive A 02/10/21 02/10/21 02/10/21 14:37 16:49 21:34 WBC RBC MCV MCH RDW Plt Count Lymph % (Auto) Lymph # (Auto) [place] # (Auto) Eos # (Auto) Seg Neutrophils % Seg Neutrophils # PT INR APTT D-Dimer Heparin Anti-Xa Level ABG pH POC ABG pCO2 POC ABG pO2 58.8 L ABG pO2 ABG HCO3 ABG O2 Saturation ABG Base Excess ABG Hemoglobin 11.2 L ABG Oxyhemoglobin 88.2 L ABG Sodium ABG Potassium ABG Chloride ABG Glucose 343 H Oxyhemoglobin Carboxyhemoglobin 0 L Sodium Potassium Chloride BUN Creatinine Glucose POC Glucose 289 H 304 H Hemoglobin A1c Lactic Acid Phosphorus Magnesium Alkaline Phosphatase Lactate Dehydrogenase C-Reactive Protein Total Protein Albumin Triglycerides Arterial Blood Glucose 343 H Urine WBC (Auto) Coronavirus (PCR) 02/11/21 02/11/21 02/11/21 07:58 09:59 17:29 WBC RBC MCV MCH RDW Plt Count Lymph % (Auto) Lymph # (Auto) [place] # (Auto) Eos # (Auto) Seg Neutrophils % Seg Neutrophils # PT INR APTT D-Dimer Heparin Anti-Xa Level ABG pH POC ABG pCO2 POC ABG pO2 ABG pO2 ABG HCO3 ABG O2 Saturation ABG Base Excess ABG Hemoglobin ABG Oxyhemoglobin ABG Sodium ABG Potassium ABG Chloride ABG Glucose Oxyhemoglobin Carboxyhemoglobin Sodium Potassium Chloride 97.5 L BUN Creatinine Glucose 269 H POC Glucose 271 H 351 H Hemoglobin A1c Lactic Acid Phosphorus Magnesium Alkaline Phosphatase Lactate Dehydrogenase C-Reactive Protein Total Protein Albumin 3.3 L Triglycerides Arterial Blood Glucose Urine WBC (Auto) Coronavirus (PCR) 02/11/21 02/12/21 02/12/21 21:50 05:28 10:09 WBC RBC MCV MCH RDW Plt Count Lymph % (Auto) Lymph # (Auto) [place] # (Auto) Eos # (Auto) Seg Neutrophils % Seg Neutrophils # PT INR APTT D-Dimer 310.92 H Heparin Anti-Xa Level ABG pH POC ABG pCO2 POC ABG pO2 ABG pO2 ABG HCO3 ABG O2 Saturation ABG Base Excess ABG Hemoglobin ABG Oxyhemoglobin ABG Sodium ABG Potassium ABG Chloride ABG Glucose Oxyhemoglobin Carboxyhemoglobin Sodium Potassium 5.1 H Chloride BUN Creatinine Glucose 308 H POC Glucose 333 H Hemoglobin A1c Lactic Acid Phosphorus Magnesium Alkaline Phosphatase Lactate Dehydrogenase C-Reactive Protein Total Protein Albumin 3.3 L Triglycerides Arterial Blood Glucose Urine WBC (Auto) Coronavirus (PCR) 02/12/21 02/12/21 02/12/21 10:09 16:00 21:50 WBC RBC MCV MCH RDW Plt Count Lymph % (Auto) Lymph # (Auto) [place] # (Auto) Eos # (Auto) Seg Neutrophils % Seg Neutrophils # PT INR APTT D-Dimer Heparin Anti-Xa Level ABG pH POC ABG pCO2 POC ABG pO2 ABG pO2 ABG HCO3 ABG O2 Saturation ABG Base Excess ABG Hemoglobin ABG Oxyhemoglobin ABG Sodium ABG Potassium ABG Chloride ABG Glucose 406 H Oxyhemoglobin Carboxyhemoglobin 0.3 L Sodium Potassium Chloride BUN Creatinine Glucose POC Glucose 353 H Hemoglobin A1c Lactic Acid Phosphorus Magnesium Alkaline Phosphatase Lactate Dehydrogenase 564 H C-Reactive Protein 12.60 H Total Protein Albumin Triglycerides Arterial Blood Glucose 406 H Urine WBC (Auto) Coronavirus (PCR) 02/13/21 02/13/21 02/13/21 04:38 08:32 17:08 WBC RBC MCV MCH RDW Plt Count Lymph % (Auto) Lymph # (Auto) [place] # (Auto) Eos # (Auto) Seg Neutrophils % Seg Neutrophils # PT INR APTT D-Dimer Heparin Anti-Xa Level ABG pH POC ABG pCO2 POC ABG pO2 ABG pO2 ABG HCO3 ABG O2 Saturation ABG Base Excess ABG Hemoglobin ABG Oxyhemoglobin ABG Sodium ABG Potassium ABG Chloride ABG Glucose Oxyhemoglobin Carboxyhemoglobin Sodium Potassium Chloride BUN Creatinine Glucose 295 H POC Glucose 308 H 372 H Hemoglobin A1c Lactic Acid Phosphorus Magnesium Alkaline Phosphatase Lactate Dehydrogenase C-Reactive Protein Total Protein 8.4 H Albumin 3.5 L Triglycerides Arterial Blood Glucose Urine WBC (Auto) Coronavirus (PCR) 02/13/21 02/14/21 02/14/21 21:09 09:11 13:13 WBC RBC MCV MCH RDW Plt Count Lymph % (Auto) Lymph # (Auto) [place] # (Auto) Eos # (Auto) Seg Neutrophils % Seg Neutrophils # PT INR APTT D-Dimer Heparin Anti-Xa Level ABG pH POC ABG pCO2 POC ABG pO2 ABG pO2 ABG HCO3 ABG O2 Saturation ABG Base Excess ABG Hemoglobin ABG Oxyhemoglobin ABG Sodium ABG Potassium ABG Chloride ABG Glucose Oxyhemoglobin Carboxyhemoglobin Sodium Potassium Chloride BUN Creatinine Glucose POC Glucose 370 H 289 H 271 H Hemoglobin A1c Lactic Acid Phosphorus Magnesium Alkaline Phosphatase Lactate Dehydrogenase C-Reactive Protein Total Protein Albumin Triglycerides Arterial Blood Glucose Urine WBC (Auto) Coronavirus (PCR) 02/14/21 02/14/21 02/15/21 18:28 18:30 00:05 WBC RBC MCV MCH RDW Plt Count Lymph % (Auto) Lymph # (Auto) [place] # (Auto) Eos # (Auto) Seg Neutrophils % Seg Neutrophils # PT INR APTT D-Dimer Heparin Anti-Xa Level ABG pH POC ABG pCO2 POC ABG pO2 ABG pO2 ABG HCO3 ABG O2 Saturation ABG Base Excess ABG Hemoglobin ABG Oxyhemoglobin ABG Sodium ABG Potassium ABG Chloride ABG Glucose Oxyhemoglobin Carboxyhemoglobin Sodium Potassium Chloride BUN Creatinine Glucose POC Glucose 391 H 354 H 290 H Hemoglobin A1c Lactic Acid Phosphorus Magnesium Alkaline Phosphatase Lactate Dehydrogenase C-Reactive Protein Total Protein Albumin Triglycerides Arterial Blood Glucose Urine WBC (Auto) Coronavirus (PCR) 02/15/21 02/15/21 02/15/21 07:44 09:30 12:27 WBC RBC MCV MCH RDW Plt Count Lymph % (Auto) Lymph # (Auto) [place] # (Auto) Eos # (Auto) Seg Neutrophils % Seg Neutrophils # PT INR APTT D-Dimer Heparin Anti-Xa Level ABG pH POC ABG pCO2 POC ABG pO2 ABG pO2 55.0 L ABG HCO3 30.7 H ABG O2 Saturation 87.4 L ABG Base Excess 4.1 H ABG Hemoglobin ABG Oxyhemoglobin ABG Sodium ABG Potassium ABG Chloride ABG Glucose Oxyhemoglobin 86.1 L Carboxyhemoglobin Sodium Potassium Chloride BUN Creatinine Glucose POC Glucose 265 H 270 H Hemoglobin A1c Lactic Acid Phosphorus Magnesium Alkaline Phosphatase Lactate Dehydrogenase C-Reactive Protein Total Protein Albumin Triglycerides Arterial Blood Glucose Urine WBC (Auto) Coronavirus (PCR) 02/15/21 02/16/21 02/16/21 16:58 01:13 01:49 WBC RBC MCV MCH RDW Plt Count Lymph % (Auto) Lymph # (Auto) [place] # (Auto) Eos # (Auto) Seg Neutrophils % Seg Neutrophils # PT 20.8 H INR 1.73 H APTT > 240.0 H* D-Dimer Heparin Anti-Xa Level ABG pH 7.456 H POC ABG pCO2 POC ABG pO2 136.3 H ABG pO2 ABG HCO3 ABG O2 Saturation ABG Base Excess ABG Hemoglobin ABG Oxyhemoglobin ABG Sodium ABG Potassium 4.7 H ABG Chloride ABG Glucose 395 H Oxyhemoglobin Carboxyhemoglobin Sodium Potassium Chloride BUN Creatinine Glucose POC Glucose 325 H Hemoglobin A1c Lactic Acid Phosphorus Magnesium Alkaline Phosphatase Lactate Dehydrogenase C-Reactive Protein Total Protein Albumin Triglycerides Arterial Blood Glucose 395 H Urine WBC (Auto) Coronavirus (PCR) 02/16/21 02/16/21 02/16/21 02:05 07:45 07:45 WBC 16.8 H RBC 5.61 H MCV 71 L MCH 23 L RDW 17.0 H Plt Count Lymph % (Auto) 11.5 L Lymph # (Auto) [place] # (Auto) 0.9 H Eos # (Auto) 0.5 H Seg Neutrophils % 79.6 H Seg Neutrophils # 13.4 H PT INR APTT D-Dimer Heparin Anti-Xa Level ABG pH POC ABG pCO2 POC ABG pO2 ABG pO2 ABG HCO3 ABG O2 Saturation ABG Base Excess ABG Hemoglobin ABG Oxyhemoglobin ABG Sodium ABG Potassium ABG Chloride ABG Glucose Oxyhemoglobin Carboxyhemoglobin Sodium Potassium Chloride BUN 27 H Creatinine Glucose 269 H POC Glucose 347 H Hemoglobin A1c Lactic Acid Phosphorus Magnesium Alkaline Phosphatase Lactate Dehydrogenase C-Reactive Protein Total Protein Albumin Triglycerides Arterial Blood Glucose Urine WBC (Auto) Coronavirus (PCR) 02/16/21 02/16/21 02/16/21 07:45 07:46 15:01 WBC RBC MCV MCH RDW Plt Count Lymph % (Auto) Lymph # (Auto) [place] # (Auto) Eos # (Auto) Seg Neutrophils % Seg Neutrophils # PT INR APTT D-Dimer Heparin Anti-Xa Level > 1.99 H ABG pH POC ABG pCO2 POC ABG pO2 ABG pO2 ABG HCO3 ABG O2 Saturation ABG Base Excess ABG Hemoglobin ABG Oxyhemoglobin ABG Sodium ABG Potassium ABG Chloride ABG Glucose Oxyhemoglobin Carboxyhemoglobin Sodium Potassium Chloride BUN Creatinine Glucose POC Glucose 290 H 378 H Hemoglobin A1c Lactic Acid Phosphorus Magnesium Alkaline Phosphatase Lactate Dehydrogenase C-Reactive Protein Total Protein Albumin Triglycerides Arterial Blood Glucose Urine WBC (Auto) Coronavirus (PCR) 02/16/21 02/16/21 02/16/21 17:50 19:15 21:00 WBC RBC MCV MCH RDW Plt Count Lymph % (Auto) Lymph # (Auto) [place] # (Auto) Eos # (Auto) Seg Neutrophils % Seg Neutrophils # PT INR APTT D-Dimer Heparin Anti-Xa Level 0.72 H ABG pH POC ABG pCO2 31.8 L POC ABG pO2 81.0 L ABG pO2 ABG HCO3 ABG O2 Saturation ABG Base Excess ABG Hemoglobin ABG Oxyhemoglobin ABG Sodium ABG Potassium 5.3 H ABG Chloride ABG Glucose 416 H Oxyhemoglobin Carboxyhemoglobin 0.3 L Sodium Potassium Chloride BUN Creatinine Glucose POC Glucose 396 H Hemoglobin A1c Lactic Acid Phosphorus Magnesium Alkaline Phosphatase Lactate Dehydrogenase C-Reactive Protein Total Protein Albumin Triglycerides Arterial Blood Glucose 416 H Urine WBC (Auto) Coronavirus (PCR) 02/16/21 02/17/21 02/17/21 23:33 05:49 06:05 WBC 30.4 H RBC MCV 72 L MCH 23 L RDW 16.7 H Plt Count 481 H Lymph % (Auto) Lymph # (Auto) [place] # (Auto) Eos # (Auto) Seg Neutrophils % Seg Neutrophils # PT INR APTT D-Dimer Heparin Anti-Xa Level ABG pH POC ABG pCO2 POC ABG pO2 ABG pO2 ABG HCO3 ABG O2 Saturation ABG Base Excess ABG Hemoglobin ABG Oxyhemoglobin ABG Sodium ABG Potassium ABG Chloride ABG Glucose Oxyhemoglobin Carboxyhemoglobin Sodium Potassium Chloride BUN Creatinine Glucose POC Glucose 348 H 290 H Hemoglobin A1c Lactic Acid Phosphorus Magnesium Alkaline Phosphatase Lactate Dehydrogenase C-Reactive Protein Total Protein Albumin Triglycerides Arterial Blood Glucose Urine WBC (Auto) Coronavirus (PCR) 02/17/21 02/17/21 02/17/21 06:05 10:40 10:59 WBC RBC MCV MCH RDW Plt Count Lymph % (Auto) Lymph # (Auto) [place] # (Auto) Eos # (Auto) Seg Neutrophils % Seg Neutrophils # PT INR APTT D-Dimer Heparin Anti-Xa Level 1.18 H ABG pH 7.319 L POC ABG pCO2 POC ABG pO2 ABG pO2 75.5 L ABG HCO3 ABG O2 Saturation 15.2 L ABG Base Excess ABG Hemoglobin 6.9 L ABG Oxyhemoglobin ABG Sodium ABG Potassium ABG Chloride ABG Glucose Oxyhemoglobin 91.4 L Carboxyhemoglobin Sodium Potassium Chloride BUN 46 H Creatinine 1.4 H Glucose 309 H POC Glucose Hemoglobin A1c Lactic Acid Phosphorus 5.80 H Magnesium 2.50 H Alkaline Phosphatase Lactate Dehydrogenase C-Reactive Protein Total Protein Albumin 3.2 L Triglycerides Arterial Blood Glucose Urine WBC (Auto) Coronavirus (PCR) 02/17/21 02/17/21 02/17/21 12:15 17:41 19:33 WBC RBC MCV MCH RDW Plt Count Lymph % (Auto) Lymph # (Auto) [place] # (Auto) Eos # (Auto) Seg Neutrophils % Seg Neutrophils # PT INR APTT D-Dimer Heparin Anti-Xa Level ABG pH 7.313 L POC ABG pCO2 52.1 H POC ABG pO2 63.2 L ABG pO2 ABG HCO3 ABG O2 Saturation ABG Base Excess ABG Hemoglobin 11.8 L ABG Oxyhemoglobin 88.2 L ABG Sodium 146.9 H ABG Potassium 5.1 H ABG Chloride 111.0 H ABG Glucose 437 H Oxyhemoglobin Carboxyhemoglobin 0.4 L Sodium Potassium Chloride BUN Creatinine Glucose POC Glucose 305 H 390 H Hemoglobin A1c Lactic Acid Phosphorus Magnesium Alkaline Phosphatase Lactate Dehydrogenase C-Reactive Protein Total Protein Albumin Triglycerides Arterial Blood Glucose 437 H Urine WBC (Auto) Coronavirus (PCR) 02/17/21 02/17/21 02/17/21 20:10 20:10 20:10 WBC 22.2 H RBC MCV 73 L MCH 23 L RDW 16.7 H Plt Count Lymph % (Auto) Lymph # (Auto) [place] # (Auto) Eos # (Auto) Seg Neutrophils % Seg Neutrophils # PT INR APTT D-Dimer Heparin Anti-Xa Level ABG pH POC ABG pCO2 POC ABG pO2 ABG pO2 ABG HCO3 ABG O2 Saturation ABG Base Excess ABG Hemoglobin ABG Oxyhemoglobin ABG Sodium ABG Potassium ABG Chloride ABG Glucose Oxyhemoglobin Carboxyhemoglobin Sodium 146 H Potassium 5.7 H Chloride 108.1 H BUN 38 H Creatinine Glucose 410 H POC Glucose Hemoglobin A1c Lactic Acid 2.80 H* Phosphorus 5.30 H Magnesium 2.70 H Alkaline Phosphatase Lactate Dehydrogenase C-Reactive Protein Total Protein Albumin 3.1 L Triglycerides Arterial Blood Glucose Urine WBC (Auto) Coronavirus (PCR) 02/17/21 02/18/21 02/18/21 23:50 04:45 04:45 WBC RBC MCV MCH RDW Plt Count Lymph % (Auto) Lymph # (Auto) [place] # (Auto) Eos # (Auto) Seg Neutrophils % Seg Neutrophils # PT INR APTT D-Dimer Heparin Anti-Xa Level ABG pH POC ABG pCO2 POC ABG pO2 ABG pO2 ABG HCO3 ABG O2 Saturation ABG Base Excess ABG Hemoglobin ABG Oxyhemoglobin ABG Sodium ABG Potassium ABG Chloride ABG Glucose Oxyhemoglobin Carboxyhemoglobin Sodium Potassium Chloride BUN Creatinine Glucose POC Glucose 458 H Hemoglobin A1c Lactic Acid 4.40 H* Phosphorus 5.50 H Magnesium 2.80 H Alkaline Phosphatase Lactate Dehydrogenase 607 H C-Reactive Protein Total Protein Albumin Triglycerides 987 H Arterial Blood Glucose Urine WBC (Auto) Coronavirus (PCR) 02/18/21 02/18/21 02/18/21 04:45 05:00 05:41 WBC RBC MCV MCH RDW Plt Count Lymph % (Auto) Lymph # (Auto) [place] # (Auto) Eos # (Auto) Seg Neutrophils % Seg Neutrophils # PT INR APTT D-Dimer 1819.69 H Heparin Anti-Xa Level ABG pH 7.241 L POC ABG pCO2 55.7 H POC ABG pO2 52.0 L ABG pO2 ABG HCO3 ABG O2 Saturation ABG Base Excess ABG Hemoglobin 11.5 L ABG Oxyhemoglobin 79.7 L ABG Sodium 145.8 H ABG Potassium 5.4 H ABG Chloride 111.0 H ABG Glucose 503 H Oxyhemoglobin Carboxyhemoglobin 0.2 L Sodium Potassium Chloride BUN Creatinine Glucose POC Glucose 485 H Hemoglobin A1c Lactic Acid Phosphorus Magnesium Alkaline Phosphatase Lactate Dehydrogenase C-Reactive Protein Total Protein Albumin Triglycerides Arterial Blood Glucose 503 H Urine WBC (Auto) Coronavirus (PCR) 02/18/21 02/18/21 02/18/21 09:39 09:39 11:53 WBC RBC MCV MCH RDW Plt Count Lymph % (Auto) Lymph # (Auto) [place] # (Auto) Eos # (Auto) Seg Neutrophils % Seg Neutrophils # PT INR APTT D-Dimer Heparin Anti-Xa Level ABG pH POC ABG pCO2 POC ABG pO2 ABG pO2 ABG HCO3 ABG O2 Saturation ABG Base Excess ABG Hemoglobin ABG Oxyhemoglobin ABG Sodium ABG Potassium ABG Chloride ABG Glucose Oxyhemoglobin Carboxyhemoglobin Sodium Potassium Chloride 108.6 H BUN 56 H Creatinine Glucose POC Glucose 512 H Hemoglobin A1c Lactic Acid Phosphorus Magnesium Alkaline Phosphatase 133 H Lactate Dehydrogenase C-Reactive Protein Total Protein 5.9 L Albumin 2.8 L Triglycerides Arterial Blood Glucose Urine WBC (Auto) 19.0 H Coronavirus (PCR) 02/18/21 11:55 WBC RBC MCV MCH RDW Plt Count Lymph % (Auto) Lymph # (Auto) [place] # (Auto) Eos # (Auto) Seg Neutrophils % Seg Neutrophils # PT INR APTT D-Dimer Heparin Anti-Xa Level ABG pH POC ABG pCO2 POC ABG pO2 ABG pO2 ABG HCO3 ABG O2 Saturation ABG Base Excess ABG Hemoglobin ABG Oxyhemoglobin ABG Sodium ABG Potassium ABG Chloride ABG Glucose Oxyhemoglobin Carboxyhemoglobin Sodium Potassium Chloride BUN Creatinine Glucose POC Glucose 509 H Hemoglobin A1c Lactic Acid Phosphorus Magnesium Alkaline Phosphatase Lactate Dehydrogenase C-Reactive Protein Total Protein Albumin Triglycerides Arterial Blood Glucose Urine WBC (Auto) Coronavirus (PCR) Chest x-ray: image reviewed (ETT & Chest tubes in good location) Allied health notes reviewed: nursing
--- NOTE | 2021-02-18 12:40 | Progress Note ---
Assessment and Plan Cultures: Blood culture no growth so far COVID-19 PCR: Positive 02/15/2021 tracheal aspirate culture: Staphylococcus species A/P: 32-year-old female past medical history morbid obesity, diabetes and Covid pneumonia #Septic shock: secondary to below. #Severe COVID-19 pneumonia: Patient presented with a week of symptoms, chest x- ray with diffuse bilateral infiltrates. Inflammatory markers elevated. Proca lcitonin was low #Acute hypoxemic respiratory failure: secondary to COVID-19 infection. On the vent. #Pneumothorax, subcutaneous emphysema, large pneumomediastinum: Surgery following, has chest tubes. #Morbid obesity BMI 46 #Diabetes: tight glycemic control for best outcomes. Recs: -add IV Vancomycin and fluconazole -continue IV cefepime -Continue dexamethasone for at least 10 days -Completed 5 days of remdesivir, Completed Tocilizumab on 02/13/2021 -Monitor inflammatory markers - Ddimer, CRP and CBC -very poor prognosis Edmar Frost MD, FACP [facility] ([facility] O: [phone] F: [phone] Subjective Date of service: 02/18/21 Principal diagnosis: Ac hypoxemic resp failure; ARDS; COVID-19 infection; Morbid obesity; OHS Interval history: Remains febrile, T-max of 103.3 F. Remains intubated, on the vent, on increa sing pressor requirements. WBC down to 22.2 Objective - Exam Narrative Exam: Physical Exam (reviewed in chart to minimize risk of transmission) Constitutional: deferred Head, Ears, Nose: deferred Eyes: deferred Neck: deferred Oral: deferred Cardiovascular: deferred Respiratory: deferred GI: deferred Musculoskeletal: deferred Skin: deferred Hem/Lymphatic: deferred Psych: deferred Neurological: deferred - Constitutional Vitals: Vital Signs Temp Pulse Resp BP Pulse Ox 103.3 F H 156 H 19 132/85 92 02/18/21 08:09 02/18/21 11:57 02/18/21 11:00 02/18/21 11:57 02/18/21 11:57 Temperature -Last 24 Hours Temperature 103.3 F Temperature 101.1 F Temperature 99.6 F Temperature 97.5 F Temperature 98 F - Labs CBC & Chem 7: 02/17/21 20:10 02/18/21 09:39 Labs: Abnormal lab results 02/17/21 02/17/21 02/17/21 Range/Units 10:40 17:41 19:33 WBC (4.5-11.0) K/mm3 MCV (79-97) fl MCH (28-32) pg RDW (13.2-15.2) % D-Dimer (0-234) ng/mlDDU Heparin Anti-Xa Level 1.18 H (0.3-0.7) U.I./ml ABG pH 7.313 L (7.320-7.450) POC ABG pCO2 52.1 H (32.0-48.0) mmHg POC ABG pO2 63.2 L (83-108) mmHg ABG Hemoglobin 11.8 L (12.0-17.5) ABG Oxyhemoglobin 88.2 L (94-98) ABG Sodium 146.9 H (136.0-145.0) mmol/L ABG Potassium 5.1 H (3.40-4.50) mmol/L ABG Chloride 111.0 H (98-107) mmol/L ABG Glucose 437 H (65-95) mg/dL Carboxyhemoglobin 0.4 L (0.5-1.5) Sodium (137-145) mmol/L Potassium (3.6-5.0) mmol/L Chloride (98-107) mmol/L BUN (7-17) mg/dL Glucose (65-100) mg/dL POC Glucose 390 H (70-105) mg/dL Lactic Acid (0.7-2.0) mmol/L Phosphorus (2.5-4.5) mg/dL Magnesium (1.7-2.3) mg/dL Alkaline Phosphatase (35-129) units/L Lactate Dehydrogenase (91-180) units/L Total Protein (6.3-8.2) g/dL Albumin (3.9-5) g/dL Triglycerides (2-149) mg/dL Arterial Blood Glucose 437 H (65-95) mg/dL Urine WBC (Auto) (0.0-6.0) /HPF 02/17/21 02/17/21 02/17/21 Range/Units 20:10 20:10 20:10 WBC 22.2 H (4.5-11.0) K/mm3 MCV 73 L (79-97) fl MCH 23 L (28-32) pg RDW 16.7 H (13.2-15.2) % D-Dimer (0-234) ng/mlDDU Heparin Anti-Xa Level (0.3-0.7) U.I./ml ABG pH (7.320-7.450) POC ABG pCO2 (32.0-48.0) mmHg POC ABG pO2 (83-108) mmHg ABG Hemoglobin (12.0-17.5) ABG Oxyhemoglobin (94-98) ABG Sodium (136.0-145.0) mmol/L ABG Potassium (3.40-4.50) mmol/L ABG Chloride (98-107) mmol/L ABG Glucose (65-95) mg/dL Carboxyhemoglobin (0.5-1.5) Sodium 146 H (137-145) mmol/L Potassium 5.7 H (3.6-5.0) mmol/L Chloride 108.1 H (98-107) mmol/L BUN 38 H (7-17) mg/dL Glucose 410 H (65-100) mg/dL POC Glucose (70-105) mg/dL Lactic Acid 2.80 H* (0.7-2.0) mmol/L Phosphorus 5.30 H (2.5-4.5) mg/dL Magnesium 2.70 H (1.7-2.3) mg/dL Alkaline Phosphatase (35-129) units/L Lactate Dehydrogenase (91-180) units/L Total Protein (6.3-8.2) g/dL Albumin 3.1 L (3.9-5) g/dL Triglycerides (2-149) mg/dL Arterial Blood Glucose (65-95) mg/dL Urine WBC (Auto) (0.0-6.0) /HPF 02/17/21 02/18/21 02/18/21 Range/Units 23:50 04:45 04:45 WBC (4.5-11.0) K/mm3 MCV (79-97) fl MCH (28-32) pg RDW (13.2-15.2) % D-Dimer (0-234) ng/mlDDU Heparin Anti-Xa Level (0.3-0.7) U.I./ml ABG pH (7.320-7.450) POC ABG pCO2 (32.0-48.0) mmHg POC ABG pO2 (83-108) mmHg ABG Hemoglobin (12.0-17.5) ABG Oxyhemoglobin (94-98) ABG Sodium (136.0-145.0) mmol/L ABG Potassium (3.40-4.50) mmol/L ABG Chloride (98-107) mmol/L ABG Glucose (65-95) mg/dL Carboxyhemoglobin (0.5-1.5) Sodium (137-145) mmol/L Potassium (3.6-5.0) mmol/L Chloride (98-107) mmol/L BUN (7-17) mg/dL Glucose (65-100) mg/dL POC Glucose 458 H (70-105) mg/dL Lactic Acid 4.40 H* (0.7-2.0) mmol/L Phosphorus 5.50 H (2.5-4.5) mg/dL Magnesium 2.80 H (1.7-2.3) mg/dL Alkaline Phosphatase (35-129) units/L Lactate Dehydrogenase 607 H (91-180) units/L Total Protein (6.3-8.2) g/dL Albumin (3.9-5) g/dL Triglycerides 987 H (2-149) mg/dL Arterial Blood Glucose (65-95) mg/dL Urine WBC (Auto) (0.0-6.0) /HPF 02/18/21 02/18/21 02/18/21 Range/Units 04:45 05:00 05:41 WBC (4.5-11.0) K/mm3 MCV (79-97) fl MCH (28-32) pg RDW (13.2-15.2) % D-Dimer 1819.69 H (0-234) ng/mlDDU Heparin Anti-Xa Level (0.3-0.7) U.I./ml ABG pH 7.241 L (7.320-7.450) POC ABG pCO2 55.7 H (32.0-48.0) mmHg POC ABG pO2 52.0 L (83-108) mmHg ABG Hemoglobin 11.5 L (12.0-17.5) ABG Oxyhemoglobin 79.7 L (94-98) ABG Sodium 145.8 H (136.0-145.0) mmol/L ABG Potassium 5.4 H (3.40-4.50) mmol/L ABG Chloride 111.0 H (98-107) mmol/L ABG Glucose 503 H (65-95) mg/dL Carboxyhemoglobin 0.2 L (0.5-1.5) Sodium (137-145) mmol/L Potassium (3.6-5.0) mmol/L Chloride (98-107) mmol/L BUN (7-17) mg/dL Glucose (65-100) mg/dL POC Glucose 485 H (70-105) mg/dL Lactic Acid (0.7-2.0) mmol/L Phosphorus (2.5-4.5) mg/dL Magnesium (1.7-2.3) mg/dL Alkaline Phosphatase (35-129) units/L Lactate Dehydrogenase (91-180) units/L Total Protein (6.3-8.2) g/dL Albumin (3.9-5) g/dL Triglycerides (2-149) mg/dL Arterial Blood Glucose 503 H (65-95) mg/dL Urine WBC (Auto) (0.0-6.0) /HPF 02/18/21 02/18/21 02/18/21 Range/Units 09:39 09:39 11:53 WBC (4.5-11.0) K/mm3 MCV (79-97) fl MCH (28-32) pg RDW (13.2-15.2) % D-Dimer (0-234) ng/mlDDU Heparin Anti-Xa Level (0.3-0.7) U.I./ml ABG pH (7.320-7.450) POC ABG pCO2 (32.0-48.0) mmHg POC ABG pO2 (83-108) mmHg ABG Hemoglobin (12.0-17.5) ABG Oxyhemoglobin (94-98) ABG Sodium (136.0-145.0) mmol/L ABG Potassium (3.40-4.50) mmol/L ABG Chloride (98-107) mmol/L ABG Glucose (65-95) mg/dL Carboxyhemoglobin (0.5-1.5) Sodium (137-145) mmol/L Potassium (3.6-5.0) mmol/L Chloride 108.6 H (98-107) mmol/L BUN 56 H (7-17) mg/dL Glucose (65-100) mg/dL POC Glucose 512 H (70-105) mg/dL Lactic Acid (0.7-2.0) mmol/L Phosphorus (2.5-4.5) mg/dL Magnesium (1.7-2.3) mg/dL Alkaline Phosphatase 133 H (35-129) units/L Lactate Dehydrogenase (91-180) units/L Total Protein 5.9 L (6.3-8.2) g/dL Albumin 2.8 L (3.9-5) g/dL Triglycerides (2-149) mg/dL Arterial Blood Glucose (65-95) mg/dL Urine WBC (Auto) 19.0 H (0.0-6.0) /HPF 02/18/21 Range/Units 11:55 WBC (4.5-11.0) K/mm3 MCV (79-97) fl MCH (28-32) pg RDW (13.2-15.2) % D-Dimer (0-234) ng/mlDDU Heparin Anti-Xa Level (0.3-0.7) U.I./ml ABG pH (7.320-7.450) POC ABG pCO2 (32.0-48.0) mmHg POC ABG pO2 (83-108) mmHg ABG Hemoglobin (12.0-17.5) ABG Oxyhemoglobin (94-98) ABG Sodium (136.0-145.0) mmol/L ABG Potassium (3.40-4.50) mmol/L ABG Chloride (98-107) mmol/L ABG Glucose (65-95) mg/dL Carboxyhemoglobin (0.5-1.5) Sodium (137-145) mmol/L Potassium (3.6-5.0) mmol/L Chloride (98-107) mmol/L BUN (7-17) mg/dL Glucose (65-100) mg/dL POC Glucose 509 H (70-105) mg/dL Lactic Acid (0.7-2.0) mmol/L Phosphorus (2.5-4.5) mg/dL Magnesium (1.7-2.3) mg/dL Alkaline Phosphatase (35-129) units/L Lactate Dehydrogenase (91-180) units/L Total Protein (6.3-8.2) g/dL Albumin (3.9-5) g/dL Triglycerides (2-149) mg/dL Arterial Blood Glucose (65-95) mg/dL Urine WBC (Auto) (0.0-6.0) /HPF
[2021-02-18 12:50] LABS: Alanine Aminotransferase < 5 units/L (7-56)
[2021-02-18] MEDS: VANCOMYCIN 1,500 MG in SODIUM CHLORIDE 0.9% 500 ML 500 ML IV SCH (13:12)
[2021-02-18] MEDS ORDERED: LIPASE 10,500/PROTEASE 25,000/AMYLASE 43,750 (UNITS) DR CAP FEEDTUBE PRN (13:51)
[2021-02-18] MEDS ORDERED: SIMPLE SYRUP 15 ML FEEDTUBE PRN ×2 (13:51)
[2021-02-18] MEDS ORDERED: SODIUM BICARBONATE 325 MG TAB FEEDTUBE PRN (13:51)
[2021-02-18] MEDS ORDERED: INSULIN GLARGINE 100 UNITS/ML SUB-Q ONE (14:30)
[2021-02-18] MEDS ORDERED: INSULIN NPH/REGULAR 70/30 INJ SUB-Q SCH (14:30)
[2021-02-18] MEDS: FLUCONAZOLE 400 MG 200 ML IV SCH (15:06)
[2021-02-18] MEDS ORDERED: ACETAMINOPHEN 325 MG/10.15 ML ORAL LIQD UNIT DOSE FEEDTUBE PRN (16:20)
[2021-02-19] MEDS: CEFEPIME/NS 2 GM/100 ML 2 GM/100 ML BAG IV SCH (00:15)
[2021-02-19] MEDS: VANCOMYCIN 1,500 MG in SODIUM CHLORIDE 0.9% 500 ML 500 ML IV SCH (00:16)
[2021-02-19] MEDS: INSULIN LISPRO 100 UNIT/ML SUB-Q SCH ×8 (00:17→23:48)
[2021-02-19] MEDS: fentaNYL DRIP Premix 2,000 MCG/100 ML BAG IV SCH ×5 (00:52→22:28)
--- NOTE | 2021-02-19 03:33 | XRay Report ---
CHEST 1 VIEW 02/19/2021 2:16 AM INDICATION / CLINICAL INFORMATION: follow up respiratory failure. COMPARISON: 02/17/2021 FINDINGS: SUPPORT DEVICES: Support lines and tubes again project in expected position HEART / MEDIASTINUM: Moderate pneumomediastinum, unchanged LUNGS / PLEURA: Bilateral airspace disease, unchanged. Tiny right apical pneumothorax . ADDITIONAL FINDINGS: Severe bilateral subcutaneous emphysema, unchanged IMPRESSION: 1. Moderate pneumomediastinum and tiny right apical pneumothorax with bilateral chest tubes 2. Bilateral pneumonia, unchanged Signer Name: Malcolm Seo MD Signed: 02/19/2021 3:29 AM Workstation Name: [id number]
[2021-02-19] MEDS: VASOPRESSIN 20 UNIT in SODIUM CHLORIDE 0.9% 100 ML IV SCH (09:00)
[2021-02-19] MEDS: HEPARIN/ 0.45% NACL DRIP 25,000 UNIT/500 ML BAG IV SCH (09:00)
[2021-02-19] MEDS: FAMOTIDINE 20 MG/2 ML INJ IV SCH (09:05)
[2021-02-19] MEDS: ZINC SULFATE 220 MG CAP PO SCH ×2 (09:05→22:29)
[2021-02-19] MEDS: SENNOSIDES/DOCUSATE SODIUM 8.6/50 MG TAB FEEDTUBE SCH ×2 (09:05→22:29)
[2021-02-19] MEDS: ASCORBIC ACID 500 MG TAB PO SCH ×2 (09:05→22:29)
[2021-02-19] MEDS: dexAMETHasone 4 MG/ML VIAL IV SCH (09:06)
[2021-02-19] MEDS: INSULIN NPH/REGULAR 70/30 INJ SUB-Q SCH ×2 (09:58→18:16)
--- NOTE | 2021-02-19 10:06 | Electrocardiograph Report ---
[facility] Test Date: 2021-02-18 Test Time: 08:46:58 Pat Name: ABDOULAYE DUENAS Department: Room: A259 1 Gender: F Special Investigator: MORENO : 1980 Requested By: SHANAE METZGER Order Number: [id number] Reading MD: Angelo Jimenez Measurements Intervals [place] Rate: 162 P: 0 NC: 118 QRS: 64 QRSD: 48 T: 8 QT: 272 QTc: 446 Interpretive Statements Sinus tachycardia Multiform ventricular premature complexes Aberrant complex NSSTTW'S Low voltage, precordial leads Compared to ECG 02/14/2021 15:23:35 Aberrant conduction of supraventricular beat(s) now present Sinus rhythm no longer present Electronically Signed On 02-19-2021 10:05:56 EDT by Angelo Jimenez
--- NOTE | 2021-02-19 11:13 | Progress Note ---
Assessment and Plan ARDS COVID-19 infection Morbid obesity; BMI 46.6 Obesity hypoventilation syndrome - get Urine lytes; azotemia per nephrology otherwise - repeat BMP in am - discontinued Ativan - extend Decadron duration while with ARDS - Insulin dosing uptitrated for better control - follow cardiology consult - reduced FiO2 to 90%; will see if can go down on peep by morning - repeat ABG at 9 pm tonight - continue anti-infective's as per ID rec's - keep chest tubes to continuous wall suction - prn vasopressors for target MAP > 65 mmHg (off now) - continue conservative volume management strategies - sedation target RASS -2 to -3 acutely - continue aspiration precautions - continue care as below otherwise; - continue lung protective strategies - prn bronchodilators with pulmonary hygiene per RT - avoid nephrotoxins, renally dose all medications - continue to avoid benzodiazepine's, reduce the possibility of delirium - complete AB's per ID rec's - prn analgesia per CPOT score - Maintenance of sleep-wake cycle, avoid delirium - continue enteral nutritional support at goal rate as tolerated - G.I. & VTE prophylaxis - PT/OT/ROM exercises - continue mobility protocols for pressure ulcer prophylaxis - Monitor hemodynamics closely - continue other care per attending / other consultants - discharge planning ongoing concurrently COVID SPECIFIC INTERVENTIONS - Remdesivir as per ID/Pulmonary developed protocols (receiving) - continue systemic steroids for severe COVID-19 infection - follow repeat COVID tests results - zinc and vitamin C supplementation - Monitor inflammatory markers per facility protocol - ferritin, Ddimer, CRP - therapeutic anticoagulation per system Protocol based on d-dimer and clinical considerations (DVT prophylaxis for now) - Continue contact and airborne isolation .... Re-evaluate in am & prn CONDITION: CRITICAL PROGNOSIS: GRAVE CODE STATUS: FULL CODE The high probability of a clinically significant, sudden or life-threatening deterioration of the [respiratory, cardiovascular, GI & neurologic] system(s) required my full and direct attention, intervention and personal management. The aggregate critical care time was [33] minutes without overlap. Time includes spent on; [x] Data Review and interpretation [x] Patient assessment and monitoring of vital signs [x] Documentation [x] Medication orders and management Subjective Date of service: 02/19/21 Principal diagnosis: Ac hypoxemic resp failure; ARDS; COVID-19 infection; Morbid obesity; OHS Interval history: Patient is seen today for: Acute hypoxemic respiratory failure; ARDS; COVID-19 infection; Morbid obesity; OHS Seen and examined at bedside; 24hour events reviewed; nursing and respiratory care staff consulted; no adverse overnight events reported to me; resting in bed; remains on MVS; hypoxemia improving; peep reduced to 18 overnight and O2 sat's 98% at time of my evaluation today; fevers better Objective Vital Signs - 12hr 02/18/21 02/18/21 02/18/21 23:15 23:30 23:45 Temperature Pulse Rate 144 H 143 H 142 H Pulse Rate [ From Monitor] Respiratory 21 20 21 Rate Blood Pressure 133/84 130/85 140/80 O2 Sat by Pulse 96 96 96 Oximetry 02/18/21 02/19/21 02/19/21 23:59 00:00 00:15 Temperature 100.9 F H Pulse Rate 141 H 142 H 140 H Pulse Rate [ 149 H From Monitor] Respiratory 19 20 Rate Blood Pressure 140/80 143/83 133/86 O2 Sat by Pulse 96 95 96 Oximetry 02/19/21 02/19/21 02/19/21 00:30 00:45 01:00 Temperature Pulse Rate 140 H 136 H 133 H Pulse Rate [ From Monitor] Respiratory 19 19 20 Rate Blood Pressure 125/85 136/87 132/82 O2 Sat by Pulse 97 97 97 Oximetry 02/19/21 02/19/21 02/19/21 01:15 01:30 01:45 Temperature Pulse Rate 129 H 126 H 124 H Pulse Rate [ From Monitor] Respiratory 20 19 20 Rate Blood Pressure 116/77 116/80 110/79 O2 Sat by Pulse 97 97 97 Oximetry 02/19/21 02/19/21 02/19/21 02:00 02:15 02:30 Temperature Pulse Rate 122 H 121 H 121 H Pulse Rate [ From Monitor] Respiratory 20 20 20 Rate Blood Pressure 109/73 113/74 114/73 O2 Sat by Pulse 98 97 96 Oximetry 02/19/21 02/19/21 02/19/21 02:45 03:00 03:15 Temperature Pulse Rate 121 H 120 H 120 H Pulse Rate [ From Monitor] Respiratory 20 20 21 Rate Blood Pressure 116/75 109/75 108/67 O2 Sat by Pulse 96 97 96 Oximetry 02/19/21 02/19/21 02/19/21 03:28 03:30 03:45 Temperature 98.1 F Pulse Rate 120 H 118 H Pulse Rate [ From Monitor] Respiratory 20 20 Rate Blood Pressure 116/68 115/73 O2 Sat by Pulse 97 98 Oximetry 02/19/21 02/19/21 02/19/21 04:00 04:03 04:15 Temperature Pulse Rate 117 H 117 H 114 H Pulse Rate [ 149 H From Monitor] Respiratory 20 20 Rate Blood Pressure 110/75 110/75 114/70 O2 Sat by Pulse 98 98 98 Oximetry 02/19/21 02/19/21 02/19/21 04:30 04:45 05:00 Temperature Pulse Rate 113 H 113 H 114 H Pulse Rate [ From Monitor] Respiratory 19 20 21 Rate Blood Pressure 108/70 118/71 115/75 O2 Sat by Pulse 99 98 98 Oximetry 02/19/21 02/19/21 02/19/21 05:15 05:30 05:45 Temperature Pulse Rate 117 H 113 H 113 H Pulse Rate [ From Monitor] Respiratory 20 20 21 Rate Blood Pressure 120/79 117/74 126/77 O2 Sat by Pulse 93 98 98 Oximetry 02/19/21 02/19/21 02/19/21 06:00 06:15 06:30 Temperature Pulse Rate 114 H 113 H 111 H Pulse Rate [ From Monitor] Respiratory 21 20 20 Rate Blood Pressure 125/77 132/83 121/80 O2 Sat by Pulse 98 97 97 Oximetry 02/19/21 02/19/21 02/19/21 06:45 07:00 07:15 Temperature 97.6 F Pulse Rate 109 H 109 H 110 H Pulse Rate [ From Monitor] Respiratory 20 19 20 Rate Blood Pressure 125/80 130/83 124/84 O2 Sat by Pulse 98 98 98 Oximetry 02/19/21 02/19/21 02/19/21 07:30 07:45 08:00 Temperature Pulse Rate 112 H 113 H 111 H Pulse Rate [ 111 H From Monitor] Respiratory 19 19 20 Rate Blood Pressure 130/85 127/78 123/81 O2 Sat by Pulse 98 97 98 Oximetry 02/19/21 02/19/21 02/19/21 08:15 08:30 08:45 Temperature Pulse Rate 113 H 111 H 112 H Pulse Rate [ From Monitor] Respiratory 20 20 20 Rate Blood Pressure 123/77 123/81 134/86 O2 Sat by Pulse 97 98 80 L Oximetry 08/02/19/21 02/19/21 09:00 09:15 09:30 Temperature Pulse Rate 108 H 107 H 107 H Pulse Rate [ From Monitor] Respiratory 20 19 19 Rate Blood Pressure 134/79 131/79 131/81 O2 Sat by Pulse 97 98 98 Oximetry 02/19/21 02/19/21 09:45 10:00 Temperature Pulse Rate 104 H 107 H Pulse Rate [ From Monitor] Respiratory 23 20 Rate Blood Pressure 122/76 132/81 O2 Sat by Pulse 98 98 Oximetry Constitutional: appears uncomfortable, other (Morbidly Obese female with mildy increased work of breathing at rest & gross SQ emphysema to face and upper chest) Eyes: non-icteric ENT: oropharynx moist, other (ETT 24 cm KATH) Neck: supple, no lymphadenopathy, no JVD, other (SQ emphysema palpable) Effort: mildly labored Ascultation: Bilateral: diminished breath sounds, rhonchi (scant), other (SQ Emphysema) Percussion: Bilateral: not dull Cardiovascular: regular rate and rhythm Gastrointestinal: normoactive bowel sounds, soft, non-tender, non-distended (protuberant) Integumentary: normal Extremities: no cyanosis, no edema, pulses normal, no ischemia or petechiae Neurologic: normal mental status, non-focal exam, pupils equal and round, CN II- XII normal, motor strength normal and Psychiatric: other (sedate) CBC and BMP: 02/17/21 20:10 02/18/21 09:39 ABG, PT/INR, D-dimer: ABG ABG pH 7.316 (7.320-7.450) L 02/18/21 21:00 POC ABG pCO2 56.4 mmHg (32.0-48.0) H 02/18/21 21:00 ABG pCO2 50.8 mm Hg 02/17/21 10:59 POC ABG pO2 80.7 mmHg (83-108) L 02/18/21 21:00 ABG pO2 75.5 mm Hg (80.0-90.0) L 02/17/21 10:59 POC ABG HCO3 28.1 02/18/21 21:00 ABG O2 Saturation 95.1 (0-100) 02/18/21 21:00 PT/INR, D-dimer PT 20.8 Sec. (12.2-14.9) H 02/16/21 01:49 INR 1.73 (0.87-1.13) H 02/16/21 01:49 D-Dimer 1819.69 ng/mlDDU (0-234) H 02/18/21 04:45 Abnormal lab findings: Abnormal Labs 02/10/21 02/10/21 02/10/21 06:00 06:00 06:36 WBC RBC MCV 71 L MCH 23 L RDW 16.5 H Plt Count Lymph % (Auto) Lymph # (Auto) 1.1 L [place] # (Auto) Eos # (Auto) Seg Neutrophils % 76.6 H Seg Neutrophils # PT INR APTT D-Dimer Heparin Anti-Xa Level ABG pH POC ABG pCO2 POC ABG pO2 ABG pO2 ABG HCO3 ABG O2 Saturation ABG Base Excess ABG Hemoglobin ABG Oxyhemoglobin ABG Sodium ABG Potassium ABG Chloride ABG Glucose Oxyhemoglobin Carboxyhemoglobin Sodium Potassium Chloride 97.7 L BUN 6 L Creatinine Glucose 295 H POC Glucose Hemoglobin A1c Lactic Acid Phosphorus Magnesium AST ALT Alkaline Phosphatase Lactate Dehydrogenase 325 H C-Reactive Protein 8.20 H Total Protein Albumin 3.8 L Triglycerides Arterial Blood Glucose Urine WBC (Auto) Coronavirus (PCR) 02/10/21 02/10/21 02/10/21 08:28 14:29 14:29 WBC RBC MCV MCH RDW Plt Count Lymph % (Auto) Lymph # (Auto) [place] # (Auto) Eos # (Auto) Seg Neutrophils % Seg Neutrophils # PT INR APTT D-Dimer Heparin Anti-Xa Level ABG pH POC ABG pCO2 POC ABG pO2 ABG pO2 ABG HCO3 ABG O2 Saturation ABG Base Excess ABG Hemoglobin ABG Oxyhemoglobin ABG Sodium ABG Potassium ABG Chloride ABG Glucose Oxyhemoglobin Carboxyhemoglobin Sodium 135 L Potassium Chloride 97.0 L BUN 6 L Creatinine Glucose 308 H POC Glucose Hemoglobin A1c 10.5 H Lactic Acid Phosphorus Magnesium AST ALT Alkaline Phosphatase Lactate Dehydrogenase C-Reactive Protein Total Protein Albumin 3.4 L Triglycerides Arterial Blood Glucose Urine WBC (Auto) Coronavirus (PCR) Positive A 02/10/21 02/10/21 02/10/21 14:37 16:49 21:34 WBC RBC MCV MCH RDW Plt Count Lymph % (Auto) Lymph # (Auto) [place] # (Auto) Eos # (Auto) Seg Neutrophils % Seg Neutrophils # PT INR APTT D-Dimer Heparin Anti-Xa Level ABG pH POC ABG pCO2 POC ABG pO2 58.8 L ABG pO2 ABG HCO3 ABG O2 Saturation ABG Base Excess ABG Hemoglobin 11.2 L ABG Oxyhemoglobin 88.2 L ABG Sodium ABG Potassium ABG Chloride ABG Glucose 343 H Oxyhemoglobin Carboxyhemoglobin 0 L Sodium Potassium Chloride BUN Creatinine Glucose POC Glucose 289 H 304 H Hemoglobin A1c Lactic Acid Phosphorus Magnesium AST ALT Alkaline Phosphatase Lactate Dehydrogenase C-Reactive Protein Total Protein Albumin Triglycerides Arterial Blood Glucose 343 H Urine WBC (Auto) Coronavirus (PCR) 02/11/21 02/11/21 02/11/21 07:58 09:59 17:29 WBC RBC MCV MCH RDW Plt Count Lymph % (Auto) Lymph # (Auto) [place] # (Auto) Eos # (Auto) Seg Neutrophils % Seg Neutrophils # PT INR APTT D-Dimer Heparin Anti-Xa Level ABG pH POC ABG pCO2 POC ABG pO2 ABG pO2 ABG HCO3 ABG O2 Saturation ABG Base Excess ABG Hemoglobin ABG Oxyhemoglobin ABG Sodium ABG Potassium ABG Chloride ABG Glucose Oxyhemoglobin Carboxyhemoglobin Sodium Potassium Chloride 97.5 L BUN Creatinine Glucose 269 H POC Glucose 271 H 351 H Hemoglobin A1c Lactic Acid Phosphorus Magnesium AST ALT Alkaline Phosphatase Lactate Dehydrogenase C-Reactive Protein Total Protein Albumin 3.3 L Triglycerides Arterial Blood Glucose Urine WBC (Auto) Coronavirus (PCR) 02/11/21 02/12/21 02/12/21 21:50 05:28 10:09 WBC RBC MCV MCH RDW Plt Count Lymph % (Auto) Lymph # (Auto) [place] # (Auto) Eos # (Auto) Seg Neutrophils % Seg Neutrophils # PT INR APTT D-Dimer 310.92 H Heparin Anti-Xa Level ABG pH POC ABG pCO2 POC ABG pO2 ABG pO2 ABG HCO3 ABG O2 Saturation ABG Base Excess ABG Hemoglobin ABG Oxyhemoglobin ABG Sodium ABG Potassium ABG Chloride ABG Glucose Oxyhemoglobin Carboxyhemoglobin Sodium Potassium 5.1 H Chloride BUN Creatinine Glucose 308 H POC Glucose 333 H Hemoglobin A1c Lactic Acid Phosphorus Magnesium AST ALT Alkaline Phosphatase Lactate Dehydrogenase C-Reactive Protein Total Protein Albumin 3.3 L Triglycerides Arterial Blood Glucose Urine WBC (Auto) Coronavirus (PCR) 02/12/21 02/12/21 02/12/21 10:09 16:00 21:50 WBC RBC MCV MCH RDW Plt Count Lymph % (Auto) Lymph # (Auto) [place] # (Auto) Eos # (Auto) Seg Neutrophils % Seg Neutrophils # PT INR APTT D-Dimer Heparin Anti-Xa Level ABG pH POC ABG pCO2 POC ABG pO2 ABG pO2 ABG HCO3 ABG O2 Saturation ABG Base Excess ABG Hemoglobin ABG Oxyhemoglobin ABG Sodium ABG Potassium ABG Chloride ABG Glucose 406 H Oxyhemoglobin Carboxyhemoglobin 0.3 L Sodium Potassium Chloride BUN Creatinine Glucose POC Glucose 353 H Hemoglobin A1c Lactic Acid Phosphorus Magnesium AST ALT Alkaline Phosphatase Lactate Dehydrogenase 564 H C-Reactive Protein 12.60 H Total Protein Albumin Triglycerides Arterial Blood Glucose 406 H Urine WBC (Auto) Coronavirus (PCR) 02/13/21 02/13/21 02/13/21 04:38 08:32 17:08 WBC RBC MCV MCH RDW Plt Count Lymph % (Auto) Lymph # (Auto) [place] # (Auto) Eos # (Auto) Seg Neutrophils % Seg Neutrophils # PT INR APTT D-Dimer Heparin Anti-Xa Level ABG pH POC ABG pCO2 POC ABG pO2 ABG pO2 ABG HCO3 ABG O2 Saturation ABG Base Excess ABG Hemoglobin ABG Oxyhemoglobin ABG Sodium ABG Potassium ABG Chloride ABG Glucose Oxyhemoglobin Carboxyhemoglobin Sodium Potassium Chloride BUN Creatinine Glucose 295 H POC Glucose 308 H 372 H Hemoglobin A1c Lactic Acid Phosphorus Magnesium AST ALT Alkaline Phosphatase Lactate Dehydrogenase C-Reactive Protein Total Protein 8.4 H Albumin 3.5 L Triglycerides Arterial Blood Glucose Urine WBC (Auto) Coronavirus (PCR) 02/13/21 02/14/21 02/14/21 21:09 09:11 13:13 WBC RBC MCV MCH RDW Plt Count Lymph % (Auto) Lymph # (Auto) [place] # (Auto) Eos # (Auto) Seg Neutrophils % Seg Neutrophils # PT INR APTT D-Dimer Heparin Anti-Xa Level ABG pH POC ABG pCO2 POC ABG pO2 ABG pO2 ABG HCO3 ABG O2 Saturation ABG Base Excess ABG Hemoglobin ABG Oxyhemoglobin ABG Sodium ABG Potassium ABG Chloride ABG Glucose Oxyhemoglobin Carboxyhemoglobin Sodium Potassium Chloride BUN Creatinine Glucose POC Glucose 370 H 289 H 271 H Hemoglobin A1c Lactic Acid Phosphorus Magnesium AST ALT Alkaline Phosphatase Lactate Dehydrogenase C-Reactive Protein Total Protein Albumin Triglycerides Arterial Blood Glucose Urine WBC (Auto) Coronavirus (PCR) 02/14/21 02/14/21 02/15/21 18:28 18:30 00:05 WBC RBC MCV MCH RDW Plt Count Lymph % (Auto) Lymph # (Auto) [place] # (Auto) Eos # (Auto) Seg Neutrophils % Seg Neutrophils # PT INR APTT D-Dimer Heparin Anti-Xa Level ABG pH POC ABG pCO2 POC ABG pO2 ABG pO2 ABG HCO3 ABG O2 Saturation ABG Base Excess ABG Hemoglobin ABG Oxyhemoglobin ABG Sodium ABG Potassium ABG Chloride ABG Glucose Oxyhemoglobin Carboxyhemoglobin Sodium Potassium Chloride BUN Creatinine Glucose POC Glucose 391 H 354 H 290 H Hemoglobin A1c Lactic Acid Phosphorus Magnesium AST ALT Alkaline Phosphatase Lactate Dehydrogenase C-Reactive Protein Total Protein Albumin Triglycerides Arterial Blood Glucose Urine WBC (Auto) Coronavirus (PCR) 02/15/21 02/15/21 02/15/21 07:44 09:30 12:27 WBC RBC MCV MCH RDW Plt Count Lymph % (Auto) Lymph # (Auto) [place] # (Auto) Eos # (Auto) Seg Neutrophils % Seg Neutrophils # PT INR APTT D-Dimer Heparin Anti-Xa Level ABG pH POC ABG pCO2 POC ABG pO2 ABG pO2 55.0 L ABG HCO3 30.7 H ABG O2 Saturation 87.4 L ABG Base Excess 4.1 H ABG Hemoglobin ABG Oxyhemoglobin ABG Sodium ABG Potassium ABG Chloride ABG Glucose Oxyhemoglobin 86.1 L Carboxyhemoglobin Sodium Potassium Chloride BUN Creatinine Glucose POC Glucose 265 H 270 H Hemoglobin A1c Lactic Acid Phosphorus Magnesium AST ALT Alkaline Phosphatase Lactate Dehydrogenase C-Reactive Protein Total Protein Albumin Triglycerides Arterial Blood Glucose Urine WBC (Auto) Coronavirus (PCR) 02/15/21 02/16/21 02/16/21 16:58 01:13 01:49 WBC RBC MCV MCH RDW Plt Count Lymph % (Auto) Lymph # (Auto) [place] # (Auto) Eos # (Auto) Seg Neutrophils % Seg Neutrophils # PT 20.8 H INR 1.73 H APTT > 240.0 H* D-Dimer Heparin Anti-Xa Level ABG pH 7.456 H POC ABG pCO2 POC ABG pO2 136.3 H ABG pO2 ABG HCO3 ABG O2 Saturation ABG Base Excess ABG Hemoglobin ABG Oxyhemoglobin ABG Sodium ABG Potassium 4.7 H ABG Chloride ABG Glucose 395 H Oxyhemoglobin Carboxyhemoglobin Sodium Potassium Chloride BUN Creatinine Glucose POC Glucose 325 H Hemoglobin A1c Lactic Acid Phosphorus Magnesium AST ALT Alkaline Phosphatase Lactate Dehydrogenase C-Reactive Protein Total Protein Albumin Triglycerides Arterial Blood Glucose 395 H Urine WBC (Auto) Coronavirus (PCR) 02/16/21 02/16/21 02/16/21 02:05 07:45 07:45 WBC 16.8 H RBC 5.61 H MCV 71 L MCH 23 L RDW 17.0 H Plt Count Lymph % (Auto) 11.5 L Lymph # (Auto) [place] # (Auto) 0.9 H Eos # (Auto) 0.5 H Seg Neutrophils % 79.6 H Seg Neutrophils # 13.4 H PT INR APTT D-Dimer Heparin Anti-Xa Level ABG pH POC ABG pCO2 POC ABG pO2 ABG pO2 ABG HCO3 ABG O2 Saturation ABG Base Excess ABG Hemoglobin ABG Oxyhemoglobin ABG Sodium ABG Potassium ABG Chloride ABG Glucose Oxyhemoglobin Carboxyhemoglobin Sodium Potassium Chloride BUN 27 H Creatinine Glucose 269 H POC Glucose 347 H Hemoglobin A1c Lactic Acid Phosphorus Magnesium AST ALT Alkaline Phosphatase Lactate Dehydrogenase C-Reactive Protein Total Protein Albumin Triglycerides Arterial Blood Glucose Urine WBC (Auto) Coronavirus (PCR) 02/16/21 02/16/21 02/16/21 07:45 07:46 15:01 WBC RBC MCV MCH RDW Plt Count Lymph % (Auto) Lymph # (Auto) [place] # (Auto) Eos # (Auto) Seg Neutrophils % Seg Neutrophils # PT INR APTT D-Dimer Heparin Anti-Xa Level > 1.99 H ABG pH POC ABG pCO2 POC ABG pO2 ABG pO2 ABG HCO3 ABG O2 Saturation ABG Base Excess ABG Hemoglobin ABG Oxyhemoglobin ABG Sodium ABG Potassium ABG Chloride ABG Glucose Oxyhemoglobin Carboxyhemoglobin Sodium Potassium Chloride BUN Creatinine Glucose POC Glucose 290 H 378 H Hemoglobin A1c Lactic Acid Phosphorus Magnesium AST ALT Alkaline Phosphatase Lactate Dehydrogenase C-Reactive Protein Total Protein Albumin Triglycerides Arterial Blood Glucose Urine WBC (Auto) Coronavirus (PCR) 02/16/21 02/16/21 02/16/21 17:50 19:15 21:00 WBC RBC MCV MCH RDW Plt Count Lymph % (Auto) Lymph # (Auto) [place] # (Auto) Eos # (Auto) Seg Neutrophils % Seg Neutrophils # PT INR APTT D-Dimer Heparin Anti-Xa Level 0.72 H ABG pH POC ABG pCO2 31.8 L POC ABG pO2 81.0 L ABG pO2 ABG HCO3 ABG O2 Saturation ABG Base Excess ABG Hemoglobin ABG Oxyhemoglobin ABG Sodium ABG Potassium 5.3 H ABG Chloride ABG Glucose 416 H Oxyhemoglobin Carboxyhemoglobin 0.3 L Sodium Potassium Chloride BUN Creatinine Glucose POC Glucose 396 H Hemoglobin A1c Lactic Acid Phosphorus Magnesium AST ALT Alkaline Phosphatase Lactate Dehydrogenase C-Reactive Protein Total Protein Albumin Triglycerides Arterial Blood Glucose 416 H Urine WBC (Auto) Coronavirus (PCR) 02/16/21 02/17/21 02/17/21 23:33 05:49 06:05 WBC 30.4 H RBC MCV 72 L MCH 23 L RDW 16.7 H Plt Count 481 H Lymph % (Auto) Lymph # (Auto) [place] # (Auto) Eos # (Auto) Seg Neutrophils % Seg Neutrophils # PT INR APTT D-Dimer Heparin Anti-Xa Level ABG pH POC ABG pCO2 POC ABG pO2 ABG pO2 ABG HCO3 ABG O2 Saturation ABG Base Excess ABG Hemoglobin ABG Oxyhemoglobin ABG Sodium ABG Potassium ABG Chloride ABG Glucose Oxyhemoglobin Carboxyhemoglobin Sodium Potassium Chloride BUN Creatinine Glucose POC Glucose 348 H 290 H Hemoglobin A1c Lactic Acid Phosphorus Magnesium AST ALT Alkaline Phosphatase Lactate Dehydrogenase C-Reactive Protein Total Protein Albumin Triglycerides Arterial Blood Glucose Urine WBC (Auto) Coronavirus (PCR) 02/17/21 02/17/21 02/17/21 06:05 10:40 10:59 WBC RBC MCV MCH RDW Plt Count Lymph % (Auto) Lymph # (Auto) [place] # (Auto) Eos # (Auto) Seg Neutrophils % Seg Neutrophils # PT INR APTT D-Dimer Heparin Anti-Xa Level 1.18 H ABG pH 7.319 L POC ABG pCO2 POC ABG pO2 ABG pO2 75.5 L ABG HCO3 ABG O2 Saturation 15.2 L ABG Base Excess ABG Hemoglobin 6.9 L ABG Oxyhemoglobin ABG Sodium ABG Potassium ABG Chloride ABG Glucose Oxyhemoglobin 91.4 L Carboxyhemoglobin Sodium Potassium Chloride BUN 46 H Creatinine 1.4 H Glucose 309 H POC Glucose Hemoglobin A1c Lactic Acid Phosphorus 5.80 H Magnesium 2.50 H AST ALT Alkaline Phosphatase Lactate Dehydrogenase C-Reactive Protein Total Protein Albumin 3.2 L Triglycerides Arterial Blood Glucose Urine WBC (Auto) Coronavirus (PCR) 02/17/21 02/17/21 02/17/21 12:15 17:41 19:33 WBC RBC MCV MCH RDW Plt Count Lymph % (Auto) Lymph # (Auto) [place] # (Auto) Eos # (Auto) Seg Neutrophils % Seg Neutrophils # PT INR APTT D-Dimer Heparin Anti-Xa Level ABG pH 7.313 L POC ABG pCO2 52.1 H POC ABG pO2 63.2 L ABG pO2 ABG HCO3 ABG O2 Saturation ABG Base Excess ABG Hemoglobin 11.8 L ABG Oxyhemoglobin 88.2 L ABG Sodium 146.9 H ABG Potassium 5.1 H ABG Chloride 111.0 H ABG Glucose 437 H Oxyhemoglobin Carboxyhemoglobin 0.4 L Sodium Potassium Chloride BUN Creatinine Glucose POC Glucose 305 H 390 H Hemoglobin A1c Lactic Acid Phosphorus Magnesium AST ALT Alkaline Phosphatase Lactate Dehydrogenase C-Reactive Protein Total Protein Albumin Triglycerides Arterial Blood Glucose 437 H Urine WBC (Auto) Coronavirus (PCR) 02/17/21 02/17/21 02/17/21 20:10 20:10 20:10 WBC 22.2 H RBC MCV 73 L MCH 23 L RDW 16.7 H Plt Count Lymph % (Auto) Lymph # (Auto) [place] # (Auto) Eos # (Auto) Seg Neutrophils % Seg Neutrophils # PT INR APTT D-Dimer Heparin Anti-Xa Level ABG pH POC ABG pCO2 POC ABG pO2 ABG pO2 ABG HCO3 ABG O2 Saturation ABG Base Excess ABG Hemoglobin ABG Oxyhemoglobin ABG Sodium ABG Potassium ABG Chloride ABG Glucose Oxyhemoglobin Carboxyhemoglobin Sodium 146 H Potassium 5.7 H Chloride 108.1 H BUN 38 H Creatinine Glucose 410 H POC Glucose Hemoglobin A1c Lactic Acid 2.80 H* Phosphorus 5.30 H Magnesium 2.70 H AST ALT Alkaline Phosphatase Lactate Dehydrogenase C-Reactive Protein Total Protein Albumin 3.1 L Triglycerides Arterial Blood Glucose Urine WBC (Auto) Coronavirus (PCR) 02/17/21 02/18/21 02/18/21 23:50 04:45 04:45 WBC RBC MCV MCH RDW Plt Count Lymph % (Auto) Lymph # (Auto) [place] # (Auto) Eos # (Auto) Seg Neutrophils % Seg Neutrophils # PT INR APTT D-Dimer Heparin Anti-Xa Level ABG pH POC ABG pCO2 POC ABG pO2 ABG pO2 ABG HCO3 ABG O2 Saturation ABG Base Excess ABG Hemoglobin ABG Oxyhemoglobin ABG Sodium ABG Potassium ABG Chloride ABG Glucose Oxyhemoglobin Carboxyhemoglobin Sodium Potassium Chloride BUN Creatinine Glucose POC Glucose 458 H Hemoglobin A1c Lactic Acid 4.40 H* Phosphorus 5.50 H Magnesium 2.80 H AST ALT Alkaline Phosphatase Lactate Dehydrogenase 607 H C-Reactive Protein Total Protein Albumin Triglycerides 987 H Arterial Blood Glucose Urine WBC (Auto) Coronavirus (PCR) 02/18/21 02/18/21 02/18/21 04:45 05:00 05:41 WBC RBC MCV MCH RDW Plt Count Lymph % (Auto) Lymph # (Auto) [place] # (Auto) Eos # (Auto) Seg Neutrophils % Seg Neutrophils # PT INR APTT D-Dimer 1819.69 H Heparin Anti-Xa Level ABG pH 7.241 L POC ABG pCO2 55.7 H POC ABG pO2 52.0 L ABG pO2 ABG HCO3 ABG O2 Saturation ABG Base Excess ABG Hemoglobin 11.5 L ABG Oxyhemoglobin 79.7 L ABG Sodium 145.8 H ABG Potassium 5.4 H ABG Chloride 111.0 H ABG Glucose 503 H Oxyhemoglobin Carboxyhemoglobin 0.2 L Sodium Potassium Chloride BUN Creatinine Glucose POC Glucose 485 H Hemoglobin A1c Lactic Acid Phosphorus Magnesium AST ALT Alkaline Phosphatase Lactate Dehydrogenase C-Reactive Protein Total Protein Albumin Triglycerides Arterial Blood Glucose 503 H Urine WBC (Auto) Coronavirus (PCR) 02/18/21 02/18/21 02/18/21 09:39 09:39 11:53 WBC RBC MCV MCH RDW Plt Count Lymph % (Auto) Lymph # (Auto) [place] # (Auto) Eos # (Auto) Seg Neutrophils % Seg Neutrophils # PT INR APTT D-Dimer Heparin Anti-Xa Level ABG pH POC ABG pCO2 POC ABG pO2 ABG pO2 ABG HCO3 ABG O2 Saturation ABG Base Excess ABG Hemoglobin ABG Oxyhemoglobin ABG Sodium ABG Potassium ABG Chloride ABG Glucose Oxyhemoglobin Carboxyhemoglobin Sodium Potassium Chloride 108.6 H BUN 56 H Creatinine 2.4 H D Glucose 580 H* POC Glucose 512 H Hemoglobin A1c Lactic Acid Phosphorus Magnesium AST < 5 L ALT < 5 L Alkaline Phosphatase 133 H Lactate Dehydrogenase C-Reactive Protein Total Protein 5.9 L Albumin 2.8 L Triglycerides Arterial Blood Glucose Urine WBC (Auto) 19.0 H Coronavirus (PCR) 02/18/21 02/18/21 02/18/21 11:55 18:09 18:29 WBC RBC MCV MCH RDW Plt Count Lymph % (Auto) Lymph # (Auto) [place] # (Auto) Eos # (Auto) Seg Neutrophils % Seg Neutrophils # PT INR APTT D-Dimer Heparin Anti-Xa Level ABG pH POC ABG pCO2 POC ABG pO2 ABG pO2 ABG HCO3 ABG O2 Saturation ABG Base Excess ABG Hemoglobin ABG Oxyhemoglobin ABG Sodium ABG Potassium ABG Chloride ABG Glucose Oxyhemoglobin Carboxyhemoglobin Sodium Potassium Chloride BUN Creatinine Glucose POC Glucose 509 H 518 H Hemoglobin A1c Lactic Acid 2.90 H* Phosphorus Magnesium AST ALT Alkaline Phosphatase Lactate Dehydrogenase C-Reactive Protein Total Protein Albumin Triglycerides Arterial Blood Glucose Urine WBC (Auto) Coronavirus (PCR) 02/18/21 02/18/21 02/18/21 21:00 23:09 Unknown WBC RBC MCV MCH RDW Plt Count Lymph % (Auto) Lymph # (Auto) [place] # (Auto) Eos # (Auto) Seg Neutrophils % Seg Neutrophils # PT INR APTT D-Dimer Heparin Anti-Xa Level ABG pH 7.316 L POC ABG pCO2 56.4 H POC ABG pO2 80.7 L ABG pO2 ABG HCO3 ABG O2 Saturation ABG Base Excess ABG Hemoglobin 9.6 L ABG Oxyhemoglobin ABG Sodium 149.4 H ABG Potassium 4.6 H ABG Chloride 116.0 H ABG Glucose 551 H Oxyhemoglobin Carboxyhemoglobin 0.3 L Sodium Potassium Chloride BUN Creatinine Glucose POC Glucose 469 H Hemoglobin A1c Lactic Acid 3.60 H* Phosphorus Magnesium AST ALT Alkaline Phosphatase Lactate Dehydrogenase C-Reactive Protein Total Protein Albumin Triglycerides Arterial Blood Glucose 551 H Urine WBC (Auto) Coronavirus (PCR) 02/19/21 02/19/21 02/19/21 04:45 04:45 05:33 WBC RBC MCV MCH RDW Plt Count Lymph % (Auto) Lymph # (Auto) Elk # (Auto) Eos # (Auto) Seg Neutrophils % Seg Neutrophils # PT INR APTT D-Dimer Heparin Anti-Xa Level 0.92 H ABG pH POC ABG pCO2 POC ABG pO2 ABG pO2 ABG HCO3 ABG O2 Saturation ABG Base Excess ABG Hemoglobin ABG Oxyhemoglobin ABG Sodium ABG Potassium ABG Chloride ABG Glucose Oxyhemoglobin Carboxyhemoglobin Sodium Potassium Chloride BUN Creatinine Glucose POC Glucose 370 H Hemoglobin A1c Lactic Acid 2.30 H* Phosphorus Magnesium AST ALT Alkaline Phosphatase Lactate Dehydrogenase C-Reactive Protein Total Protein Albumin Triglycerides Arterial Blood Glucose Urine WBC (Auto) Coronavirus (PCR) Chest x-ray: image reviewed (no significant PTX; chest tube in place; ETT tip seen below clavicles) Allied health notes reviewed: nursing
--- NOTE | 2021-02-19 12:02 | Progress Note ---
Assessment and Plan Cultures: Blood culture no growth so far COVID-19 PCR: Positive 02/15/2021 tracheal aspirate culture: Staphylococcus species 02/18/2021 urine culture: In process 02/18/2021 tracheal culture: In process. Gram stain with moderate gram-negative diplococci 02/18/2021 blood culture: In process A/P: 32-year-old female past medical history morbid obesity, diabetes and Covid pneumonia #Septic shock: secondary to below. Off pressors. #Severe COVID-19 pneumonia: Patient presented with a week of symptoms, chest x-ray with diffuse bilateral infiltrates. Inflammatory markers elevated. Procalcitonin was low #Acute hypoxemic respiratory failure: secondary to COVID-19 infection. On the vent. #Pneumothorax, subcutaneous emphysema, large pneumomediastinum: Surgery following, has chest tubes. #MANE: renally dose abx. #Morbid obesity BMI 46 #Diabetes: tight glycemic control for best outcomes. Recs: -continue IV cefepime, vancomycin and fluconazole, renally dosed given rise in creatinine -Continue dexamethasone for at least 10 days -Completed 5 days of remdesivir, Completed Tocilizumab on 02/13/2021 -Monitor inflammatory markers - Ddimer, CRP and CBC -very poor prognosis Edmar Frost MD, FACP [facility] O: [phone] F: [phone] Subjective Date of service: 02/19/21 Principal diagnosis: Ac hypoxemic resp failure; ARDS; COVID-19 infection; Morbid obesity; OHS Interval history: Febrile last night, no fever today. Remains on the vent, weaned off pressors. Creatinine has worsened to 2.4. Objective - Exam Narrative Exam: Physical Exam (reviewed in chart to minimize risk of transmission) Constitutional: deferred Head, Ears, Nose: deferred Eyes: deferred Neck: deferred Oral: deferred Cardiovascular: deferred Respiratory: deferred GI: deferred Musculoskeletal: deferred Skin: deferred Hem/Lymphatic: deferred Psych: deferred Neurological: deferred - Constitutional Vitals: Vital Signs Temp Pulse Resp BP Pulse Ox 97.4 F L 103 H 20 121/75 96 02/19/21 11:57 02/19/21 11:45 02/19/21 11:45 02/19/21 11:45 02/19/21 11:45 Temperature -Last 24 Hours Temperature 97.4 F Temperature 97.6 F Temperature 98.1 F Temperature 100.9 F Temperature 102.4 F - Labs CBC & Chem 7: 02/17/21 20:10 02/18/21 09:39 Labs: Abnormal lab results 02/18/21 02/18/21 02/18/21 Range/Units 09:39 09:39 18:09 Heparin Anti-Xa Level (0.3-0.7) U.I./ml ABG pH (7.320-7.450) POC ABG pCO2 (32.0-48.0) mmHg POC ABG pO2 (83-108) mmHg ABG Hemoglobin (12.0-17.5) ABG Oxyhemoglobin (94-98) ABG Sodium (136.0-145.0) mmol/L ABG Potassium (3.40-4.50) mmol/L ABG Chloride (98-107) mmol/L ABG Glucose (65-95) mg/dL Carboxyhemoglobin (0.5-1.5) Creatinine 2.4 H D (0.6-1.2) mg/dL Glucose 580 H* (65-100) mg/dL POC Glucose (70-105) mg/dL Lactic Acid 2.90 H* (0.7-2.0) mmol/L AST < 5 L (5-40) units/L ALT < 5 L (7-56) units/L Arterial Blood Glucose (65-95) mg/dL Urine WBC (Auto) 19.0 H (0.0-6.0) /HPF 02/18/21 02/18/21 02/18/21 Range/Units 18:29 21:00 23:09 Heparin Anti-Xa Level (0.3-0.7) U.I./ml ABG pH 7.316 L (7.320-7.450) POC ABG pCO2 56.4 H (32.0-48.0) mmHg POC ABG pO2 80.7 L (83-108) mmHg ABG Hemoglobin 9.6 L (12.0-17.5) ABG Oxyhemoglobin (94-98) ABG Sodium 149.4 H (136.0-145.0) mmol/L ABG Potassium 4.6 H (3.40-4.50) mmol/L ABG Chloride 116.0 H (98-107) mmol/L ABG Glucose 551 H (65-95) mg/dL Carboxyhemoglobin 0.3 L (0.5-1.5) Creatinine (0.6-1.2) mg/dL Glucose (65-100) mg/dL POC Glucose 518 H 469 H (70-105) mg/dL Lactic Acid (0.7-2.0) mmol/L AST (5-40) units/L ALT (7-56) units/L Arterial Blood Glucose 551 H (65-95) mg/dL Urine WBC (Auto) (0.0-6.0) /HPF 02/18/21 02/19/21 02/19/21 Range/Units Unknown 04:45 04:45 Heparin Anti-Xa Level 0.92 H (0.3-0.7) U.I./ml ABG pH (7.320-7.450) POC ABG pCO2 (32.0-48.0) mmHg POC ABG pO2 (83-108) mmHg ABG Hemoglobin (12.0-17.5) ABG Oxyhemoglobin (94-98) ABG Sodium (136.0-145.0) mmol/L ABG Potassium (3.40-4.50) mmol/L ABG Chloride (98-107) mmol/L ABG Glucose (65-95) mg/dL Carboxyhemoglobin (0.5-1.5) Creatinine (0.6-1.2) mg/dL Glucose (65-100) mg/dL POC Glucose (70-105) mg/dL Lactic Acid 3.60 H* 2.30 H* (0.7-2.0) mmol/L AST (5-40) units/L ALT (7-56) units/L Arterial Blood Glucose (65-95) mg/dL Urine WBC (Auto) (0.0-6.0) /HPF 02/19/21 02/19/21 02/19/21 Range/Units 05:33 11:00 11:29 Heparin Anti-Xa Level (0.3-0.7) U.I./ml ABG pH (7.320-7.450) POC ABG pCO2 53.7 H (32.0-48.0) mmHg POC ABG pO2 82.0 L (83-108) mmHg ABG Hemoglobin 8.8 L (12.0-17.5) ABG Oxyhemoglobin 93.8 L (94-98) ABG Sodium 153.1 H (136.0-145.0) mmol/L ABG Potassium (3.40-4.50) mmol/L ABG Chloride 119.0 H (98-107) mmol/L ABG Glucose 481 H (65-95) mg/dL Carboxyhemoglobin (0.5-1.5) Creatinine (0.6-1.2) mg/dL Glucose (65-100) mg/dL POC Glucose 370 H 428 H (70-105) mg/dL Lactic Acid (0.7-2.0) mmol/L AST (5-40) units/L ALT (7-56) units/L Arterial Blood Glucose 481 H (65-95) mg/dL Urine WBC (Auto) (0.0-6.0) /HPF
[2021-02-19] MEDS: FLUCONAZOLE 400 MG 200 ML IV SCH (12:26)
[2021-02-19 13:11] LABS: Creatinine,Urine 69.1 mg/dL (0.1-20.0)
[2021-02-19 13:15] LABS: Hematocrit 28.2 % (30.3-42.9); Hemoglobin 9.3 gm/dl (10.1-14.3); Mean Corpuscular HGB Conc 33 % (30-34); Mean Corpuscular Volume 73 fl (79-97); Platelet Count 260 K/mm3 (140-440); Red Blood Count 3.86 M/mm3 (3.65-5.03); Red Cell Distribution Width 17.4 % (13.2-15.2)
[2021-02-19 13:28] LABS: Calcium 7.8 mg/dL (8.4-10.2)
--- NOTE | 2021-02-19 19:06 | Consultation ---
History of Present Illness - Reason for Consult Consult date: 02/19/21 acute renal failure - History of Present Illness This is a 40-year-old who presented with one-week history of fatigue, malaise, cough and 2 day history of fever. She was admitted on 02/10/2021 and her stay was complicated by acute respiratory failure and acute kidney injury. Nephrology was consulted for acute kidney injury. History has been obtained from chart as patient is intubated. Past History Past Medical History: diabetes. denies: hypertension Past Surgical History: Other (Right knee surgery) Social history: denies: smoking, alcohol abuse, prescription drug abuse Family history: no significant family history Medications and Allergies Allergies Allergy/AdvReac Type Severity Reaction Status Date / Time No Known Allergies Allergy Verified 02/10/21 06:05 Home Medications Medication Instructions Recorded Confirmed Last Taken Type Aspirin [Adult Aspirin] 81 mg PO DAILY 02/10/21 02/10/21 Unknown History metFORMIN 100 mg PO BID 02/10/21 02/10/21 Unknown History Active Meds: Active Medications Acetaminophen (Acetaminophen 325 Mg/10.15 Ml Oral Liqd Unit Dose) 650 mg FEEDT UBE Q6H PRN PRN Reason: Pain, Mild (1-3) Alteplase, Recombinant (Alteplase 2 Mg Inj) 4 mg IV BID PRN PRN Reason: LINE FLUSH Lipase/Protease/Amylase (Lipase 10,500/Protease 25,000/Amylase 43,750 (Units) Dr Cap) 1 each FEEDTUBE PRN PRN PRN Reason: For Clogged Feeding Tube Ascorbic Acid (Ascorbic Acid 500 Mg Tab) 500 mg PO BID [facility] Last Admin: 02/19/21 09:05 Dose: 500 mg Documented by: Dexamethasone (Dexamethasone 4 Mg/Ml Vial) 6 mg IV Q24HR SALUD Famotidine (Famotidine 20 Mg/2 Ml Inj) 20 mg IV DAILY [facility] Last Admin: 02/19/21 09:05 Dose: 20 mg Documented by: Heparin Sodium (Porcine) (Heparin 10,000 Units/10 Ml Vial) 5,000 unit 40 unit/kg (5100 unit) IV Q6H PRN PRN Reason: Anti-Xa Assay < 0.1 units/ml Hydrophilic Ointment (Lip Therapy Vaseline) 1 applic TP Q2HR PRN PRN Reason: Dry Lips Fentanyl Citrate (Fentanyl Drip Premix) 2,000 mcg in 100 mls @ 6.35 mls/hr IV TITR SALUD; Protocol Last Admin: 02/19/21 16:15 Dose: 4 mcg/kg/hr, 25.4 mls/hr Documented by: Heparin Sodium/Sodium Chloride (Heparin/ 0.45% Nacl-25,000 Unit/500 Ml) 25,000 unit in 500 mls @ 30 mls/hr IV TITR SALUD; Protocol Last Titration: 02/19/21 11:05 Dose: 650 units/hr, 13 mls/hr Documented by: NORepinephrine/NS 8 MG-250 ML (Norepinephrine/Ns 8 Mg-250 Ml (Double Conc)) 8 mg in 250 mls @ 3.75 mls/hr IV TITRATE SALUD; Protocol Last Titration: 02/18/21 15:00 Dose: 0 mcg/min, 0 mls/hr Documented by: Vasopressin 20 unit/ Sodium (Chloride) 101 mls @ 9.09 mls/hr IV TITR SALUD; Protocol Last Titration: 02/19/21 09:04 Dose: 0 units/min, 0 mls/hr Documented by: Amiodarone HCl 900 mg/ (Dextrose) 500 mls @ 33.333 mls/hr IV DIRECT SALUD; Protocol Last Admin: 02/18/21 10:00 Dose: 1 mg/min, 33.333 mls/hr Documented by: Lorazepam 100 mg/ Sodium Chloride/ Miscellaneous Information 100 mls @ 1 mls/hr IV TITR SALUD; Protocol Last Titration: 02/18/21 14:00 Dose: 3 mg/hr, 3 mls/hr Documented by: Fluconazole (Diflucan) 200 mls @ 100 mls/hr IV Q24H SALUD; Protocol Last Admin: 02/19/21 12:26 Dose: 100 mls/hr Documented by: Cefepime HCl (Cefepime/Ns 2 Gm/100 Ml) 2 gm in 100 mls @ 200 mls/hr IV Q24H SALUD; Protocol Insulin Human Isoph/Insulin Regular (Insulin Nph/Regular 70/30 Inj) 30 unit SUB-Q BIDDIAB SALUD Last Admin: 02/19/21 18:16 Dose: 30 unit Documented by: Insulin Human Lispro (Insulin Lispro 100 Unit/Ml) 0 unit SUB-Q Q6HR SLAUD; Protocol Last Admin: 02/19/21 18:17 Dose: 10 unit Documented by: Insulin Human Lispro (Insulin Lispro 100 Unit/Ml) 6 unit SUB-Q Q6HR [facility] Last Admin: 02/19/21 18:17 Dose: 6 unit Documented by: Lorazepam (Lorazepam 2 Mg/Ml Vial) 1 mg IV Q6H PRN PRN Reason: Seizures Last Admin: 02/15/21 16:52 Dose: 1 mg Documented by: Lorazepam (Lorazepam 2 Mg/Ml Vial) 2 mg IV Q10MIN PRN PRN Reason: Agitation Multi-Ingred Cream/Lotion/Oil/Oint (Mineral Oil/Petrolatum, White Ophth Oint 3.5 Gm) 1 applic OU Q4HR PRN PRN Reason: Dry Eye(s) Phenol (Phenol 1.4% 177 Ml Bottle) 1 spray MM PRN PRN PRN Reason: Sore Throat Senna/Docusate Sodium (Sennosides/Docusate Sodium 8.6/50 Mg Tab) 1 tab FEEDTUBE BID [facility] Last Admin: 02/19/21 09:05 Dose: 1 tab Documented by: Simple Syrup (Simple Syrup 15 Ml) 30 ml FEEDTUBE PRN PRN PRN Reason: Hypoglycemia Simple Syrup (Simple Syrup 15 Ml) 15 ml FEEDTUBE PRN PRN PRN Reason: Hypoglycemia Sodium Bicarbonate (Sodium Bicarbonate 325 Mg Tab) 325 mg FEEDTUBE PRN PRN PRN Reason: For Clogged Feeding Tube Zinc Sulfate (Zinc Sulfate 220 Mg Cap) 220 mg PO BID [facility] Last Admin: 02/19/21 09:05 Dose: 220 mg Documented by: Review of Systems ROS unobtainable: due to endotracheal tube Exam - Vital Signs Vital signs: Vital Signs Temp Pulse Resp BP Pulse Ox 99.5 F 121 H 20 170/101 78 L 02/10/21 05:26 02/10/21 05:26 02/10/21 05:26 02/10/21 05:26 02/10/21 05:26 - Physical Exam Narrative exam: Defer to reduce transmission risk, primary team note reviewed. Results - Lab Results 02/19/21 Unknown 02/19/21 Unknown Most recent lab results ABG pH 7.325 (7.320-7.450) 02/19/21 11:00 ABG pCO2 50.8 mm Hg 02/17/21 10:59 ABG pO2 75.5 mm Hg (80.0-90.0) L 02/17/21 10:59 ABG HCO3 25.5 mmol/L (20.0-26.0) 02/17/21 10:59 ABG O2 Saturation 94.8 (0-100) 02/19/21 11:00 Calcium 7.8 mg/dL (8.4-10.2) L 02/19/21 Unknown Phosphorus 5.50 mg/dL (2.5-4.5) H 02/18/21 04:45 Magnesium 2.80 mg/dL (1.7-2.3) H 02/18/21 04:45 Urine Creatinine 69.1 mg/dL (0.1-20.0) H 02/19/21 11:43 Urine Sodium 15 mmol/L 02/19/21 11:43 Assessment and Plan Assessment Acute kidney injury Hypernatremia, mild Covid pneumonia Acute respiratory failure Hyperglycemia Obesity Recommendations RBCs noted on UA. However may be secondary to Smith placement. Check serologies Check PCR Check renal ultrasound Recommend free water repletion Keep glucose between 140-180 mg/dl Renally dose medications Avoid nephrotoxins Renal diet
--- NOTE | 2021-02-19 19:29 | Progress Note ---
Assessment and Plan - Patient Problems (1) Sepsis Current Visit: Yes Status: Acute Qualifiers: Severe sepsis shock status: with septic shock Plan to address problem: Sepsis protocol: IVF resuscitation therapy, IV antibiotic therapy, monitor uop q shift, IV pressor support, maintain MAP greater than or equal to 65. The high probability of a clinically significant, sudden or life threatening deterioration of the [cardiac, pulmonary, renal, ID, Neuro] system(s) required my full and direct attention, intervention and personal management. The aggregate critical care time was [90] minutes. This time is in addition to time spent performing reported procedures but includes the following: [x] Data Review and interpretation [x] Patient assessment and monitoring of vital signs [x] Documentation [x] Medication orders and management (2) Acute respiratory failure Current Visit: Yes Status: Acute Plan to address problem: Wean vent as tolerated, pulmonary team consulted, ABG in am, CXR in am, pulmonary toilet. (3) MANE (acute kidney injury) Current Visit: Yes Status: Acute Plan to address problem: Nephrology team consulted, (4) Bilateral pneumothoraces Current Visit: Yes Status: Acute Plan to address problem: Bilateral chest tubes in place to LWS. Continue current management. (5) DVT prophylaxis Current Visit: Yes Status: Acute Plan to address problem: SCD to BLE while in bed, prophylactic anticoagulation. History Interval history: 40 YO Female HD #10 with Obesity Hypoventilation Syndrome, Pneumonia, Acute Respiratory Failure, Coronavirus Infection, Sepsis complicated by Shock, Pneumothorax with Bilateral chest tubes in place. Pt remains critically ill, intubated on vent support. No reported nursing events. No significant improvement overnight. Hospitalist Physical - Constitutional Vitals: Temp Pulse Resp BP Pulse Ox 97.0 F L 107 H 20 118/69 95 02/19/21 16:39 02/19/21 18:00 02/19/21 18:00 02/19/21 18:00 02/19/21 18:00 General appearance: Present: mild distress, well-nourished, obese - EENT Eyes: Present: PERRL, miosis ENT: hearing decreased - Neck Neck: Present: supple - Respiratory Respiratory effort: labored Respiratory: bilateral: diminished, rhonchi - Cardiovascular Rhythm: regular Heart Sounds: Present: S1 & S2 - Extremities Extremities: no ischemia Extremity abnormal: edema Peripheral Pulses: within normal limits - Abdominal General gastrointestinal: soft, non-tender, non-distended - Integumentary Integumentary: Present: clear, dry - Psychiatric Psychiatric: no appropriate mood/affect, no intact judgment & insight, no memory intact - Neurologic Neurologic: no gait normal HEART Score - HEART Score EKG: Normal Age: < 45 Risk factors: No known risk factors Troponin: Troponin T < 0.010 ng/mL (0.00-0.029) 02/14/21 15:30 Troponin: < normal limit - Critical Actions Critical Actions: 0-3 pts:0.9-1.7%risk of adverse cardiac event.Candidate for discharge Results - Labs CBC & Chem 7: 02/19/21 Unknown 02/19/21 Unknown Labs: Laboratory Last Values WBC 25.8 K/mm3 (4.5-11.0) H 02/19/21 Unknown RBC 3.86 M/mm3 (3.65-5.03) 02/19/21 Unknown Hgb 9.3 gm/dl (10.1-14.3) L 02/19/21 Unknown Hct 28.2 % (30.3-42.9) L D 02/19/21 Unknown MCV 73 fl (79-97) L 02/19/21 Unknown MCH 24 pg (28-32) L 02/19/21 Unknown MCHC 33 % (30-34) 02/19/21 Unknown RDW 17.4 % (13.2-15.2) H 02/19/21 Unknown Plt Count 260 K/mm3 (140-440) 02/19/21 Unknown Lymph % (Auto) 11.5 % (13.4-35.0) L 02/16/21 07:45 [place] % (Auto) 5.5 % (0.0-7.3) 02/16/21 07:45 Eos % (Auto) 3.3 % (0.0-4.3) 02/16/21 07:45 Baso % (Auto) 0.1 % (0.0-1.8) 02/16/21 07:45 Lymph # (Auto) 1.9 K/mm3 (1.2-5.4) 02/16/21 07:45 [place] # (Auto) 0.9 K/mm3 (0.0-0.8) H 02/16/21 07:45 Eos # (Auto) 0.5 K/mm3 (0.0-0.4) H 02/16/21 07:45 Baso # (Auto) 0.0 K/mm3 (0.0-0.1) 02/16/21 07:45 Seg Neutrophils % 79.6 % (40.0-70.0) H 02/16/21 07:45 Seg Neutrophils # 13.4 K/mm3 (1.8-7.7) H 02/16/21 07:45 PT 20.8 Sec. (12.2-14.9) H 02/16/21 01:49 INR 1.73 (0.87-1.13) H 02/16/21 01:49 APTT > 240.0 Sec. (24.2-36.6) H* 02/16/21 01:49 D-Dimer 1819.69 ng/mlDDU (0-234) H 02/18/21 04:45 Heparin Anti-Xa Level 0.45 U.I./ml (0.3-0.7) 02/19/21 Unknown ABG pH 7.325 (7.320-7.450) 02/19/21 11:00 POC ABG pCO2 53.7 mmHg (32.0-48.0) H 02/19/21 11:00 ABG pCO2 50.8 mm Hg 02/17/21 10:59 POC ABG pO2 82.0 mmHg (83-108) L 02/19/21 11:00 ABG pO2 75.5 mm Hg (80.0-90.0) L 02/17/21 10:59 POC ABG HCO3 27.4 02/19/21 11:00 ABG HCO3 25.5 mmol/L (20.0-26.0) 02/17/21 10:59 ABG O2 Saturation 94.8 (0-100) 02/19/21 11:00 ABG O2 Content 18.5 (0.0-44) 02/15/21 09:30 POC ABG Base Excess 0.9 02/19/21 11:00 ABG Base Excess -1.1 mmol/L (-2.0-3.0) 02/17/21 10:59 ABG Hemoglobin 8.8 (12.0-17.5) L 02/19/21 11:00 ABG Oxyhemoglobin 93.8 (94-98) L 02/19/21 11:00 ABG Carboxyhemoglobin 1.2 % (0.0-5.0) 02/17/21 10:59 ABG Methemoglobin 0.3 (0.0-1.5) 02/19/21 11:00 ABG Sodium 153.1 mmol/L (136.0-145.0) H 02/19/21 11:00 ABG Potassium 4.1 mmol/L (3.40-4.50) 02/19/21 11:00 ABG Chloride 119.0 mmol/L (98-107) H 02/19/21 11:00 ABG Glucose 481 mg/dL (65-95) H 02/19/21 11:00 Oxyhemoglobin 91.4 % (95.0-99.0) L 02/17/21 10:59 Carboxyhemoglobin 0.8 (0.5-1.5) 02/19/21 11:00 FiO2 0.21 % 02/17/21 10:59 FiO2 % 100.0 02/19/21 11:00 Sodium 154 mmol/L (137-145) H D 02/19/21 Unknown Potassium 4.2 mmol/L (3.6-5.0) 02/19/21 Unknown Chloride 117.6 mmol/L (98-107) H 02/19/21 Unknown Carbon Dioxide 27 mmol/L (22-30) 02/19/21 Unknown Anion Gap 14 mmol/L 02/19/21 Unknown BUN 51 mg/dL (7-17) H 02/19/21 Unknown Creatinine 1.8 mg/dL (0.6-1.2) H 02/19/21 Unknown Estimated GFR 38 ml/min 02/19/21 Unknown BUN/Creatinine Ratio 28 % 02/19/21 Unknown Glucose 440 mg/dL (65-100) H 02/19/21 Unknown POC Glucose 364 mg/dL (70-105) H 02/19/21 17:54 Hemoglobin A1c 10.5 % (4-6) H 02/10/21 14:29 Lactic Acid 2.30 mmol/L (0.7-2.0) H* 02/19/21 04:45 Calcium 7.8 mg/dL (8.4-10.2) L 02/19/21 Unknown Phosphorus 5.50 mg/dL (2.5-4.5) H 02/18/21 04:45 Magnesium 2.80 mg/dL (1.7-2.3) H 02/18/21 04:45 Ferritin 169.8 ng/mL (10.0-200.0) 02/18/21 04:45 Total Bilirubin 0.20 mg/dL (0.1-1.2) 02/18/21 09:39 AST < 5 units/L (5-40) L 02/18/21 09:39 ALT < 5 units/L (7-56) L 02/18/21 09:39 Alkaline Phosphatase 133 units/L (35-129) H 02/18/21 09:39 Lactate Dehydrogenase 607 units/L (91-180) H 02/18/21 04:45 Troponin T < 0.010 ng/mL (0.00-0.029) 02/14/21 15:30 C-Reactive Protein 12.60 mg/dL (0.00-1.30) H 02/12/21 10:09 NT-Pro-B Natriuret Pep 28.71 pg/mL (0-450) 02/10/21 09:29 Total Protein 5.9 g/dL (6.3-8.2) L 02/18/21 09:39 Albumin 2.8 g/dL (3.9-5) L 02/18/21 09:39 Albumin/Globulin Ratio 0.9 % 02/18/21 09:39 Triglycerides 987 mg/dL (2-149) H 02/18/21 04:45 Procalcitonin 2.57 ng/mL (<0.15) 02/18/21 18:09 HCG, Qual Negative (Negative) 02/10/21 06:36 Arterial Blood Glucose 481 mg/dL (65-95) H 02/19/21 11:00 Arterial Blood Ionized Calcium 4.6 mg/dL (4.6-5.3) 02/19/21 11:00 Urine Color Yellow (Yellow) 02/18/21 09:39 Urine Turbidity Cloudy (Clear) 02/18/21 09:39 Urine pH 5.0 (5.0-7.0) 02/18/21 09:39 Ur Specific [place] 1.018 (1.003-1.030) 02/18/21 09:39 Urine Protein 100 mg/dl mg/dL (Negative) 02/18/21 09:39 Urine Glucose (UA) 50 mg/dL (Negative) 02/18/21 09:39 Urine Ketones Neg mg/dL (Negative) 02/18/21 09:39 Urine Blood Neg (Negative) 02/18/21 09:39 Urine Nitrite Neg (Negative) 02/18/21 09:39 Urine Bilirubin Neg (Negative) 02/18/21 09:39 Urine Urobilinogen < 2.0 mg/dL (<2.0) 02/18/21 09:39 Ur Leukocyte Esterase Mod (Negative) 02/18/21 09:39 Urine WBC (Auto) 19.0 /HPF (0.0-6.0) H 02/18/21 09:39 Urine RBC (Auto) 9.0 /HPF (0.0-6.0) 02/18/21 09:39 U Epithel Cells (Auto) 1.0 /HPF (0-13.0) 02/18/21 09:39 Urine Bacteria (Auto) 1+ /HPF (Negative) 02/10/21 11:15 Hyaline Casts 16 /LPF 02/18/21 09:39 Urine Mucus 1+ /HPF 02/18/21 09:39 Urine Yeast (Budding) 1+ /HPF 02/10/21 11:15 Urine Creatinine 69.1 mg/dL (0.1-20.0) H 02/19/21 11:43 Urine Sodium 15 mmol/L 02/19/21 11:43 Nasal Screen MRSA (PCR) Positive (Negative) 02/19/21 05:30 Coronavirus (PCR) Positive (Negative) A 02/10/21 08:28 Microbiology: Microbiology 02/18/21 18:09 Peripheral/Venous Blood Culture - Preliminary NO GROWTH AFTER 24 HOURS 02/18/21 18:09 Peripheral/Venous Blood Culture - Preliminary NO GROWTH AFTER 24 HOURS 02/18/21 09:39 Urine,Clean Catch Urine Culture - Preliminary 02/18/21 09:45 Tracheal Aspirate Sputum Culture - Preliminary Smith/IV: Voiding Method Indwelling Catheter Active Medications - Current Medications Current Medications: Generic Name Dose Route Start Last Admin Trade Name Freq PRN Reason Stop Dose Admin Acetaminophen 650 mg 02/18/21 16:20 Acetaminophen 325 Mg/10.15 Ml Oral Liqd Unit Dose FEEDTUBE Q6H PRN Pain, Mild (1-3) Alteplase, Recombinant 4 mg 02/18/21 10:00 Alteplase 2 Mg Inj IV BID PRN LINE FLUSH Lipase/Protease/Amylase 1 each 02/17/21 17:04 Lipase 10,500/Protease 25,000/Amylase 43,750 (Units) Dr Cap FEEDTUBE PRN PRN For Clogged Feeding Tube Ascorbic Acid 500 mg 02/10/21 22:00 02/19/21 09:05 Ascorbic Acid 500 Mg Tab PO 500 mg BID SALUD Administration Dexamethasone 6 mg 02/20/21 10:00 Dexamethasone 4 Mg/Ml Vial IV Q24HR SALUD Famotidine 20 mg 02/19/21 10:00 02/19/21 09:05 Famotidine 20 Mg/2 Ml Inj IV 20 mg DAILY SALUD Administration Heparin Sodium (Porcine) 5,000 unit 02/16/21 00:59 Heparin 10,000 Units/10 Ml Vial 40 unit/kg (5100 unit) IV Q6H PRN Anti-Xa Assay < 0.1 units/ml Hydrophilic Ointment 1 applic 02/15/21 18:43 Lip Therapy Vaseline TP Q2HR PRN Dry Lips Fentanyl Citrate 2,000 mcg in 100 mls @ 6.35 mls/hr 02/15/21 19:00 02/19/21 16:15 Fentanyl Drip Premix IV 4 mcg/kg/hr TITR SALUD 25.4 mls/hr Administration Protocol 1 MCG/KG/HR Heparin Sodium/Sodium Chloride 25,000 unit in 500 mls @ 30 mls/hr 02/16/21 01:00 02/19/21 11:05 Heparin/ 0.45% Nacl-25,000 Unit/500 Ml IV 650 units/hr TITR SALUD 13 mls/hr Titration Protocol 1,500 UNITS/HR NORepinephrine/NS 8 MG-250 ML 8 mg in 250 mls @ 3.75 mls/hr 02/16/21 12:00 02/18/21 15:00 Norepinephrine/Ns 8 Mg-250 Ml (Double Conc) IV 0 mcg/min TITRATE SALUD 0 mls/hr Titration Protocol 2 MCG/MIN Vasopressin 20 unit/ Sodium 101 mls @ 9.09 mls/hr 02/16/21 14:00 02/19/21 09:04 Chloride IV 0 units/min TITR SALUD 0 mls/hr Titration Protocol 0.03 UNITS/MIN Amiodarone HCl 900 mg/ 500 mls @ 33.333 mls/hr 02/18/21 09:00 02/18/21 10:00 Dextrose IV 1 mg/min DIRECT SALUD 33.333 mls/hr Administration Protocol 1 MG/MIN Lorazepam 100 mg/ Sodium 100 mls @ 1 mls/hr 02/18/21 11:00 02/18/21 14:00 Chloride/ Miscellaneous IV 3 mg/hr Information TITR SALUD 3 mls/hr Titration Protocol 1 MG/HR Fluconazole 200 mls @ 100 mls/hr 02/18/21 13:00 02/19/21 12:26 Diflucan IV 100 mls/hr Q24H SALUD Administration Protocol Cefepime HCl 2 gm in 100 mls @ 200 mls/hr 02/19/21 22:00 Cefepime/Ns 2 Gm/100 Ml IV Q24H SALUD Protocol Insulin Human Isoph/Insulin Regular 30 unit 02/18/21 17:00 02/19/21 18:16 Insulin Nph/Regular 70/30 Inj SUB-Q 30 unit BIDDIAB SALUD Administration Insulin Human Lispro 0 unit 02/16/21 12:00 02/19/21 18:17 Insulin Lispro 100 Unit/Ml SUB-Q 10 unit Q6HR SALUD Administration Protocol Insulin Human Lispro 6 unit 02/19/21 12:00 02/19/21 18:17 Insulin Lispro 100 Unit/Ml SUB-Q 6 unit Q6HR SALUD Administration Lorazepam 1 mg 02/15/21 16:35 02/15/21 16:52 Lorazepam 2 Mg/Ml Vial IV 1 mg Q6H PRN Administration Seizures Lorazepam 2 mg 02/18/21 10:11 Lorazepam 2 Mg/Ml Vial IV Q10MIN PRN Agitation Multi-Ingred Cream/Lotion/Oil/Oint 1 applic 02/15/21 18:43 Mineral Oil/Petrolatum, White Ophth Oint 3.5 Gm OU Q4HR PRN Dry Eye(s) Phenol 1 spray 02/13/21 12:02 Phenol 1.4% 177 Ml Bottle MM PRN PRN Sore Throat Senna/Docusate Sodium 1 tab 02/15/21 22:00 02/19/21 09:05 Sennosides/Docusate Sodium 8.6/50 Mg Tab FEEDTUBE 1 tab BID SALUD Administration Simple Syrup 30 ml 02/17/21 15:00 Simple Syrup 15 Ml FEEDTUBE PRN PRN Hypoglycemia Simple Syrup 15 ml 02/17/21 17:04 Simple Syrup 15 Ml FEEDTUBE PRN PRN Hypoglycemia Sodium Bicarbonate 325 mg 02/17/21 17:04 Sodium Bicarbonate 325 Mg Tab FEEDTUBE PRN PRN For Clogged Feeding Tube Zinc Sulfate 220 mg 02/10/21 22:00 02/19/21 09:05 Zinc Sulfate 220 Mg Cap PO 220 mg BID SALUD Administration Nutrition/Malnutrition Assess - Dietary Evaluation Nutrition/Malnutrition Findings: Nutrition Notes Start: 02/17/21 16:30 Freq: Status: Active Protocol: Document 02/18/21 13:34 EB (Rec: 02/18/21 13:51 EB [id number]) Nutrition Notes Initial or Follow up Reassessment Current Diagnosis Diabetes Other Pertinent Diagnosis Covid -19 pnemonia Current Diet Vital High Protein Labs/Tests Glu 580 Pertinent Medications Insulin Propofol @19.05 ml/hr (503 kcal/day) Height 5 ft 4.96 in Weight 127 kg [place] Body Weight (kg) 56.72 BMI 46.6 Weight Status Morbidly Obese Subjective/Other Information RD reconsulted for TF management. TF was ordered yesterday. Pt continues on propofol, and TF order has accounted for that. Unable to reach RN, but per I/O, TF was infusing at 45 mL/hr at 11am today. Percent of energy/protein needs met: 75% (including propofol of about 500 pranav)/51% (of 142 g protein upper-end goal) Burn Absent Trauma Absent Current % PO Negligible #1 Nutrition Diagnosis Inadequate oral intake Etiology covid19 pneumonia As Evidenced by Signs and Symptoms Pt on [facility] ventilation Diagnosis Progress(for reassessment Continues documentation) Is patient on ventilator? Yes Is Patient Ambulatory and/or Out of Bed No REE-([facility]-confined to bed) 2342.424 Kcal/Kg value to use for calculation 14 Approximate Energy Requirements Using 1778 kcal/Kg Calculation Used for Recommendations Kcal/kg Additional Notes Energy needs from TF: 1275 kcal protein needs : up to 2.5 g/kg IBW/day or 142g fluid needs :1ml/kcal Nutrition Intervention Change Diet Order: Continue TF Nutrition Support: Vital High Protein goal rate 55 ml/hour water flush: 40 ml q 4 hours Kcal 1,320 Protein (gm) 116 Fat (gm) 110 Fluid (mL) 0 Goal #1 Tf tolerance Goal #2 Pt meeting at least 75% of protein and energy needs via TF Goal #3 Readjust TF per change in propofol Follow-Up By: 02/21/21 Additional Comments TF tolerance and resp status
[2021-02-19] MEDS ORDERED: DEXTROSE 50% IN WATER (25GM) 50 ML SYRINGE IV PRN (19:31)
--- NOTE | 2021-02-19 19:33 | Consultation ---
History of Present Illness Consult date: 02/19/21 Requesting physician: SHANAE METZGER Consult reason: other (SVT) History of present illness: Pt is a 40-year-old female, previously unknown to our practice, who is currently admitted with COVID-19 PNA. She is septic (initially requiring pressors), has acute renal insufficiency, poorly controlled DM, and multiple other pulmonary issues, including bilateral PTX s/p isra chest tube placement, large pneumomediastinum, and a small PE. Cardiology has been consulted for eval and mgmt of SVT. Pt went into SVT in the 150-160s intermittently overnight and was subsequently started on IV Amio gtt per documentation. Review of tele reveals sinus tach 100-110s (intermittently in the 150s). Past History Past Medical History: diabetes Social history: denies: smoking, alcohol abuse Family history: no significant family history Medications and Allergies Allergies Allergy/AdvReac Type Severity Reaction Status Date / Time No Known Allergies Allergy Verified 02/10/21 06:05 Home Medications Medication Instructions Recorded Confirmed Last Taken Type Aspirin [Adult Aspirin] 81 mg PO DAILY 02/10/21 02/10/21 Unknown History metFORMIN 100 mg PO BID 02/10/21 02/10/21 Unknown History Active Meds: Active Medications Acetaminophen (Acetaminophen 325 Mg/10.15 Ml Oral Liqd Unit Dose) 650 mg FEEDTUBE Q6H PRN PRN Reason: Pain, Mild (1-3) Alteplase, Recombinant (Alteplase 2 Mg Inj) 4 mg IV BID PRN PRN Reason: LINE FLUSH Lipase/Protease/Amylase (Lipase 10,500/Protease 25,000/Amylase 43,750 (Units) Dr [place]) 1 each FEEDTUBE PRN PRN PRN Reason: For Clogged Feeding Tube Ascorbic Acid (Ascorbic Acid 500 Mg Tab) 500 mg PO BID [facility] Last Admin: 02/19/21 09:05 Dose: 500 mg Documented by: Dexamethasone (Dexamethasone 4 Mg/Ml Vial) 6 mg IV Q24HR SALUD Famotidine (Famotidine 20 Mg/2 Ml Inj) 20 mg IV DAILY [facility] Last Admin: 02/19/21 09:05 Dose: 20 mg Documented by: Heparin Sodium (Porcine) (Heparin 10,000 Units/10 Ml Vial) 5,000 unit 40 unit/kg (5100 unit) IV Q6H PRN PRN Reason: Anti-Xa Assay < 0.1 units/ml Hydrophilic Ointment (Lip Therapy Vaseline) 1 applic TP Q2HR PRN PRN Reason: Dry Lips Fentanyl Citrate (Fentanyl Drip Premix) 2,000 mcg in 100 mls @ 6.35 mls/hr IV TITR SALUD; Protocol Last Admin: 02/19/21 16:15 Dose: 4 mcg/kg/hr, 25.4 mls/hr Documented by: Heparin Sodium/Sodium Chloride (Heparin/ 0.45% Nacl-25,000 Unit/500 Ml) 25,000 unit in 500 mls @ 30 mls/hr IV TITR SALUD; Protocol Last Titration: 02/19/21 11:05 Dose: 650 units/hr, 13 mls/hr Documented by: NORepinephrine/NS 8 MG-250 ML (Norepinephrine/Ns 8 Mg-250 Ml (Double Conc)) 8 mg in 250 mls @ 3.75 mls/hr IV TITRATE SALUD; Protocol Last Titration: 02/18/21 15:00 Dose: 0 mcg/min, 0 mls/hr Documented by: Vasopressin 20 unit/ Sodium (Chloride) 101 mls @ 9.09 mls/hr IV TITR SALUD; Protocol Last Titration: 02/19/21 09:04 Dose: 0 units/min, 0 mls/hr Documented by: Amiodarone HCl 900 mg/ (Dextrose) 500 mls @ 33.333 mls/hr IV DIRECT SALUD; Protocol Last Admin: 02/18/21 10:00 Dose: 1 mg/min, 33.333 mls/hr Documented by: Lorazepam 100 mg/ Sodium Chloride/ Miscellaneous Information 100 mls @ 1 mls/hr IV TITR SALUD; Protocol Last Titration: 02/18/21 14:00 Dose: 3 mg/hr, 3 mls/hr Documented by: Fluconazole (Diflucan) 200 mls @ 100 mls/hr IV Q24H SALUD; Protocol Last Admin: 02/19/21 12:26 Dose: 100 mls/hr Documented by: Cefepime HCl (Cefepime/Ns 2 Gm/100 Ml) 2 gm in 100 mls @ 200 mls/hr IV Q24H SALUD; Protocol Insulin Human Isoph/Insulin Regular (Insulin Nph/Regular 70/30 Inj) 30 unit SUB-Q BIDDIAB SALUD Last Admin: 02/19/21 18:16 Dose: 30 unit Documented by: Insulin Human Lispro (Insulin Lispro 100 Unit/Ml) 0 unit SUB-Q Q6HR [facility]; Protocol Last Admin: 02/19/21 18:17 Dose: 10 unit Documented by: Insulin Human Lispro (Insulin Lispro 100 Unit/Ml) 6 unit SUB-Q Q6HR [facility] Last Admin: 02/19/21 18:17 Dose: 6 unit Documented by: Lorazepam (Lorazepam 2 Mg/Ml Vial) 1 mg IV Q6H PRN PRN Reason: Seizures Last Admin: 02/15/21 16:52 Dose: 1 mg Documented by: Lorazepam (Lorazepam 2 Mg/Ml Vial) 2 mg IV Q10MIN PRN PRN Reason: Agitation Multi-Ingred Cream/Lotion/Oil/Oint (Mineral Oil/Petrolatum, White Ophth Oint 3.5 Gm) 1 applic OU Q4HR PRN PRN Reason: Dry Eye(s) Phenol (Phenol 1.4% 177 Ml Bottle) 1 spray MM PRN PRN PRN Reason: Sore Throat Senna/Docusate Sodium (Sennosides/Docusate Sodium 8.6/50 Mg Tab) 1 tab FEEDTUBE BID [facility] Last Admin: 02/19/21 09:05 Dose: 1 tab Documented by: Simple Syrup (Simple Syrup 15 Ml) 30 ml FEEDTUBE PRN PRN PRN Reason: Hypoglycemia Simple Syrup (Simple Syrup 15 Ml) 15 ml FEEDTUBE PRN PRN PRN Reason: Hypoglycemia Sodium Bicarbonate (Sodium Bicarbonate 325 Mg Tab) 325 mg FEEDTUBE PRN PRN PRN Reason: For Clogged Feeding Tube Zinc Sulfate (Zinc Sulfate 220 Mg Cap) 220 mg PO BID [facility] Last Admin: 02/19/21 09:05 Dose: 220 mg Documented by: Review of Systems ROS unobtainable: due to endotracheal tube Physical Examination Last Vital Signs Temp 97 F L 02/19/21 19:36 Pulse 107 H 02/19/21 18:00 Resp 20 02/19/21 18:00 BP 118/69 02/19/21 18:00 Pulse Ox 95 02/19/21 18:00 General appearance: obese, other (intubated) HEENT: Positive: Normocephaly Neck: Negative: JVD/HJR Cardiac: Positive: S1/S2, Tachycardia Lungs: Positive: Ventilated Respirations Neuro: Positive: Other (intubated) Abdomen: Positive: Soft Skin: Negative: Rash Extremities: Present: edema (angioedema) Results 02/19/21 Unknown 02/20/21 10:16 CBC 02/19/21 Range/Units Unknown WBC 25.8 H (4.5-11.0) K/mm3 RBC 3.86 (3.65-5.03) M/mm3 Hgb 9.3 L (10.1-14.3) gm/dl Hct 28.2 L D (30.3-42.9) % Plt Count 260 (140-440) K/mm3 Comprehensive Metabolic Panel 02/19/21 Range/Units Unknown Sodium 154 H D (137-145) mmol/L Potassium 4.2 (3.6-5.0) mmol/L Chloride 117.6 H (98-107) mmol/L Carbon Dioxide 27 (22-30) mmol/L BUN 51 H (7-17) mg/dL Creatinine 1.8 H (0.6-1.2) mg/dL Glucose 440 H (65-100) mg/dL Calcium 7.8 L (8.4-10.2) mg/dL - Imaging and Cardiology EKG: report reviewed, image reviewed - EKG Interpretation EKG: no acute changes EKG interpretations - Telemetry EKG Rhythm: Sinus Tachycardia - EKG Sinus rhythms and dysrhythmias: sinus tachycardia Repolarization changes or abnormalities: nonspecific abnormality, ST segment, and/or T wave Assessment and Plan Ok to continue IV Amio gtt for now. May decrease to 0.5 mg/min. Pt is anticoagulated with heparin gtt currently. Pt seen in conjunction with Dr. Lock, who agrees with the assessment and plan of care. - Patient Problems (1) Acute respiratory failure with hypoxia Current Visit: Yes Status: Acute (2) Sepsis Current Visit: Yes Status: Acute (3) Pneumonia due to COVID-19 virus Current Visit: Yes Status: Acute (4) Bilateral pneumothoraces Current Visit: Yes Status: Acute (5) Pneumomediastinum Current Visit: Yes Status: Acute (6) Pulmonary embolism Current Visit: Yes Status: Acute Qualifiers: Chronicity: acute (7) MANE (acute kidney injury) Current Visit: Yes Status: Acute (8) Hypotension Current Visit: Yes Status: Acute (9) Diabetes Current Visit: Yes Status: Chronic
[2021-02-19] MEDS ORDERED: CEFEPIME/NS 2 GM/100 ML 2 GM/100 ML BAG IV SCH (22:00)
[2021-02-20] MEDS: fentaNYL DRIP Premix 2,000 MCG/100 ML BAG IV SCH ×5 (03:12→20:25)
--- NOTE | 2021-02-20 03:14 | XRay Report ---
CHEST 1 VIEW INDICATION / CLINICAL INFORMATION: follow up respiratory failure. FINDINGS: SUPPORT DEVICES: No significant change in position. HEART / MEDIASTINUM: The cardiomediastinal silhouette has not significantly changed in the interim. U nchanged pneumomediastinum LUNGS / PLEURA: Severe bilateral airspace disease unchanged. No obvious pneumothorax identified. Exte nsive pneumatosis throughout the chest wall. Signer Name: Sal Levi MD Signed: 02/20/2021 3:10 AM Workstation Name: [id number]
[2021-02-20] MEDS: INSULIN LISPRO 100 UNIT/ML SUB-Q SCH ×6 (06:30→17:14)
[2021-02-20 07:01] LABS: Creatinine,Urine 78.8 mg/dL (0.1-20.0); Protein/Creatinine Ratio,Urine 0.58
[2021-02-20] MEDS: FLUCONAZOLE 200 MG 200 MG/100 ML BAG IV SCH (10:01)
[2021-02-20] MEDS: ASCORBIC ACID 500 MG TAB PO SCH ×2 (10:02→22:30)
[2021-02-20] MEDS: dexAMETHasone 4 MG/ML VIAL IV SCH (10:02)
[2021-02-20] MEDS: SENNOSIDES/DOCUSATE SODIUM 8.6/50 MG TAB FEEDTUBE SCH ×2 (10:02→22:28)
[2021-02-20] MEDS: INSULIN NPH/REGULAR 70/30 INJ SUB-Q SCH ×2 (10:02→17:13)
[2021-02-20] MEDS: ZINC SULFATE 220 MG CAP PO SCH ×2 (10:02→22:30)
[2021-02-20] MEDS: FAMOTIDINE 20 MG/2 ML INJ IV SCH ×2 (10:03→22:28)
--- NOTE | 2021-02-20 11:04 | Progress Note ---
Assessment and Plan Cultures: Blood culture no growth so far COVID-19 PCR: Positive 02/15/2021 tracheal aspirate culture: Staphylococcus species 02/18/2021 urine culture: Enterococcus 02/18/2021 tracheal aspirate culture: Staph aureus 02/18/2021 blood culture: In process A/P: 32-year-old female past medical history morbid obesity, diabetes and Covid pneumonia #Septic shock: secondary to below. Off pressors. #Severe COVID-19 pneumonia: Patient presented with a week of symptoms, chest x- ray with diffuse bilateral infiltrates. Inflammatory markers elevated. Procalcitonin was low. #Acute hypoxemic respiratory failure: secondary to COVID-19 infection. On the vent. #Pneumothorax, subcutaneous emphysema, large pneumomediastinum: Surgery following, has chest tubes. #MANE: renally dose abx. #UTI: culture with enterococcus. UA with mild pyuria. #Morbid obesity BMI 46 #Diabetes: tight glycemic control for best outcomes. Recs: -continue IV cefepime, vancomycin and fluconazole, renally dosed given rise in creatinine -if blood cultures negative at 3-4 days, will d/c fluconazole -Continue dexamethasone for at least 10 days -Completed 5 days of remdesivir, Completed Tocilizumab on 02/13/2021 -Monitor inflammatory markers - Ddimer, CRP and CBC -poor prognosis Edmar Frost MD, FACP [facility] ([facility] O: [phone] F: [phone] Subjective Date of service: 02/20/21 Principal diagnosis: Ac hypoxemic resp failure; ARDS; COVID-19 infection; Morbid obesity; OHS Interval history: No fever. Remains off pressors. Remains on the vent. Creatinine pending today. Objective - Exam Narrative Exam: Physical Exam (reviewed in chart to minimize risk of transmission) Constitutional: deferred Head, Ears, Nose: deferred Eyes: deferred Neck: deferred Oral: deferred Cardiovascular: deferred Respiratory: deferred GI: deferred Musculoskeletal: deferred Skin: deferred Hem/Lymphatic: deferred Psych: deferred Neurological: deferred - Constitutional Vitals: Vital Signs Temp Pulse Resp BP Pulse Ox 96.6 F L 102 H 20 132/83 98 02/20/21 07:21 02/20/21 10:45 02/20/21 10:45 02/20/21 10:45 02/20/21 10:45 Temperature -Last 24 Hours Temperature 96.6 F Temperature 97 F Temperature 97 F Temperature 97 F Temperature 97.0 F Temperature 97.4 F - Labs CBC & Chem 7: 02/19/21 Unknown 02/20/21 10:16 Labs: Abnormal lab results 02/19/21 02/19/21 02/19/21 Range/Units 11:00 11:29 11:43 WBC (4.5-11.0) K/mm3 Hgb (10.1-14.3) gm/dl Hct (30.3-42.9) % MCV (79-97) fl MCH (28-32) pg RDW (13.2-15.2) % POC ABG pCO2 53.7 H (32.0-48.0) mmHg POC ABG pO2 82.0 L (83-108) mmHg ABG Hemoglobin 8.8 L (12.0-17.5) ABG Oxyhemoglobin 93.8 L (94-98) ABG Sodium 153.1 H (136.0-145.0) mmol/L ABG Chloride 119.0 H (98-107) mmol/L ABG Glucose 481 H (65-95) mg/dL Carboxyhemoglobin (0.5-1.5) Sodium (137-145) mmol/L Chloride (98-107) mmol/L BUN (7-17) mg/dL Creatinine (0.6-1.2) mg/dL Glucose (65-100) mg/dL POC Glucose 428 H (70-105) mg/dL Calcium (8.4-10.2) mg/dL Arterial Blood Glucose 481 H (65-95) mg/dL Urine Creatinine 69.1 H (0.1-20.0) mg/dL Urine Total Protein (5-11.8) mg/dL 02/19/21 02/19/21 02/19/21 Range/Units 17:54 23:16 Unknown WBC 25.8 H (4.5-11.0) K/mm3 Hgb 9.3 L (10.1-14.3) gm/dl Hct 28.2 L D (30.3-42.9) % MCV 73 L (79-97) fl MCH 24 L (28-32) pg RDW 17.4 H (13.2-15.2) % POC ABG pCO2 (32.0-48.0) mmHg POC ABG pO2 (83-108) mmHg ABG Hemoglobin (12.0-17.5) ABG Oxyhemoglobin (94-98) ABG Sodium (136.0-145.0) mmol/L ABG Chloride (98-107) mmol/L ABG Glucose (65-95) mg/dL Carboxyhemoglobin (0.5-1.5) Sodium (137-145) mmol/L Chloride (98-107) mmol/L BUN (7-17) mg/dL Creatinine (0.6-1.2) mg/dL Glucose (65-100) mg/dL POC Glucose 364 H 316 H (70-105) mg/dL Calcium (8.4-10.2) mg/dL Arterial Blood Glucose (65-95) mg/dL Urine Creatinine (0.1-20.0) mg/dL Urine Total Protein (5-11.8) mg/dL 02/19/21 02/20/21 02/20/21 Range/Units Unknown 02:58 05:17 WBC (4.5-11.0) K/mm3 Hgb (10.1-14.3) gm/dl Hct (30.3-42.9) % MCV (79-97) fl MCH (28-32) pg RDW (13.2-15.2) % POC ABG pCO2 58.2 H (32.0-48.0) mmHg POC ABG pO2 66.0 L (83-108) mmHg ABG Hemoglobin 8.1 L (12.0-17.5) ABG Oxyhemoglobin 89.8 L (94-98) ABG Sodium 158.5 H (136.0-145.0) mmol/L ABG Chloride 123.0 H (98-107) mmol/L ABG Glucose 311 H (65-95) mg/dL Carboxyhemoglobin 0.4 L (0.5-1.5) Sodium 154 H D (137-145) mmol/L Chloride 117.6 H (98-107) mmol/L BUN 51 H (7-17) mg/dL Creatinine 1.8 H (0.6-1.2) mg/dL Glucose 440 H (65-100) mg/dL POC Glucose 327 H (70-105) mg/dL Calcium 7.8 L (8.4-10.2) mg/dL Arterial Blood Glucose 311 H (65-95) mg/dL Urine Creatinine (0.1-20.0) mg/dL Urine Total Protein (5-11.8) mg/dL 02/20/21 02/20/21 Range/Units 06:25 10:16 WBC (4.5-11.0) K/mm3 Hgb (10.1-14.3) gm/dl Hct (30.3-42.9) % MCV (79-97) fl MCH (28-32) pg RDW (13.2-15.2) % POC ABG pCO2 (32.0-48.0) mmHg POC ABG pO2 (83-108) mmHg ABG Hemoglobin (12.0-17.5) ABG Oxyhemoglobin (94-98) ABG Sodium (136.0-145.0) mmol/L ABG Chloride (98-107) mmol/L ABG Glucose (65-95) mg/dL Carboxyhemoglobin (0.5-1.5) Sodium 160 H (137-145) mmol/L Chloride (98-107) mmol/L BUN (7-17) mg/dL Creatinine (0.6-1.2) mg/dL Glucose (65-100) mg/dL POC Glucose (70-105) mg/dL Calcium (8.4-10.2) mg/dL Arterial Blood Glucose (65-95) mg/dL Urine Creatinine 78.8 H (0.1-20.0) mg/dL Urine Total Protein 46 H (5-11.8) mg/dL
--- NOTE | 2021-02-20 12:17 | Progress Note ---
Assessment and Plan ARDS COVID-19 infection Bilateral POneumonia Bilateral Pneumothorax Pneumomediastinum Morbid obesity; BMI 46.6 Obesity hypoventilation syndrome - FENA calculates out as pre-renal - azotemia management per nephrology team - RT asked to asvance ETT 2 cm to 24 cm KATH - tighten glycemic control - cardiology evaluation ongoing; d/c amiodarone and use low dose Cardizem for SVT - reduced FiO2 to 70%; will see if can go down on peep by morning (peep 16 now) - repeat ABG at 9 pm tonight - continue anti-infective's as per ID rec's - keep chest tubes to continuous wall suction - prn vasopressors for target MAP > 65 mmHg (off now) - continue conservative volume management strategies - sedation target RASS -2 to -3 acutely - continue aspiration precautions - continue care as below otherwise; - continue lung protective strategies - prn bronchodilators with pulmonary hygiene per RT - avoid nephrotoxins, renally dose all medications - continue to avoid benzodiazepine's, reduce the possibility of delirium - complete AB's per ID rec's - prn analgesia per CPOT score - Maintenance of sleep-wake cycle, avoid delirium - continue enteral nutritional support at goal rate as tolerated - G.I. & VTE prophylaxis - PT/OT/ROM exercises - continue mobility protocols for pressure ulcer prophylaxis - Monitor hemodynamics closely - continue other care per attending / other consultants - discharge planning ongoing concurrently COVID SPECIFIC INTERVENTIONS - Remdesivir as per ID/Pulmonary developed protocols (receiving) - continue systemic steroids for severe COVID-19 infection (Decadron) - follow repeat COVID tests results - zinc and vitamin C supplementation - Monitor inflammatory markers per facility protocol - ferritin, Ddimer, CRP - therapeutic anticoagulation per system Protocol based on d-dimer and clinical considerations (DVT prophylaxis for now) - Continue contact and airborne isolation .... Re-evaluate in am & prn CONDITION: CRITICAL PROGNOSIS: GRAVE CODE STATUS: FULL CODE The high probability of a clinically significant, sudden or life-threatening deterioration of the [respiratory, cardiovascular, GI & neurologic] system(s) required my full and direct attention, intervention and personal management. The aggregate critical care time was [36] minutes without overlap. Time includes spent on; [x] Data Review and interpretation [x] Patient assessment and monitoring of vital signs [x] Documentation [x] Medication orders and management Subjective Date of service: 02/20/21 Principal diagnosis: Ac hypoxemic resp failure; ARDS; COVID-19 infection; Morbid obesity; PNA Interval history: Patient is seen today for: Acute hypoxemic respiratory failure; ARDS; Pneumonia; COVID-19 infection; Morbid obesity; OHS Seen and examined at bedside; 24hour events reviewed; nursing and respiratory care staff consulted; no adverse overnight events reported to me; resting in bed; remains on MVS; slowly improving; oxygenation also improved; SQ emphysema is stable to slightly improved clinically; she is making clean urine; no gross bleeding Objective Vital Signs - 12hr 02/20/21 02/20/21 02/20/21 00:30 00:45 01:00 Temperature Pulse Rate 104 H 103 H 102 H Pulse Rate [ From Monitor] Respiratory 20 20 20 Rate Blood Pressure 115/73 122/75 122/75 O2 Sat by Pulse 95 96 96 Oximetry 02/20/21 02/20/21 02/20/21 01:15 01:30 01:45 Temperature Pulse Rate 103 H 102 H 103 H Pulse Rate [ From Monitor] Respiratory 20 20 19 Rate Blood Pressure 122/74 114/75 122/79 O2 Sat by Pulse 95 95 96 Oximetry 02/20/21 02/20/21 02/20/21 02:00 02:15 02:30 Temperature Pulse Rate 103 H 102 H 104 H Pulse Rate [ From Monitor] Respiratory 19 20 20 Rate Blood Pressure 121/79 141/83 133/81 O2 Sat by Pulse 95 97 97 Oximetry 02/20/21 02/20/21 02/20/21 02:45 03:00 03:15 Temperature Pulse Rate 104 H 105 H 107 H Pulse Rate [ From Monitor] Respiratory 20 20 20 Rate Blood Pressure 135/79 134/80 133/75 O2 Sat by Pulse 97 97 95 Oximetry 02/20/21 02/20/21 02/20/21 03:30 03:31 03:45 Temperature 97 F L Pulse Rate 107 H 107 H Pulse Rate [ From Monitor] Respiratory 19 19 Rate Blood Pressure 122/73 131/75 O2 Sat by Pulse 95 95 Oximetry 02/20/21 02/20/21 02/20/21 03:51 04:00 04:15 Temperature Pulse Rate 108 H 104 H 104 H Pulse Rate [ 108 H From Monitor] Respiratory 20 20 Rate Blood Pressure 131/75 146/92 131/80 O2 Sat by Pulse 92 89 94 Oximetry 02/20/21 02/20/21 02/20/21 04:30 04:45 05:00 Temperature Pulse Rate 103 H 104 H 104 H Pulse Rate [ From Monitor] Respiratory 20 21 20 Rate Blood Pressure 140/82 126/77 127/73 O2 Sat by Pulse 94 94 94 Oximetry 02/20/21 02/20/21 02/20/21 05:15 05:30 05:45 Temperature Pulse Rate 105 H 102 H 104 H Pulse Rate [ From Monitor] Respiratory 20 20 20 Rate Blood Pressure 130/73 132/80 149/87 O2 Sat by Pulse 94 95 90 Oximetry 02/20/21 02/20/21 02/20/21 06:00 06:15 06:30 Temperature Pulse Rate 102 H 102 H 102 H Pulse Rate [ From Monitor] Respiratory 20 18 20 Rate Blood Pressure 132/80 133/80 138/79 O2 Sat by Pulse 96 96 95 Oximetry 02/20/21 02/20/21 02/20/21 06:45 07:00 07:15 Temperature Pulse Rate 100 H 102 H 103 H Pulse Rate [ From Monitor] Respiratory 20 20 20 Rate Blood Pressure 128/77 128/74 127/72 O2 Sat by Pulse 95 94 95 Oximetry 02/20/21 02/20/21 02/20/21 07:21 07:30 07:45 Temperature 96.6 F L Pulse Rate 106 H 107 H Pulse Rate [ From Monitor] Respiratory 21 20 Rate Blood Pressure 134/73 137/78 O2 Sat by Pulse 94 93 Oximetry 02/20/21 02/20/21 02/20/21 08:00 08:15 08:30 Temperature Pulse Rate 116 H 112 H 111 H Pulse Rate [ 102 H From Monitor] Respiratory 20 17 16 Rate Blood Pressure 137/78 147/90 158/86 O2 Sat by Pulse 95 97 99 Oximetry 02/20/21 02/20/21 02/20/21 08:45 09:00 09:15 Temperature Pulse Rate 114 H 114 H 112 H Pulse Rate [ From Monitor] Respiratory 20 19 22 Rate Blood Pressure 154/86 146/81 139/86 O2 Sat by Pulse 99 97 98 Oximetry 02/20/21 02/20/21 02/20/21 09:30 09:45 10:00 Temperature Pulse Rate 109 H 106 H 103 H Pulse Rate [ From Monitor] Respiratory 19 20 20 Rate Blood Pressure 153/90 143/85 140/85 O2 Sat by Pulse 98 100 100 Oximetry 02/20/21 02/20/21 02/20/21 10:15 10:30 10:45 Temperature Pulse Rate 103 H 103 H 102 H Pulse Rate [ From Monitor] Respiratory 20 18 20 Rate Blood Pressure 128/83 140/76 132/83 O2 Sat by Pulse 99 97 98 Oximetry 02/20/21 12:08 Temperature 97.3 F L Pulse Rate Pulse Rate [ From Monitor] Respiratory Rate Blood Pressure O2 Sat by Pulse Oximetry Constitutional: no acute distress, other (Morbidly Obese female with mildy increased work of breathing at rest & gross SQ emphysema to face and upper chest) Eyes: non-icteric ENT: oropharynx moist, other (ETT 24 cm KATH) Neck: supple, no lymphadenopathy, no JVD, other (SQ emphysema palpable) Effort: mildly labored Ascultation: Bilateral: diminished breath sounds, rhonchi (scant), other (SQ Emphysema) Percussion: Bilateral: not dull Cardiovascular: regular rate and rhythm Gastrointestinal: normoactive bowel sounds, soft, non-tender, non-distended (protuberant) Integumentary: normal Extremities: no cyanosis, no edema, pulses normal, no ischemia or petechiae Neurologic: normal mental status, non-focal exam, pupils equal and round, CN II- XII normal, motor strength normal and Psychiatric: other (sedate) CBC and BMP: 02/19/21 Unknown 02/20/21 10:16 ABG, PT/INR, D-dimer: ABG ABG pH 7.343 (7.320-7.450) 02/20/21 02:58 POC ABG pCO2 58.2 mmHg (32.0-48.0) H 02/20/21 02:58 ABG pCO2 50.8 mm Hg 02/17/21 10:59 POC ABG pO2 66.0 mmHg (83-108) L 02/20/21 02:58 ABG pO2 75.5 mm Hg (80.0-90.0) L 02/17/21 10:59 POC ABG HCO3 30.9 02/20/21 02:58 ABG O2 Saturation 90.4 (0-100) 02/20/21 02:58 PT/INR, D-dimer PT 20.8 Sec. (12.2-14.9) H 02/16/21 01:49 INR 1.73 (0.87-1.13) H 02/16/21 01:49 D-Dimer 1819.69 ng/mlDDU (0-234) H 02/18/21 04:45 Abnormal lab findings: Abnormal Labs 02/10/21 02/10/21 02/10/21 06:00 06:00 06:36 WBC RBC Hgb Hct MCV 71 L MCH 23 L RDW 16.5 H Plt Count Lymph % (Auto) Lymph # (Auto) 1.1 L [place] # (Auto) Eos # (Auto) Seg Neutrophils % 76.6 H Seg Neutrophils # PT INR APTT D-Dimer Heparin Anti-Xa Level ABG pH POC ABG pCO2 POC ABG pO2 ABG pO2 ABG HCO3 ABG O2 Saturation ABG Base Excess ABG Hemoglobin ABG Oxyhemoglobin ABG Sodium ABG Potassium ABG Chloride ABG Glucose Oxyhemoglobin Carboxyhemoglobin Sodium Potassium Chloride 97.7 L BUN 6 L Creatinine Glucose 295 H POC Glucose Hemoglobin A1c Lactic Acid Calcium Phosphorus Magnesium AST ALT Alkaline Phosphatase Lactate Dehydrogenase 325 H C-Reactive Protein 8.20 H Total Protein Albumin 3.8 L Triglycerides Arterial Blood Glucose Urine WBC (Auto) Urine Creatinine Urine Total Protein Coronavirus (PCR) 02/10/21 02/10/21 02/10/21 08:28 14:29 14:29 WBC RBC Hgb Hct MCV MCH RDW Plt Count Lymph % (Auto) Lymph # (Auto) [place] # (Auto) Eos # (Auto) Seg Neutrophils % Seg Neutrophils # PT INR APTT D-Dimer Heparin Anti-Xa Level ABG pH POC ABG pCO2 POC ABG pO2 ABG pO2 ABG HCO3 ABG O2 Saturation ABG Base Excess ABG Hemoglobin ABG Oxyhemoglobin ABG Sodium ABG Potassium ABG Chloride ABG Glucose Oxyhemoglobin Carboxyhemoglobin Sodium 135 L Potassium Chloride 97.0 L BUN 6 L Creatinine Glucose 308 H POC Glucose Hemoglobin A1c 10.5 H Lactic Acid Calcium Phosphorus Magnesium AST ALT Alkaline Phosphatase Lactate Dehydrogenase C-Reactive Protein Total Protein Albumin 3.4 L Triglycerides Arterial Blood Glucose Urine WBC (Auto) Urine Creatinine Urine Total Protein Coronavirus (PCR) Positive A 02/10/21 02/10/21 02/10/21 14:37 16:49 21:34 WBC RBC Hgb Hct MCV MCH RDW Plt Count Lymph % (Auto) Lymph # (Auto) [place] # (Auto) Eos # (Auto) Seg Neutrophils % Seg Neutrophils # PT INR APTT D-Dimer Heparin Anti-Xa Level ABG pH POC ABG pCO2 POC ABG pO2 58.8 L ABG pO2 ABG HCO3 ABG O2 Saturation ABG Base Excess ABG Hemoglobin 11.2 L ABG Oxyhemoglobin 88.2 L ABG Sodium ABG Potassium ABG Chloride ABG Glucose 343 H Oxyhemoglobin Carboxyhemoglobin 0 L Sodium Potassium Chloride BUN Creatinine Glucose POC Glucose 289 H 304 H Hemoglobin A1c Lactic Acid Calcium Phosphorus Magnesium AST ALT Alkaline Phosphatase Lactate Dehydrogenase C-Reactive Protein Total Protein Albumin Triglycerides Arterial Blood Glucose 343 H Urine WBC (Auto) Urine Creatinine Urine Total Protein Coronavirus (PCR) 02/11/21 02/11/21 02/11/21 07:58 09:59 17:29 WBC RBC Hgb Hct MCV MCH RDW Plt Count Lymph % (Auto) Lymph # (Auto) [place] # (Auto) Eos # (Auto) Seg Neutrophils % Seg Neutrophils # PT INR APTT D-Dimer Heparin Anti-Xa Level ABG pH POC ABG pCO2 POC ABG pO2 ABG pO2 ABG HCO3 ABG O2 Saturation ABG Base Excess ABG Hemoglobin ABG Oxyhemoglobin ABG Sodium ABG Potassium ABG Chloride ABG Glucose Oxyhemoglobin Carboxyhemoglobin Sodium Potassium Chloride 97.5 L BUN Creatinine Glucose 269 H POC Glucose 271 H 351 H Hemoglobin A1c Lactic Acid Calcium Phosphorus Magnesium AST ALT Alkaline Phosphatase Lactate Dehydrogenase C-Reactive Protein Total Protein Albumin 3.3 L Triglycerides Arterial Blood Glucose Urine WBC (Auto) Urine Creatinine Urine Total Protein Coronavirus (PCR) 02/11/21 02/12/21 02/12/21 21:50 05:28 10:09 WBC RBC Hgb Hct MCV MCH RDW Plt Count Lymph % (Auto) Lymph # (Auto) [place] # (Auto) Eos # (Auto) Seg Neutrophils % Seg Neutrophils # PT INR APTT D-Dimer 310.92 H Heparin Anti-Xa Level ABG pH POC ABG pCO2 POC ABG pO2 ABG pO2 ABG HCO3 ABG O2 Saturation ABG Base Excess ABG Hemoglobin ABG Oxyhemoglobin ABG Sodium ABG Potassium ABG Chloride ABG Glucose Oxyhemoglobin Carboxyhemoglobin Sodium Potassium 5.1 H Chloride BUN Creatinine Glucose 308 H POC Glucose 333 H Hemoglobin A1c Lactic Acid Calcium Phosphorus Magnesium AST ALT Alkaline Phosphatase Lactate Dehydrogenase C-Reactive Protein Total Protein Albumin 3.3 L Triglycerides Arterial Blood Glucose Urine WBC (Auto) Urine Creatinine Urine Total Protein Coronavirus (PCR) 02/12/21 02/12/21 02/12/21 10:09 16:00 21:50 WBC RBC Hgb Hct MCV MCH RDW Plt Count Lymph % (Auto) Lymph # (Auto) [place] # (Auto) Eos # (Auto) Seg Neutrophils % Seg Neutrophils # PT INR APTT D-Dimer Heparin Anti-Xa Level ABG pH POC ABG pCO2 POC ABG pO2 ABG pO2 ABG HCO3 ABG O2 Saturation ABG Base Excess ABG Hemoglobin ABG Oxyhemoglobin ABG Sodium ABG Potassium ABG Chloride ABG Glucose 406 H Oxyhemoglobin Carboxyhemoglobin 0.3 L Sodium Potassium Chloride BUN Creatinine Glucose POC Glucose 353 H Hemoglobin A1c Lactic Acid Calcium Phosphorus Magnesium AST ALT Alkaline Phosphatase Lactate Dehydrogenase 564 H C-Reactive Protein 12.60 H Total Protein Albumin Triglycerides Arterial Blood Glucose 406 H Urine WBC (Auto) Urine Creatinine Urine Total Protein Coronavirus (PCR) 02/13/21 02/13/21 02/13/21 04:38 08:32 17:08 WBC RBC Hgb Hct MCV MCH RDW Plt Count Lymph % (Auto) Lymph # (Auto) [place] # (Auto) Eos # (Auto) Seg Neutrophils % Seg Neutrophils # PT INR APTT D-Dimer Heparin Anti-Xa Level ABG pH POC ABG pCO2 POC ABG pO2 ABG pO2 ABG HCO3 ABG O2 Saturation ABG Base Excess ABG Hemoglobin ABG Oxyhemoglobin ABG Sodium ABG Potassium ABG Chloride ABG Glucose Oxyhemoglobin Carboxyhemoglobin Sodium Potassium Chloride BUN Creatinine Glucose 295 H POC Glucose 308 H 372 H Hemoglobin A1c Lactic Acid Calcium Phosphorus Magnesium AST ALT Alkaline Phosphatase Lactate Dehydrogenase C-Reactive Protein Total Protein 8.4 H Albumin 3.5 L Triglycerides Arterial Blood Glucose Urine WBC (Auto) Urine Creatinine Urine Total Protein Coronavirus (PCR) 02/13/21 02/14/21 02/14/21 21:09 09:11 13:13 WBC RBC Hgb Hct MCV MCH RDW Plt Count Lymph % (Auto) Lymph # (Auto) [place] # (Auto) Eos # (Auto) Seg Neutrophils % Seg Neutrophils # PT INR APTT D-Dimer Heparin Anti-Xa Level ABG pH POC ABG pCO2 POC ABG pO2 ABG pO2 ABG HCO3 ABG O2 Saturation ABG Base Excess ABG Hemoglobin ABG Oxyhemoglobin ABG Sodium ABG Potassium ABG Chloride ABG Glucose Oxyhemoglobin Carboxyhemoglobin Sodium Potassium Chloride BUN Creatinine Glucose POC Glucose 370 H 289 H 271 H Hemoglobin A1c Lactic Acid Calcium Phosphorus Magnesium AST ALT Alkaline Phosphatase Lactate Dehydrogenase C-Reactive Protein Total Protein Albumin Triglycerides Arterial Blood Glucose Urine WBC (Auto) Urine Creatinine Urine Total Protein Coronavirus (PCR) 02/14/21 02/14/21 02/15/21 18:28 18:30 00:05 WBC RBC Hgb Hct MCV MCH RDW Plt Count Lymph % (Auto) Lymph # (Auto) [place] # (Auto) Eos # (Auto) Seg Neutrophils % Seg Neutrophils # PT INR APTT D-Dimer Heparin Anti-Xa Level ABG pH POC ABG pCO2 POC ABG pO2 ABG pO2 ABG HCO3 ABG O2 Saturation ABG Base Excess ABG Hemoglobin ABG Oxyhemoglobin ABG Sodium ABG Potassium ABG Chloride ABG Glucose Oxyhemoglobin Carboxyhemoglobin Sodium Potassium Chloride BUN Creatinine Glucose POC Glucose 391 H 354 H 290 H Hemoglobin A1c Lactic Acid Calcium Phosphorus Magnesium AST ALT Alkaline Phosphatase Lactate Dehydrogenase C-Reactive Protein Total Protein Albumin Triglycerides Arterial Blood Glucose Urine WBC (Auto) Urine Creatinine Urine Total Protein Coronavirus (PCR) 02/15/21 02/15/21 02/15/21 07:44 09:30 12:27 WBC RBC Hgb Hct MCV MCH RDW Plt Count Lymph % (Auto) Lymph # (Auto) [place] # (Auto) Eos # (Auto) Seg Neutrophils % Seg Neutrophils # PT INR APTT D-Dimer Heparin Anti-Xa Level ABG pH POC ABG pCO2 POC ABG pO2 ABG pO2 55.0 L ABG HCO3 30.7 H ABG O2 Saturation 87.4 L ABG Base Excess 4.1 H ABG Hemoglobin ABG Oxyhemoglobin ABG Sodium ABG Potassium ABG Chloride ABG Glucose Oxyhemoglobin 86.1 L Carboxyhemoglobin Sodium Potassium Chloride BUN Creatinine Glucose POC Glucose 265 H 270 H Hemoglobin A1c Lactic Acid Calcium Phosphorus Magnesium AST ALT Alkaline Phosphatase Lactate Dehydrogenase C-Reactive Protein Total Protein Albumin Triglycerides Arterial Blood Glucose Urine WBC (Auto) Urine Creatinine Urine Total Protein Coronavirus (PCR) 02/15/21 02/16/21 02/16/21 16:58 01:13 01:49 WBC RBC Hgb Hct MCV MCH RDW Plt Count Lymph % (Auto) Lymph # (Auto) [place] # (Auto) Eos # (Auto) Seg Neutrophils % Seg Neutrophils # PT 20.8 H INR 1.73 H APTT > 240.0 H* D-Dimer Heparin Anti-Xa Level ABG pH 7.456 H POC ABG pCO2 POC ABG pO2 136.3 H ABG pO2 ABG HCO3 ABG O2 Saturation ABG Base Excess ABG Hemoglobin ABG Oxyhemoglobin ABG Sodium ABG Potassium 4.7 H ABG Chloride ABG Glucose 395 H Oxyhemoglobin Carboxyhemoglobin Sodium Potassium Chloride BUN Creatinine Glucose POC Glucose 325 H Hemoglobin A1c Lactic Acid Calcium Phosphorus Magnesium AST ALT Alkaline Phosphatase Lactate Dehydrogenase C-Reactive Protein Total Protein Albumin Triglycerides Arterial Blood Glucose 395 H Urine WBC (Auto) Urine Creatinine Urine Total Protein Coronavirus (PCR) 02/16/21 02/16/21 02/16/21 02:05 07:45 07:45 WBC 16.8 H RBC 5.61 H Hgb Hct MCV 71 L MCH 23 L RDW 17.0 H Plt Count Lymph % (Auto) 11.5 L Lymph # (Auto) [place] # (Auto) 0.9 H Eos # (Auto) 0.5 H Seg Neutrophils % 79.6 H Seg Neutrophils # 13.4 H PT INR APTT D-Dimer Heparin Anti-Xa Level ABG pH POC ABG pCO2 POC ABG pO2 ABG pO2 ABG HCO3 ABG O2 Saturation ABG Base Excess ABG Hemoglobin ABG Oxyhemoglobin ABG Sodium ABG Potassium ABG Chloride ABG Glucose Oxyhemoglobin Carboxyhemoglobin Sodium Potassium Chloride BUN 27 H Creatinine Glucose 269 H POC Glucose 347 H Hemoglobin A1c Lactic Acid Calcium Phosphorus Magnesium AST ALT Alkaline Phosphatase Lactate Dehydrogenase C-Reactive Protein Total Protein Albumin Triglycerides Arterial Blood Glucose Urine WBC (Auto) Urine Creatinine Urine Total Protein Coronavirus (PCR) 02/16/21 02/16/21 02/16/21 07:45 07:46 15:01 WBC RBC Hgb Hct MCV MCH RDW Plt Count Lymph % (Auto) Lymph # (Auto) [place] # (Auto) Eos # (Auto) Seg Neutrophils % Seg Neutrophils # PT INR APTT D-Dimer Heparin Anti-Xa Level > 1.99 H ABG pH POC ABG pCO2 POC ABG pO2 ABG pO2 ABG HCO3 ABG O2 Saturation ABG Base Excess ABG Hemoglobin ABG Oxyhemoglobin ABG Sodium ABG Potassium ABG Chloride ABG Glucose Oxyhemoglobin Carboxyhemoglobin Sodium Potassium Chloride BUN Creatinine Glucose POC Glucose 290 H 378 H Hemoglobin A1c Lactic Acid Calcium Phosphorus Magnesium AST ALT Alkaline Phosphatase Lactate Dehydrogenase C-Reactive Protein Total Protein Albumin Triglycerides Arterial Blood Glucose Urine WBC (Auto) Urine Creatinine Urine Total Protein Coronavirus (PCR) 02/16/21 02/16/21 02/16/21 17:50 19:15 21:00 WBC RBC Hgb Hct MCV MCH RDW Plt Count Lymph % (Auto) Lymph # (Auto) [place] # (Auto) Eos # (Auto) Seg Neutrophils % Seg Neutrophils # PT INR APTT D-Dimer Heparin Anti-Xa Level 0.72 H ABG pH POC ABG pCO2 31.8 L POC ABG pO2 81.0 L ABG pO2 ABG HCO3 ABG O2 Saturation ABG Base Excess ABG Hemoglobin ABG Oxyhemoglobin ABG Sodium ABG Potassium 5.3 H ABG Chloride ABG Glucose 416 H Oxyhemoglobin Carboxyhemoglobin 0.3 L Sodium Potassium Chloride BUN Creatinine Glucose POC Glucose 396 H Hemoglobin A1c Lactic Acid Calcium Phosphorus Magnesium AST ALT Alkaline Phosphatase Lactate Dehydrogenase C-Reactive Protein Total Protein Albumin Triglycerides Arterial Blood Glucose 416 H Urine WBC (Auto) Urine Creatinine Urine Total Protein Coronavirus (PCR) 02/16/21 02/17/21 02/17/21 23:33 05:49 06:05 WBC 30.4 H RBC Hgb Hct MCV 72 L MCH 23 L RDW 16.7 H Plt Count 481 H Lymph % (Auto) Lymph # (Auto) [place] # (Auto) Eos # (Auto) Seg Neutrophils % Seg Neutrophils # PT INR APTT D-Dimer Heparin Anti-Xa Level ABG pH POC ABG pCO2 POC ABG pO2 ABG pO2 ABG HCO3 ABG O2 Saturation ABG Base Excess ABG Hemoglobin ABG Oxyhemoglobin ABG Sodium ABG Potassium ABG Chloride ABG Glucose Oxyhemoglobin Carboxyhemoglobin Sodium Potassium Chloride BUN Creatinine Glucose POC Glucose 348 H 290 H Hemoglobin A1c Lactic Acid Calcium Phosphorus Magnesium AST ALT Alkaline Phosphatase Lactate Dehydrogenase C-Reactive Protein Total Protein Albumin Triglycerides Arterial Blood Glucose Urine WBC (Auto) Urine Creatinine Urine Total Protein Coronavirus (PCR) 02/17/21 02/17/21 02/17/21 06:05 10:40 10:59 WBC RBC Hgb Hct MCV MCH RDW Plt Count Lymph % (Auto) Lymph # (Auto) [place] # (Auto) Eos # (Auto) Seg Neutrophils % Seg Neutrophils # PT INR APTT D-Dimer Heparin Anti-Xa Level 1.18 H ABG pH 7.319 L POC ABG pCO2 POC ABG pO2 ABG pO2 75.5 L ABG HCO3 ABG O2 Saturation 15.2 L ABG Base Excess ABG Hemoglobin 6.9 L ABG Oxyhemoglobin ABG Sodium ABG Potassium ABG Chloride ABG Glucose Oxyhemoglobin 91.4 L Carboxyhemoglobin Sodium Potassium Chloride BUN 46 H Creatinine 1.4 H Glucose 309 H POC Glucose Hemoglobin A1c Lactic Acid Calcium Phosphorus 5.80 H Magnesium 2.50 H AST ALT Alkaline Phosphatase Lactate Dehydrogenase C-Reactive Protein Total Protein Albumin 3.2 L Triglycerides Arterial Blood Glucose Urine WBC (Auto) Urine Creatinine Urine Total Protein Coronavirus (PCR) 02/17/21 02/17/21 02/17/21 12:15 17:41 19:33 WBC RBC Hgb Hct MCV MCH RDW Plt Count Lymph % (Auto) Lymph # (Auto) [place] # (Auto) Eos # (Auto) Seg Neutrophils % Seg Neutrophils # PT INR APTT D-Dimer Heparin Anti-Xa Level ABG pH 7.313 L POC ABG pCO2 52.1 H POC ABG pO2 63.2 L ABG pO2 ABG HCO3 ABG O2 Saturation ABG Base Excess ABG Hemoglobin 11.8 L ABG Oxyhemoglobin 88.2 L ABG Sodium 146.9 H ABG Potassium 5.1 H ABG Chloride 111.0 H ABG Glucose 437 H Oxyhemoglobin Carboxyhemoglobin 0.4 L Sodium Potassium Chloride BUN Creatinine Glucose POC Glucose 305 H 390 H Hemoglobin A1c Lactic Acid Calcium Phosphorus Magnesium AST ALT Alkaline Phosphatase Lactate Dehydrogenase C-Reactive Protein Total Protein Albumin Triglycerides Arterial Blood Glucose 437 H Urine WBC (Auto) Urine Creatinine Urine Total Protein Coronavirus (PCR) 02/17/21 02/17/21 02/17/21 20:10 20:10 20:10 WBC 22.2 H RBC Hgb Hct MCV 73 L MCH 23 L RDW 16.7 H Plt Count Lymph % (Auto) Lymph # (Auto) [place] # (Auto) Eos # (Auto) Seg Neutrophils % Seg Neutrophils # PT INR APTT D-Dimer Heparin Anti-Xa Level ABG pH POC ABG pCO2 POC ABG pO2 ABG pO2 ABG HCO3 ABG O2 Saturation ABG Base Excess ABG Hemoglobin ABG Oxyhemoglobin ABG Sodium ABG Potassium ABG Chloride ABG Glucose Oxyhemoglobin Carboxyhemoglobin Sodium 146 H Potassium 5.7 H Chloride 108.1 H BUN 38 H Creatinine Glucose 410 H POC Glucose Hemoglobin A1c Lactic Acid 2.80 H* Calcium Phosphorus 5.30 H Magnesium 2.70 H AST ALT Alkaline Phosphatase Lactate Dehydrogenase C-Reactive Protein Total Protein Albumin 3.1 L Triglycerides Arterial Blood Glucose Urine WBC (Auto) Urine Creatinine Urine Total Protein Coronavirus (PCR) 02/17/21 02/18/21 02/18/21 23:50 04:45 04:45 WBC RBC Hgb Hct MCV MCH RDW Plt Count Lymph % (Auto) Lymph # (Auto) [place] # (Auto) Eos # (Auto) Seg Neutrophils % Seg Neutrophils # PT INR APTT D-Dimer Heparin Anti-Xa Level ABG pH POC ABG pCO2 POC ABG pO2 ABG pO2 ABG HCO3 ABG O2 Saturation ABG Base Excess ABG Hemoglobin ABG Oxyhemoglobin ABG Sodium ABG Potassium ABG Chloride ABG Glucose Oxyhemoglobin Carboxyhemoglobin Sodium Potassium Chloride BUN Creatinine Glucose POC Glucose 458 H Hemoglobin A1c Lactic Acid 4.40 H* Calcium Phosphorus 5.50 H Magnesium 2.80 H AST ALT Alkaline Phosphatase Lactate Dehydrogenase 607 H C-Reactive Protein Total Protein Albumin Triglycerides 987 H Arterial Blood Glucose Urine WBC (Auto) Urine Creatinine Urine Total Protein Coronavirus (PCR) 02/18/21 02/18/21 02/18/21 04:45 05:00 05:41 WBC RBC Hgb Hct MCV MCH RDW Plt Count Lymph % (Auto) Lymph # (Auto) [place] # (Auto) Eos # (Auto) Seg Neutrophils % Seg Neutrophils # PT INR APTT D-Dimer 1819.69 H Heparin Anti-Xa Level ABG pH 7.241 L POC ABG pCO2 55.7 H POC ABG pO2 52.0 L ABG pO2 ABG HCO3 ABG O2 Saturation ABG Base Excess ABG Hemoglobin 11.5 L ABG Oxyhemoglobin 79.7 L ABG Sodium 145.8 H ABG Potassium 5.4 H ABG Chloride 111.0 H ABG Glucose 503 H Oxyhemoglobin Carboxyhemoglobin 0.2 L Sodium Potassium Chloride BUN Creatinine Glucose POC Glucose 485 H Hemoglobin A1c Lactic Acid Calcium Phosphorus Magnesium AST ALT Alkaline Phosphatase Lactate Dehydrogenase C-Reactive Protein Total Protein Albumin Triglycerides Arterial Blood Glucose 503 H Urine WBC (Auto) Urine Creatinine Urine Total Protein Coronavirus (PCR) 02/18/21 02/18/21 02/18/21 09:39 09:39 11:53 WBC RBC Hgb Hct MCV MCH RDW Plt Count Lymph % (Auto) Lymph # (Auto) [place] # (Auto) Eos # (Auto) Seg Neutrophils % Seg Neutrophils # PT INR APTT D-Dimer Heparin Anti-Xa Level ABG pH POC ABG pCO2 POC ABG pO2 ABG pO2 ABG HCO3 ABG O2 Saturation ABG Base Excess ABG Hemoglobin ABG Oxyhemoglobin ABG Sodium ABG Potassium ABG Chloride ABG Glucose Oxyhemoglobin Carboxyhemoglobin Sodium Potassium Chloride 108.6 H BUN 56 H Creatinine 2.4 H D Glucose 580 H* POC Glucose 512 H Hemoglobin A1c Lactic Acid Calcium Phosphorus Magnesium AST < 5 L ALT < 5 L Alkaline Phosphatase 133 H Lactate Dehydrogenase C-Reactive Protein Total Protein 5.9 L Albumin 2.8 L Triglycerides Arterial Blood Glucose Urine WBC (Auto) 19.0 H Urine Creatinine Urine Total Protein Coronavirus (PCR) 02/18/21 02/18/21 02/18/21 11:55 18:09 18:29 WBC RBC Hgb Hct MCV MCH RDW Plt Count Lymph % (Auto) Lymph # (Auto) [place] # (Auto) Eos # (Auto) Seg Neutrophils % Seg Neutrophils # PT INR APTT D-Dimer Heparin Anti-Xa Level ABG pH POC ABG pCO2 POC ABG pO2 ABG pO2 ABG HCO3 ABG O2 Saturation ABG Base Excess ABG Hemoglobin ABG Oxyhemoglobin ABG Sodium ABG Potassium ABG Chloride ABG Glucose Oxyhemoglobin Carboxyhemoglobin Sodium Potassium Chloride BUN Creatinine Glucose POC Glucose 509 H 518 H Hemoglobin A1c Lactic Acid 2.90 H* Calcium Phosphorus Magnesium AST ALT Alkaline Phosphatase Lactate Dehydrogenase C-Reactive Protein Total Protein Albumin Triglycerides Arterial Blood Glucose Urine WBC (Auto) Urine Creatinine Urine Total Protein Coronavirus (PCR) 02/18/21 02/18/21 02/18/21 21:00 23:09 Unknown WBC RBC Hgb Hct MCV MCH RDW Plt Count Lymph % (Auto) Lymph # (Auto) [place] # (Auto) Eos # (Auto) Seg Neutrophils % Seg Neutrophils # PT INR APTT D-Dimer Heparin Anti-Xa Level ABG pH 7.316 L POC ABG pCO2 56.4 H POC ABG pO2 80.7 L ABG pO2 ABG HCO3 ABG O2 Saturation ABG Base Excess ABG Hemoglobin 9.6 L ABG Oxyhemoglobin ABG Sodium 149.4 H ABG Potassium 4.6 H ABG Chloride 116.0 H ABG Glucose 551 H Oxyhemoglobin Carboxyhemoglobin 0.3 L Sodium Potassium Chloride BUN Creatinine Glucose POC Glucose 469 H Hemoglobin A1c Lactic Acid 3.60 H* Calcium Phosphorus Magnesium AST ALT Alkaline Phosphatase Lactate Dehydrogenase C-Reactive Protein Total Protein Albumin Triglycerides Arterial Blood Glucose 551 H Urine WBC (Auto) Urine Creatinine Urine Total Protein Coronavirus (PCR) 02/19/21 02/19/21 02/19/21 04:45 04:45 05:33 WBC RBC Hgb Hct MCV MCH RDW Plt Count Lymph % (Auto) Lymph # (Auto) [place] # (Auto) Eos # (Auto) Seg Neutrophils % Seg Neutrophils # PT INR APTT D-Dimer Heparin Anti-Xa Level 0.92 H ABG pH POC ABG pCO2 POC ABG pO2 ABG pO2 ABG HCO3 ABG O2 Saturation ABG Base Excess ABG Hemoglobin ABG Oxyhemoglobin ABG Sodium ABG Potassium ABG Chloride ABG Glucose Oxyhemoglobin Carboxyhemoglobin Sodium Potassium Chloride BUN Creatinine Glucose POC Glucose 370 H Hemoglobin A1c Lactic Acid 2.30 H* Calcium Phosphorus Magnesium AST ALT Alkaline Phosphatase Lactate Dehydrogenase C-Reactive Protein Total Protein Albumin Triglycerides Arterial Blood Glucose Urine WBC (Auto) Urine Creatinine Urine Total Protein Coronavirus (PCR) 02/19/21 02/19/21 02/19/21 11:00 11:29 11:43 WBC RBC Hgb Hct MCV MCH RDW Plt Count Lymph % (Auto) Lymph # (Auto) [place] # (Auto) Eos # (Auto) Seg Neutrophils % Seg Neutrophils # PT INR APTT D-Dimer Heparin Anti-Xa Level ABG pH POC ABG pCO2 53.7 H POC ABG pO2 82.0 L ABG pO2 ABG HCO3 ABG O2 Saturation ABG Base Excess ABG Hemoglobin 8.8 L ABG Oxyhemoglobin 93.8 L ABG Sodium 153.1 H ABG Potassium ABG Chloride 119.0 H ABG Glucose 481 H Oxyhemoglobin Carboxyhemoglobin Sodium Potassium Chloride BUN Creatinine Glucose POC Glucose 428 H Hemoglobin A1c Lactic Acid Calcium Phosphorus Magnesium AST ALT Alkaline Phosphatase Lactate Dehydrogenase C-Reactive Protein Total Protein Albumin Triglycerides Arterial Blood Glucose 481 H Urine WBC (Auto) Urine Creatinine 69.1 H Urine Total Protein Coronavirus (PCR) 02/19/21 02/19/21 02/19/21 17:54 23:16 Unknown WBC 25.8 H RBC Hgb 9.3 L Hct 28.2 L D MCV 73 L MCH 24 L RDW 17.4 H Plt Count Lymph % (Auto) Lymph # (Auto) [place] # (Auto) Eos # (Auto) Seg Neutrophils % Seg Neutrophils # PT INR APTT D-Dimer Heparin Anti-Xa Level ABG pH POC ABG pCO2 POC ABG pO2 ABG pO2 ABG HCO3 ABG O2 Saturation ABG Base Excess ABG Hemoglobin ABG Oxyhemoglobin ABG Sodium ABG Potassium ABG Chloride ABG Glucose Oxyhemoglobin Carboxyhemoglobin Sodium Potassium Chloride BUN Creatinine Glucose POC Glucose 364 H 316 H Hemoglobin A1c Lactic Acid Calcium Phosphorus Magnesium AST ALT Alkaline Phosphatase Lactate Dehydrogenase C-Reactive Protein Total Protein Albumin Triglycerides Arterial Blood Glucose Urine WBC (Auto) Urine Creatinine Urine Total Protein Coronavirus (PCR) 02/19/21 02/20/21 02/20/21 Unknown 02:58 05:17 WBC RBC Hgb Hct MCV MCH RDW Plt Count Lymph % (Auto) Lymph # (Auto) [place] # (Auto) Eos # (Auto) Seg Neutrophils % Seg Neutrophils # PT INR APTT D-Dimer Heparin Anti-Xa Level ABG pH POC ABG pCO2 58.2 H POC ABG pO2 66.0 L ABG pO2 ABG HCO3 ABG O2 Saturation ABG Base Excess ABG Hemoglobin 8.1 L ABG Oxyhemoglobin 89.8 L ABG Sodium 158.5 H ABG Potassium ABG Chloride 123.0 H ABG Glucose 311 H Oxyhemoglobin Carboxyhemoglobin 0.4 L Sodium 154 H D Potassium Chloride 117.6 H BUN 51 H Creatinine 1.8 H Glucose 440 H POC Glucose 327 H Hemoglobin A1c Lactic Acid Calcium 7.8 L Phosphorus Magnesium AST ALT Alkaline Phosphatase Lactate Dehydrogenase C-Reactive Protein Total Protein Albumin Triglycerides Arterial Blood Glucose 311 H Urine WBC (Auto) Urine Creatinine Urine Total Protein Coronavirus (PCR) 02/20/21 02/20/21 02/20/21 06:25 10:16 11:51 WBC RBC Hgb Hct MCV MCH RDW Plt Count Lymph % (Auto) Lymph # (Auto) [place] # (Auto) Eos # (Auto) Seg Neutrophils % Seg Neutrophils # PT INR APTT D-Dimer Heparin Anti-Xa Level ABG pH POC ABG pCO2 POC ABG pO2 ABG pO2 ABG HCO3 ABG O2 Saturation ABG Base Excess ABG Hemoglobin ABG Oxyhemoglobin ABG Sodium ABG Potassium ABG Chloride ABG Glucose Oxyhemoglobin Carboxyhemoglobin Sodium 160 H Potassium Chloride 126.2 H BUN 49 H Creatinine 1.5 H Glucose 263 H POC Glucose 281 H Hemoglobin A1c Lactic Acid Calcium 8.0 L Phosphorus Magnesium AST ALT Alkaline Phosphatase Lactate Dehydrogenase C-Reactive Protein Total Protein Albumin Triglycerides Arterial Blood Glucose Urine WBC (Auto) Urine Creatinine 78.8 H Urine Total Protein 46 H Coronavirus (PCR) Chest x-ray: image reviewed (ETT riding high; no gross pneumothorax; chest tubes in place) Allied health notes reviewed: nursing
--- NOTE | 2021-02-20 13:09 | Progress Note ---
Assessment and Plan Discontinue Amio gtt. Will add PO Cardizem 30mg q6h w/hold parameters. Pt seen in conjunction with Dr. Cloud, who agrees with the assessment and plan of care. - Patient Problems (1) Acute respiratory failure with hypoxia Current Visit: Yes Status: Acute (2) Sepsis Current Visit: Yes Status: Acute (3) Pneumonia due to COVID-19 virus Current Visit: Yes Status: Acute (4) Bilateral pneumothoraces Current Visit: Yes Status: Acute (5) Pneumomediastinum Current Visit: Yes Status: Acute (6) Pulmonary embolism Current Visit: Yes Status: Acute Qualifiers: Chronicity: acute (7) MANE (acute kidney injury) Current Visit: Yes Status: Acute (8) Hypotension Current Visit: Yes Status: Acute (9) Sinus tachycardia Current Visit: Yes Status: Acute (10) Diabetes Current Visit: Yes Status: Chronic Subjective Date of service: 02/20/21 Principal diagnosis: COVID-19 PNA Interval history: No acute events overnight. SR/ST 100s on tele (intermittently in the 150s). Objective Last Vital Signs Temp 97.3 F L 02/20/21 12:08 Pulse 102 H 02/20/21 12:30 Resp 20 02/20/21 12:30 BP 122/79 02/20/21 12:30 Pulse Ox 97 02/20/21 12:30 - Physical Examination General: Other (intubated) HEENT: Positive: Normocephaly Neck: Negative: JVD/HJR Cardiac: Positive: Regular Rhythm, S1/S2, Tachycardia Lungs: Positive: Ventilated Respirations Neuro: Positive: Other (intubated) Abdomen: Positive: Soft Skin: Negative: Rash Musculoskeletal: No Fluid Collection Extremities: Present: Other (angioedema) - Labs and Meds CBC 02/19/21 Range/Units Unknown WBC 25.8 H (4.5-11.0) K/mm3 RBC 3.86 (3.65-5.03) M/mm3 Hgb 9.3 L (10.1-14.3) gm/dl Hct 28.2 L D (30.3-42.9) % Plt Count 260 (140-440) K/mm3 Comprehensive Metabolic Panel 02/19/21 02/20/21 Range/Units Unknown 10:16 Sodium 154 H D 160 H (137-145) mmol/L Potassium 4.2 4.6 (3.6-5.0) mmol/L Chloride 117.6 H 126.2 H (98-107) mmol/L Carbon Dioxide 27 29 (22-30) mmol/L BUN 51 H 49 H (7-17) mg/dL Creatinine 1.8 H 1.5 H (0.6-1.2) mg/dL Glucose 440 H 263 H (65-100) mg/dL Calcium 7.8 L 8.0 L (8.4-10.2) mg/dL - Imaging and Cardiology EKG: report reviewed, image reviewed - Telemetry EKG Rhythm: Sinus Tachycardia - EKG Sinus rhythms and dysrhythmias: sinus tachycardia Ventricular dysrhythmias: ventricular premature com Repolarization changes or abnormalities: nonspecific abnormality, ST segment, and/or T wave - Allied health notes Allied health notes reviewed: nursing
[2021-02-20] MEDS ORDERED: VANCOMYCIN 2,000 MG in SODIUM CHLORIDE 0.9% 500 ML 500 ML IV SCH (15:00)
[2021-02-20] MEDS: dilTIAZem 30 MG TAB PO SCH ×2 (17:13→23:14)
--- NOTE | 2021-02-20 18:17 | Progress Note ---
Assessment and Plan Assessment Acute kidney injury Hypernatremia, mild Covid pneumonia Acute respiratory failure Hyperglycemia Obesity Recommendations Start hypotonic bicarb fluids, ordered Recommend free water flushes 250 cc q4h, ordered RBCs noted on UA. However may be secondary to Smith placement. f/u serologies Renal ultrasound pending Keep glucose between 140-180 mg/dl Renally dose medications Avoid nephrotoxins Renal diet Subjective Date of service: 02/20/21 Principal diagnosis: Ac hypoxemic resp failure; ARDS; COVID-19 infection; Morbid obesity; PNA Interval history: Remains intubated. Objective - Exam Narrative Exam: Defer to reduce transmission risk, primary team note reviewed. - Vital Signs Vital signs: Vital Signs - 12hr 02/20/21 02/20/21 02/20/21 06:15 06:30 06:45 Temperature Pulse Rate 102 H 102 H 100 H Pulse Rate [ From Monitor] Respiratory 18 20 20 Rate Blood Pressure 133/80 138/79 128/77 O2 Sat by Pulse 96 95 95 Oximetry 02/20/21 02/20/21 02/20/21 07:00 07:15 07:21 Temperature 96.6 F L Pulse Rate 102 H 103 H Pulse Rate [ From Monitor] Respiratory 20 20 Rate Blood Pressure 128/74 127/72 O2 Sat by Pulse 94 95 Oximetry 02/20/21 02/20/21 02/20/21 07:30 07:45 08:00 Temperature Pulse Rate 106 H 107 H 116 H Pulse Rate [ 102 H From Monitor] Respiratory 21 20 20 Rate Blood Pressure 134/73 137/78 137/78 O2 Sat by Pulse 94 93 95 Oximetry 02/20/21 02/20/21 02/20/21 08:15 08:30 08:45 Temperature Pulse Rate 112 H 111 H 114 H Pulse Rate [ From Monitor] Respiratory 17 16 20 Rate Blood Pressure 147/90 158/86 154/86 O2 Sat by Pulse 97 99 99 Oximetry 02/20/21 02/20/21 02/20/21 09:00 09:15 09:30 Temperature Pulse Rate 114 H 112 H 109 H Pulse Rate [ From Monitor] Respiratory 19 22 19 Rate Blood Pressure 146/81 139/86 153/90 O2 Sat by Pulse 97 98 98 Oximetry 02/20/21 02/20/21 02/20/21 09:45 10:00 10:15 Temperature Pulse Rate 106 H 103 H 103 H Pulse Rate [ From Monitor] Respiratory 20 20 20 Rate Blood Pressure 143/85 140/85 128/83 O2 Sat by Pulse 100 100 99 Oximetry 02/20/21 02/20/21 02/20/21 10:30 10:45 11:00 Temperature Pulse Rate 103 H 102 H 99 H Pulse Rate [ From Monitor] Respiratory 18 20 18 Rate Blood Pressure 140/76 132/83 123/74 O2 Sat by Pulse 97 98 99 Oximetry 02/20/21 02/20/21 02/20/21 11:15 11:30 11:45 Temperature Pulse Rate 100 H 101 H 102 H Pulse Rate [ From Monitor] Respiratory 24 20 21 Rate Blood Pressure 126/75 118/74 127/71 O2 Sat by Pulse 98 99 98 Oximetry 02/20/21 02/20/21 02/20/21 12:00 12:08 12:10 Temperature 97.3 F L Pulse Rate 101 H 102 H Pulse Rate [ 102 H From Monitor] Respiratory 22 Rate Blood Pressure 122/75 129/76 O2 Sat by Pulse 98 95 Oximetry 02/20/21 02/20/21 02/20/21 12:15 12:30 12:45 Temperature Pulse Rate 101 H 102 H 103 H Pulse Rate [ From Monitor] Respiratory 17 20 21 Rate Blood Pressure 129/76 122/79 124/77 O2 Sat by Pulse 97 97 97 Oximetry 02/20/21 02/20/21 02/20/21 13:00 13:15 13:30 Temperature Pulse Rate 102 H 104 H 104 H Pulse Rate [ From Monitor] Respiratory 20 20 20 Rate Blood Pressure 125/77 127/72 120/73 O2 Sat by Pulse 95 96 95 Oximetry 02/20/21 02/20/21 02/20/21 13:45 14:00 14:15 Temperature Pulse Rate 104 H 106 H 105 H Pulse Rate [ From Monitor] Respiratory 20 20 20 Rate Blood Pressure 125/70 124/72 122/77 O2 Sat by Pulse 96 97 96 Oximetry 02/20/21 02/20/21 02/20/21 14:30 14:45 15:00 Temperature Pulse Rate 105 H 105 H 109 H Pulse Rate [ From Monitor] Respiratory 20 20 19 Rate Blood Pressure 123/77 122/75 123/70 O2 Sat by Pulse 96 95 96 Oximetry 02/20/21 02/20/21 02/20/21 15:15 15:16 15:30 Temperature Pulse Rate 109 H 109 H 119 H Pulse Rate [ From Monitor] Respiratory 20 20 Rate Blood Pressure 127/69 123/70 154/82 O2 Sat by Pulse 96 97 89 Oximetry 02/20/21 02/20/21 02/20/21 15:45 16:00 16:15 Temperature 98.2 F Pulse Rate 116 H 115 H 114 H Pulse Rate [ 100 H From Monitor] Respiratory 18 21 20 Rate Blood Pressure 143/78 139/79 142/78 O2 Sat by Pulse 94 96 97 Oximetry 02/20/21 02/20/21 02/20/21 16:30 16:45 17:00 Temperature Pulse Rate 119 H 117 H 123 H Pulse Rate [ From Monitor] Respiratory 13 22 18 Rate Blood Pressure 144/82 153/83 154/85 O2 Sat by Pulse 89 95 90 Oximetry 02/20/21 02/20/21 02/20/21 17:15 17:30 17:45 Temperature Pulse Rate 126 H 123 H 116 H Pulse Rate [ From Monitor] Respiratory 20 15 14 Rate Blood Pressure 157/87 158/91 150/85 O2 Sat by Pulse 87 94 92 Oximetry 02/20/21 18:00 Temperature Pulse Rate 128 H Pulse Rate [ From Monitor] Respiratory 13 Rate Blood Pressure 153/83 O2 Sat by Pulse 92 Oximetry - Lab 02/19/21 Unknown 02/20/21 10:16 Most recent lab results ABG pH 7.343 (7.320-7.450) 02/20/21 02:58 ABG pCO2 50.8 mm Hg 02/17/21 10:59 ABG pO2 75.5 mm Hg (80.0-90.0) L 02/17/21 10:59 ABG HCO3 25.5 mmol/L (20.0-26.0) 02/17/21 10:59 ABG O2 Saturation 90.4 (0-100) 02/20/21 02:58 Calcium 8.0 mg/dL (8.4-10.2) L 02/20/21 10:16 Phosphorus 5.50 mg/dL (2.5-4.5) H 02/18/21 04:45 Magnesium 2.80 mg/dL (1.7-2.3) H 02/18/21 04:45 Urine Creatinine 78.8 mg/dL (0.1-20.0) H 02/20/21 06:25 Urine Sodium 15 mmol/L 02/19/21 11:43 Urine Total Protein 46 mg/dL (5-11.8) H 02/20/21 06:25 Medications & Allergies - Medications Allergies/Adverse Reactions: Allergies No Known Allergies Allergy (Verified 02/10/21 06:05) Home Medications: Home Medications Medication Instructions Recorded Confirmed Last Taken Type Aspirin [Adult Aspirin] 81 mg PO DAILY 02/10/21 02/10/21 Unknown History metFORMIN 100 mg PO BID 02/10/21 02/10/21 Unknown History Active Medications: Generic Name Dose Route Start Last Admin Trade Name Freq PRN Reason Stop Dose Admin Acetaminophen 650 mg 02/18/21 16:20 Acetaminophen 325 Mg/10.15 Ml Oral Liqd Unit Dose FEEDTUBE Q6H PRN Pain, Mild (1-3) Alteplase, Recombinant 4 mg 02/18/21 10:00 Alteplase 2 Mg Inj IV BID PRN LINE FLUSH Lipase/Protease/Amylase 1 each 02/17/21 17:04 Lipase 10,500/Protease 25,000/Amylase 43,750 (Units) Dr Browning FEEDTUBE PRN PRN For Clogged Feeding Tube Ascorbic Acid 500 mg 02/10/21 22:00 02/20/21 10:02 Ascorbic Acid 500 Mg Tab PO 500 mg BID SALUD Administration Dexamethasone 6 mg 02/20/21 10:00 02/20/21 10:02 Dexamethasone 4 Mg/Ml Vial IV 6 mg Q24HR SALUD Administration Dextrose 0 ml 02/19/21 19:31 Dextrose 50% In Water (25gm) 50 Ml Syringe IV Q30MIN PRN Hypoglycemia Protocol Diltiazem HCl 30 mg 02/20/21 18:00 02/20/21 17:13 Diltiazem 30 Mg Tab PO 30 mg Q6HR SALUD Administration Famotidine 20 mg 02/20/21 22:00 Famotidine 20 Mg/2 Ml Inj IV BID SALUD Heparin Sodium (Porcine) 5,000 unit 02/16/21 00:59 Heparin 10,000 Units/10 Ml Vial 40 unit/kg (5100 unit) IV Q6H PRN Anti-Xa Assay < 0.1 units/ml Hydrophilic Ointment 1 applic 02/15/21 18:43 Lip Therapy Vaseline TP Q2HR PRN Dry Lips Fentanyl Citrate 2,000 mcg in 100 mls @ 6.35 mls/hr 02/15/21 19:00 02/20/21 15:49 Fentanyl Drip Premix IV 3 mcg/kg/hr TITR SALUD 19.05 mls/hr Administration Protocol 1 MCG/KG/HR Heparin Sodium/Sodium Chloride 25,000 unit in 500 mls @ 30 mls/hr 02/16/21 01:00 02/19/21 11:05 Heparin/ 0.45% Nacl-25,000 Unit/500 Ml IV 650 units/hr TITR SALUD 13 mls/hr Titration Protocol 1,500 UNITS/HR NORepinephrine/NS 8 MG-250 ML 8 mg in 250 mls @ 3.75 mls/hr 02/16/21 12:00 02/18/21 15:00 Norepinephrine/Ns 8 Mg-250 Ml (Double Conc) IV 0 mcg/min TITRATE SALUD 0 mls/hr Titration Protocol 2 MCG/MIN Vasopressin 20 unit/ Sodium 101 mls @ 9.09 mls/hr 02/16/21 14:00 02/19/21 09:04 Chloride IV 0 units/min TITR SALUD 0 mls/hr Titration Protocol 0.03 UNITS/MIN Lorazepam 100 mg/ Sodium 100 mls @ 1 mls/hr 02/18/21 11:00 02/18/21 14:00 Chloride/ Miscellaneous IV 3 mg/hr Information TITR SALUD 3 mls/hr Titration Protocol 1 MG/HR Fluconazole 200 mg in 100 mls @ 100 mls/hr 02/20/21 10:00 02/20/21 10:01 Diflucan IV 100 mls/hr Q24H SALUD Administration Protocol Vancomycin HCl 2,000 mg/ 540 mls @ 250 mls/hr 02/20/21 15:00 02/20/21 15:49 Sodium Chloride IV 250 mls/hr Q24H SALUD Administration Cefepime HCl 2 gm in 100 mls @ 200 mls/hr 02/20/21 22:00 Cefepime/Ns 2 Gm/100 Ml IV Q12H SALUD Protocol Sodium Bicarbonate 75 meq/ 1,075 mls @ 150 mls/hr 02/20/21 19:00 Sterile Water IV 02/25/21 02:09 DIRECT SALUD Insulin Human Isoph/Insulin Regular 30 unit 02/18/21 17:00 02/20/21 17:13 Insulin Nph/Regular 70/30 Inj SUB-Q 30 unit BIDDIAB SALUD Administration Insulin Human Lispro 6 unit 02/19/21 12:00 02/20/21 17:14 Insulin Lispro 100 Unit/Ml SUB-Q 6 unit Q6HR SALUD Administration Insulin Human Lispro 0 unit 02/20/21 00:00 02/20/21 17:14 Insulin Lispro 100 Unit/Ml SUB-Q 9 unit Q6HR SALUD Administration Protocol Lorazepam 1 mg 02/15/21 16:35 02/15/21 16:52 Lorazepam 2 Mg/Ml Vial IV 1 mg Q6H PRN Administration Seizures Lorazepam 2 mg 02/18/21 10:11 Lorazepam 2 Mg/Ml Vial IV Q10MIN PRN Agitation Multi-Ingred Cream/Lotion/Oil/Oint 1 applic 02/15/21 18:43 Mineral Oil/Petrolatum, White Ophth Oint 3.5 Gm OU Q4HR PRN Dry Eye(s) Phenol 1 spray 02/13/21 12:02 Phenol 1.4% 177 Ml Bottle MM PRN PRN Sore Throat Senna/Docusate Sodium 1 tab 02/15/21 22:00 02/20/21 10:02 Sennosides/Docusate Sodium 8.6/50 Mg Tab FEEDTUBE 1 tab BID SALUD Administration Simple Syrup 30 ml 02/17/21 15:00 Simple Syrup 15 Ml FEEDTUBE PRN PRN Hypoglycemia Simple Syrup 15 ml 02/17/21 17:04 Simple Syrup 15 Ml FEEDTUBE PRN PRN Hypoglycemia Sodium Bicarbonate 325 mg 02/17/21 17:04 Sodium Bicarbonate 325 Mg Tab FEEDTUBE PRN PRN For Clogged Feeding Tube Zinc Sulfate 220 mg 02/10/21 22:00 02/20/21 10:02 Zinc Sulfate 220 Mg Cap PO 220 mg BID SALUD Administration
[2021-02-20] MEDS ORDERED: SODIUM BICARBONATE 75 MEQ in WATER FOR INJECTION (PF) 1,000 ML IV SCH (20:00)
[2021-02-20] MEDS: HEPARIN/ 0.45% NACL DRIP 25,000 UNIT/500 ML BAG IV SCH (20:01)
[2021-02-20] MEDS: LORazepam 2 MG/ML VIAL IV PRN ×2 (20:13→23:15)
--- NOTE | 2021-02-20 20:26 | Progress Note ---
Assessment and Plan - Patient Problems (1) Sepsis Current Visit: Yes Status: Acute Qualifiers: Severe sepsis shock status: with septic shock Plan to address problem: Sepsis protocol: IVF resuscitation therapy, IV antibiotic therapy, monitor uop q shift, IV pressor support, maintain MAP greater than or equal to 65. The high probability of a clinically significant, sudden or life threatening deterioration of the [cardiac, pulmonary, renal, ID, Neuro] system(s) required my full and direct attention, intervention and personal management. The aggregate critical care time was [90] minutes. This time is in addition to time spent performing reported procedures but includes the following: [x] Data Review and interpretation [x] Patient assessment and monitoring of vital signs [x] Documentation [x] Medication orders and management (2) Acute respiratory failure Current Visit: Yes Status: Acute Plan to address problem: Wean vent as tolerated, pulmonary team consulted, ABG in am, CXR in am, pulmonary toilet. (3) MANE (acute kidney injury) Current Visit: Yes Status: Acute Plan to address problem: Nephrology team consulted, (4) Bilateral pneumothoraces Current Visit: Yes Status: Acute Plan to address problem: Bilateral chest tubes in place to LWS. Continue current management. (5) DVT prophylaxis Current Visit: Yes Status: Acute Plan to address problem: SCD to BLE while in bed, prophylactic anticoagulation. History Interval history: 40 YO Female HD #11 with Obesity Hypoventilation Syndrome, Pneumonia, Acute Respiratory Failure, Coronavirus Infection, Sepsis complicated by Shock, Pneumothorax with Bilateral chest tubes in place. Pt remains critically ill, intubated on vent support. No reported nursing events. No significant improvement overnight. No acute decompensation. Hospitalist Physical - Constitutional Vitals: Temp Pulse Resp BP Pulse Ox 99.1 F 129 H 13 146/85 97 02/20/21 20:00 02/20/21 18:40 02/20/21 18:00 02/20/21 19:45 02/20/21 19:45 General appearance: Present: obese, other (intubated) - EENT Eyes: Present: miosis - Neck Neck: Present: supple - Respiratory Respiratory effort: labored Respiratory: bilateral: diminished, rhonchi - Cardiovascular Rhythm: regular - Extremities Extremities: no ischemia Peripheral Pulses: abnormal (Capillary refill greater than 3.5 seconds) - Integumentary Integumentary: Present: clear, dry - Psychiatric Psychiatric: no appropriate mood/affect, no intact judgment & insight, no memory intact - Neurologic Neurologic: moves all extremities, no gait normal HEART Score - HEART Score EKG: Normal Age: < 45 Risk factors: No known risk factors Troponin: Troponin T < 0.010 ng/mL (0.00-0.029) 02/14/21 15:30 Troponin: < normal limit - Critical Actions Critical Actions: 0-3 pts:0.9-1.7%risk of adverse cardiac event.Candidate for discharge Results - Labs CBC & Chem 7: 02/19/21 Unknown 02/20/21 10:16 Labs: Laboratory Last Values WBC 25.8 K/mm3 (4.5-11.0) H 02/19/21 Unknown RBC 3.86 M/mm3 (3.65-5.03) 02/19/21 Unknown Hgb 9.3 gm/dl (10.1-14.3) L 02/19/21 Unknown Hct 28.2 % (30.3-42.9) L D 02/19/21 Unknown MCV 73 fl (79-97) L 02/19/21 Unknown MCH 24 pg (28-32) L 02/19/21 Unknown MCHC 33 % (30-34) 02/19/21 Unknown RDW 17.4 % (13.2-15.2) H 02/19/21 Unknown Plt Count 260 K/mm3 (140-440) 02/19/21 Unknown Lymph % (Auto) 11.5 % (13.4-35.0) L 02/16/21 07:45 [place] % (Auto) 5.5 % (0.0-7.3) 02/16/21 07:45 Eos % (Auto) 3.3 % (0.0-4.3) 02/16/21 07:45 Baso % (Auto) 0.1 % (0.0-1.8) 02/16/21 07:45 Lymph # (Auto) 1.9 K/mm3 (1.2-5.4) 02/16/21 07:45 [place] # (Auto) 0.9 K/mm3 (0.0-0.8) H 02/16/21 07:45 Eos # (Auto) 0.5 K/mm3 (0.0-0.4) H 02/16/21 07:45 Baso # (Auto) 0.0 K/mm3 (0.0-0.1) 02/16/21 07:45 Seg Neutrophils % 79.6 % (40.0-70.0) H 02/16/21 07:45 Seg Neutrophils # 13.4 K/mm3 (1.8-7.7) H 02/16/21 07:45 PT 20.8 Sec. (12.2-14.9) H 02/16/21 01:49 INR 1.73 (0.87-1.13) H 02/16/21 01:49 APTT > 240.0 Sec. (24.2-36.6) H* 02/16/21 01:49 D-Dimer 1819.69 ng/mlDDU (0-234) H 02/18/21 04:45 Heparin Anti-Xa Level 0.45 U.I./ml (0.3-0.7) 02/19/21 Unknown ABG pH 7.326 (7.320-7.450) 02/20/21 18:35 POC ABG pCO2 64.4 mmHg (32.0-48.0) H 02/20/21 18:35 ABG pCO2 50.8 mm Hg 02/17/21 10:59 POC ABG pO2 48.8 mmHg (83-108) L 02/20/21 18:35 ABG pO2 75.5 mm Hg (80.0-90.0) L 02/17/21 10:59 POC ABG HCO3 32.9 02/20/21 18:35 ABG HCO3 25.5 mmol/L (20.0-26.0) 02/17/21 10:59 ABG O2 Saturation 78.5 (0-100) 02/20/21 18:35 ABG O2 Content 18.5 (0.0-44) 02/15/21 09:30 POC ABG Base Excess 5.8 02/20/21 18:35 ABG Base Excess -1.1 mmol/L (-2.0-3.0) 02/17/21 10:59 ABG Hemoglobin 8.5 (12.0-17.5) L 02/20/21 18:35 ABG Oxyhemoglobin 77.6 (94-98) L 02/20/21 18:35 ABG Carboxyhemoglobin 1.2 % (0.0-5.0) 02/17/21 10:59 ABG Methemoglobin 0.3 (0.0-1.5) 02/20/21 18:35 ABG Sodium 162.4 mmol/L (136.0-145.0) H 02/20/21 18:35 ABG Potassium 4.8 mmol/L (3.40-4.50) H 02/20/21 18:35 ABG Chloride 124.0 mmol/L (98-107) H 02/20/21 18:35 ABG Glucose 376 mg/dL (65-95) H 02/20/21 18:35 Oxyhemoglobin 91.4 % (95.0-99.0) L 02/17/21 10:59 Carboxyhemoglobin 0.8 (0.5-1.5) 02/20/21 18:35 FiO2 0.21 % 02/17/21 10:59 FiO2 % 100.0 02/20/21 18:35 Sodium 160 mmol/L (137-145) H 02/20/21 10:16 Potassium 4.6 mmol/L (3.6-5.0) 02/20/21 10:16 Chloride 126.2 mmol/L (98-107) H 02/20/21 10:16 Carbon Dioxide 29 mmol/L (22-30) 02/20/21 10:16 Anion Gap 9 mmol/L 02/20/21 10:16 BUN 49 mg/dL (7-17) H 02/20/21 10:16 Creatinine 1.5 mg/dL (0.6-1.2) H 02/20/21 10:16 Estimated GFR 47 ml/min 02/20/21 10:16 BUN/Creatinine Ratio 33 % 02/20/21 10:16 Glucose 263 mg/dL (65-100) H 02/20/21 10:16 POC Glucose 291 mg/dL (70-105) H 02/20/21 17:12 Hemoglobin A1c 10.5 % (4-6) H 02/10/21 14:29 Lactic Acid 2.30 mmol/L (0.7-2.0) H* 02/19/21 04:45 Calcium 8.0 mg/dL (8.4-10.2) L 02/20/21 10:16 Phosphorus 5.50 mg/dL (2.5-4.5) H 02/18/21 04:45 Magnesium 2.80 mg/dL (1.7-2.3) H 02/18/21 04:45 Ferritin 169.8 ng/mL (10.0-200.0) 02/18/21 04:45 Total Bilirubin 0.20 mg/dL (0.1-1.2) 02/18/21 09:39 AST < 5 units/L (5-40) L 02/18/21 09:39 ALT < 5 units/L (7-56) L 02/18/21 09:39 Alkaline Phosphatase 133 units/L (35-129) H 02/18/21 09:39 Lactate Dehydrogenase 607 units/L (91-180) H 02/18/21 04:45 Troponin T < 0.010 ng/mL (0.00-0.029) 02/14/21 15:30 C-Reactive Protein 12.60 mg/dL (0.00-1.30) H 02/12/21 10:09 NT-Pro-B Natriuret Pep 28.71 pg/mL (0-450) 02/10/21 09:29 Total Protein 5.9 g/dL (6.3-8.2) L 02/18/21 09:39 Albumin 2.8 g/dL (3.9-5) L 02/18/21 09:39 Albumin/Globulin Ratio 0.9 % 02/18/21 09:39 Triglycerides 987 mg/dL (2-149) H 02/18/21 04:45 Procalcitonin 2.57 ng/mL (<0.15) 02/18/21 18:09 HCG, Qual Negative (Negative) 02/10/21 06:36 Arterial Blood Glucose 376 mg/dL (65-95) H 02/20/21 18:35 Arterial Blood Ionized Calcium 4.8 mg/dL (4.6-5.3) 02/20/21 18:35 Urine Color Yellow (Yellow) 02/18/21 09:39 Urine Turbidity Cloudy (Clear) 02/18/21 09:39 Urine pH 5.0 (5.0-7.0) 02/18/21 09:39 Ur Specific [place] 1.018 (1.003-1.030) 02/18/21 09:39 Urine Protein 100 mg/dl mg/dL (Negative) 02/18/21 09:39 Urine Glucose (UA) 50 mg/dL (Negative) 02/18/21 09:39 Urine Ketones Neg mg/dL (Negative) 02/18/21 09:39 Urine Blood Neg (Negative) 02/18/21 09:39 Urine Nitrite Neg (Negative) 02/18/21 09:39 Urine Bilirubin Neg (Negative) 02/18/21 09:39 Urine Urobilinogen < 2.0 mg/dL (<2.0) 02/18/21 09:39 Ur Leukocyte Esterase Mod (Negative) 02/18/21 09:39 Urine WBC (Auto) 19.0 /HPF (0.0-6.0) H 02/18/21 09:39 Urine RBC (Auto) 9.0 /HPF (0.0-6.0) 02/18/21 09:39 U Epithel Cells (Auto) 1.0 /HPF (0-13.0) 02/18/21 09:39 Urine Bacteria (Auto) 1+ /HPF (Negative) 02/10/21 11:15 Hyaline Casts 16 /LPF 02/18/21 09:39 Urine Mucus 1+ /HPF 02/18/21 09:39 Urine Yeast (Budding) 1+ /HPF 02/10/21 11:15 Urine Creatinine 78.8 mg/dL (0.1-20.0) H 02/20/21 06:25 Protein/Creatinin Ratio 0.58 02/20/21 06:25 Urine Sodium 15 mmol/L 02/19/21 11:43 Urine Total Protein 46 mg/dL (5-11.8) H 02/20/21 06:25 Nasal Screen MRSA (PCR) Positive (Negative) 02/19/21 05:30 Random Vancomycin 5.7 ug/mL (0-40.0) 02/20/21 10:16 Coronavirus (PCR) Positive (Negative) A 02/10/21 08:28 Microbiology: Microbiology 02/18/21 18:09 Peripheral/Venous Blood Culture - Preliminary NO GROWTH AFTER 48 HOURS 02/18/21 18:09 Peripheral/Venous Blood Culture - Preliminary 02/18/21 09:45 Tracheal Aspirate Sputum Culture - Preliminary Staphylococcus Aureus 02/15/21 04:00 Tracheal Aspirate Sputum Culture - Preliminary Staphylococcus Species 02/18/21 09:39 Urine,Clean Catch Urine Culture - Preliminary Enterococcus Species Smith/IV: Voiding Method Indwelling Catheter Active Medications - Current Medications Current Medications: Generic Name Dose Route Start Last Admin Trade Name Freq PRN Reason Stop Dose Admin Acetaminophen 650 mg 02/18/21 16:20 Acetaminophen 325 Mg/10.15 Ml Oral Liqd Unit Dose FEEDTUBE Q6H PRN Pain, Mild (1-3) Alteplase, Recombinant 4 mg 02/18/21 10:00 Alteplase 2 Mg Inj IV BID PRN LINE FLUSH Lipase/Protease/Amylase 1 each 02/17/21 17:04 Lipase 10,500/Protease 25,000/Amylase 43,750 (Units) Dr Cap FEEDTUBE PRN PRN For Clogged Feeding Tube Ascorbic Acid 500 mg 02/10/21 22:00 02/20/21 10:02 Ascorbic Acid 500 Mg Tab PO 500 mg BID SALUD Administration Dexamethasone 6 mg 02/20/21 10:00 02/20/21 10:02 Dexamethasone 4 Mg/Ml Vial IV 6 mg Q24HR SALUD Administration Dextrose 0 ml 02/19/21 19:31 Dextrose 50% In Water (25gm) 50 Ml Syringe IV Q30MIN PRN Hypoglycemia Protocol Diltiazem HCl 30 mg 02/20/21 18:00 02/20/21 17:13 Diltiazem 30 Mg Tab PO 30 mg Q6HR SALUD Administration Famotidine 20 mg 02/20/21 22:00 Famotidine 20 Mg/2 Ml Inj IV BID SALUD Heparin Sodium (Porcine) 5,000 unit 02/16/21 00:59 Heparin 10,000 Units/10 Ml Vial 40 unit/kg (5100 unit) IV Q6H PRN Anti-Xa Assay < 0.1 units/ml Hydrophilic Ointment 1 applic 02/15/21 18:43 Lip Therapy Vaseline TP Q2HR PRN Dry Lips Fentanyl Citrate 2,000 mcg in 100 mls @ 6.35 mls/hr 02/15/21 19:00 02/20/21 20:13 Fentanyl Drip Premix IV 4 mcg/kg/hr TITR SALUD 25.4 mls/hr Titration Protocol 1 MCG/KG/HR Heparin Sodium/Sodium Chloride 25,000 unit in 500 mls @ 30 mls/hr 02/16/21 01:00 02/20/21 20:01 Heparin/ 0.45% Nacl-25,000 Unit/500 Ml IV 650 units/hr TITR SALUD 13 mls/hr Administration Protocol 1,500 UNITS/HR NORepinephrine/NS 8 MG-250 ML 8 mg in 250 mls @ 3.75 mls/hr 02/16/21 12:00 02/18/21 15:00 Norepinephrine/Ns 8 Mg-250 Ml (Double Conc) IV 0 mcg/min TITRATE SALUD 0 mls/hr Titration Protocol 2 MCG/MIN Vasopressin 20 unit/ Sodium 101 mls @ 9.09 mls/hr 02/16/21 14:00 02/19/21 09:04 Chloride IV 0 units/min TITR SALUD 0 mls/hr Titration Protocol 0.03 UNITS/MIN Lorazepam 100 mg/ Sodium 100 mls @ 1 mls/hr 02/18/21 11:00 02/18/21 14:00 Chloride/ Miscellaneous IV 3 mg/hr Information TITR SALUD 3 mls/hr Titration Protocol 1 MG/HR Fluconazole 200 mg in 100 mls @ 100 mls/hr 02/20/21 10:00 02/20/21 10:01 Diflucan IV 100 mls/hr Q24H SALUD Administration Protocol Vancomycin HCl 2,000 mg/ 540 mls @ 250 mls/hr 02/20/21 15:00 02/20/21 15:49 Sodium Chloride IV 250 mls/hr Q24H SALUD Administration Cefepime HCl 2 gm in 100 mls @ 200 mls/hr 02/20/21 22:00 Cefepime/Ns 2 Gm/100 Ml IV Q12H SALUD Protocol Sodium Bicarbonate 75 meq/ 1,075 mls @ 100 mls/hr 02/20/21 20:00 02/20/21 19:57 Sterile Water IV 02/22/21 06:44 100 mls/hr DIRECT SALUD Administration Insulin Human Isoph/Insulin Regular 30 unit 02/18/21 17:00 02/20/21 17:13 Insulin Nph/Regular 70/30 Inj SUB-Q 30 unit BIDDIAB SALUD Administration Insulin Human Lispro 6 unit 02/19/21 12:00 02/20/21 17:14 Insulin Lispro 100 Unit/Ml SUB-Q 6 unit Q6HR SALUD Administration Insulin Human Lispro 0 unit 02/20/21 00:00 02/20/21 17:14 Insulin Lispro 100 Unit/Ml SUB-Q 9 unit Q6HR SLAUD Administration Protocol Lorazepam 1 mg 02/15/21 16:35 02/15/21 16:52 Lorazepam 2 Mg/Ml Vial IV 1 mg Q6H PRN Administration Seizures Lorazepam 2 mg 02/18/21 10:11 02/20/21 20:13 Lorazepam 2 Mg/Ml Vial IV 2 mg Q10MIN PRN Administration Agitation Multi-Ingred Cream/Lotion/Oil/Oint 1 applic 02/15/21 18:43 Mineral Oil/Petrolatum, White Ophth Oint 3.5 Gm OU Q4HR PRN Dry Eye(s) Phenol 1 spray 02/13/21 12:02 Phenol 1.4% 177 Ml Bottle MM PRN PRN Sore Throat Senna/Docusate Sodium 1 tab 02/15/21 22:00 02/20/21 10:02 Sennosides/Docusate Sodium 8.6/50 Mg Tab FEEDTUBE 1 tab BID SALUD Administration Simple Syrup 30 ml 02/17/21 15:00 Simple Syrup 15 Ml FEEDTUBE PRN PRN Hypoglycemia Simple Syrup 15 ml 02/17/21 17:04 Simple Syrup 15 Ml FEEDTUBE PRN PRN Hypoglycemia Sodium Bicarbonate 325 mg 02/17/21 17:04 Sodium Bicarbonate 325 Mg Tab FEEDTUBE PRN PRN For Clogged Feeding Tube Zinc Sulfate 220 mg 02/10/21 22:00 02/20/21 10:02 Zinc Sulfate 220 Mg Cap PO 220 mg BID SALUD Administration Nutrition/Malnutrition Assess - Dietary Evaluation Nutrition/Malnutrition Findings: Nutrition Notes Start: 02/17/21 16:30 Freq: Status: Active Protocol: Document 02/18/21 13:34 EB (Rec: 02/18/21 13:51 EB [id number]) Nutrition Notes Initial or Follow up Reassessment Current Diagnosis Diabetes Other Pertinent Diagnosis Covid -19 pnemonia Current Diet Vital High Protein Labs/Tests Glu 580 Pertinent Medications Insulin Propofol @19.05 ml/hr (503 kcal/day) Height 5 ft 4.96 in Weight 127 kg [place] Body Weight (kg) 56.72 BMI 46.6 Weight Status Morbidly Obese Subjective/Other Information RD reconsulted for TF management. TF was ordered yesterday. Pt continues on propofol, and TF order has accounted for that. Unable to reach RN, but per I/O, TF was infusing at 45 mL/hr at 11am today. Percent of energy/protein needs met: 75% (including propofol of about 500 pranav)/51% (of 142 g protein upper-end goal) Burn Absent Trauma Absent Current % PO Negligible #1 Nutrition Diagnosis Inadequate oral intake Etiology covid19 pneumonia As Evidenced by Signs and Symptoms Pt on [facility] ventilation Diagnosis Progress(for reassessment Continues documentation) Is patient on ventilator? Yes Is Patient Ambulatory and/or Out of Bed No REE-([place]-confined to bed) 2342.424 Kcal/Kg value to use for calculation 14 Approximate Energy Requirements Using 1778 kcal/Kg Calculation Used for Recommendations Kcal/kg Additional Notes Energy needs from TF: 1275 kcal protein needs : up to 2.5 g/kg IBW/day or 142g fluid needs :1ml/kcal Nutrition Intervention Change Diet Order: Continue TF Nutrition Support: Vital High Protein goal rate 55 ml/hour water flush: 40 ml q 4 hours Kcal 1,320 Protein (gm) 116 Fat (gm) 110 Fluid (mL) 0 Goal #1 Tf tolerance Goal #2 Pt meeting at least 75% of protein and energy needs via TF Goal #3 Readjust TF per change in propofol Follow-Up By: 02/21/21 Additional Comments TF tolerance and resp status
[2021-02-20] MEDS: LORazepam 100 MG in SODIUM CHLORIDE 0.9% 50 ML, EMPTY BAG 0 ML IV SCH (20:46)
[2021-02-20] MEDS: CEFEPIME/NS 2 GM/100 ML 2 GM/100 ML BAG IV SCH (22:28)
[2021-02-21] MEDS: INSULIN LISPRO 100 UNIT/ML SUB-Q SCH ×4 (00:09→05:50)
[2021-02-21] MEDS: fentaNYL DRIP Premix 2,000 MCG/100 ML BAG IV SCH ×3 (00:13→08:23)
[2021-02-21] MEDS ORDERED: MORPHINE 2 MG/1 ML INJ IV ONE (01:49)
[2021-02-21] MEDS: LORazepam 2 MG/ML VIAL IV PRN (02:06)
[2021-02-21] MEDS ORDERED: MIDAZOLAM 2 MG/2 ML INJ IV PRN (03:26)
[2021-02-21] MEDS ORDERED: MIDAZOLAM 100 MG in SODIUM CHLORIDE 0.9% 80 ML IV SCH (04:00)
[2021-02-21] MEDS: dilTIAZem 30 MG TAB PO SCH (05:01)
[2021-02-21] MEDS: INSULIN NPH/REGULAR 70/30 INJ SUB-Q SCH (08:23)
[2021-02-21] MEDS ORDERED: AMIODARONE 150 MG in DEXTROSE 5% IN WATER 97 ML IV ONE (09:25)
--- NOTE | 2021-02-21 09:33 | XRay Report ---
CHEST 1 VIEW 0849 INDICATION / CLINICAL INFORMATION: follow up respiratory failure/hypoxia COMPARISON: 02/20/2021 FINDINGS: SUPPORT DEVICES: Endotracheal tube tip lies probably 5.7 cm from the cedric. This projects on this im age well above the sternal notch but probably that is related to the angle of the image. On prior toyin dy the tip appearing to lie proximally 4.8 cm from the cedric. Other device positioning appears uncha nged. HEART / MEDIASTINUM: Stable LUNGS / PLEURA: Prominent bilateral pulmonary infiltrates continue with mild improvement in the upper lobes. No pneumothorax. ADDITIONAL FINDINGS: Subcutaneous emphysema has decreased Signer Name: Marin Shankar MD Signed: 02/21/2021 9:28 AM Workstation Name: [id number]
[2021-02-21] MEDS ORDERED: INSULIN NPH/REGULAR 70/30 INJ SUB-Q ONE (10:00)
[2021-02-21] MEDS ORDERED: AMIODARONE 900 MG in DEXTROSE 5% IN WATER 482 ML IV SCH (10:00)
[2021-02-21] MEDS: FLUCONAZOLE 200 MG 200 MG/100 ML BAG IV SCH (10:01)
[2021-02-21] MEDS: SENNOSIDES/DOCUSATE SODIUM 8.6/50 MG TAB FEEDTUBE SCH (10:01)
[2021-02-21] MEDS: ZINC SULFATE 220 MG CAP PO SCH (10:02)
[2021-02-21] MEDS: dexAMETHasone 4 MG/ML VIAL IV SCH (10:02)
[2021-02-21] MEDS: ASCORBIC ACID 500 MG TAB PO SCH (10:02)
[2021-02-21] MEDS: FAMOTIDINE 20 MG/2 ML INJ IV SCH (10:02)
[2021-02-21] MEDS: CEFEPIME/NS 2 GM/100 ML 2 GM/100 ML BAG IV SCH (10:34)
[2021-02-21] MEDS: NORepinephrine/NS 8 MG-250 ML 8 MG/250 ML INFUS..BTL IV SCH (10:36)
[2021-02-21 11:09] VITALS: BP 91/46
[2021-02-21] MEDS ORDERED: SODIUM BICARB 8.4% 50 MEQ/50 ML SYRINGE IV ONE (11:32)
[2021-02-21 11:33] LABS: Calcium 8.4 mg/dL (8.4-10.2)
--- NOTE | 2021-02-21 11:50 | Event Note ---
Date: 02/21/21 CODE BLUE was called at 1117 hrs. Patient was hypoxic the whole night 3 epinephrines and 3 bicarbs and chest compressions and return of spontaneous circulation happened around 1131 hrs.. Patient had a decent blood pressure and heart rate of 120s. See the code sheet. Patient coded again at 1132 hrs. and 1 epi was given In spite of compressions patient was in flatline and code was called off because of its futility of running the code. Time of expiration 1132 hrs[address]ouncing physician is Dr. Avis Victoria Certifying physician is Dr. Velasquez Lundberg +
[2021-02-21] MEDS ORDERED: INSULIN LISPRO 100 UNIT/ML SUB-Q SCH (12:00)
--- NOTE | 2021-02-21 14:03 | Event Note ---
Date: 02/21/21 very unstable overnight unfortunately PEA arrest this am and passed NOK notified
[2021-02-21] MEDS ORDERED: INSULIN NPH/REGULAR 70/30 INJ SUB-Q SCH (17:00)
[2021-02-24 11:59] LABS: ANA Screen, IFA Negative (Negative); Myeloperoxidase Antibody <1.0 AI (<1.0)
--- NOTE | 2021-03-03 11:56 | Death Summary ---
Summary - Providers Date of service: 02/21/21 Consults: 02/10/21 14:04 Consult to Physician [CONS] Urgent Comment: Consulting Provider: SHANAE METZGER Physician Instructions: Reason For Exam: COVID/severe ac. hypoxic resp failure/high flow O2 02/10/21 14:13 Consult to Physician [CONS] Routine Comment: Consulting Provider: RAMIRO FELICIANO Physician Instructions: Reason For Exam: COVID-19 positive/severely hypoxemic 02/15/21 18:43 Consult to Dietitian/Nutrition [CONS] Routine Physician Instructions: Reason For Exam: Reason for Consult: Evaluate nutritional intake 02/15/21 18:48 Consult to Dietitian/Nutrition [CONS] Routine Physician Instructions: Reason For Exam: Reason for Consult: Write/Manage Tube Feeding 02/15/21 20:59 Consult to Physician [CONS] Urgent Comment: Consulting Provider: HAYDE WELLINGTON Physician Instructions: Reason For Exam: Chest tube placement 02/16/21 09:55 PICC Line Placement [Consult to PICC Line RN] [CONS] Stat Reason For Exam: need for pressors Type Line:: PICC 02/17/21 13:55 Consult to Dietitian/Nutrition [CONS] Stat Physician Instructions: Reason For Exam: Reason for Consult: Write/Manage Tube Feeding 02/17/21 14:00 Consult to Dietitian/Nutrition [CONS] Routine Physician Instructions: Assess nutrtn needs, initiate, modify, manage TF Reason For Exam: Reason for Consult: Write/Manage Tube Feeding Reason for Consult: Write/Manage Tube Feeding 02/18/21 08:05 Consult to Physician [CONS] Routine Comment: called boubacar/BETO Cross Consulting Provider: MAYELA RAHMAN Physician Instructions: Reason For Exam: SVT 02/18/21 14:51 Consult to Physician [CONS] Routine Comment: Consulting Provider: MICHAEL DIEGO Physician Instructions: Reason For Exam: MANE Attending: ERIC MUSTAFA - summary Date of admission: 02/10/21 07:32 Date of : 02/21/21 Disposition: A CODE BLUE was called. The patient was treated" with ACLS protocol without return of perfusing cardiac rhythm. On neurologic exam the patient pupils were fixed and dilated without pupillary response. Patient was absent of brainstem reflexes. Pulmonary exam revealed absent breath sounds. Cardiac exam revealed absent heart sounds. Asystole was observed on a telemetry monitor without organized rhythm. The patient was pronounced at 1132 hrs. - Final diagnosis (1) Sepsis Qualifiers: Severe sepsis shock status: with septic shock Note: Final diagnosis: (2) Acute respiratory failure Note: Final diagnosis: (3) MANE (acute kidney injury) Note: Final diagnosis: (4) Bilateral pneumothoraces Note: Final diagnosis: (5) DVT prophylaxis Note: Final diagnosis: (6) 2019 novel coronavirus disease (COVID-19) Note: Final diagnosis:
== END 2021-02-21 18:20 | DRG 207 ==
LOC: ED 05:13 → 3A 07:32 → IMCU 13:55 → CC1 02-16 05:55
PROVIDERS: ADMIT Internal Medicine; ATTEND Internal Medicine
PROC: 4A033R1 Measurement of Arterial Saturation, Peripheral, Percutaneous Approach (ICD-10-PCS; 2021-02-10)
PROC: XW033E5 Introduction of Remdesivir Anti-infective into Peripheral Vein, Percutaneous Approach, New Technology Group 5 (ICD-10-PCS; 2021-02-10)
PROC: 5A09457 Assistance with Respiratory Ventilation, 24-96 Consecutive Hours, Continuous Positive Airway Pressure (ICD-10-PCS; 2021-02-12)
PROC: 5A1955Z Respiratory Ventilation, Greater than 96 Consecutive Hours (ICD-10-PCS; 2021-02-15)
PROC: 0W9930Z Drainage of Right Pleural Cavity with Drainage Device, Percutaneous Approach (ICD-10-PCS; 2021-02-15)
PROC: 0W9B30Z Drainage of Left Pleural Cavity with Drainage Device, Percutaneous Approach (ICD-10-PCS; 2021-02-15)
PROC: 0BH17EZ Insertion of Endotracheal Airway into Trachea, Via Natural or Artificial Opening (ICD-10-PCS; 2021-02-15)
PROC: 02HV33Z Insertion of Infusion Device into Superior Vena Cava, Percutaneous Approach (ICD-10-PCS; principal; 2021-02-16)
DX: U07.1 COVID-19 (principal); A41.89 Other specified sepsis; J12.82 Pneumonia due to coronavirus disease 2019; J80 Acute respiratory distress syndrome; R65.21 Severe sepsis with septic shock; I26.99 Other pulmonary embolism without acute cor pulmonale; E66.2 Morbid (severe) obesity with alveolar hypoventilation; G93.40 Encephalopathy, unspecified; J93.83 Other pneumothorax; N17.9 Acute kidney failure, unspecified; E87.0 Hyperosmolality and hypernatremia; N39.0 Urinary tract infection, site not specified; Z68.42 Body mass index [BMI] 45.0-49.9, adult; J98.2 Interstitial emphysema; I10 Essential (primary) hypertension; E11.65 Type 2 diabetes mellitus with hyperglycemia; Z79.82 Long term (current) use of aspirin
CPT/HCPCS: 36415; 36600; 71045; 71275; 74018; 80048; 80053; 80202; 81001; 82140; 82570; 82728; 82803; 82805; 82962; 83036; 83520; 83615; 83735; 83880; 84100; 84145; 84156; 84300; 84443; 84478; 84484; 84703; 85014; 85018; 85025; 85027; 85049; 85379; 85520; 85610; 85730; 86021; 86038; 86140; 86403; 87040; 87070; 87076; 87086; 87186; 87205; 87641; 93005; 93970; 94002; 94003; 94660; 94760; G0378; J0282; J0330; J0360; J0456; J0692; J0696; J1100; J1170; J1450; J1644; J1650; J1815; J2060; J2185; J2250; J2270; J2704; J3010; J3262; J3370; J7030; J7040; J7050; J7060; Q9967; U0003